=== PATIENT | female | born 1940 | race Caucasian/White ===

== ENCOUNTER 2018-06-28 02:24 | Outpatient (CLI) | payer MEDICARE, OTHER, SELFPAY ==
--- NOTE | 2018-06-28 10:04 | DI.MAMMO_ITS ---
SYMPTOM/DIAGNOSIS: PERSONAL H/O BREAST CA, C50.919 LEFT MAMMOGRAM: Mammograms were interpreted according to the usual protocol including computer analysis with CAD system, tomosynthesis and C view imaging. The patient is status post right mastectomy. The left breast is composed of scattered fibroglandular densities. Breast density, category B. Coarse, benign calcifications are again noted. No suspicious microcalcifications or masses are seen. There has been no change when compared with exams from 2012- 2017. IMPRESSION: Category 2B, negative mammogram with benign findings. Yearly screening mammography is recommended. SA ASSESSMENT OF FINDINGS: Negative. Category 1. Patient will receive a letter notifying them of these results. BI-RADS category B. There are scattered areas of fibroglandular density.
== END 2018-06-28 02:44 ==
PROVIDERS: PCP Family Medicine; Visit Provider Family Medicine
DX: C50.919 Malignant neoplasm of unspecified site of unspecified female breast (principal); Z90.11 Acquired absence of right breast and nipple
CPT/HCPCS: 77063; 77067

== ENCOUNTER 2018-08-07 01:26 | Outpatient (CLI) | payer MEDICARE, OTHER, SELFPAY ==
[2018-08-07] MEDS: Barium Sulfate 60% W/V 355 ML BTL PO (10:05)
--- NOTE | 2018-08-07 10:06 | DI.RAD_ITS ---
SYMPTOMS/DIAGNOSIS: CONSTIPATION DUE TO OUTLET DYSFUNCTION, K59.02 PA AND LATERAL CHEST: Pulmonary hyperinflation is demonstrated. Apical pleural scarring is noted bilaterally. There is no evidence of a mass. There is no evidence of a pleural effusion. A small retrocardiac hiatus hernia is demonstrated. A soft tissue lateral of the neck is unremarkable. BARIUM SWALLOW: The patient swallowed barium without difficulty. The sadaf and hypopharynx are intact. There is no evidence of aspiration, a diverticulum or stricture. There is a 5 cm. irregular stricture involving the distal esophagus just above a small hiatus hernia which may represent scarring secondary to reflux esophagitis. However further evaluation with esophagoscopy is suggested to evaluate the possibility of a malignancy.
== END 2018-08-07 01:46 ==
PROVIDERS: PCP Family Medicine
DX: K59.02 Outlet dysfunction constipation (principal); J98.4 Other disorders of lung; K44.9 Diaphragmatic hernia without obstruction or gangrene; K21.0 Gastro-esophageal reflux disease with esophagitis
CPT/HCPCS: 74220

== ENCOUNTER 2018-09-14 11:24 | Outpatient (CLI) | payer MEDICARE, OTHER, SELFPAY ==
[2018-09-14 13:22] LABS: ALT 28 U/L (12-78); AST 24 U/L (15-37); Albumin 3.8 g/dL (3.4-5.0); Alkaline Phosphatase 115 U/L (46-116); Anion Gap 10.1 mmol/L (3-11); BUN 19 mg/dL (7-18); Bilirubin, Total 0.4 mg/dL (0.2-1.0); CO2 28.9 mmol/L (21.0-32.0); CREATININE 0.74 mg/dL (0.55-1.02); Calcium 9.4 mg/dL (8.5-10.1); Chloride 102 mmol/L (98-107); Cholesterol 303 mg/dL (50-200); Glucose 83 mg/dL (70-100); HDL Cholesterol 103 mg/dL (40-60); LDL CHOLESTEROL 157 mg/dL (<100); Potassium 4.2 mmol/L (3.5-5.1); Sodium 141 mmol/L (136-145); TSH 3.03 uIU/mL (0.358-3.74); Total Protein 7.3 g/dL (6.4-8.2); Triglyceride 194 mg/dL (30-150)
== END 2018-09-14 11:44 ==
PROVIDERS: PCP Family Medicine; Visit Provider Family Medicine
DX: E03.9 Hypothyroidism, unspecified (principal); I10 Essential (primary) hypertension
CPT/HCPCS: 36415; 80053; 80061; 83721; 84443

== ENCOUNTER 2019-02-20 15:05 | Emergency (ER) | payer MEDICARE, OTHER, SELFPAY ==
[2019-02-20 15:10] VITALS: BP 166/82; PULSE 108; RESP 14; TEMP 37.1; O2SAT 100
--- NOTE | 2019-02-20 15:20 | W.ED.GENAD ---
Discharge Plan Disposition Patient Disposition: HOME Condition: Stable Discharge Details Chief Complaint: Nk/Back Pain Clinical Impression: Low back strain Primary Care Provider: Vicky Lopez ED Provider: Rodri Bran Home Meds and New Rx's Prescriptions: No Action MaxiVision 1 cap PO BID RF: 0 lisinopril 10 mg tablet 10 mg PO DAILY Qty: 30 RF: 4 ranitidine HCl [Acid Control (ranitidine)] 150 mg tablet 150 mg PO DAILY Qty: 30 RF: 6 levothyroxine 25 MCG tablet 25 mcg PO DAILY Qty: 90 RF: 3 acetaminophen [Tylenol] 325 MG tablet 650 mg PO q4hrs prn RF: 0 Linzess 72 mcg capsule 72 mcg PO QWEEK RF: 0 Discharge Instructions Instructions: Low Back Strain (ED) Additional Instructions: you can take 1000mg tylenol every 6 hours for pain as needed and 600mg ibuprofen every 6 hours as well if you have new pain such as abdominal pain, fevers, or persistent vomit return to the emergency department Medical Decision Making 79 yo female states 3 weeks or so ago she fell out of her bed and landed on her back, denies loc or hitting her head at that time .She has had lower back pain since and today was dusting, bent down and had increased low back pain. Denies loc or hitting head today. No chest pain, sob, headaches, neck pain, abd pian. She has pain throughout the lumbar region on exam. No saddle anesthesia, full rom of the lower ecxremities with intact sensation, no findings to suggest cauda equina and no infectious symptoms so doubt sea. Had a normal aorta on u/s in 2017 sodoubt aaa. Normal vascular exam so doubt dissection and no abdominal tenderness to suggest intrabdominal pathology. Pain started after a fall and bending over, suspect strain vs fx, will obtain xray xray negative, she feels somewhat better, still reassuring exam. Will have care management meet with pt to arrange home health services pt will be set up with home health PT to increase safety, establish exercise program, improve gait Differential Diagnosis strain contusion fx Imaging Data Radiologic Study: Attestation: I personally reviewed and interpreted this imaging study as follows: Imaging: X-Ray Radiologist's impression: Exam(s) a RAD:XR lumbar spine complete SYMPTOMS/DIAGNOSIS: PAIN S/P FALL LUMBAR SPINE: AP, lateral and bilateral oblique views of the lumbar spine. Comparison is 08/08/16. There is an old compression deformity of T11, which is stable. There is stable mild compression of the superior endplate of T12. There is a stable superior compression fracture deformity of the L2 vertebral body. No new acute fractures or subluxations are seen. The bones appear osteopenic. Mild degenerative changes are seen in the lumbar spine. Vascular calcifications are seen. IMPRESSION: No acute fracture or subluxation. No acute change compared to the prior examination. HPI General Mode of arrival: wheelchair. Date/Time Provider Initiated Documentation: 02/20/19 15:08. Limitations to Documentation: no limitations. Information obtained by: patient and family. History of Present Illness 79 year old F presents to the emergency department with the chief complaint of low back pain, described as moderate, Quality is described as aching, and is localized to the back. Patient reports no radiation. Patient started experiencing this week(s) (3) and it has been constant. No relieving factors improve symptom(s), No exacerbating factors reported . Patient notes no other symptoms.. Patient did receive the following treatments prior to arrival, other (tylenol 500mg around 2pm) Related Data Home Medications Medication Instructions Recorded Confirmed acetaminophen [Tylenol] 650 mg PO q4hrs prn 06/27/14 02/20/19 levothyroxine 25 mcg PO DAILY #90 tab-cap 18 02/20/19 MaxiVision 1 cap PO BID 02/14/19 02/20/19 lisinopril 10 mg tablet 10 mg PO DAILY #30 tab 02/14/19 02/20/19 ranitidine 150 mg tablet 150 mg PO DAILY #30 tab 02/14/19 02/20/19 linaclotide [Linzess] 72 mcg PO QWEEK 02/20/19 Previous Rx's Medication Instructions Recorded levothyroxine 25 mcg PO DAILY #90 tab-cap 04/18/18 lisinopril 10 mg tablet 10 mg PO DAILY #30 tab 02/14/19 ranitidine 150 mg tablet 150 mg PO DAILY #30 tab 02/14/19 Allergies Allergy/AdvReac Type Severity Reaction Status Date / Time Penicillins Allergy Severe hives Unverified 02/20/19 15:15 polyethylene glycol 3350 Allergy Severe rash all Unverified 02/20/19 15:15 [From Miralax] over cefazolin Allergy Unknown Unverified 02/20/19 15:15 General Stated Complaint: Nk/Back Pain HANS: 3 Review of Systems Review of Systems All systems reviewed & are unremarkable except as noted in HPI and below Constitutional Denies chills, Denies fever(s) and Denies weakness ENT Denies change in voice Cardiovascular Denies chest pain and Denies dyspnea Respiratory Denies dyspnea Gastrointestinal Denies abdominal pain, Denies nausea and Denies vomiting Integumentary/Breasts Denies rash Neurologic Denies weakness Psychiatric Denies depression [facility] Medical History Barretts esophagus Breast cancer C. difficile enteritis Colitis Colon stricture Depression Hypertension Hypothyroid Irritable bowel syndrome Malnutrition Osteoporosis Surgical History Breast, Mastectomy Bilateral Colectomy (~05/2014) Laparotomy (06/08/14) colostomy reversal Family History Mother Essential hypertension Father Personal history of malignant neoplasm Brother No problems noted. Grandfather No problems noted. Grandfather No problems noted. Grandmother No problems noted. Grandmother No problems noted. Sister No problems noted. Sister No problems noted. Social History Smoking/Tobacco Use Status: Former Tobacco Use Alcohol Intake: never Drug use: Never Do you feel safe at home: Yes Do you feel safe in your relationship?: Yes Exam Const General: no acute distress Orientation: alert HENCT Head: normal to inspection Ears: external ears normal General nose exam: external nose normal Mouth: moist mucous membranes Eyes General: appearance normal, both eyes and all related structures Neck Neck: normal visual inspection Resp Effort & Inspection: normal respiratory effort and able to speak in complete sentences Cardio Rate: regular rate Back/Spine/Pelvis Back: no CVA tenderness Skin General skin exam: no rashes or lesions noted Neuro General: alert and oriented x3 Extrem General: normal to inspection Psych Mental Status: mental status grossly normal Course Vital Signs Temperature 37.1 C 02/20/19 15:10 Pulse 108 H 02/20/19 15:10 Respiratory Rate 14 02/20/19 15:10 Blood Pressure 166/82 H 02/20/19 15:10 Pulse Oximetry 100 02/20/19 15:10 Temperature 37.1 C 02/20/19 15:10 Temperature Source Temporal Artery Scan 02/20/19 15:10 Pulse 108 H 02/20/19 15:10 Respiratory Rate 14 02/20/19 15:10 Respiratory Effort Non-Labored 02/20/19 15:14 Blood Pressure 166/82 H 02/20/19 15:10 Blood Pressure Position Sitting 02/20/19 15:10 Pulse Oximetry 100 02/20/19 15:10 Oxygen Delivery Method Room Air 02/20/19 15:10 Oxygen Flow Rate 0 02/20/19 15:10 Pain Level 10 02/20/19 15:10
--- NOTE | 2019-02-20 15:23 | ED.GENADUL_ITS ---
Discharge Plan Disposition Patient Disposition: HOME Condition: Stable Discharge Details Chief Complaint: Nk/Back Pain Clinical Impression: Low back strain Primary Care Provider: Vicky Lopez ED Provider: Rodri Bran Home Meds and New Rx's Prescriptions: No Action MaxiVision 1 cap PO BID RF: 0 lisinopril 10 mg tablet 10 mg PO DAILY Qty: 30 RF: 4 ranitidine HCl [Acid Control (ranitidine)] 150 mg tablet 150 mg PO DAILY Qty: 30 RF: 6 levothyroxine 25 MCG tablet 25 mcg PO DAILY Qty: 90 RF: 3 acetaminophen [Tylenol] 325 MG tablet 650 mg PO q4hrs prn RF: 0 Linzess 72 mcg capsule 72 mcg PO QWEEK RF: 0 Discharge Instructions Instructions: Low Back Strain (ED) Additional Instructions: you can take 1000mg tylenol every 6 hours for pain as needed and 600mg ibuprofen every 6 hours as well if you have new pain such as abdominal pain, fevers, or persistent vomit return to the emergency department Medical Decision Making 79 yo female states 3 weeks or so ago she fell out of her bed and landed on her back, denies loc or hitting her head at that time .She has had lower back pain since and today was dusting, bent down and had increased low back pain. Denies loc or hitting head today. No chest pain, sob, headaches, neck pain, abd pian. She has pain throughout the lumbar region on exam. No saddle anesthesia, full rom of the lower ecxremities with intact sensation, no findings to suggest cauda equina and no infectious symptoms so doubt sea. Had a normal aorta on u/s in 2017 sodoubt aaa. Normal vascular exam so doubt dissection and no abdominal tenderness to suggest intrabdominal pathology. Pain started after a fall and bending over, suspect strain vs fx, will obtain xray xray negative, she feels somewhat better, still reassuring exam. Will have care management meet with pt to arrange home health services pt will be set up with home health PT to increase safety, establish exercise program, improve gait Differential Diagnosis strain contusion fx Imaging Data Radiologic Study: Attestation: I personally reviewed and interpreted this imaging study as follows: Imaging: X-Ray Radiologist's impression: Exam(s) a RAD:XR lumbar spine complete SYMPTOMS/DIAGNOSIS: PAIN S/P FALL LUMBAR SPINE: AP, lateral and bilateral oblique views of the lumbar spine. Comparison is 08/08/16. There is an old compression deformity of T11, which is stable. There is stable mild compression of the superior endplate of T12. There is a stable superior compression fracture deformity of the L2 vertebral body. No new acute fractures or subluxations are seen. The bones appear osteopenic. Mild degenerative changes are seen in the lumbar spine. Vascular calcifications are seen. IMPRESSION: No acute fracture or subluxation. No acute change compared to the prior examination. HPI General Mode of arrival: wheelchair . Date/Time Provider Initiated Documentation: 02/20/19 15:08 . Limitations to Documentation: no limitations . Information obtained by: patient and family . History of Present Illness 79 year old F presents to the emergency department with the chief complaint of low back pain, described as moderate, Quality is described as aching, and is localized to the back. Patient reports no radiation. Patient started experiencing this week(s) (3) and it has been constant. No relieving factors improve symptom(s), No exacerbating factors reported . Patient notes no other symptoms.. Patient did receive the following treatments prior to arrival, other (tylenol 500mg around 2pm) Related Data Home Medications Medication Instructions Recorded Confirmed acetaminophen [Tylenol] 650 mg PO q4hrs prn 06/27/14 02/20/19 levothyroxine 25 mcg PO DAILY #90 tab-cap 18 02/20/19 MaxiVision 1 cap PO BID 02/14/19 02/20/19 lisinopril 10 mg tablet 10 mg PO DAILY #30 tab 02/14/19 02/20/19 ranitidine 150 mg tablet 150 mg PO DAILY #30 tab 02/14/19 02/20/19 linaclotide [Linzess] 72 mcg PO QWEEK 02/20/19 Previous Rx's Medication Instructions Recorded levothyroxine 25 mcg PO DAILY #90 tab-cap 04/18/18 lisinopril 10 mg tablet 10 mg PO DAILY #30 tab 02/14/19 ranitidine 150 mg tablet 150 mg PO DAILY #30 tab 02/14/19 Allergies Allergy/AdvReac Type Severity Reaction Status Date / Time Penicillins Allergy Severe hives Unverified 02/20/19 15:15 polyethylene glycol 3350 Allergy Severe rash all Unverified 02/20/19 15:15 [From Miralax] over cefazolin Allergy Unknown Unverified 02/20/19 15:15 General Stated Complaint: Nk/Back Pain HANS: 3 Review of Systems Review of Systems All systems reviewed & are unremarkable except as noted in HPI and below Constitutional Denies chills, Denies fever(s) and Denies weakness ENT Denies change in voice Cardiovascular Denies chest pain and Denies dyspnea Respiratory Denies dyspnea Gastrointestinal Denies abdominal pain, Denies nausea and Denies vomiting Integumentary/Breasts Denies rash Neurologic Denies weakness Psychiatric Denies depression [facility] Medical History Barretts esophagus Breast cancer C. difficile enteritis Colitis Colon stricture Depression Hypertension Hypothyroid Irritable bowel syndrome Malnutrition Osteoporosis Surgical History Breast, Mastectomy Bilateral Colectomy (~05/2014) Laparotomy (06/08/14) colostomy reversal Family History Mother Essential hypertension Father Personal history of malignant neoplasm Brother No problems noted. Grandfather No problems noted. Grandfather No problems noted. Grandmother No problems noted. Grandmother No problems noted. Sister No problems noted. Sister No problems noted. Social History Smoking/Tobacco Use Status: Former Tobacco Use Alcohol Intake: never Drug use: Never Do you feel safe at home: Yes Do you feel safe in your relationship?: Yes Exam Const General: no acute distress Orientation: alert HENNV Head: normal to inspection Ears: external ears normal General nose exam: external nose normal Mouth: moist mucous membranes Eyes General: appearance normal, both eyes and all related structures Neck Neck: normal visual inspection Resp Effort & Inspection: normal respiratory effort and able to speak in complete sentences Cardio Rate: regular rate Back/Spine/Pelvis Back: no CVA tenderness Skin General skin exam: no rashes or lesions noted Neuro General: alert and oriented x3 Extrem General: normal to inspection Psych Mental Status: mental status grossly normal Course Vital Signs Temperature 37.1 C 02/20/19 15:10 Pulse 108 H 02/20/19 15:10 Respiratory Rate 14 02/20/19 15:10 Blood Pressure 166/82 H 02/20/19 15:10 Pulse Oximetry 100 02/20/19 15:10 Temperature 37.1 C 02/20/19 15:10 Temperature Source Temporal Artery Scan 02/20/19 15:10 Pulse 108 H 02/20/19 15:10 Respiratory Rate 14 02/20/19 15:10 Respiratory Effort Non-Labored 02/20/19 15:14 Blood Pressure 166/82 H 02/20/19 15:10 Blood Pressure Position Sitting 02/20/19 15:10 Pulse Oximetry 100 02/20/19 15:10 Oxygen Delivery Method Room Air 02/20/19 15:10 Oxygen Flow Rate 0 02/20/19 15:10 Pain Level 10 02/20/19 15:10
[2019-02-20] MEDS: Ibuprofen 600 MG TAB PO (15:24)
[2019-02-20] MEDS: Acetaminophen 500 MG TAB PO (15:24)
[2019-02-20 15:50] VITALS: BP 149/83; PULSE 94; RESP 16; TEMP 37.4; O2SAT 97
--- NOTE | 2019-02-20 15:50 | DI.RAD_ITS ---
SYMPTOMS/DIAGNOSIS: PAIN S/P FALL LUMBAR SPINE: AP, lateral and bilateral oblique views of the lumbar spine. Comparison is 08/08/16. There is an old compression deformity of T11, which is stable. There is stable mild compression of the superior endplate of T12. There is a stable superior compression fracture deformity of the L2 vertebral body. No new acute fractures or subluxations are seen. The bones appear osteopenic. Mild degenerative changes are seen in the lumbar spine. Vascular calcifications are seen. IMPRESSION: No acute fracture or subluxation. No acute change compared to the prior examination.
--- NOTE | 2019-02-20 17:12 | PDOC.ERCMPRO ---
- If Service Date Differs Date of service: 02/20/19 Time of Service: 17:12 Care Management Progress Note CM met with Amelia in the ED, her two sisters are also present. Amelia states she has had two falls in the last few weeks. She states a few weeks ago she awoke on the floor next to her bed. She does not remember how she ended up there. Then today she presents to the ED after she was unable to get up from the floor due to back pain. She has recently been started on Linzess which she feels has caused increase in loose stools and urgency. She is unsure if this is contributing to her low back pain. She did see her primary care provider this week. Amelia lives with her sister in [place], [place]. She has a walker at home and her sister has a commode that she can use. Amelia does not drive and only leaves the home when her sister takes her out. Amelia is agreeable to home health PT for weakness and strengthening. She will follow up with as outpatient. CM faxed referral to home health for new services and reviewed benefits with the patient. CM requested a PT consult in the ED however service is not available. MARIAN reviewed plan with primary nurse who will assess Amelia for mobility prior to discharge.
[2019-02-20 17:22] VITALS: BP 154/78; PULSE 97; RESP 18; TEMP 37.1; O2SAT 96
== END 2019-02-20 17:26 | disposition home or self-care (01) ==
PROVIDERS: Emergency Provider Emergency Medicine; PCP Family Medicine
DX: S39.012A Strain of muscle, fascia and tendon of lower back, initial encounter (principal); W06.XXXA Fall from bed, initial encounter; I10 Essential (primary) hypertension
CPT/HCPCS: 99283; 72110; 99282

== ENCOUNTER 2019-06-13 10:21 | Outpatient (CLI) | payer MEDICARE, OTHER, SELFPAY ==
[2019-06-13 12:45] LABS: Bilirubin Negative (Negative); Blood Trace-intact (Negative); Clarity Turbid (Clear); Glucose Negative (Negative); Ketones Negative (Negative); Leukocyte Esterase Moderate (Negative); Nitrite Positive (Negative); Urobilinogen 0.2 EU/dL (Up TO 0.2)
[2019-06-13 13:11] LABS: Bacteria Many HPF (Negative); C & S Indicated? Yes; Casts Negative LPF (Negative); Crystals Negative HPF (Negative); Epithelial Cells Rare HPF (Negative); Mucus Negative (Negative); RBC 0-2 (0-2); WBC >50 HPF (0-5)
[2019-06-13 13:14] LABS: ALT 26 U/L (12-78); AST 18 U/L (15-37); Albumin 3.7 g/dL (3.4-5.0); Alkaline Phosphatase 106 U/L (46-116); Anion Gap 10.7 mmol/L (3-11); BUN 13 mg/dL (7-18); Bilirubin, Total 0.3 mg/dL (0.2-1.0); CO2 28.3 mmol/L (21.0-32.0); CREATININE 0.72 mg/dL (0.55-1.02); Calcium 9.3 mg/dL (8.5-10.1); Chloride 105 mmol/L (98-107); Glucose 95 mg/dL (70-100); Potassium 4.1 mmol/L (3.5-5.1); Sodium 144 mmol/L (136-145); TSH 2.69 uIU/mL (0.36-3.74)
== END 2019-06-13 10:41 ==
PROVIDERS: PCP Family Medicine; Visit Provider Family Medicine
DX: I10 Essential (primary) hypertension (principal); E03.9 Hypothyroidism, unspecified; R35.0 Frequency of micturition
CPT/HCPCS: 36415; 80053; 87077; 81003; 81015; 84443; 87086; 87186

== ENCOUNTER 2019-07-29 01:04 | Outpatient (CLI) | payer MEDICARE, OTHER, SELFPAY ==
--- NOTE | 2019-07-29 13:21 | DI.MAMMO_ITS ---
EXAM: MG MAMMO SCREENING 60 MIN DUR CLINICAL HISTORY: status post (R) breast cancer tx with surgery 1994, screening, Z12.39. TECHNIQUE: Mammograms were interpreted according to the usual protocol including computer analysis with CAD system, tomosynthesis and C-view imaging. FINDINGS: Patient has had a prior right mastectomy. Left breast mammogram was obtained and shows moderate radio density of the breast. No mass or clumped microcalcification seen. No change in appearance in compari son with previous examinations including June 2018. IMPRESSION: No specific evidence of malignancy at this time. Routine screening examinations are suggested at year ly intervals due to the history of breast carcinoma. Category 1. Breast density, category B. BI-RADS Cat 1 - Negative. Breast Density - Category B - Scattered areas of fibroglandular density.
== END 2019-07-29 01:24 ==
PROVIDERS: PCP Family Medicine; Visit Provider Family Medicine
DX: Z12.31 Encounter for screening mammogram for malignant neoplasm of breast (principal); Z85.3 Personal history of malignant neoplasm of breast; Z90.11 Acquired absence of right breast and nipple
CPT/HCPCS: 77063; 77067

== ENCOUNTER 2019-10-10 14:32 | Inpatient (IN) | payer MEDICARE, OTHER, SELFPAY ==
[2019-10-10] VITALS (47 sets, daily range): BP systolic 101–168; BP diastolic 46–120; PULSE 73–110; RESP 18–20; TEMP 36.5; O2SAT 89–100
--- NOTE | 2019-10-10 15:10 | W.ED.GENAD ---
Discharge Plan Disposition Patient Disposition: [facility] INPATIENT Condition: Stable Discharge Details Chief Complaint: Orthopedic Clinical Impression: Closed hip fracture Primary Care Provider: Vicky Lopez ED Provider: Geoff Mendoza Home Meds and New Rx's Prescriptions: No Action loperamide [Anti-Diarrheal (loperamide)] 2 mg capsule 2 mg PO Q4H PRNRF: 0 losartan 50 mg tablet 50 mg PO DAILY Qty: 90 RF: 4 MaxiVision 1 cap PO BID RF: 0 dicyclomine 10 mg capsule 10 mg PO TID PRN (Reason: IBS) Qty: 30 RF: 2 levothyroxine 25 mcg tablet 25 mcg PO DAILY Qty: 90 RF: 3 acetaminophen [Tylenol] 325 MG tablet 650 mg PO q4hrs prn RF: 0 Linzess 72 mcg capsule 72 mcg PO QWEEK RF: 0 Medical Decision Making 79-year-old female status post fall with right trochanteric fracture mildly displaced discussed with Dr. Mathis for surgery and admission. Will check labs chest x-ray and EKG and admit to internal medicine. 5:21 PM left low pending chest x-ray remarkable for hiatal hernia versus mass with some lymph nodes noted on V rad read will obtain routine CT chest for further characterization . EKG regular sinus rhythm rate of 84 normal axis normal intervals no ST depression or elevation no ectopy. 6:28 PM anesthesia care for a fascia iliac a block for hip pain control CT chest for further characterization x-ray abnormalities pending labs remarkable only for a mild leukocytosis above mild anemia 10 to admit the patient to internal medicine plan for orthopedic surgery tomorrow Dr. Leone accepts the patient for admission. HPI 79-year-old female past medical history of breast cancer depression hypertension hypothyroidism irritable bowel syndrome ambulatory dysfunction uses a walker at home reports that she lost her balance and fell in the kitchen approximately an hour before arrival and is complaining of left hip and femur pain. Patient unsure of head trauma but denies loss of consciousness shortness of breath chest pain nausea vomiting diarrhea fever or chills. Patient denies recent illness or recent trauma. Pain is acute sharp to left hip and femur radiating down to her knee. Is worse with movement better with rest patient given 4 mg of Zofran and 2 doses of 50 mcg of fentanyl prehospital. General Date/Time Provider Initiated Documentation: 10/10/19 14:38. Related Data Home Medications Medication Instructions Recorded Confirmed acetaminophen [Tylenol] 650 mg PO q4hrs prn 06/27/14 10/10/19 MaxiVision 1 cap PO BID 02/14/19 10/10/19 linaclotide [Linzess] 72 mcg PO QWEEK 02/20/19 10/10/19 loperamide 2 mg capsule 2 mg PO Q4H PRN 06/13/19 10/10/19 losartan 50 mg tablet 50 mg PO DAILY #90 tab 06/17/19 10/10/19 levothyroxine 25 mcg tablet 25 mcg PO DAILY #90 tab-cap 07/12/19 10/10/19 dicyclomine 10 mg capsule 10 mg PO TID PRN #30 cap 08/26/19 10/10/19 Previous Rx's Medication Instructions Recorded losartan 50 mg tablet 50 mg PO DAILY #90 tab 06/17/19 levothyroxine 25 mcg tablet 25 mcg PO DAILY #90 tab-cap 07/12/19 dicyclomine 10 mg capsule 10 mg PO TID PRN #30 cap 08/26/19 Allergies Allergy/AdvReac Type Severity Reaction Status Date / Time Penicillins Allergy Severe hives Unverified 10/10/19 14:45 polyethylene glycol 3350 Allergy Severe rash all Unverified 10/10/19 14:45 [From Miralax] over cefazolin Allergy Unknown Unverified 10/10/19 14:45 General Stated Complaint: Orthopedic HANS: 3 Review of Systems All systems reviewed & are unremarkable except as noted in HPI and below PFSH Family History (Updated 06/20/19 @ 11:14 by Lencho Ramírez) Mother , 84 Essential hypertension COPD (chronic obstructive pulmonary disease) Father , 51 Stomach cancer Brother No problems noted. Maternal Grandfather No problems noted. Paternal Grandfather No problems noted. Maternal Grandmother No problems noted. Paternal Grandmother No problems noted. Sister No problems noted. Sister No problems noted. Social History (Updated 06/20/19 @ 11:12 by Lencho Ramírez) Smoking/Tobacco Use Status: Former Tobacco Use Tobacco: How many years used: 20 Alcohol Intake: never Drug use: Never Pets and animals: No Current gender identity: decline to answer What is your relationship status?: never How often do you talk on the phone with friends or family?: decline to answer How often do you get together with friends or relatives?: decline to answer How often do you attend yazidism or jehovah's witness services?: decline to answer Do you belong to any clubs or organized social groups?: decline to answer Panel score (0-1 are the most socially isolated patients): 0 What type of physical activity do you participate in: decline to answer Duration: decline to answer Frequency: decline to answer Leslie/Anabaptist: No preference Special leslie needs: No Seatbelt use: always Do you feel safe at home: Yes Exam Narrative Exam Narrative: Pulse oximetry reviewed by me and is normal [] Constitutional: Pt is in no acute distress. pt is well appearing. oriented to person, place, and time. Eyes: conjunctivae are normal. Pupils are equal, round, and reactive to light. No scleral icterus. extraocular muscles are intact Ears/Nose/Mouth/Throat: mucus membranes are moist. Musculoskeletal: neck is supple. normal range of motion in all extremities except left hip with intense pain and shortening with over left trochanter. No skin tenting no skin breakdown no erythema no warmth. Normal distal vascular exam. Cardiovascular: Normal rate and rhythm. No lower extremity edema [] Respiratory: effort is normal . pt exhibits no stridor or respiratory distress. [] GastrointestinaI: abdomen soft, +BS, nontender, -rebound, -guarding. Neurological: alert and oriented to person, place, and time. he has normal strength, no tremor. Skin: Skin is warm and dry. he is not diaphoretic. Distal perfusion in tact, warm extremities, cap refill ? 2 seconds. Hem/Lymph/Imm: No cervical LAD, no goiter, no conjunctival pallor Psych: normal mood and affect. behavior is normal Triage and nurse notes reviewed.[] Course Vital Signs Vital signs: Vital Signs Temperature 36.5 C 10/10/19 14:40 Pulse 73 10/10/19 14:40 Respiratory Rate 18 10/10/19 14:40 Blood Pressure 117/46 L 10/10/19 14:40 Pulse Oximetry 92 L 10/10/19 14:40 Temperature 36.5 C 10/10/19 14:40 Temperature Source Skin 10/10/19 14:40 Pulse 73 10/10/19 14:40 Respiratory Rate 18 10/10/19 14:40 Respiratory Effort Non-Labored 10/10/19 14:44 Blood Pressure 117/46 L 10/10/19 14:40 Blood Pressure Position Supine 10/10/19 14:40 Pulse Oximetry 92 L 10/10/19 14:40 Oxygen Delivery Method Room Air 10/10/19 14:40 Oxygen Flow Rate 0 10/10/19 14:40 Pain Level 5 10/10/19 14:40
--- NOTE | 2019-10-10 15:33 | DI.CT_ITS ---
EXAM: CT HEAD CERVICAL SPINE WO CLINICAL HISTORY: fall TECHNIQUE: COMPARISON: HEAD WITHOUT CONTRAST from 04/15/2018 FINDINGS: CT examination cervical spine lies in multi slice acquisition. Images obtained through the lung apic es show some pleural thickening. No cervical spine fracture seen. Marked degenerative changes not ed. No evidence of dislocation. Tracheolaryngeal structures appear intact. No cervical mass or jo nopathy. Noncontrast cranial CT was performed.there is marked generalized cerebral atrophy and there are patch y areas of decreased attenuation in periventricular white matter consistent with microvascular ischem ic change. No evidence of acute intracranial hemorrhage mass effect or midline shift. The paranasal s inuses and mastoid air cells are clear. The orbital and temporal bone structures appear intact. IMPRESSION: No evidence of acute intracranial injury. No evidence of acute cervical spine fracture.
--- NOTE | 2019-10-10 15:49 | DI.RAD_ITS ---
EXAM: XR PELVIS AP CLINICAL HISTORY: fall TECHNIQUE: COMPARISON: No exams were available for comparison FINDINGS: Single AP view of the pelvis was obtained. There is mildly comminuted intertrochanteric fracture of the left femur with avulsion of the lesser trochanter and marked varus angulation. No additional fra cture seen on this AP view. IMPRESSION:
--- NOTE | 2019-10-10 15:51 | DI.RAD_ITS ---
EXAM: XR FEMUR LT CLINICAL HISTORY: fall TECHNIQUE: COMPARISON: No exams were available for comparison FINDINGS: Four views were obtained. There is a comminuted intertrochanteric fracture of femur with avulsion of the lesser trochanter. There is marked varus angulation the fracture site. No additional femoral f racture seen. IMPRESSION:
--- NOTE | 2019-10-10 15:58 | DI.RAD_ITS ---
EXAM: XR CHEST 1V IN DI DEPT CLINICAL HISTORY: pre op COMPARISON: RF barium swallow from 08/07/2018 FINDINGS: Supine AP view was obtained. There is mild cardiomegaly. Question radiodensity overlying inferior m ediastinum, possible hiatal hernia but mediastinal mass not excluded. Additional evaluation with [facility] st CT recommended. Additionally there are multiple questionable faint intrapulmonary nodules project ed over the upper lung sutton bilaterally, chest CT is also indicated for evaluation of this finding . IMPRESSION: Question intrapulmonary nodules, question mediastinal mass versus heart hiatal hernia. Chest CT uzair mmended.
--- NOTE | 2019-10-10 16:11 | DI.VRAD_ITS ---
PROCEDURE INFORMATION: Exam: XR Left Femur Exam date and time: 10/10/2019 4:04 PM Age: 79 years old Clinical indication: Other: Fall TECHNIQUE: Imaging protocol: XR Left femur. Views: 2 views. COMPARISON: No relevant prior studies available. FINDINGS: Bones/joints: Acute trochanteric fracture with mild angulation. Avulsion of the lesser trochanter. Soft tissues: Unremarkable. IMPRESSION: Acute trochanteric fracture with mild angulation. Avulsion of the lesser trochanter. Dictated and Authenticated by: Vanessa Beasley MD. Ordering:JOSELIN Tellez MD
--- NOTE | 2019-10-10 16:12 | DI.VRAD_ITS ---
PROCEDURE INFORMATION: Exam: XR Chest, 1 View Exam date and time: 10/10/2019 4:03 PM Age: 79 years old Clinical indication: Other: Fall TECHNIQUE: Imaging protocol: XR of the chest Views: 1 view. COMPARISON: SC CHEST 2 VIEWS PA,LAT 04/15/2018 3:09 PM FINDINGS: Lungs: Multiple bilateral vague nodules in the upper lung sutton measuring up to 7 mm. The supervision evaluate further with CT. Pleural space: Unremarkable. No pleural effusion. No pneumothorax. Heart/Mediastinum: Large masslike structure overlying the heart and left base of unclear etiology. This could represent an enlarged cardiac chamber, large hiatal hernia or mass. Consider CT for further evaluation. Bones/joints: Unremarkable. IMPRESSION: Large masslike structure overlying the heart and left base of unclear etiology. This could represent an enlarged cardiac chamber, large hiatal hernia or mass. Consider CT for further evaluation. Multiple bilateral vague nodules in the upper lung sutton measuring up to 7 mm. The supervision evaluate further with CT. Dictated and Authenticated by: Vanessa Beasley MD. Ordering:JOSELIN Tellez MD
--- NOTE | 2019-10-10 16:13 | DI.VRAD_ITS ---
PROCEDURE INFORMATION: Exam: XR Pelvis Exam date and time: 10/10/2019 4:02 PM Age: 79 years old Clinical indication: Other: Fall TECHNIQUE: Imaging protocol: XR pelvis. Views: 1 or 2 view. COMPARISON: No relevant prior studies available. FINDINGS: Bones/joints: Acute left intertrochanteric fracture with avulsion of the lesser trochanter. There is associated angulation. Soft tissues: Unremarkable. IMPRESSION: Acute left intertrochanteric fracture with avulsion of the lesser trochanter. There is associated angulation. Dictated and Authenticated by: Vanessa Beasley MD. Ordering:JOSELIN Tellez MD
[2019-10-10 17:27] LABS: Abs Immature Grans 0.02 k/cumm (0.0-0.09); Absolute Basophil Count 0.01 k/cumm (0.0-0.2); Absolute Eosinophil Count 0.01 k/cumm (0.0-0.7); Absolute Lymphocyte Count 0.92 k/cumm (1.2-3.4); Absolute Monocyte Count 0.41 k/cumm (0.11-0.7); Absolute Neutrophil Count 10.93 k/cumm (1.2-6.7); Basophils % 0.1; Eosinophils % 0.1; HCT 35.6 % (36.0-46.0); HGB 11.4 g/dL (12.0-15.5); Immature Grans % 0.2; Lymphocytes % 7.5; Mean Corpuscular Hemoglobin 28.5 pg (27.0-33.0); Mean Platelet Volume 10.4 fL (8.0-11.0); Monocytes % 3.3; Neutrophils % 88.8; Platelet Count 247 x1000/uL (130-400); RBC Distribution Width 14.7 % (11.7-14.6); White Blood Cell Count 12.31 k/cumm (4.4-10.8)
[2019-10-10 17:40] LABS: ALT 20 U/L (14-59); AST 20 U/L (15-37); Albumin 3.3 g/dL (3.4-5.0); Alkaline Phosphatase 112 U/L (46-116); Anion Gap 9.3 mmol/L (3-11); BUN 20 mg/dL (7-18); Bilirubin, Total 0.3 mg/dL (0.2-1.0); CO2 28.7 mmol/L (21.0-32.0); CREATININE 0.66 mg/dL (0.55-1.02); Calcium 8.9 mg/dL (8.5-10.1); Chloride 104 mmol/L (98-107); Glucose 117 mg/dL (74-106); Magnesium 1.8 mg/dL (1.8-2.4); Potassium 3.8 mmol/L (3.5-5.1); Sodium 142 mmol/L (136-145); Total Protein 7.2 g/dL (6.4-8.2)
[2019-10-10] MEDS: ACETAMINOPHEN 1,000 MG/100 ML BTL 400 MG IVPB ×2 (17:55→23:58)
[2019-10-10] MEDS: Bupivacaine LIPOSOME/PF 133 MG/10 ML VIAL IJ (18:15)
[2019-10-10 18:16] LABS: Bilirubin Negative (Negative); Blood Trace-intact (Negative); Clarity Clear (Clear); Glucose Negative (Negative); Ketones Trace mg/dL (Negative); Leukocyte Esterase Negative (Negative); Nitrite Negative (Negative); Urobilinogen 0.2 EU/dL (Up TO 0.2)
[2019-10-10] MEDS: Lactated Ringers 1,000 ML 1000 ML IV (18:24)
[2019-10-10 18:28] LABS: Bacteria Few HPF (Negative); C & S Indicated? No; Casts Negative LPF (Negative); Crystals Negative HPF (Negative); Epithelial Cells Few HPF (Negative); Mucus Moderate (Negative); WBC 0-2 HPF (0-5)
[2019-10-10] MEDS: Bupivacaine 0.25% Pres-Free 30 ML VIAL (18:40)
[2019-10-10] MEDS: Omnipaque 350 MG/ML 100 ML BTL IJ (19:06)
--- NOTE | 2019-10-10 19:10 | DI.CT_ITS ---
EXAM: CT CHEST PE CTA CLINICAL HISTORY: Abnormal chest x-ray TECHNIQUE: CT angiography of the chest was performed with a bolus infusion of 100 cc Omnipaque 350. Ax[address] angiography was performed with multi-slice acquisition and multi-planar and/or 3D reconstruc tions. COMPARISON: ABD PELVIS WITH CONTRAST from 11/19/2015 FINDINGS: Note is made of vertebral body anterior compression fractures at T3 and T11 which are of uncertain age. Images obtained through the upper abdomen show presumed hepatic and renal cysts and otherwise u nremarkable appearance of kidneys, spleen, liver and pancreas as visualized. No evidence of pulmonary embolic disease. No significant abnormality of thoracic aorta or major bran ches. There is an 8 millimeter in diameter left upper lobe noncalcified pulmonary nodule. Areas of associated pleural thickening are noted as well and this finding could be associated with acute conso lidative process. Neoplastic disease not excluded. Follow-up chest CT requested in 2-3 weeks to re- evaluate this area and if the findings do not resolve, close follow-up or PET-CT should be considered to exclude neoplastic disease. Otherwise lungs are grossly clear with mild dependent atelectasis. No mediastinal or hilar adenopath y. No significant pleural effusion. Large paraesophageal hiatal hernia noted. IMPRESSION: No evidence of pulmonary embolic disease. 8 millimeter left upper lobe intrapulmonary nodule with associated pleural radiodensities, infectious versus neoplastic process. Follow-up chest CT recommended in 2-3 weeks and if the findings do not r esolve, additional evaluation with a PET CT or close CT follow-up would be recommended.
--- NOTE | 2019-10-10 19:24 | DI.VRAD_ITS ---
PROCEDURE INFORMATION: Exam: CT Angiography Chest With Contrast Exam date and time: 10/10/2019 4:39 PM Age: 79 years old Clinical indication: Abnormal findings; Abnormal radiologic exam of lung or chest TECHNIQUE: Imaging protocol: Computed tomographic angiography of the chest with intravenous contrast. 3D rendering: MIP and/or 3D reconstructed images were created by the technologist. Radiation optimization: All CT scans at this facility use at least one of these dose optimization techniques: automated exposure control; mA and/or kV adjustment per patient size (includes targeted exams where dose is matched to clinical indication); or iterative reconstruction. Contrast material: [id number]; Contrast volume: 61 ml; Contrast route: IV RTAC 18G; COMPARISON: XR CHEST 1V IN DI DEPT 10/10/2019 3:58 PM FINDINGS: Pulmonary arteries: Pulmonary arteries opacify well without evidence of embolism. Aorta: Unremarkable. No aortic aneurysm. No aortic dissection. Lungs: Left upper lobe lung nodule noncalcified measuring 7 mm. This is located posterolaterally adjacent to the superior aspect of the oblique fissure. Significance is uncertain. Correlation with clinical history of neoplasm is recommended. Follow-up surveillance may be warranted. Additionally, patient is noted to have some apical lung scarring and mild to moderate Pleural space: See Lungs Finding. Heart: Unremarkable. No cardiomegaly. No pericardial effusion. Mediastinum: Moderate size paraesophageal hernia. Liver: Multiple right hepatic low-attenuation foci most consistent with cysts. Largest is 3.6 cm. Pancreas: Pancreatic atrophy is noted. No focal pancreatic lesions. Kidneys and ureters: Left renal upper pole 3.3 cm low-attenuation process suggesting a cyst. Lymph nodes: Unremarkable. No enlarged lymph nodes. Bones/joints: Thoracic spine showing chronic appearing T11 and T3 anterior wedge compression fractures. Emphysematous change. Soft tissues: Coarse calcifications in the right lateral breast have benign appearance by CT.. IMPRESSION: 1. No evidence of pulmonary embolism. 2. Moderately sized paraesophageal hernia. 3. Emphysematous lung changes. 4. Left upper lobe 7 mm noncalcified nodule. Follow-up surveillance CT may be warranted. 5. Hepatic and renal cysts. Dictated and Authenticated by: Bautista Conde MD. Ordering:JOSELIN Tellez MD
[2019-10-10] MEDS: MORPHine 2 MG/ML SYR (20:36)
--- NOTE | 2019-10-10 21:45 | HPE_ITS ---
Date of service: 10/10/19 Time of Service: 21:45 Assessment and Plan Assessment and plan (1) Intertrochanteric fracture of left femur: Status: Acute Assessment and plan: Patient is medically stable and acceptable risk for operative repair of her intertrochanteric fracture. I have discussed her case with Dr. Mathis he plans to perform open reduction internal fixation tomorrow. Qualifiers: Encounter type: initial encounter Fracture type: closed Fracture align ment: displaced Qualified Code(s): S72.142A - Displaced intertrochanteric fracture of left femur, initial encounter for closed fracture (2) Hypothyroidism: Status: Acute Assessment and plan: Continue her home dose of levothyroxine 25 mcg daily. Her last TSH was checked June 13, 2019 and was acceptable at 2.69 Qualifiers: Hypothyroidism type: unspecified Qualified Code(s): E03.9 - Hypothyroidism, unspecified (3) Barretts esophagus: Status: Chronic Qualifiers: Minaya's esophagus type: without dysplasia Qualified Code(s): K22.70 - Minaya's esophagus without dysplasia (4) Hypertension: Status: Chronic Assessment and plan: We will continue her losartan 50 mg daily. While she is n.p.o. for her surgery if she needs acute treatment for hypertension we could give her IV Vasotec. (5) Incidental lung nodule, > 3mm and < 8mm: Status: Acute Assessment and plan: In the ER personnel's work-up of her abnormal chest x-ray a CT scan of her chest was performed and confirmed that the masslike structure overlying the heart and left lung base was actually her hiatal hernia. However an incidental finding included a left upper lobe 7 mm noncalcified nodule. I explained to the patient that she will need surveillance CT scan to make sure that this nodule is not growing in size particularly given her history of breast cancer as well as her significant [id number] smoking history. I recommended a repeat CT scan of the chest in 3 to 6 months. (6) Osteoporosis: Status: Chronic Assessment and plan: Patient has a diagnosis of osteoporosis on her chart but I do not see her on any medications to improve her bone density. Given her history of hiatal hernia she is not a candidate for any bisphosphonates. However she may be a candidate for Forteo or Prolia. At a minimum she ought to be on vitamin D and calcium supplements. History of Present Illness History of Present Illness Chief Complaint: Left hip pain Narrative: 79-year-old female with a past medical history significant for breast cancer, depression, hypertension, hypothyroidism, irritable bowel syndrome, amatory dysfunction normally walks around home with use of a walker. She reports that she lost her balance and fell in her kitchen and immediately developed left hip pain and femur pain. She denies any head trauma or loss of consciousness, chest pain or shortness of breath. Pain is sharp in the left hip and radiates down her left femur to her knee. X-rays of her left femur show an acute trochanteric fracture with mild angulation and a avulsion of the lesser trochanter. Dr. Geoff Mendoza, emergency room attending, spoke with Dr. Toro Mathis, orthopedic surgeon licensed occupational therapy assistant who is excepted the patient for operative repair of her hip fracture.. Dr. Sanchez obtain a chest x-ray and EKG and routine labs. Chest x-ray was remarkable for hiatal hernia versus a mass overlying the heart and left lung base of unclear etiology. Patient has a known hiatal hernia. Virtual radiology read the film and said this could represent an enlarged cardiac chamber versus large hiatal hernia versus a mass. Patient was also noted to have multiple bilateral vague nodules in the upper lung sutton measuring up to 7 mm in size. Follow-up CT scan of the chest was recommended. Dr. Sanchez ordered a CT angiography of the chest with contrast. There was no evidence for pulmonary embolism. Patient has a moderate sized paraesophageal hernia as well as emphysematous lung changes. She has a left upper lobe nodule 7 mm is noncalcified which will need follow-up surveillance CT scan. Incidental findings include hepatic and renal cysts. EKG was performed demonstrated normal sinus rhythm rate of 84 bpm with no ischemic ST or T wave changes. There is a normal-appearing EKG. Laboratory studies were remarkable for minimal leukocytosis of 12,310. Mild anemia with hemoglobin 11.4 g. CMP was unremarkable except for mildly elevated BUN. Urinalysis was remarkable for trace ketones trace of blood was negative for nitrites protein bilirubin leukocyte esterase but demonstrated moderate amount of mucus and few bacteria. Review of Systems Constitutional Constitutional: Reports as per HPI, Denies chills, Denies excessive sweating, Denies fever(s), Denies increased appetite, Denies night sweats, Denies poor appetite, Denies weight gain and Denies weight loss Eyes Eyes: Denies blurry vision, Denies change in vision, Denies loss of vision and Denies other visual disturbances ENT Ears, Nose, Mouth, and Throat: Reports system reviewed and no additional complaints, except as docu Cardiovascular Cardiovascular: Reports system reviewed and no additional complaints, except as docu, Denies chest pain, Denies chest pain at rest, Denies chest pain with activity, Denies syncope, Denies rapid heart rate, Denies pedal edema, Denies lightheadedness, Denies dyspnea and Denies dyspnea on exertion Respiratory Respiratory: Reports system reviewed and no additional complaints, except as docu, Denies dyspnea and Denies dyspnea on exertion Gastrointestinal Gastrointestinal: Denies abdominal pain, Reports belching, Reports heartburn, Denies nausea and Denies vomiting Genitourinary Genitourinary: Reports difficulty voiding, Denies dysuria and Denies urinary incontinence Musculoskeletal Musculoskeletal: Reports as per HPI Integumentary/Breasts Skin/Breast: Reports system reviewed and no additional complaints, except as docu Neurologic Neurologic: Reports system reviewed and no additional complaints, except as docu, Denies syncope and Denies loss of vision Psychiatric Psychiatric: Reports system reviewed and no additional complaints, except as docu Endocrine Endocrine: Reports system reviewed and no additional complaints, except as docu and Denies excessive sweating Hematologic/Lymphatic Hematologic/Lymphatic: Reports system reviewed and no additional complaints, except as docu Allergic/Immunologic Allergic/Immunologic: Reports system reviewed and no additional complaints, except as docu [facility] Medical History (Updated 10/10/19 @ 23:00 by Celestine Leone) Barretts esophagus Status post EGD with esophageal biopsy on July 05, [address] Jani Rothman. Squamous mucosa with reactive changes. Gastric type mucosa with chronic and focally active inflammation but no intestinal met aplasia or dysplasia. No helical factor pylori microorganisms identified. Breast cancer C. difficile enteritis at hospitalization may 2014 Colitis Colon stricture Depression Diverticulitis (Resolved 09/19/14) May 2014 [facility] [place] sigmoid resection and colostomy post op infection and malnutrition February 2015 colostomy takedown (post op infection) Hypertension Hypothyroid Indeterminate colitis (Resolved 02/04/16) 01/22/16 colonoscopy at [facility] [place] Irritable bowel syndrome Malignant neoplasm of female breast (Resolved 09/21/92) R MAST AND RECONSTRUCTION. 10/25 INFLAMMATION AT [facility] WAS NEG FOR [facility] Malnutrition Osteoporosis Surgical History (Updated 10/10/19 @ 22:16 by Celestine Leone) Colectomy (~05/2014) for colon stricture presumed to be from diverticulitis colostomy reversal History of mastectomy (Chronic ~1994) right mastectomy (no radiation or chemotherapy); s/p reconstruction after the mastectomy Laparotomy (06/08/14) for [place] leak. End colostomy done Family History Mother , 84 Essential hypertension COPD (chronic obstructive pulmonary disease) Father , 51 Stomach cancer Brother No problems noted. Maternal Grandfather No problems noted. Paternal Grandfather No problems noted. Maternal Grandmother No problems noted. Paternal Grandmother No problems noted. Sister No problems noted. Sister No problems noted. Social History (Updated 10/10/19 @ 22:18 by Celestine Leone) Smoking/Tobacco Use Status: Former Tobacco Use Quit Date: 10/23/94 Pack-years: 40 Tobacco: How many years used: 20 Alcohol Intake: never Drug use: Never Pets and animals: No Current gender identity: decline to answer What is your relationship status?: never How often do you talk on the phone with friends or family?: decline to answer How often do you get together with friends or relatives?: decline to answer How often do you attend mormon or sikh services?: decline to answer Do you belong to any clubs or organized social groups?: decline to answer Panel score (0-1 are the most socially isolated patients): 0 What type of physical activity do you participate in: decline to answer Duration: decline to answer Frequency: decline to answer Leslie/Restoration: No preference Special leslie needs: No Seatbelt use: always Do you feel safe at home: Yes History History 0 Para 0 Hx # Term Pregnancies 0 Multiple births Hx # Pregnancies 0 Ectopic pregnancies AB induced 0 Hx Number of Living Children 0 AB spontaneous 0 Meds Home Medications and Allergies Home Medications Medication Instructions Recorded Confirmed Type MaxiVision 1 cap PO DAILY 02/14/19 10/10/19 History linaclotide [Linzess] 72 mcg PO QWEEK 02/20/19 10/10/19 History loperamide 2 mg capsule 2 mg PO Q4H PRN 06/13/19 10/10/19 History losartan 50 mg tablet 50 mg PO DAILY #90 tab 06/17/19 10/10/19 Rx levothyroxine 25 mcg tablet 25 mcg PO DAILY #90 tab-cap 07/12/19 10/10/19 Rx dicyclomine 10 mg capsule 10 mg PO TID PRN #30 cap 08/26/19 10/10/19 Rx acetaminophen [Tylenol Extra 500 mg PO Q4H PRN 10/10/19 10/10/19 History Strength] Allergies Allergy/AdvReac Type Severity Reaction Status Date / Time Penicillins Allergy Severe hives Verified 10/10/19 22:24 polyethylene glycol 3350 Allergy Severe rash all Verified 10/10/19 22:24 [From Miralax] over cefazolin Allergy Unknown Unverified 10/10/19 14:45 Exam Narrative Exam Narrative: Elderly female lying in bed resting in no acute distress. She is alert and oriented person place time circumstance. HEENT is unremarkable. Specifically ear canals are occluded by wax. Nares is moist without exudate. Oropharynx noninjected. Teeth in fair repair with a partial upper plate. Neck is supple nontender with normal carotid pulses without bruits. No JVD. No thyromegaly. No lymphadenopathy. Lungs are clear to auscultation. Heart regular rate and rhythm without murmur rub or gallop. Abdomen reveals normal active bowel sounds soft and nontender without organomegaly and no bruits. Lower extremities left hip is tender and slightly edematous. Left leg is angulated and rotated medially. There is no calf tenderness or swelling. She has normal pedal pulses. Neurologic exam is grossly intact with no focal cranial nerve deficits. She has normal strength and sensation in both upper extremities. I did not perform manual muscle testing of her lower extremities due to her pain from her left IT fracture. Genitalia rectal exam deferred. Johnson catheter is in place draining clear yellow urine. Results Imaging Chest x-ray: image reviewed CT scan - chest: report reviewed EKG: image reviewed Labs Result diagrams: 10/10/19 17:10/10/19 17:20 Labs: Laboratory Results - last 24 hr 10/10/19 10/10/19 10/10/19 17:20 17:20 18:10 WBC 12.31 H RBC 4.00 Hgb 11.4 L Hct 35.6 L MCV 89.0 MCH 28.5 MCHC 32.0 RDW 14.7 H Plt Count 247 MPV 10.4 Immature Gran % 0.2 Neutrophils % 88.8 Lymphocytes % 7.5 Monocytes % 3.3 Eosinophils % 0.1 Basophils % 0.1 Absolute Neutrophils 10.93 H Absolute Lymphocytes 0.92 L Absolute Monocytes 0.41 Absolute Eosinophils 0.01 Absolute Basophils 0.01 Sodium 142 Potassium 3.8 Chloride 104 Carbon Dioxide 28.7 Anion Gap 9.3 BUN 20 H Creatinine 0.66 Estimated GFR/1.73 m2 >= 60.00 Glucose 117 H Calcium 8.9 Magnesium 1.8 Total Bilirubin 0.3 AST 20 ALT 20 Alkaline Phosphatase 112 Total Protein 7.2 Albumin 3.3 L Urine Color Yellow Urine Clarity Clear Urine pH 6.0 Ur Specific [place] 1.020 Urine Protein Negative Urine Ketones Trace H Urine Blood Trace-intact H Urine Nitrite Negative Urine Bilirubin Negative Urine Urobilinogen 0.2 Ur Leukocyte Esterase Negative Urine RBC 5-10 H Urine WBC 0-2 Ur Epithelial Cells Few Urine Crystals Negative Urine Bacteria Few Urine Casts Negative Urine Mucus Moderate Ur Culture Indicated? No Urine Glucose Negative Patient ABO/Rh Antibody Screen 10/10/19 20:00 WBC RBC Hgb Hct MCV MCH MCHC RDW Plt Count MPV Immature Gran % Neutrophils % Lymphocytes % Monocytes % Eosinophils % Basophils % Absolute Neutrophils Absolute Lymphocytes Absolute Monocytes Absolute Eosinophils Absolute Basophils Sodium Potassium Chloride Carbon Dioxide Anion Gap BUN Creatinine Estimated GFR/1.73 m2 Glucose Calcium Magnesium Total Bilirubin AST ALT Alkaline Phosphatase Total Protein Albumin Urine Color Urine Clarity Urine pH Ur Specific [place] Urine Protein Urine Ketones Urine Blood Urine Nitrite Urine Bilirubin Urine Urobilinogen Ur Leukocyte Esterase Urine RBC Urine WBC Ur Epithelial Cells Urine Crystals Urine Bacteria Urine Casts Urine Mucus Ur Culture Indicated? Urine Glucose Patient ABO/Rh O Positive Antibody Screen Negative Last Vital Signs Temp 36.5 C 10/10/19 20:21 Pulse 94 H 10/10/19 20:21 Resp 20 10/10/19 20:21 BP 157/71 H 10/10/19 20:21 Pulse Ox 98 10/10/19 20:21
[2019-10-10] MEDS: Pantoprazole 40 MG VIAL IVP (23:57)
[2019-10-11] VITALS (12 sets, daily range): BP systolic 115–176; BP diastolic 52–99; PULSE 66–87; RESP 11–18; TEMP 35.8–37.1; O2SAT 88–98
[2019-10-11] MEDS: Lactated Ringers 1,000 ML 100 ML IV ×2 (00:08→11:04)
[2019-10-11] MEDS: Normal Saline Flush 10 ML SYR ×3 (01:14→07:57)
[2019-10-11 04:21] LABS: Bilirubin Negative (Negative); Blood Small (Negative); Clarity Clear (Clear); Glucose Negative (Negative); Ketones Negative (Negative); Leukocyte Esterase Negative (Negative); Nitrite Negative (Negative); Specific Gravity 1.015 (1.005-1.025); Urobilinogen 0.2 EU/dL (Up TO 0.2); pH 5.5 (5-8)
[2019-10-11 04:34] LABS: Bacteria Rare HPF (Negative); C & S Indicated? No; WBC 0-2 HPF (0-5)
[2019-10-11] MEDS: Levothyroxine 25 MCG TAB PO (06:13)
[2019-10-11] MEDS: ACETAMINOPHEN 1,000 MG/100 ML BTL 400 MG IVPB ×2 (06:17→21:47)
[2019-10-11 07:11] LABS: Abs Immature Grans 0.01 k/cumm (0.0-0.09); Absolute Basophil Count 0.01 k/cumm (0.0-0.2); Absolute Eosinophil Count 0.05 k/cumm (0.0-0.7); Absolute Lymphocyte Count 1.52 k/cumm (1.2-3.4); Absolute Monocyte Count 0.66 k/cumm (0.11-0.7); Basophils % 0.1; Eosinophils % 0.6; HCT 31.3 % (36.0-46.0); HGB 9.9 g/dL (12.0-15.5); Immature Grans % 0.1; Lymphocytes % 19.1; Mean Corp. HGB Concentration 31.6 g/dL (32.0-36.0); Mean Corpuscular Hemoglobin 28.2 pg (27.0-33.0); Mean Corpuscular Volume 89.2 fL (80-95); Mean Platelet Volume 10.5 fL (8.0-11.0); Monocytes % 8.3; Neutrophils % 71.8; Platelet Count 209 x1000/uL (130-400); RBC 3.51 m/cumm (4.00-5.20); RBC Distribution Width 14.7 % (11.7-14.6); White Blood Cell Count 7.95 k/cumm (4.4-10.8)
[2019-10-11 07:17] LABS: Absolute Neutrophil Count 5.71 k/cumm (1.2-6.7)
[2019-10-11 07:23] LABS: Anion Gap 7.2 mmol/L (3-11); BUN 14 mg/dL (7-18); CO2 27.8 mmol/L (21.0-32.0); CREATININE 0.44 mg/dL (0.55-1.02); Calcium 8.5 mg/dL (8.5-10.1); Chloride 105 mmol/L (98-107); Glucose 116 mg/dL (74-106); Potassium 3.7 mmol/L (3.5-5.1); Sodium 140 mmol/L (136-145)
[2019-10-11] MEDS: Ondansetron 4 MG/2 ML VIAL IVP (07:30)
[2019-10-11 07:54] LABS: Anisocytosis 1+; Diff Comment RBC Morph Reviewed; Hypochromasia 1+
[2019-10-11 07:55] LABS: Poikilocytes 1+
[2019-10-11] MEDS: Pantoprazole 40 MG VIAL IVP (07:56)
--- NOTE | 2019-10-11 10:25 | PHARADMIT ---
Addendum entered by Agata Ramsey 10/13/19 12:29: Pharmacy Note Subjective Objective VS okay Cl-108(up) mag-2.2(up) h/h-8.3/26.9(down, trending down last 4 days) Assessment acetaminophen changed from IV scheduled to PO PRN some BM meds ordered. miralax was discontinued as pt has allergy to this doxycycline started (day 1) to cover bronchitis pantoprazole changed from IV to PO enalaprilat, ketorolac, morphine discontinued Plan watch h/h and mag levels tomorrow, referral sent to [facility] per CM Addendum entered by Agata Ramsey 10/12/19 14:33: Pharmacy Note Subjective not taking good po, cefazolin infiltrated this morning per nursing report Objective BP-111/58 other VS okay mag-1.4 Assessment mag replacement given postop abx discontinued enoxaparin ordered Plan watch mag levels, for change to PO APAP Original Note: Admission Pharmacy Clinical Review LAmadou IT hip fracture Code Status Full Code Current Weight 60.6 kg Renally Cleared and Narrow Therapeutic Index Meds Crcl ~47.6 mL/min current meds okay QTc Value / Action Taken QTc 451 BP Control, Fever BP 124/73 afebrile Electrolytes reviewed within normal limits DVT Prophylaxis none-plan is for surgery today follow up tomorrow Opiate Usage / Scheduled Bowel Regimen Ordered prn/prn Plt/SCr for Heparin / Enoxaparin plt 209 SCr 0.44 INR for Warfarin n/a H/H stable, WBC/Bands h/h 9.9/31.3 WBC 7.95 Antibiotic appropriateness none Cultures and Sensitivities urine culture pending Surgical ABX d/c within 24 hr nothing ordered yet, follow up postop DM control / Insulin Dosing BG 116 Heart Failure (Check EF%) (IBIS's, B-Block, Diuretics) enalaprilat, losartan IV to PO Switch n/a Home Meds Reviewed yes Home Meds Not Ordered dicyclomine(PRN), linaclotide, loperamide(PRN) Comments 8 mm lung nodule found per morning report
--- NOTE | 2019-10-11 12:26 | W.NUTCONSULT ---
Date of service: 10/11/19 Time of Service: 12:26 Nutritional Consult ASSESSMENT: 79 year old female s/p internal femur fixation s/p left femur fracture/Fall. PMH: Barrets esophagus without dysphagia, HTN, Breast CA, IBS, depression and HTN. NPO at this time. will montior transition to po diet. Does not appear to be at nutritional risk at this time. BMI wnl. Time Spent in Nutritional Counseling and Treatment: 0 time spent face to face
--- NOTE | 2019-10-11 13:48 | DI.RAD_ITS ---
EXAM: XR HIP LT IN OR CLINICAL HISTORY: fx hip left TECHNIQUE: 2D and realtime digital imaging was performed. Fluoroscopy was provided in the OR COMPARISON: No exams were available for comparison FINDINGS: C-arm fluoroscopy was utilized by Dr. Mathis during open reduction and internal fixation of proximal femoral fracture. Hard copy shows gamma nail in place transfixing the intertrochanteric fracture fra gments. Fluoro Time: 52.1 seconds IMPRESSION:
--- NOTE | 2019-10-11 14:36 | INITIAL_ITS ---
- If Service Date Differs Date of service: 10/11/19 Time of Service: 14:36 Care Management Initial Assess REASON FOR HOSPITALIZATION:: Intertrochanteric fracture of left femur PAST MEDICAL HISTORY/PAST SURGICAL HISTORY:: Medical History: Barretts esophagus. Status post EGD with esophageal biopsy on July 05, [address] Jani Rothman. Squamous mucosa with reactive changes. Gastric type mucosa with chronic and focally active inflammation but no intestinal metaplasia or dysplasia. No helical factor pylori microorganisms identified. Breast cancer. C. difficile enteritis. at hospitalization may 2014. Colitis. Colon stricture. Depression. Diverticulitis (Resolved 09/19/14). May 2014 [facility] [place] sigmoid resection and colostomy. post op infection and malnutrition. February 2015 colostomy takedown (post op infection). Hypertension. Hypothyroid. Indeterminate colitis (Resolved 02/04/16). 01/22/16 colonoscopy at [facility] [place]. Irritable bowel syndrome. Malignant neoplasm of female breast (Resolved 09/21/92). R MAST AND RECONSTRUCTION. 10/25 INFLAMMATION AT [facility] WAS NEG FOR MALIGNANCY. Malnutrition. Osteoporosis. Surgical History. Colectomy for colon stricture presumed to be from diverticulitis. colostomy reversal. History of mastectomy (Chronic ~1994). right mastectomy (no radiation or chemotherapy); s/p reconstruction after the mastectomy. Laparotomy for [place] leak. End colostomy done PREVIOUS FUNCTIONAL STATUS/SOCIAL/FAMILY SUPPORTS:: Amelia lives alone in a single family home in [place], [place], although her sister Radha who lives next door, has been staying with her recently. They also have another sister, Jessica who lives closeby and is very supportive. Amelia has no children. She is fairly independent at baseline but does not drive. CURRENT FUNCTIONAL STATUS:: Amelia was laying in bed awaiting surgery when CM met with her. Her 2 sisters were present and offering support.Amelia denied having much pain but stated that she is very nauseated. She is scheduled to have a repair of her fractured hip with Dr. Mathis later today. ADVANCE DIRECTIVES:: None on file. MARIAN provided Amelia and her 2 sisters with copies of the [facility] AD forms at their request. Has patient been provided with information about the portal?: No Did the patient sign up for the portal?: No CODE STATUS:: Full Code INSURANCE COVERAGE / FINANCIAL ISSUES:: Medicare. [employer] CURRENT HOME/COMMUNITY SERVICES/EQUIPMENT:: none currently PRIMARY CARE PHYSICIAN:: Vicky Lopez POTENTIAL DISCHARGE NEEDS:: follow up with PCP and discharge plan of care PATIENT/FAMILY EDUCATION NEEDS:: Discharge plan, limitations, follow up plan, Ask Me Three. TRANSPORTATION:: to be determined by disposition PLAN:: Amelia is having surgery for a fractured femur. She will likely be discharged with new home health services or possibly short term rehab in a SNF. Treansportation and final discharge plan will be determined by hospital course. CM will continue to support patient, family and discharge planning needs.
[2019-10-11] MEDS: Normal Saline Flush 10 ML SYR IVP ×2 (15:54→19:53)
--- NOTE | 2019-10-11 16:30 | ROE_ITS ---
DATE OF PROCEDURE: October 11, 2019 PREOPERATIVE DIAGNOSIS: Intertrochanteric fracture, left femur. POSTOPERATIVE DIAGNOSIS: Same. PROCEDURE: Open reduction and internal fixation of intertrochanteric fracture left femur using short trochanteric femoral nail device. ANESTHESIA: General, Arias Wyman CRNA SURGEON: Toro Mathis M.D. SKI TOW OPERATOR: Mejia Webb INDICATIONS: This is an 79-year-old white female who fell in her home yesterday on 10/10/19 sustaini ng an intertrochanteric fracture of the left femur. Although the lesser trochanter was fractured off , the fracture did not extend below the level of the lesser trochanter. It was felt that this repres ented a stable type of IT fracture that was amenable to fixation with a short trochanteric femoral na il. Fixation of the fracture was recommended as optimum treatment to alleviate her pain and allow he r to become mobile and avoid the complications of a prolonged recumbency. The risks and complication s of the procedure were explained to the patient in detail preoperatively. PROCEDURE: The patient was taken to the operating room on 10/11/19. She was placed supine on the op erating table and a general anesthetic was administered. She was then placed in single leg traction on the fracture table. The left hip and thigh were then prepped and draped free in the usual sterile fashion. The C-arm image intensifier was used to localize the proximal tip of the trochanter. An a pproximately 3-inch incision was then made at this point through the skin and subcu and through the a bductor fascia so that the tip of the trochanter was palpated. I then put a guide pin just medial to the tip of the trochanter and using the drill, advanced the guide pin to below the level of the less er trochanter. One-step cannulated reamer was then placed over the guide pin and the reamer was adva nced until it was fully seated. The reamer and guide pin were then removed. 170 mm long short stem trochanteric femoral nail was then secured to the insertion arm and then the nail was inserted into t he femoral canal. The nail was advanced until the slot through the nail was in optimum position in t he femoral head. A cannulated trochar was then placed through the aiming guide and an incision was m jo at the appropriate level about two inches in length through the skin and subcu and iliotibial ban d so that the trochar could be advanced until it contacted the lateral cortex of the femur. Reamer w as placed through the trochar sleeve and the lateral cortex was reamed only. A guide pin was placed into the femoral head in the center-center position on the AP and lateral views. The pin was advance d within 10 mm of the edge of the subchondral bone. The pin was measured and the length was found to be 95 mm. A 95 mm spiral blade was then placed over the guide pin and impacted until it was full s eated in the femoral head. A final check with the C-arm showed the spiral blade in the center-center position in the femoral head within 10 mm of the subchondral bone surface. At this point the device was compressed. The transverse aiming arch for the distal interlock was then placed through the ou trigger guide and against the skin and another small incision was made an inch and a half in length t hrough the skin and subcu and iliotibial band. The transverse aiming arm was then advanced until it abutted on the femoral cortex. A drill was placed through the trochar sleeve and drilling was perfo rmed of the distal femur through the trochanteric nail. The hole was measured and a 32 mm, 5 mm lock ing bolt was then inserted through the sleeve, through the femur and through the IM nail, performing a distal interlock. At this point the aiming arm was removed. The wound was irrigated with Betadine and saline solution. The wound margins were infiltrated with 0.5% Marcaine with an epinephrine solu tion. Proximally the abductor fascia was approximated with a running, interlocked #1 Vicryl suture m aterial. The subcu was approximated with interrupted #2-0 Vicryl sutures and the skin edges were ap proximated with skin rhona. The distal two small incisions in the thigh were approximated with ski n rhona. Sterile dressings were applied of Xeroform gauze, sterile gauze 4x4's, ABD pad and taped with foam tape for a light compression dressing. The patient tolerated the procedure well. Estimate d blood loss < 100 cc's. The patient's anesthesia was reversed without complications. She was disch arged to the recovery room in good condition. A final check with the C-arm image intensifier showed excellent reduction of the fracture, good position of the TFN in the femoral canal and in the femoral head.
--- NOTE | 2019-10-11 17:36 | PGE_ITS ---
Date of Service Date of service: 10/11/19 Time of Service: 17:36 Assessment and Plan Assessment and plan (1) Intertrochanteric fracture of left femur: Status: Acute Assessment and plan: Status post ORIF with Dr. Mathis. Postop orders as per Dr. Mathis. She will begin rehab tomorrow. She will likely need a rehab stay to get back on her feet. Qualifiers: Encounter type: initial encounter Fracture type: closed Fracture alignment: displaced Qualified Code(s): S72.142A - Displaced intertrochanteric fracture of left femur, initial encounter for closed fracture (2) Incidental lung nodule, > 3mm and < 8mm: Status: Acute Assessment and plan: Her initial chest x-ray looked abnormal so a chest CT was performed. The official reading is an 8 mm nodule in the left upper lobe with some surrounding pleural changes. Dr. Riley recommended a follow-up CT of the chest in 2 to 3 weeks. If this is still present then he would recommend a PET CT of the chest. Subjective Subjective Interval history since last seen: Patient admitted overnight after an incident fall at home. No loss of consciousness. She was preop for surgery and cleared by medicine. She was taken to the OR today by Dr. Mathis. She had a chuy and pin placed without difficulty. She is postop, alert, awake. Pain is well controlled. Exam Narrative Exam Narrative: On exam she is lying comfortably flat in bed. She can make eye contact and converse without difficulty. She is moving upper and lower extremities well. Her left hip is in a bulky dressing that looks stable. Objective Objective Clinical Data: Abnormal lab results 10/10/19 10/10/19 10/11/19 Range/Units 17:20 18:10 03:59 RBC (4.00-5.20) m/cumm Hgb (12.0-15.5) g/dL Hct (36.0-46.0) % MCHC (32.0-36.0) g/dL RDW (11.7-14.6) % BUN 20 H (7-18) mg/dL Creatinine (0.55-1.02) mg/dL Glucose 117 H (74-106) mg/dL Albumin 3.3 L (3.4-5.0) g/dL Urine Ketones Trace H (Negative) mg/dL Urine Blood Trace-intact H Small H (Negative) Urine RBC 5-10 H 5-10 H (0-2) HPF 10/11/19 10/11/19 Range/Units 06:38 06:38 RBC 3.51 L (4.00-5.20) m/cumm Hgb 9.9 L (12.0-15.5) g/dL Hct 31.3 L (36.0-46.0) % MCHC 31.6 L (32.0-36.0) g/dL RDW 14.7 H (11.7-14.6) % BUN (7-18) mg/dL Creatinine 0.44 L (0.55-1.02) mg/dL Glucose 116 H (74-106) mg/dL Albumin (3.4-5.0) g/dL Urine Ketones (Negative) mg/dL Urine Blood (Negative) Urine RBC (0-2) HPF Vital Signs Temperature 36.4 C L 10/11/19 16:03 Temperature Source Tympanic 10/11/19 16:03 Pulse 67 10/11/19 16:03 Pulse Rhythm Regular 10/11/19 07:39 Pulse 92 H 10/10/19 20:00 Respiratory Rate 11 L 10/11/19 16:03 Respiratory Effort Non-Labored 10/11/19 07:39 Respiratory Depth Normal 10/11/19 07:39 Respiratory Pattern Normal 10/11/19 07:39 Blood Pressure 132/52 L 10/11/19 16:03 Blood Pressure Mean 87 10/10/19 19:51 Blood Pressure Position Supine 10/10/19 14:40 Pulse Oximetry 94 L 10/11/19 16:03 Respiratory End-tidal CO2 33 10/11/19 15:07 Oxygen Delivery Method Room Air 10/11/19 16:03 Oxygen Flow Rate 0 10/11/19 16:03 Pain Level 0 10/11/19 16:03 Intake & Output 10/10/19 10/11/19 10/11/19 23:59 11:59 23:59 Intake Total 100 / 100 2100 / 2400 300 / 2400 Output Total 1050 / 1150 100 / 1150 Balance 100 / 100 1050 / 1250 200 / 1250 Weight 59.421 kg 60.6 kg Intake: IV 100 / 100 2100 / 2400 300 / 2400 Output: Urine 1050 / 1150 100 / 1150 Other: Urine Color Pale Yellow Yellow Yellow Urine Appearance Clear Clear Clear Emesis Description None Laboratory Results WBC 7.95 k/cumm (4.4-10.8) D 10/11/19 06:38 RBC 3.51 m/cumm (4.00-5.20) L 10/11/19 06:38 Hgb 9.9 g/dL (12.0-15.5) L 10/11/19 06:38 Hct 31.3 % (36.0-46.0) L 10/11/19 06:38 MCV 89.2 fL (80-95) 10/11/19 06:38 MCH 28.2 pg (27.0-33.0) 10/11/19 06:38 MCHC 31.6 g/dL (32.0-36.0) L 10/11/19 06:38 RDW 14.7 % (11.7-14.6) H 10/11/19 06:38 Plt Count 209 x1000/uL (130-400) 10/11/19 06:38 MPV 10.5 fL (8.0-11.0) 10/11/19 06:38 Immature Gran % 0.1 10/11/19 06:38 Neutrophils % 71.8 10/11/19 06:38 Lymphocytes % 19.1 10/11/19 06:38 Monocytes % 8.3 10/11/19 06:38 Eosinophils % 0.6 10/11/19 06:38 Basophils % 0.1 10/11/19 06:38 Absolute Neutrophils 5.71 k/cumm (1.2-6.7) 10/11/19 06:38 Absolute Lymphocytes 1.52 k/cumm (1.2-3.4) 10/11/19 06:38 Absolute Monocytes 0.66 k/cumm (0.11-0.7) 10/11/19 06:38 Absolute Eosinophils 0.05 k/cumm (0.0-0.7) 10/11/19 06:38 Absolute Basophils 0.01 k/cumm (0.0-0.2) 10/11/19 06:38 Differential Comment Rbc morph reviewed 10/11/19 06:38 RBC Morphology See below 10/11/19 06:38 Hypochromasia 1+ 10/11/19 06:38 Poikilocytosis 1+ 10/11/19 06:38 Anisocytosis 1+ 10/11/19 06:38 Sodium 140 mmol/L (136-145) 10/11/19 06:38 Potassium 3.7 mmol/L (3.5-5.1) 10/11/19 06:38 Chloride 105 mmol/L (98-107) 10/11/19 06:38 Carbon Dioxide 27.8 mmol/L (21.0-32.0) 10/11/19 06:38 Anion Gap 7.2 mmol/L (3-11) 10/11/19 06:38 BUN 14 mg/dL (7-18) D 10/11/19 06:38 Creatinine 0.44 mg/dL (0.55-1.02) L 10/11/19 06:38 Estimated GFR/1.73 m2 >= 60.00 (mL/min/1.73m2) 10/11/19 06:38 Glucose 116 mg/dL (74-106) H 10/11/19 06:38 Calcium 8.5 mg/dL (8.5-10.1) 10/11/19 06:38 Magnesium 1.8 mg/dL (1.8-2.4) 10/10/19 17:20 Total Bilirubin 0.3 mg/dL (0.2-1.0) 10/10/19 17:20 AST 20 U/L (15-37) 10/10/19 17:20 ALT 20 U/L (14-59) 10/10/19 17:20 Alkaline Phosphatase 112 U/L (46-116) 10/10/19 17:20 Total Protein 7.2 g/dL (6.4-8.2) 10/10/19 17:20 Albumin 3.3 g/dL (3.4-5.0) L 10/10/19 17:20 Urine Color Yellow (Yellow) 10/11/19 03:59 Urine Clarity Clear (Clear) 10/11/19 03:59 Urine pH 5.5 (5-8) 10/11/19 03:59 Ur Specific [place] 1.015 (1.005-1.025) 10/11/19 03:59 Urine Protein Negative mg/dL (Negative) 10/11/19 03:59 Urine Ketones Negative mg/dL (Negative) 10/11/19 03:59 Urine Blood Small (Negative) H 10/11/19 03:59 Urine Nitrite Negative (Negative) 10/11/19 03:59 Urine Bilirubin Negative (Negative) 10/11/19 03:59 Urine Urobilinogen 0.2 EU/dL (Up TO 0.2) 10/11/19 03:59 Ur Leukocyte Esterase Negative (Negative) 10/11/19 03:59 Urine RBC 5-10 HPF (0-2) H 10/11/19 03:59 Urine WBC 0-2 HPF (0-5) 10/11/19 03:59 Ur Epithelial Cells Not Applicable 10/11/19 03:59 Urine Crystals Not Applicable 10/11/19 03:59 Urine Bacteria Rare HPF (Negative) 10/11/19 03:59 Urine Casts Negative LPF (Negative) 10/10/19 18:10 Urine Mucus Not Applicable 10/11/19 03:59 Ur Culture Indicated? No 10/11/19 03:59 Urine Glucose Negative mg/dL (Negative) 10/11/19 03:59 Patient ABO/Rh O Positive 10/10/19 20:00 Antibody Screen Negative 10/10/19 20:00
[2019-10-11] MEDS: ceFAZolin 1 GM/50 ML BAG IVPB ×2 (18:23→23:35)
[2019-10-11] MEDS: Ketorolac 15 MG/ML VIAL IVP (19:52)
[2019-10-12] MEDS: Lactated Ringers 1,000 ML 100 ML IV ×2 (00:03→09:09)
[2019-10-12] MEDS: Normal Saline Flush 10 ML SYR IVP ×5 (02:59→20:27)
[2019-10-12] MEDS: Ketorolac 15 MG/ML VIAL IVP ×4 (02:59→20:27)
[2019-10-12 03:49] VITALS: BP 122/75; PULSE 83; RESP 18; TEMP 37; O2SAT 99
[2019-10-12] MEDS: Levothyroxine 25 MCG TAB PO (05:56)
[2019-10-12] MEDS: ceFAZolin 1 GM/50 ML BAG IVPB ×2 (05:56→11:53)
[2019-10-12] MEDS: ACETAMINOPHEN 1,000 MG/100 ML BTL 400 MG IVPB ×3 (06:39→21:17)
[2019-10-12 07:15] VITALS: BP 111/58; PULSE 82; TEMP 36.2; O2SAT 17
[2019-10-12] MEDS: Beta-Carotene(A) w/C,E, & Minerals TAB 1 TAB PO ×2 (07:45→20:28)
[2019-10-12] MEDS: Docusate Sodium 100 MG CAP PO ×3 (07:45→20:28)
[2019-10-12] MEDS: Losartan 50 MG TAB PO (07:45)
[2019-10-12] MEDS: HYDROcodone 5/Acetaminophen 325 TAB PO (08:09)
[2019-10-12] MEDS: Pantoprazole 40 MG VIAL IVP (08:17)
--- NOTE | 2019-10-12 09:20 | W.PM.PROGNOT ---
Date of Service Date of service: 10/12/19 Time of Service: 09:20 Assessment and Plan Assessment and plan (1) Intertrochanteric fracture of left femur: Status: Acute Assessment and plan: Assessment: Stable postop day #1 intertrochanteric fracture left femur treated with TFN. Since her preop hemoglobin was 9.9 I expect she may need a transfusion. Plan: Mobilize with physical therapy. Check her hemoglobin. Monitor her urine output. Qualifiers: Encounter type: initial encounter Fracture type: closed Fracture alignment: displaced Qualified Code(s): S72.142A - Displaced intertrochanteric fracture of left femur, initial encounter for closed fracture Subjective Subjective Patient reports: feels better, pain is less and tolerating liquids well Exam Narrative Exam Narrative: Legs are equal in her left lower extremity is no longer externally rotated. Her left hip is non-irritable gentle internal and external rotation. BEATRICE's are good. She is alert oriented and her vital signs are stable. Hemoglobin is not come back yet Objective Objective Clinical Data: Vital Signs Temperature 36.2 C L 10/12/19 07:15 Temperature Source Temporal Artery Scan 10/12/19 07:15 Pulse 82 10/12/19 07:15 Pulse Rhythm Regular 10/11/19 23:30 Pulse 92 H 10/10/19 20:00 Respiratory Rate 18 10/12/19 03:49 Respiratory Effort Non-Labored 10/11/19 23:30 Respiratory Depth Normal 10/11/19 23:30 Respiratory Pattern Normal 10/11/19 23:30 Blood Pressure 111/58 L 10/12/19 07:15 Blood Pressure Mean 87 10/10/19 19:51 Blood Pressure Position Supine 10/10/19 14:40 Pulse Oximetry 17 L 10/12/19 07:15 Respiratory End-tidal CO2 33 10/11/19 15:07 Oxygen Delivery Method Room Air 10/12/19 07:15 Oxygen Flow Rate 0 10/12/19 07:15 Pain Level 3 10/12/19 08:16 Intake & Output 10/11/19 10/11/19 10/12/19 11:59 23:59 11:59 Intake Total 2100 / 3260 1160 / 3260 1250 / 1250 Output Total 1050 / 1300 250 / 1300 350 / 350 Balance 1050 / 1960 910 / 1960 900 / 900 Weight 60.6 kg Intake: IV 2100 / 3260 1160 / 3260 1130 / 1130 Oral 120 / 120 Output: Urine 1050 / 1300 250 / 1300 350 / 350 Other: Urine Color Yellow Yellow Light [place] Urine Appearance Clear Clear Clear Comment Pt on LR at 100ml/hr but has declined to drink much of anything. Emesis Description None Laboratory Results WBC 7.95 k/cumm (4.4-10.8) D 10/11/19 06:38 RBC 3.51 m/cumm (4.00-5.20) L 10/11/19 06:38 Hgb 9.9 g/dL (12.0-15.5) L 10/11/19 06:38 Hct 31.3 % (36.0-46.0) L 10/11/19 06:38 MCV 89.2 fL (80-95) 10/11/19 06:38 MCH 28.2 pg (27.0-33.0) 10/11/19 06:38 MCHC 31.6 g/dL (32.0-36.0) L 10/11/19 06:38 RDW 14.7 % (11.7-14.6) H 10/11/19 06:38 Plt Count 209 x1000/uL (130-400) 10/11/19 06:38 MPV 10.5 fL (8.0-11.0) 10/11/19 06:38 Immature Gran % 0.1 10/11/19 06:38 Neutrophils % 71.8 10/11/19 06:38 Lymphocytes % 19.1 10/11/19 06:38 Monocytes % 8.3 10/11/19 06:38 Eosinophils % 0.6 10/11/19 06:38 Basophils % 0.1 10/11/19 06:38 Absolute Neutrophils 5.71 k/cumm (1.2-6.7) 10/11/19 06:38 Absolute Lymphocytes 1.52 k/cumm (1.2-3.4) 10/11/19 06:38 Absolute Monocytes 0.66 k/cumm (0.11-0.7) 10/11/19 06:38 Absolute Eosinophils 0.05 k/cumm (0.0-0.7) 10/11/19 06:38 Absolute Basophils 0.01 k/cumm (0.0-0.2) 10/11/19 06:38 Differential Comment Rbc morph reviewed 10/11/19 06:38 RBC Morphology See below 10/11/19 06:38 Hypochromasia 1+ 10/11/19 06:38 Poikilocytosis 1+ 10/11/19 06:38 Anisocytosis 1+ 10/11/19 06:38 Sodium 140 mmol/L (136-145) 10/11/19 06:38 Potassium 3.7 mmol/L (3.5-5.1) 10/11/19 06:38 Chloride 105 mmol/L (98-107) 10/11/19 06:38 Carbon Dioxide 27.8 mmol/L (21.0-32.0) 10/11/19 06:38 Anion Gap 7.2 mmol/L (3-11) 10/11/19 06:38 BUN 14 mg/dL (7-18) D 10/11/19 06:38 Creatinine 0.44 mg/dL (0.55-1.02) L 10/11/19 06:38 Estimated GFR/1.73 m2 >= 60.00 (mL/min/1.73m2) 10/11/19 06:38 Glucose 116 mg/dL (74-106) H 10/11/19 06:38 Calcium 8.5 mg/dL (8.5-10.1) 10/11/19 06:38 Magnesium 1.8 mg/dL (1.8-2.4) 10/10/19 17:20 Total Bilirubin 0.3 mg/dL (0.2-1.0) 10/10/19 17:20 AST 20 U/L (15-37) 10/10/19 17:20 ALT 20 U/L (14-59) 10/10/19 17:20 Alkaline Phosphatase 112 U/L (46-116) 10/10/19 17:20 Total Protein 7.2 g/dL (6.4-8.2) 10/10/19 17:20 Albumin 3.3 g/dL (3.4-5.0) L 10/10/19 17:20 Urine Color Yellow (Yellow) 10/11/19 03:59 Urine Clarity Clear (Clear) 10/11/19 03:59 Urine pH 5.5 (5-8) 10/11/19 03:59 Ur Specific [place] 1.015 (1.005-1.025) 10/11/19 03:59 Urine Protein Negative mg/dL (Negative) 10/11/19 03:59 Urine Ketones Negative mg/dL (Negative) 10/11/19 03:59 Urine Blood Small (Negative) H 10/11/19 03:59 Urine Nitrite Negative (Negative) 10/11/19 03:59 Urine Bilirubin Negative (Negative) 10/11/19 03:59 Urine Urobilinogen 0.2 EU/dL (Up TO 0.2) 10/11/19 03:59 Ur Leukocyte Esterase Negative (Negative) 10/11/19 03:59 Urine RBC 5-10 HPF (0-2) H 10/11/19 03:59 Urine WBC 0-2 HPF (0-5) 10/11/19 03:59 Ur Epithelial Cells Not Applicable 10/11/19 03:59 Urine Crystals Not Applicable 10/11/19 03:59 Urine Bacteria Rare HPF (Negative) 10/11/19 03:59 Urine Casts Negative LPF (Negative) 10/10/19 18:10 Urine Mucus Not Applicable 10/11/19 03:59 Ur Culture Indicated? No 10/11/19 03:59 Urine Glucose Negative mg/dL (Negative) 10/11/19 03:59 Patient ABO/Rh O Positive 10/10/19 20:00 Antibody Screen Negative 10/10/19 20:00
[2019-10-12 09:55] LABS: Abs Immature Grans 0.01 k/cumm (0.0-0.09); Absolute Basophil Count 0.01 k/cumm (0.0-0.2); Absolute Eosinophil Count 0.06 k/cumm (0.0-0.7); Absolute Lymphocyte Count 1.25 k/cumm (1.2-3.4); Absolute Monocyte Count 0.41 k/cumm (0.11-0.7); Absolute Neutrophil Count 5.51 k/cumm (1.2-6.7); Basophils % 0.1; Eosinophils % 0.8; HCT 28.4 % (36.0-46.0); Immature Grans % 0.1; Lymphocytes % 17.2; Mean Corp. HGB Concentration 31.7 g/dL (32.0-36.0); Mean Corpuscular Hemoglobin 28.8 pg (27.0-33.0); Mean Corpuscular Volume 90.7 fL (80-95); Mean Platelet Volume 10.3 fL (8.0-11.0); Monocytes % 5.7; Neutrophils % 76.1; Platelet Count 203 x1000/uL (130-400); RBC 3.13 m/cumm (4.00-5.20); RBC Distribution Width 14.8 % (11.7-14.6); White Blood Cell Count 7.25 k/cumm (4.4-10.8)
[2019-10-12 10:02] LABS: BUN 13 mg/dL (7-18); Chloride 105 mmol/L (98-107); Glucose 178 mg/dL (74-106); Magnesium 1.4 mg/dL (1.8-2.4); Potassium 3.5 mmol/L (3.5-5.1); Sodium 140 mmol/L (136-145)
--- NOTE | 2019-10-12 10:40 | DI.RAD_ITS ---
EXAM: XR PORTABLE CHEST AP INDICATION: new cough postop. COMPARISON: CHEST 2 VIEWS PA,LAT from 04/15/2018 RF barium swallow from 08/07/2018 XR CHEST 1V IN DI DEPT from 10/10/2019 TECHNIQUE: 2D digital imaging was performed. FINDINGS: Heart size and pulmonary vasculature are within normal limits. The hiatal hernia appears to have dec reased in size compared to the prior examination. The nodular density at the lateral aspect of the l eft upper lobe is again seen. It is unchanged compared to 10/10/2019. It was not present however on x-rays of the chest from 2018. CT scan of the chest should be considered for further evaluation. N o focal consolidating infiltrates are seen. There is no evidence of a pneumothorax. There is blunti ng of the right costophrenic angle which may represent a small pleural effusion. IMPRESSION: 1. Possible pleural effusion. 2. Pulmonary nodule in the left upper lobe. This was not present on the examination from 2018. CT s can of the chest is recommended for further evaluation. 3. Interval decrease in size of the hiatal hernia.
--- NOTE | 2019-10-12 10:55 | PT.INIE ---
Date of service: 10/12/19 Time of Service: 09:00 PT Notes Visit Reasons: Noemi PALACIOS HIP FRACTURE Inpatient Physical Therapy Evaluation Date: 10/12/2019 Referring Doctor: Toro Mathis MD PT Orders: PT CONSULT: Status post Ortho surgery Precautions: Weightbearing as tolerated left Patient Profile/Admitting Diagnosis: Orders received for this 79-year-old female who recently suffered a fall at home. She was taken to the emergency department where it was identified through diagnostics that she had fractured an intertrochanteric fracture of her left hip and femur. She underwent successful ORIF with a short nailing procedure. The typical postoperative course has been completed and patient is ready for the start of physical therapy evaluation PMHX: Medical History (Updated 10/10/19 @ 23:00 by Celestine Leone) Barretts esophagus Status post EGD with esophageal biopsy on July 05, [address] Jani Rothman. Squamous mucosa with reactive changes. Gastric type mucosa with chronic and focally active inflammation but no intestinal metaplasia or dysplasia. No helical factor pylori microorganisms identified. Breast cancer C. difficile enteritis at hospitalization may 2014 Colitis Colon stricture Depression Diverticulitis (Resolved 09/19/14) [place] [facility] [place] colostomy post op infection and malnutrition February 2015 colostomy takedown (post op infection) Hypertension Hypothyroid Indeterminate colitis (Resolved 02/04/16) 01/22/16 [place] [facility] [place]ritable bowel syndrome Malignant neoplasm of female breast (Resolved 09/21/92) R MAST AND RECONSTRUCTION. 10/25 INFLAMMATION AT [facility] WAS NEG FOR MALIGNANCY Malnutrition Osteoporosis Surgical History (Updated 10/10/19 @ 22:16 by Celestine Leone) Colectomy (~05/2014) for colon stricture presumed to be from diverticulitis colostomy reversal History of mastectomy (Chronic ~1994) right mastectomy (no radiation or chemotherapy); s/p reconstruction after the mastectomy Laparotomy (06/08/14) for [place] leak. End colostomy done Social History/Home Situation: Patient lives at home independently Equipment Owned/DME: Front wheel walker Subjective: Patient states she is doing okay but she has not really moved yet Objective: Well oriented alert pleasant female who is sitting up in bed head of bed to 30 degrees she has Johnson catheter still in place IV access through the left upper extremity Mental Status: Well oriented alert pleasant female in no current acute distress oriented to person place and time Pain: 3 out of 10 through the left thigh ROM: Right Upper Extremity: Within normal limits Left Upper Extremity: Within normal limits Right Lower Extremity: Within functional limits Left Lower Extremity: Hip flexion to 90 degrees, knee flexion beyond 90 degrees, hip abduction to 30 degrees Strength: Right Upper Extremity: Globally 4+ out of 5 Left Upper Extremity: Globally 4+ out of 5 Right Lower Extremity: Globally 4+ out of 5 Left Lower Extremity: Hip flexion 4-5 due to pain, quadriceps and hamstrings 4-5 due to pain, dorsiflexion plantarflexion 4+ out of 5 Bed Mobility/Transfers: Under the assistance of moderate assistance x1 Supine-sit: Moderate assistance x1 Sit-stand: Moderate assistance x1 Stand pivot transfer bed to chair: Moderate assistance x1 Gait: Patient able to take the necessary 5 steps to complete her transfer under moderate assistance and front wheel walker Balance: Static Sitting: Good Dynamic Sitting: Fair Static Standing: Fair Dynamic Standing: Poor Special Tests: Mobility Limitations Standardized Measure [facility] AM-PAC 6 clicks Basic Mobility Inpatient Short Form: Raw Score: 11 standardized Score 33.8 6: CMS score 72.57 CMS Modifier: CL Informed Consent/Education: Patient instructed in purpose of PT consult and plan of care. ASSESSMENT: Patient is a 79-year-old female with a history of good physical health Admitted with intertrochanteric fracture status post ORIF with short nailing Patient presents with the following impairment level findings: Moderate assistance needed for all transfers, ambulation intolerance, antalgic gait, activity tolerance limitation Pt will benefit from skilled therapy intervention in order to remedy their functional limitations and restore patient to a more appropriate and stable functional level. Impairments are contributing to the following functional limitations: AMPAC score 33.8 6 CMS Score: 72.57% Patient is assessed as a moderate complexity initial evaluation [id number] based on the following: History: see above Examination: see above Presentation: Evolving Decision Making: Moderate based on the impact of 70 215 7% Goals: Goals X1 week 1. Supine-Sit contact-guard assist 2. Sit-Supine contact-guard assist 3. Sit-Stand contact-guard assist 4. Stand-Sit contact-guard assist 5. Bed-Chair contact-guard assist 6. Gait up to 50 feet with contact-guard assist in front wheel walker Plan of Care/Treatment Plan: 1-2x/day, 7 days/week x 1 week. Plan of care has been reviewed with the MUSEUM SERVICE SCHEDULER providing the service under Physical Therapy direction. Initiate Physical Therapy intervention for strengthening, bed mobility, transfers, gait, stairs, balance training, use of assistive device. DISCHARGE RECOMMENDATIONS: Most likely discharge plan will be for continued rehabilitation in retirement facility unless remarkable independence with functional mobility is achieved TREATMENT CODE/TIME: Moderate complexity initial evaluation [id number] 30 minutes of care [facility]
--- NOTE | 2019-10-12 11:15 | DI.VRAD_ITS ---
PROCEDURE INFORMATION: Exam: XR Chest, 1 View Exam date and time: 10/12/2019 10:31 AM Age: 79 years old Clinical indication: Patient HX: Cough post surgery, hip fracture. Surgery on hip yesterday 10/11/19. TECHNIQUE: Imaging protocol: XR of the chest Views: 1 view. COMPARISON: XR CHEST 1V IN DI DEPT 10/10/2019 15:58 FINDINGS: Lungs: Left upper lobe lung nodule stable compared with prior study. Pleural space: Biapical pleural thickening is stable compared to prior study. Blunted right than left lateral costophrenic angle suggests small effusions. Heart/Mediastinum: Cardiomegaly. Decreased size of retrocardiac hiatal hernia. Bones/joints: Unremarkable for patient's age. IMPRESSION: 1. Suspect bilateral pleural effusions. 2. Cardiomegaly. 3. Slight decrease in size of retrocardiac hiatal hernia. Dictated and Authenticated by: Linda Knox MD. Ordering:ABBY Whitten MD
--- NOTE | 2019-10-12 11:57 | W.PM.PROGNOT ---
Date of Service Date of service: 10/12/19 Time of Service: 11:57 Assessment and Plan Assessment and plan (1) Intertrochanteric fracture of left femur: Status: Acute Assessment and plan: Status post ORIF by Dr. Mathis on 10/11/19. EBL<100 cc. Doing well postop. D/c IVF. Intensify bowel regimen. IS. Johnson per ortho. Continue to work with PT. Check vitamin D level as also has evidence of thoracic compression fractures on imaging. May require subacute rehab on discharge. Qualifiers: Encounter type: initial encounter Fracture type: closed Fracture alignment: displaced Qualified Code(s): S72.142A - Displaced intertrochanteric fracture of left femur, initial encounter for closed fracture (2) Incidental lung nodule, > 3mm and < 8mm: Status: Acute Assessment and plan: Per radiology, follow-up CT of the chest in 2 to 3 weeks as outpatient. If finding persists, then he would recommend a PET CT of the chest. (3) Hypomagnesemia: Status: Acute Assessment and plan: Replete and monitor (4) Acute bronchitis: Status: Acute Assessment and plan: The patient reports 3 weeks of a cough productive of yellow sputum. Obtain sputum sample. Both CT and CXR today are negative for acute infection. RX IS. Check procalcitonin. No new antibiotics at this time. (5) Constipation: Status: Acute Assessment and plan: Aggressive bowel regimen. Check TSH. (6) DVT prophylaxis: Status: Acute Assessment and plan: lovenox (7) Discharge planning issues: Status: Acute Assessment and plan: Full code may require subacute rehab on discharge Subjective Subjective Interval history since last seen: Complaints of lower abdominal pain. Denies dizziness, chest pain, shortness of breath, nausea. Hip is not bothering her. Has had a productive cough for 3 weeks - sputum is yellow. Reports constipation which has been alternating with diarrhea at home frequently. Her last BM was 3 days ago and she feels uncomfortable. Exam Narrative Exam Narrative: General: Very pleasant pale elderly female, sitting in a chair, comfortable HEENT: EOMI, MMM Heart: RRR, no m/r/g Lungs: Crackles at the L base Abdomen: soft, full, nontender, + hypoactive BS Extremities: no e/c/c BLE's, left hip incision dressed - c/d/i Objective Objective Clinical Data: Abnormal lab results 10/12/19 10/12/19 Range/Units 09:45 09:45 RBC 3.13 L (4.00-5.20) m/cumm Hgb 9.0 L (12.0-15.5) g/dL Hct 28.4 L (36.0-46.0) % MCHC 31.7 L (32.0-36.0) g/dL RDW 14.8 H (11.7-14.6) % Glucose 178 H (74-106) mg/dL Calcium 8.0 L (8.5-10.1) mg/dL Magnesium 1.4 L (1.8-2.4) mg/dL Vital Signs Temperature 36.2 C L 10/12/19 07:15 Temperature Source Temporal Artery Scan 10/12/19 07:15 Pulse 82 10/12/19 07:15 Pulse Rhythm Regular 10/12/19 08:00 Pulse 92 H 10/10/19 20:00 Respiratory Rate 18 10/12/19 03:49 Respiratory Effort Non-Labored 10/12/19 08:00 Respiratory Depth Normal 10/12/19 08:00 Respiratory Pattern Normal 10/12/19 08:00 Blood Pressure 111/58 L 10/12/19 07:15 Blood Pressure Mean 87 10/10/19 19:51 Blood Pressure Position Supine 10/10/19 14:40 Pulse Oximetry 17 L 10/12/19 07:15 Respiratory End-tidal CO2 33 10/11/19 15:07 Oxygen Delivery Method Room Air 10/12/19 07:15 Oxygen Flow Rate 0 10/12/19 07:15 Pain Level 1 10/12/19 09:16 Intake & Output 10/11/19 10/11/19 10/12/19 11:59 23:59 11:59 Intake Total 2099 / 3260 1160 / 3260 1316.667 / 1316.667 Output Total 1050 / 1300 250 / 1300 350 / 350 Balance 1049 / 1959 / 1959 966.667 / 966.667 Weight 60.6 kg Intake: IV 2100 / 3260 1160 / 3260 1196.667 / 1196.667 Oral 120 / 120 Output: Urine 1050 / 1300 250 / 1300 350 / 350 Other: Urine Color Yellow Yellow Light Kaylah Urine Appearance Clear Clear Clear Comment Pt on LR at 100ml/hr but has declined to drink much of anything. Emesis Description None Laboratory Results WBC 7.25 k/cumm (4.4-10.8) 10/12/19 09:45 RBC 3.13 m/cumm (4.00-5.20) L 10/12/19 09:45 Hgb 9.0 g/dL (12.0-15.5) L 10/12/19 09:45 Hct 28.4 % (36.0-46.0) L 10/12/19 09:45 MCV 90.7 fL (80-95) 10/12/19 09:45 MCH 28.8 pg (27.0-33.0) 10/12/19 09:45 MCHC 31.7 g/dL (32.0-36.0) L 10/12/19 09:45 RDW 14.8 % (11.7-14.6) H 10/12/19 09:45 Plt Count 203 x1000/uL (130-400) 10/12/19 09:45 MPV 10.3 fL (8.0-11.0) 10/12/19 09:45 Immature Gran % 0.1 10/12/19 09:45 Neutrophils % 76.1 10/12/19 09:45 Lymphocytes % 17.2 10/12/19 09:45 Monocytes % 5.7 10/12/19 09:45 Eosinophils % 0.8 10/12/19 09:45 Basophils % 0.1 10/12/19 09:45 Absolute Neutrophils 5.51 k/cumm (1.2-6.7) 10/12/19 09:45 Absolute Lymphocytes 1.25 k/cumm (1.2-3.4) 10/12/19 09:45 Absolute Monocytes 0.41 k/cumm (0.11-0.7) 10/12/19 09:45 Absolute Eosinophils 0.06 k/cumm (0.0-0.7) 10/12/19 09:45 Absolute Basophils 0.01 k/cumm (0.0-0.2) 10/12/19 09:45 Differential Comment Rbc morph reviewed 10/11/19 06:38 RBC Morphology See below 10/11/19 06:38 Hypochromasia 1+ 10/11/19 06:38 Poikilocytosis 1+ 10/11/19 06:38 Anisocytosis 1+ 10/11/19 06:38 Sodium 140 mmol/L (136-145) 10/12/19 09:45 Potassium 3.5 mmol/L (3.5-5.1) 10/12/19 09:45 Chloride 105 mmol/L (98-107) 10/12/19 09:45 Carbon Dioxide 27.0 mmol/L (21.0-32.0) 10/12/19 09:45 Anion Gap 8.0 mmol/L (3-11) 10/12/19 09:45 BUN 13 mg/dL (7-18) 10/12/19 09:45 Creatinine 0.80 mg/dL (0.55-1.02) 10/12/19 09:45 Estimated GFR/1.73 m2 >= 60.00 (mL/min/1.73m2) 10/12/19 09:45 Glucose 178 mg/dL (74-106) H 10/12/19 09:45 Calcium 8.0 mg/dL (8.5-10.1) L 10/12/19 09:45 Magnesium 1.4 mg/dL (1.8-2.4) L 10/12/19 09:45 Total Bilirubin 0.3 mg/dL (0.2-1.0) 10/10/19 17:20 AST 20 U/L (15-37) 10/10/19 17:20 ALT 20 U/L (14-59) 10/10/19 17:20 Alkaline Phosphatase 112 U/L (46-116) 10/10/19 17:20 Total Protein 7.2 g/dL (6.4-8.2) 10/10/19 17:20 Albumin 3.3 g/dL (3.4-5.0) L 10/10/19 17:20 Urine Color Yellow (Yellow) 10/11/19 03:59 Urine Clarity Clear (Clear) 10/11/19 03:59 Urine pH 5.5 (5-8) 10/11/19 03:59 Ur Specific [place] 1.015 (1.005-1.025) 10/11/19 03:59 Urine Protein Negative mg/dL (Negative) 10/11/19 03:59 Urine Ketones Negative mg/dL (Negative) 10/11/19 03:59 Urine Blood Small (Negative) H 10/11/19 03:59 Urine Nitrite Negative (Negative) 10/11/19 03:59 Urine Bilirubin Negative (Negative) 10/11/19 03:59 Urine Urobilinogen 0.2 EU/dL (Up TO 0.2) 10/11/19 03:59 Ur Leukocyte Esterase Negative (Negative) 10/11/19 03:59 Urine RBC 5-10 HPF (0-2) H 10/11/19 03:59 Urine WBC 0-2 HPF (0-5) 10/11/19 03:59 Ur Epithelial Cells Not Applicable 10/11/19 03:59 Urine Crystals Not Applicable 10/11/19 03:59 Urine Bacteria Rare HPF (Negative) 10/11/19 03:59 Urine Casts Negative LPF (Negative) 10/10/19 18:10 Urine Mucus Not Applicable 10/11/19 03:59 Ur Culture Indicated? No 10/11/19 03:59 Urine Glucose Negative mg/dL (Negative) 10/11/19 03:59 Patient ABO/Rh O Positive 10/10/19 20:00 Antibody Screen Negative 10/10/19 20:00 CXR: 1. Suspect bilateral pleural effusions. 2. Cardiomegaly. 3. Slight decrease in size of retrocardiac hiatal hernia.
[2019-10-12] MEDS: MAGNESIUM SULFATE 4 GM/100 ML BAG IVPB (12:34)
[2019-10-12] MEDS: Polyethylene Glycol 3350 17 GM PACKET PO (13:49)
[2019-10-12] MEDS: Enoxaparin 30 MG/0.3 ML SYR SC (13:50)
--- NOTE | 2019-10-12 15:52 | CMPROGNOTE_ITS ---
- If Service Date Differs Date of service: 10/12/19 Time of Service: 15:52 Care Management Progress Note S/O: Amelia was sitting up in a chair when CM met with her. She stated that she was having some pain in her operative hip but that the nausea she experienced yesterday was much better. She was pleasant and interacted well with CM. When questioned about her post-discharge plans, Amelia stated that she would probably need to go to rehab. She said she would prefer to go home but knows that won't be possible. A long conversation was held with Amelia's sisters Jessica and Radha and they also agreed that Amelia would need rehab. This was also discussed by them with Dr. Mathis. Amelia and her sisters have all requested that a referral be sent to [facility]. A: Amelia is an 79 year old woman admitted to [facility] on 10/10/19 with a left hip fracture. P: Amelia will likely require short term rehab in a SNF when ready for discharge. She will follow the discharge plan as prescribed by her providers at the facility and transport will be determined by the location of the facility. CM will continue to support patient, family and discharge planning needs.
[2019-10-12 16:08] VITALS: BP 106/65; PULSE 83; RESP 18; TEMP 37; O2SAT 96
[2019-10-12] MEDS: Magnesium Oxide 400 MG TAB PO (20:27)
[2019-10-12 23:10] VITALS: BP 129/60; PULSE 97; RESP 18; TEMP 37; O2SAT 92
[2019-10-13 04:07] VITALS: BP 125/84; PULSE 98; RESP 16; TEMP 36.7; O2SAT 96
[2019-10-13] MEDS: ACETAMINOPHEN 1,000 MG/100 ML BTL 400 MG IVPB (05:34)
[2019-10-13] MEDS: Levothyroxine 25 MCG TAB PO (05:34)
[2019-10-13] MEDS: Normal Saline Flush 10 ML SYR IVP ×2 (05:34→09:09)
[2019-10-13 07:04] LABS: Abs Immature Grans 0.01 k/cumm (0.0-0.09); Absolute Basophil Count 0.01 k/cumm (0.0-0.2); Absolute Eosinophil Count 0.13 k/cumm (0.0-0.7); Absolute Monocyte Count 0.59 k/cumm (0.11-0.7); Absolute Neutrophil Count 5.13 k/cumm (1.2-6.7); Basophils % 0.1; Eosinophils % 1.9; HCT 26.9 % (36.0-46.0); HGB 8.3 g/dL (12.0-15.5); Immature Grans % 0.1; Lymphocytes % 15.8; Mean Corp. HGB Concentration 30.9 g/dL (32.0-36.0); Mean Corpuscular Hemoglobin 27.8 pg (27.0-33.0); Mean Platelet Volume 10.5 fL (8.0-11.0); Monocytes % 8.5; Neutrophils % 73.6; Platelet Count 195 x1000/uL (130-400); RBC 2.99 m/cumm (4.00-5.20); RBC Distribution Width 14.9 % (11.7-14.6); White Blood Cell Count 6.97 k/cumm (4.4-10.8)
[2019-10-13 07:24] LABS: Anion Gap 6.2 mmol/L (3-11); BUN 17 mg/dL (7-18); CO2 28.8 mmol/L (21.0-32.0); CREATININE 0.54 mg/dL (0.55-1.02); Calcium 7.9 mg/dL (8.5-10.1); Chloride 108 mmol/L (98-107); Glucose 92 mg/dL (74-106); Magnesium 2.2 mg/dL (1.8-2.4); Potassium 3.7 mmol/L (3.5-5.1); Sodium 143 mmol/L (136-145)
[2019-10-13 07:50] VITALS: BP 117/68; PULSE 83; RESP 17; TEMP 36.6; O2SAT 94
[2019-10-13 08:07] LABS: Procalcitonin 0.2 ng/mL
[2019-10-13] MEDS: Pantoprazole 40 MG VIAL IVP (09:08)
[2019-10-13] MEDS: Milk of Magnesia 30 ML CUP PO (09:08)
[2019-10-13] MEDS: Magnesium Oxide 400 MG TAB PO ×2 (09:09→20:25)
[2019-10-13] MEDS: Beta-Carotene(A) w/C,E, & Minerals TAB 1 TAB PO ×2 (09:09→20:25)
[2019-10-13] MEDS: Losartan 50 MG TAB PO (09:09)
[2019-10-13] MEDS: Docusate Sodium 100 MG CAP PO ×3 (09:09→20:25)
[2019-10-13] MEDS: Doxycycline Hyclate 100 MG CAP PO ×2 (10:04→21:25)
--- NOTE | 2019-10-13 11:41 | PGE_ITS ---
Date of Service Date of service: 10/13/19 Time of Service: 11:41 Assessment and Plan Assessment and plan (1) Intertrochanteric fracture of left femur: Start date: 10/13/19 Start time: 11:44 Status: Acute Assessment and plan: POD 2 ORIF, doing well. Drsg CDI, Hemoglobin 8.3. Recheck in am Continue to monitor. Pain controlled with tylenol and hydrocodone Qualifiers: Encounter type: initial encounter Fracture type: closed Fracture alignment: displaced Qualified Code(s): S72.142A - Displaced intertrochanteric fracture of left femur, initial encounter for closed fracture (2) Incidental lung nodule, > 3mm and < 8mm: Start date: 10/13/19 Start time: 11:45 Status: Acute Assessment and plan: Per radiology, follow-up CT of the chest in 2 to 3 weeks as outpatient. If finding persists, then he would recommend a PET CT of the chest. (3) Hypomagnesemia: Start date: 10/13/19 Start time: 11:45 Status: Acute Assessment and plan: Resolved. (4) Acute bronchitis: Start date: 10/13/19 Start time: 11:47 Status: Acute Assessment and plan: Doxycycline day 2, sputum culture normal dawit. (5) Constipation: Start date: 10/13/19 Start time: 11:48 Status: Acute Assessment and plan: Tsh in range. Continue linzess, and aggressive Bowel regimen (6) DVT prophylaxis: Start date: 10/13/19 Start time: 11:51 Status: Acute Assessment and plan: lovenox (7) Discharge planning issues: Start date: 10/13/19 Start time: 11:51 Status: Acute Assessment and plan: Full code [facility] and rehab. Above case discussed with Dr. Latham who is in agreement. Subjective Subjective Patient reports: no new complaints Interval history since last seen: Feeling better Exam Narrative Exam Narrative: General: Very pleasant pale elderly female, sitting in a chair, comfortable HEENT: EOMI, MMM Heart: RRR, no m/r/g Lungs: LSCTB Abdomen: soft, full, nontender, + hypoactive BS Extremities: no e/c/c BLE's, left hip incision dressed - c/d/i Objective Objective Clinical Data: Abnormal lab results 10/13/19 10/13/19 Range/Units 06:35 06:35 RBC 2.99 L (4.00-5.20) m/cumm Hgb 8.3 L (12.0-15.5) g/dL Hct 26.9 L (36.0-46.0) % MCHC 30.9 L (32.0-36.0) g/dL RDW 14.9 H (11.7-14.6) % Absolute Lymphocytes 1.10 L (1.2-3.4) k/cumm Chloride 108 H (98-107) mmol/L Creatinine 0.54 L (0.55-1.02) mg/dL Calcium 7.9 L (8.5-10.1) mg/dL Vital Signs Temperature 36.6 C 10/13/19 07:50 Temperature Source Temporal Artery Scan 10/13/19 07:50 Pulse 83 10/13/19 07:50 Pulse Rhythm Regular 10/13/19 07:38 Pulse 92 H 10/10/19 20:00 Respiratory Rate 17 10/13/19 07:50 Respiratory Effort Non-Labored 10/13/19 07:38 Respiratory Depth Normal 10/13/19 07:38 Respiratory Pattern Normal 10/13/19 07:38 Blood Pressure 117/68 10/13/19 07:50 Blood Pressure Mean 87 10/10/19 19:51 Blood Pressure Position Supine 10/10/19 14:40 Pulse Oximetry 94 L 10/13/19 07:50 Respiratory End-tidal CO2 33 10/11/19 15:07 Oxygen Delivery Method Room Air 10/13/19 07:50 Oxygen Flow Rate 0 10/13/19 07:50 Pain Level 3 10/13/19 07:50 Intake & Output 10/12/19 10/12/19 10/13/19 11:59 23:59 11:59 Intake Total 1316.667 / 1915.834 599.167 / 1915.834 Output Total 350 / 750 400 / 750 800 / 800 Balance 966.667 / 1165.834 199.167 / 1165.834 -800 / -800 Intake: IV 1196.667 / 1555.834 359.167 / 1555.834 Oral 120 / 360 240 / 360 Output: Urine 350 / 750 400 / 750 800 / 800 Other: Urine Color Light Kaylah Light Kaylah Yellow Urine Appearance Clear Clear Clear Laboratory Results WBC 6.97 k/cumm (4.4-10.8) 10/13/19 06:35 RBC 2.99 m/cumm (4.00-5.20) L 10/13/19 06:35 Hgb 8.3 g/dL (12.0-15.5) L 10/13/19 06:35 Hct 26.9 % (36.0-46.0) L 10/13/19 06:35 MCV 90.0 fL (80-95) 10/13/19 06:35 MCH 27.8 pg (27.0-33.0) 10/13/19 06:35 MCHC 30.9 g/dL (32.0-36.0) L 10/13/19 06:35 RDW 14.9 % (11.7-14.6) H 10/13/19 06:35 Plt Count 195 x1000/uL (130-400) 10/13/19 06:35 MPV 10.5 fL (8.0-11.0) 10/13/19 06:35 Immature Gran % 0.1 10/13/19 06:35 Neutrophils % 73.6 10/13/19 06:35 Lymphocytes % 15.8 10/13/19 06:35 Monocytes % 8.5 10/13/19 06:35 Eosinophils % 1.9 10/13/19 06:35 Basophils % 0.1 10/13/19 06:35 Absolute Neutrophils 5.13 k/cumm (1.2-6.7) 10/13/19 06:35 Absolute Lymphocytes 1.10 k/cumm (1.2-3.4) L 10/13/19 06:35 Absolute Monocytes 0.59 k/cumm (0.11-0.7) 10/13/19 06:35 Absolute Eosinophils 0.13 k/cumm (0.0-0.7) 10/13/19 06:35 Absolute Basophils 0.01 k/cumm (0.0-0.2) 10/13/19 06:35 Differential Comment Rbc morph reviewed 10/11/19 06:38 RBC Morphology See below 10/11/19 06:38 Hypochromasia 1+ 10/11/19 06:38 Poikilocytosis 1+ 10/11/19 06:38 Anisocytosis 1+ 10/11/19 06:38 Sodium 143 mmol/L (136-145) 10/13/19 06:35 Potassium 3.7 mmol/L (3.5-5.1) 10/13/19 06:35 Chloride 108 mmol/L (98-107) H 10/13/19 06:35 Carbon Dioxide 28.8 mmol/L (21.0-32.0) 10/13/19 06:35 Anion Gap 6.2 mmol/L (3-11) 10/13/19 06:35 BUN 17 mg/dL (7-18) 10/13/19 06:35 Creatinine 0.54 mg/dL (0.55-1.02) L 10/13/19 06:35 Estimated GFR/1.73 m2 >= 60.00 (mL/min/1.73m2) 10/13/19 06:35 Glucose 92 mg/dL (74-106) D 10/13/19 06:35 Calcium 7.9 mg/dL (8.5-10.1) L 10/13/19 06:35 Magnesium 2.2 mg/dL (1.8-2.4) 10/13/19 06:35 Total Bilirubin 0.3 mg/dL (0.2-1.0) 10/10/19 17:20 AST 20 U/L (15-37) 10/10/19 17:20 ALT 20 U/L (14-59) 10/10/19 17:20 Alkaline Phosphatase 112 U/L (46-116) 10/10/19 17:20 Total Protein 7.2 g/dL (6.4-8.2) 10/10/19 17:20 Albumin 3.3 g/dL (3.4-5.0) L 10/10/19 17:20 Procalcitonin 0.2 ng/mL 10/13/19 06:35 TSH 1.70 uIU/mL (0.36-3.74) 10/13/19 06:35 Urine Color Yellow (Yellow) 10/11/19 03:59 Urine Clarity Clear (Clear) 10/11/19 03:59 Urine pH 5.5 (5-8) 10/11/19 03:59 Ur Specific [place] 1.015 (1.005-1.025) 10/11/19 03:59 Urine Protein Negative mg/dL (Negative) 10/11/19 03:59 Urine Ketones Negative mg/dL (Negative) 10/11/19 03:59 Urine Blood Small (Negative) H 10/11/19 03:59 Urine Nitrite Negative (Negative) 10/11/19 03:59 Urine Bilirubin Negative (Negative) 10/11/19 03:59 Urine Urobilinogen 0.2 EU/dL (Up TO 0.2) 10/11/19 03:59 Ur Leukocyte Esterase Negative (Negative) 10/11/19 03:59 Urine RBC 5-10 HPF (0-2) H 10/11/19 03:59 Urine WBC 0-2 HPF (0-5) 10/11/19 03:59 Ur Epithelial Cells Not Applicable 10/11/19 03:59 Urine Crystals Not Applicable 10/11/19 03:59 Urine Bacteria Rare HPF (Negative) 10/11/19 03:59 Urine Casts Negative LPF (Negative) 10/10/19 18:10 Urine Mucus Not Applicable 10/11/19 03:59 Ur Culture Indicated? No 10/11/19 03:59 Urine Glucose Negative mg/dL (Negative) 10/11/19 03:59 Patient ABO/Rh O Positive 10/10/19 20:00 Antibody Screen Negative 10/10/19 20:00
--- NOTE | 2019-10-13 14:25 | CMPROGNOTE_ITS ---
- If Service Date Differs Date of service: 10/13/19 Time of Service: 14:26 Care Management Progress Note S/O: Amelia was sitting up in a chair visiting with her 2 sisters when CM met with her. She was much more expressive today, smiling and initiating conversation. Amelia and her sisters inquired if it would be possible for Amelia to enter the swingbed program instead of going to a SNF. CM explained that the decision would need to be made based on the combined recommendations of PT, CM and MD. CM will present the request on Monday. A: Amelia is an 79 year old woman admitted to [facility] on 10/10/19 with a left hip fracture. P: Amelia will likely require short term rehab in a SNF when ready for discharge. She will follow the discharge plan as prescribed by her providers at the facility and transport will be determined by the location of the facility. CM will continue to support patient, family and discharge planning needs.
[2019-10-13] MEDS: Enoxaparin 30 MG/0.3 ML SYR SC (14:36)
[2019-10-13 16:07] VITALS: BP 138/83; PULSE 94; RESP 18; TEMP 37.1; O2SAT 96
[2019-10-13] MEDS: HYDROcodone 5/Acetaminophen 325 TAB PO (16:57)
[2019-10-13] MEDS: Acetaminophen 325 MG TAB 650 MG PO (21:34)
[2019-10-14] VITALS (8 sets, daily range): BP systolic 113–156; BP diastolic 64–80; PULSE 74–90; RESP 16–18; TEMP 36–37.2; O2SAT 90–96
[2019-10-14] MEDS: HYDROcodone 5/Acetaminophen 325 TAB PO ×3 (00:42→13:26)
[2019-10-14 05:14] LABS: Vitamin D 25 Total 6.1 ng/ml (30-100)
[2019-10-14] MEDS: Levothyroxine 25 MCG TAB PO (06:30)
[2019-10-14 06:37] LABS: Abs Immature Grans 0.01 k/cumm (0.0-0.09); Absolute Basophil Count 0.02 k/cumm (0.0-0.2); Absolute Lymphocyte Count 1.57 k/cumm (1.2-3.4); Absolute Neutrophil Count 4.89 k/cumm (1.2-6.7); Basophils % 0.3; Eosinophils % 2.7; HCT 24.7 % (36.0-46.0); HGB 7.7 g/dL (12.0-15.5); Immature Grans % 0.1; Lymphocytes % 21.2; Mean Corp. HGB Concentration 31.2 g/dL (32.0-36.0); Mean Corpuscular Hemoglobin 28.3 pg (27.0-33.0); Mean Corpuscular Volume 90.8 fL (80-95); Mean Platelet Volume 10.5 fL (8.0-11.0); Monocytes % 9.5; Neutrophils % 66.2; Platelet Count 213 x1000/uL (130-400); RBC 2.72 m/cumm (4.00-5.20); RBC Distribution Width 14.9 % (11.7-14.6); White Blood Cell Count 7.39 k/cumm (4.4-10.8)
[2019-10-14 06:49] LABS: BUN 15 mg/dL (7-18); CREATININE 0.49 mg/dL (0.55-1.02); Chloride 108 mmol/L (98-107); Glucose 94 mg/dL (74-106); Magnesium 2.1 mg/dL (1.8-2.4); Potassium 4.1 mmol/L (3.5-5.1); Sodium 142 mmol/L (136-145)
[2019-10-14] MEDS: Losartan 50 MG TAB PO (08:20)
[2019-10-14] MEDS: Pantoprazole 40 MG TABCR PO (08:20)
[2019-10-14] MEDS: Docusate Sodium 100 MG CAP PO ×3 (08:21→19:36)
[2019-10-14] MEDS: Magnesium Oxide 400 MG TAB PO ×2 (08:21→19:35)
[2019-10-14] MEDS: Beta-Carotene(A) w/C,E, & Minerals TAB 1 TAB PO ×2 (08:21→19:36)
--- NOTE | 2019-10-14 09:31 | PT.INTREAT ---
Date of service: 10/13/19 Time of Service: 09:31 PT Notes Visit Reasons: L. IT HIP FRACTURE Inpatient Physical Therapy Treatment Note [facility] Date: 10/13/19 PRECAUTIONS: Fall, WBAT L SUBJECTIVE: Amelia is agreeable to participating in PT. Patient is in agreement that she is not at a functional level to return to home safely. OBJECTIVE: PAIN: No c/o pain BED MOBILITY/TRANSFERS Supine-sit: Mod A with HOB at 50 degrees Sit-stand: Min A Stand-sit: Mod A GAIT Assistive Device: FWW Weight bearing: WBAT L Assist: Min A - Mod A Distance: 10' Deviation: Max cueing for sequence and FWW mechanics, assist with R foot advancement, significant increase in L LE pain ASSESSMENT: Patient tolerated session with complaint of increased L LE pain with ther ex, transfers, and gait training. She was able to tolerate a progression in gait distance with FWW support and Min A -Mod A support, requring max cueing for sequence and FWW mechanics, she also required assist for R foot advancement. Patient will likely need SNF placement for continued rehab in order to return to home at a safe functional level. PLAN: Continue with PT's POC TREATMENT CODE/TIME: 30 minutes; 52230, [id number]
--- NOTE | 2019-10-14 10:19 | OTIE_ITS ---
Occupational Therapy Notes Inpatient Occupational Therapy Evaluation Date: 10/14/19 Referring Doctor:Maria Dolores Latham MD OT Orders: Non-Urgent Precautions: Fall, Standard PATIENT PROFILE/ADMITTING DIAGNOSIS: Pt is an 79 year old female who was admitted s/p a fall resulting in a intertrochanteric fracture of her left hip and femur. She underwent a successful ORIF performed by Dr. Mathis. Past Medical History: Medical History (Updated 10/10/19 @ 23:00 by Celestine Leone) Barretts esophagus Status post EGD with esophageal biopsy on July 05, [address] Jani Rothman. Squamous mucosa with reactive changes. Gastric type mucosa with chronic and focally active inflammation but no intestinal metaplasia or dysplasia. No helical factor pylori microorganisms identified. Breast cancer C. difficile enteritis at hospitalization may 2014 Colitis Colon stricture Depression Diverticulitis (Resolved 09/19/14) May 2014 [facility] [place] sigmoid resection and colostomy post op infection and malnutrition February 2015 colostomy takedown (post op infection) Hypertension Hypothyroid Indeterminate colitis (Resolved 02/04/16) 01/22/16 colonoscopy at [facility] [place] Irritable bowel syndrome Malignant neoplasm of female breast (Resolved 09/21/92) R MAST AND RECONSTRUCTION. 10/25 INFLAMMATION AT [facility] WAS NEG FOR MALIGNANCY Malnutrition Osteoporosis Surgical History (Updated 10/10/19 @ 22:16 by Celestine Leone) Colectomy (~05/2014) for colon stricture presumed to be from diverticulitis colostomy reversal History of mastectomy (Chronic ~1994) right mastectomy (no radiation or chemotherapy); s/p reconstruction after the mastectomy Laparotomy (06/08/14) for [place] leak. End colostomy done Social History/Home Situation: Pt reports that she lives alone but her sister lives next door and cares for her. Pt does not drive and her sister (A) her with grocery shopping, cooking, cleaning her home, laundry and community mobility. Pt states that he is able to perform her bathing routine in a tub/shower combination with a shower seat, toileting with a raised toilet seat and dressing in the sitting position at baseline. Equipment owned/DME: shower seat, raised toilet seat, grab bars SUBJECTIVE: Pt was working with [employer] when OT arrived. She was transferring to the bed with (A). She is agreeable to OT session and is agreeable to performance of consult. OBJECTIVE: General Observation: Pleasant,appropriate and tired Mental Status: A&Ox3 Pain: c/o pain in (L) hip with bed mobility STRENGTH: RUE Shoulder flexion 3+/5, bicep 4-/5, tricep 4-/5, cotton factor is strong L>R pt is (L) handed. L UE Shoulder flexion 3+/5, bicep 4-/5, tricep 4-/5, cotton factor is strong L>R pt is (L) handed. ROM: RUE AROM WFL LUE AROM WFL FUNCTIONAL MOBILITY/ADLS: Transfers with FWW Sit-supine Max (A) (B) LE Bed-Chair CGAx2 Chair-bed CGAx2 BATHING - Sitting in bed pt was able to demonstrate functional ROM required for (B) UE ROM. Pt is unable to bend at hips based on pain. DRESSING Dressing LE Max (A) don and doff (B) socks TOILETING Pt denies. EATING This was performed prior to OT session which pt reports she was (I). Therapeutic Activities [id number]: OT educated and trained pt in use of adaptive equipment including sock aid, educational program director and dressing stick and shoe horn as well energy conservation techniques which OT was able to cover briefly. BALANCE: Static sitting Good Dynamic Sitting Good Static Standing Fair Dynamic Standing Fair SPECIAL TESTS: Daily Activity Limitations Standardized Measure [facility] AM -PAC ?6 clicks? Daily Activity Inpatient Short Form: Raw score: 16 Standardized score: 35.96 CMS score: 53.32% INFORMED CONSENT/EDUCATION: Pt instructed in purpose of OT Consult and plan of care. ASSESSMENT: Patient is a 79-year-old female referred to occupational therapy services with diagnosis of intertrochanteric fracture of her left hip and femur. She underwent a successful ORIF performed by Dr. Mathis. Patient presents with clinical signs and symptoms consistent with dx, as demonstrated by the following impairment level findings: Pain in (L) hip, decreased functional mobility, impairments in ADL/IADL and leisure activities, decreased functional use of (L) LE, decreased standing tolerance, decreased functional activity tolerance, weakness. Impairments are contributing to the following functional limitations: Decreased performance of ADLS, decreased gross motor control of (L) LE, decreased functional activity tolerance, decreased LE dressing and bathing routines, decreased performance of ADLs in the standing position. AMPAC score 16 Patient is assessed as a high 65247 complexity based on the following: History: See Above Examination: see functional limitations as noted above. Presentation: Evolving Decision Making: AMPAC score 16 GOALS Goals x1 week 1. Transfers SBA, FWW 2. Dressing- Sitting in chair (I) LE dressing with adaptive equipment 3. Bathing- Sitting on side of bed (I) with UE bathing, mod (A) LE 4. Toileting- on toilet, min (A) 5. Eating (I) PLAN OF CARE/TREATMENT PLAN: 1x/day, 5 days/ week x 1week Initiate Occupational Therapy Services for bathing, dressing, grooming, toileting, eating, transfer training. DISCHARGE RECOMMENDATIONS Based on pts current functional (I) and assessment of functional abilities OT recommends that pt go to SNF for short term stay. TREATMENT TIME/MINUTES/CODES 77292, 12913, 20 minutes (09:55) Radha Vallejo OTR/L [facility]
[2019-10-14] MEDS: Doxycycline Hyclate 100 MG CAP PO ×2 (10:37→21:19)
--- NOTE | 2019-10-14 10:42 | PT.INTREAT ---
Date of service: 10/14/19 Time of Service: 10:42 PT Notes Visit Reasons: L. IT HIP FRACTURE Inpatient Physical Therapy Treatment Note [facility] Date: 10/14/19 PRECAUTIONS: Fall, WBAT L SUBJECTIVE: Amelia is agreeable to participating in PT. Patient reports that she has been using the STEDY to transfer from bed to commode at night. She reports that she likes using the STEDY because it's easier. Patient and patient's sisters discuss that patient is hesitant to consider a ST SNF stay because she does not want to share a room with another patient. OBJECTIVE: PAIN: Patient c/o significant L LE pain with transfers, gait training, and ther ex. BED MOBILITY/TRANSFERS Supine-sit: Max A with HOB at 50 degrees Sit-supine: Max A with HOB flat Sit-stand: Min A in a.m.; Min A x1 + Mod A x1 in p.m. Stand-sit: Mod A GAIT Assistive Device: FWW Weight bearing: WBAT L Assist: Min A - Mod A Distance: 3' + Stand-pivot in a.m.; 3' in p.m. Deviation: Max cueing for sequence and FWW mechanics, assist with R foot advancement, significant increase in L LE pain THEREX: Patient completed a LE strengthening and stabilization program, in a seated position in a.m. and and seated in long-sit positions in p.m., as per flow sheet. She requires assist for LAQ, hip flexion, and hip abduction exercises. ASSESSMENT: Patient tolerated session with complaint of significant L LE pain with ther ex, transfers, and gait training. She continues to require max cueing for sequence and FWW mechanics, as well as assist for R foot advancement. Patient will likely need ST SNF placement for continued rehab in order to return to home at a safe functional level. PLAN: Continue with PT's POC TREATMENT CODE/TIME: Session 1: 30 minutes; 47892, [id number] Session 2: 30 minutes; [id number], [id number]
[2019-10-14] MEDS: diphenhydrAMINE 25 MG CAP PO (11:22)
[2019-10-14] MEDS: Acetaminophen 325 MG TAB 650 MG PO ×2 (11:23→18:46)
--- NOTE | 2019-10-14 11:39 | W.PM.PROGNOT ---
Date of Service Date of service: 10/14/19 Time of Service: 11:39 Assessment and Plan Assessment and plan (1) Intertrochanteric fracture of left femur: Start date: 10/14/19 Start time: 11:45 Status: Acute Assessment and plan: POD 3 ORIF, doing well. Drsg CDI, Hemoglobin 7.7, transfuse 1 unit PRBC, repeat HH in am Continue to monitor. Pain controlled with tylenol and hydrocodone Qualifiers: Encounter type: initial encounter Fracture type: closed Fracture alignment: displaced Qualified Code(s): S72.142A - Displaced intertrochanteric fracture of left femur, initial encounter for closed fracture (2) Incidental lung nodule, > 3mm and < 8mm: Start date: 10/14/19 Start time: 11:45 Status: Acute Assessment and plan: Per radiology, follow-up CT of the chest in 2 to 3 weeks as outpatient. If finding persists, then he would recommend a PET CT of the chest. (3) Acute bronchitis: Start date: 10/14/19 Start time: 11:45 Status: Acute Assessment and plan: Doxycycline day 3, sputum culture normal dawit. No cough, wheezing, rhonchi or rales. Continue ICS. (4) Constipation: Start date: 10/14/19 Start time: 11:46 Status: Acute Assessment and plan: Large BM yesterday Continue Bowel Regimen (5) DVT prophylaxis: Start date: 10/14/19 Start time: 11:46 Status: Acute Assessment and plan: lovenox (6) Discharge planning issues: Start date: 10/14/19 Start time: 11:46 Status: Acute Assessment and plan: Full code Would like to stay on swing status, however patient requires a more extended stay and would benefit from rehab. Above case discussed with Dr. Latham who is in agreement. Subjective Subjective Patient reports: no new complaints Interval history since last seen: Pain controlled. Receiving 1 unit PRBC today and repeat HH tomorrow. She denies CP SOB, N/V/D. Exam Narrative Exam Narrative: General: Very pleasant elderly female, lying in bed, comfortable HEENT: EOMI, MMM Heart: RRR, no m/r/g Lungs: LSCTB Abdomen: soft, full, nontender, + hypoactive BS Extremities: no e/c/c BLE's, left hip incision dressed - c/d/i Objective Objective Clinical Data: Abnormal lab results 10/13/19 10/14/19 10/14/19 Range/Units 06:35 06:05 06:05 RBC 2.72 L (4.00-5.20) m/cumm Hgb 7.7 L (12.0-15.5) g/dL Hct 24.7 L (36.0-46.0) % MCHC 31.2 L (32.0-36.0) g/dL RDW 14.9 H (11.7-14.6) % Chloride 108 H (98-107) mmol/L Creatinine 0.49 L (0.55-1.02) mg/dL Calcium 8.0 L (8.5-10.1) mg/dL 25-OH Vitamin D Total 6.1 L (30-100) ng/ml Crossmatch 10/14/19 Range/Units 08:31 RBC (4.00-5.20) m/cumm Hgb (12.0-15.5) g/dL Hct (36.0-46.0) % MCHC (32.0-36.0) g/dL RDW (11.7-14.6) % Chloride (98-107) mmol/L Creatinine (0.55-1.02) mg/dL Calcium (8.5-10.1) mg/dL 25-OH Vitamin D Total (30-100) ng/ml Crossmatch See Detail Vital Signs Temperature 37.1 C 10/14/19 07:20 Temperature Source Temporal Artery Scan 10/14/19 07:20 Pulse 86 10/14/19 07:20 Pulse Rhythm Regular 10/14/19 00:30 Pulse 92 H 10/10/19 20:00 Respiratory Rate 18 10/14/19 07:20 Respiratory Effort 10/14/19 00:30 Respiratory Depth Normal 10/14/19 00:30 Respiratory Pattern Normal 10/14/19 00:30 Blood Pressure 124/64 10/14/19 07:20 Blood Pressure Mean 87 10/10/19 19:51 Blood Pressure Position Supine 10/10/19 14:40 Pulse Oximetry 90 L 10/14/19 07:20 Respiratory End-tidal CO2 33 10/11/19 15:07 Oxygen Delivery Method Room Air 10/14/19 07:20 Oxygen Flow Rate 0 12/23/19 07:20 Pain Level 5 10/14/19 07:20 Intake & Output 10/13/19 10/13/19 10/14/19 11:59 23:59 11:59 Intake Total 340 / 340 195 / 195 Output Total 800 / 900 100 / 900 300 / 300 Balance -800 / -560 240 / -560 -105 / -105 Intake: IV 100 / 100 Oral 240 / 240 195 / 195 Output: Urine 800 / 900 100 / 900 300 / 300 Other: Urine Color Yellow Yellow Yellow Urine Appearance Clear Clear Clear Urine Odor None Comment DARK YELLOW URINE. Stool Size Large Stool Characteristics Soft Brown Voiding Methods Bedside Commode Laboratory Results WBC 7.39 k/cumm (4.4-10.8) 10/14/19 06:05 RBC 2.72 m/cumm (4.00-5.20) L 10/14/19 06:05 Hgb 7.7 g/dL (12.0-15.5) L 10/14/19 06:05 Hct 24.7 % (36.0-46.0) L 10/14/19 06:05 MCV 90.8 fL (80-95) 10/14/19 06:05 MCH 28.3 pg (27.0-33.0) 10/14/19 06:05 MCHC 31.2 g/dL (32.0-36.0) L 10/14/19 06:05 RDW 14.9 % (11.7-14.6) H 10/14/19 06:05 Plt Count 213 x1000/uL (130-400) 10/14/19 06:05 MPV 10.5 fL (8.0-11.0) 10/14/19 06:05 Immature Gran % 0.1 10/14/19 06:05 Neutrophils % 66.2 10/14/19 06:05 Lymphocytes % 21.2 10/14/19 06:05 Monocytes % 9.5 10/14/19 06:05 Eosinophils % 2.7 10/14/19 06:05 Basophils % 0.3 10/14/19 06:05 Absolute Neutrophils 4.89 k/cumm (1.2-6.7) 10/14/19 06:05 Absolute Lymphocytes 1.57 k/cumm (1.2-3.4) 10/14/19 06:05 Absolute Monocytes 0.70 k/cumm (0.11-0.7) 10/14/19 06:05 Absolute Eosinophils 0.20 k/cumm (0.0-0.7) 10/14/19 06:05 Absolute Basophils 0.02 k/cumm (0.0-0.2) 10/14/19 06:05 Differential Comment Rbc morph reviewed 10/11/19 06:38 RBC Morphology See below 10/11/19 06:38 Hypochromasia 1+ 10/11/19 06:38 Poikilocytosis 1+ 10/11/19 06:38 Anisocytosis 1+ 10/11/19 06:38 Sodium 142 mmol/L (136-145) 10/14/19 06:05 Potassium 4.1 mmol/L (3.5-5.1) 10/14/19 06:05 Chloride 108 mmol/L (98-107) H 10/14/19 06:05 Carbon Dioxide 30.0 mmol/L (21.0-32.0) 10/14/19 06:05 Anion Gap 4.0 mmol/L (3-11) 10/14/19 06:05 BUN 15 mg/dL (7-18) 10/14/19 06:05 Creatinine 0.49 mg/dL (0.55-1.02) L 10/14/19 06:05 Estimated GFR/1.73 m2 >= 60.00 (mL/min/1.73m2) 10/14/19 06:05 Glucose 94 mg/dL (74-106) 10/14/19 06:05 Calcium 8.0 mg/dL (8.5-10.1) L 10/14/19 06:05 Magnesium 2.1 mg/dL (1.8-2.4) 10/14/19 06:05 Total Bilirubin 0.3 mg/dL (0.2-1.0) 10/10/19 17:20 AST 20 U/L (15-37) 10/10/19 17:20 ALT 20 U/L (14-59) 10/10/19 17:20 Alkaline Phosphatase 112 U/L (46-116) 10/10/19 17:20 Total Protein 7.2 g/dL (6.4-8.2) 10/10/19 17:20 Albumin 3.3 g/dL (3.4-5.0) L 10/10/19 17:20 25-OH Vitamin D Total 6.1 ng/ml (30-100) L 10/13/19 06:35 Procalcitonin 0.2 ng/mL 10/13/19 06:35 TSH 1.70 uIU/mL (0.36-3.74) 10/13/19 06:35 Urine Color Yellow (Yellow) 10/11/19 03:59 Urine Clarity Clear (Clear) 10/11/19 03:59 Urine pH 5.5 (5-8) 10/11/19 03:59 Ur Specific Arena 1.015 (1.005-1.025) 10/11/19 03:59 Urine Protein Negative mg/dL (Negative) 10/11/19 03:59 Urine Ketones Negative mg/dL (Negative) 10/11/19 03:59 Urine Blood Small (Negative) H 10/11/19 03:59 Urine Nitrite Negative (Negative) 10/11/19 03:59 Urine Bilirubin Negative (Negative) 10/11/19 03:59 Urine Urobilinogen 0.2 EU/dL (Up TO 0.2) 10/11/19 03:59 Ur Leukocyte Esterase Negative (Negative) 10/11/19 03:59 Urine RBC 5-10 HPF (0-2) H 10/11/19 03:59 Urine WBC 0-2 HPF (0-5) 10/11/19 03:59 Ur Epithelial Cells Not Applicable 10/11/19 03:59 Urine Crystals Not Applicable 10/11/19 03:59 Urine Bacteria Rare HPF (Negative) 10/11/19 03:59 Urine Casts Negative LPF (Negative) 10/10/19 18:10 Urine Mucus Not Applicable 10/11/19 03:59 Ur Culture Indicated? No 10/11/19 03:59 Urine Glucose Negative mg/dL (Negative) 10/11/19 03:59 Patient ABO/Rh O Positive 10/14/19 08:31 Antibody Screen Negative 10/14/19 08:31 Crossmatch See Detail 10/14/19 08:31
--- NOTE | 2019-10-14 14:07 | PDOC.CMPRO ---
- If Service Date Differs Date of service: 10/14/19 Time of Service: 14:07 Care Management Progress Note S/O: Amelia was sitting up in bed when CM met with her. CM shared that the team determined that she would not be a good candidate for the [facility] Swingbed program. It is felt that her recovery will likely exceed the program parameters. They felt that she would be best served in a rehab facility to maximize her potential for a safe return home. Amelia and her sisters expressed disappointment but stated that they understand and are in agreement with the plan. A bed offer has been received and accepted from [facility] for tomorrow. Amelia is receiving a unit of blood today to treat a drop in Hgb to 7.7. Her discharge tomorrow is contingent on a stabilization of her Hgb. A: Amelia is an 79 year old woman admitted to [facility] on 10/10/19 with a left hip fracture. P: Anticipate that Amelia will discharge to [facility] tomorrow. She will transport via facility wheelchair van. Tentative discharge time is 11:00 am in the morning if her repeat H&H is stable post-transfusion. She will follow the discharge plan as prescribed by her providers at the facility. CM will continue to support patient, family and discharge planning needs.
[2019-10-14] MEDS: Normal Saline 500 ML 25 ML IVPB (15:13)
--- NOTE | 2019-10-14 15:38 | CHAPLAIN ---
Amelia was sitting up in her chair when I visited. Her two sisters were with her. Amelia said she's being shipped across the way, tomorrow to [facility]. The sisters said they'd prefer she stay here, but they are in agreement with the plan. Amelia said she'd like to shower before she is discharged tomorrow.
[2019-10-14] MEDS: oxyCODONE 5 MG TAB PO (18:46)
[2019-10-15] MEDS: oxyCODONE 5 MG TAB PO ×3 (01:08→10:31)
[2019-10-15 01:20] VITALS: BP 139/72; PULSE 86; RESP 18; TEMP 37.2; O2SAT 95
[2019-10-15] MEDS: Levothyroxine 25 MCG TAB PO (06:32)
[2019-10-15 07:44] VITALS: BP 149/72; PULSE 86; RESP 20; TEMP 36.2; O2SAT 96
[2019-10-15] MEDS: Acetaminophen 325 MG TAB 650 MG PO (07:59)
[2019-10-15] MEDS: Docusate Sodium 100 MG CAP PO (08:01)
[2019-10-15] MEDS: Pantoprazole 40 MG TABCR PO (08:01)
[2019-10-15] MEDS: Beta-Carotene(A) w/C,E, & Minerals TAB 1 TAB PO (08:01)
[2019-10-15] MEDS: Magnesium Oxide 400 MG TAB PO (08:01)
[2019-10-15] MEDS: Losartan 50 MG TAB PO (08:01)
--- NOTE | 2019-10-15 08:51 | OT.INTREAT ---
Date of service: 10/15/19 Time of Service: 08:30 Occupational Therapy Notes Occupational Therapy Inpatient Treatment Note Date: 10/15/19 PRECAUTIONS: Fall, Standard SUBJECTIVE: Pt was agreeable to OT session. She states that she is tired and needs a nap. She worked with [employer] and was able to walk to her door prior to OT session. OBJECTIVE: PAIN:c/o pain in (L) hip FUNCTIONAL MOBILITY Sit-stand: CGA, min vc Stand-sit: CGA, min vc BATHING: In shower sitting on shower bench Upper Body: (I) hair, (B) UE, underarms, wisam area, max (A) back Lower Body: (I) (B) LE to just below knees, with min vc pt was able to wash (R) LE to ankles with leg positioning, (L) LE below knee to foot was max (A). DRESSING: Sitting on shower bench Upper Extremity: (I) don and doffing hospital gown Lower Extremity: Min (A) with don and doffing (R) sock, max (A) don and doffing (L) sock PLAN: Progression towards goals established at initial evaluation. TREATMENT CODES/TIME: [id number], 21 minutes (08:30) Radha Vallejo OTR/[facility] [place], [place]
--- NOTE | 2019-10-15 08:58 | PT.INTREAT ---
Date of service: 10/15/19 Time of Service: 08:58 PT Notes Visit Reasons: L. IT HIP FRACTURE Inpatient Physical Therapy Treatment Note [facility] Date: 10/15/19 PRECAUTIONS: Fall, WBAT L SUBJECTIVE: Amelia is agreeable to participating in PT. She reports continued significant pain in L hip area with movement. OBJECTIVE: PAIN: Patient c/o significant L LE pain with transfers, gait training, and ther ex. BED MOBILITY/TRANSFERS Supine-sit: Mod A with HOB at 50 degrees Sit-stand: Mod A Stand-sit: Mod A GAIT Assistive Device: FWW Weight bearing: WBAT L Assist: Min A Distance: 12' Deviation: Max cueing for sequence and FWW mechanics, assist with R foot advancement, significant increase in L LE pain THEREX: Patient completed a LE strengthening and stabilization program, in a long-sit position, as per flow sheet. She requires assist for hip flexion exercise due to pain and weakness. ASSESSMENT: Patient tolerated session with complaint of significant L LE pain with ther ex, transfers, and gait training. She continues to require max cueing for sequence and FWW mechanics, as well as assist for R foot advancement. Patient will likely need SNF placement for continued rehab in order to return to home at a safe functional level. PLAN: As per primary PT TREATMENT CODE/TIME: 30 minutes; 30808, [id number]
[2019-10-15 09:07] LABS: Abs Immature Grans 0.04 k/cumm (0.0-0.09); Absolute Basophil Count 0.02 k/cumm (0.0-0.2); Absolute Eosinophil Count 0.17 k/cumm (0.0-0.7); Absolute Lymphocyte Count 2.21 k/cumm (1.2-3.4); Absolute Monocyte Count 0.91 k/cumm (0.11-0.7); Absolute Neutrophil Count 8.21 k/cumm (1.2-6.7); Basophils % 0.2; Eosinophils % 1.5; HCT 34.3 % (36.0-46.0); HGB 11.1 g/dL (12.0-15.5); Immature Grans % 0.3; Lymphocytes % 19.1; Mean Corp. HGB Concentration 32.4 g/dL (32.0-36.0); Mean Corpuscular Hemoglobin 28.5 pg (27.0-33.0); Mean Corpuscular Volume 87.9 fL (80-95); Monocytes % 7.9; Platelet Count 304 x1000/uL (130-400); RBC Distribution Width 15.2 % (11.7-14.6); White Blood Cell Count 11.56 k/cumm (4.4-10.8)
--- NOTE | 2019-10-15 10:08 | W.NUTRFU ---
Date of service: 10/15/19 Time of Service: 10:08 Nutritional Follow up NOTE: Amelia advanced to Regular diet with adequate intake. Not considered at nutritional risk at this time. Awaiting SNF placement. Time Spent in Nutritional Counseling and Treatment: 0 time spent face to face
[2019-10-15] MEDS: Doxycycline Hyclate 100 MG CAP PO (10:31)
--- NOTE | 2019-10-15 10:32 | DSE_ITS ---
Date of service: 10/15/19 Time of Service: 10:32 DS: Diagnosis Discharge Diagnosis (1) Intertrochanteric fracture of left femur: Status: Acute (2) Incidental lung nodule, > 3mm and < 8mm: Status: Acute (3) Acute bronchitis: Status: Acute (4) Constipation: Status: Acute (5) DVT prophylaxis: Status: Acute (6) Discharge planning issues: Status: Acute Discharge Plan Disposition Patient Disposition: [facility] Condition: Stable Discharge Details Chief Complaint: Orthopedic Clinical Impression: Closed hip fracture Reason For Visit: L. IT HIP FRACTURE Admit Date/Time: 10/10/19 18:24 Admit Provider: Celestine Leone Attending Provider: Celestine Leone Primary Care Provider: Vicky Lopez ED Provider: Geoff Mendoza Hospital Course Hospital Course: Amelia Carrillo is a very pleasant 79-year-old female with a past medical history significant for breast cancer, depression, hypertension, hypothyroidism, irritable bowel syndrome, ambulatory dysfunction who normally uses a walker who presented to the emergency department on 10/10/2019 with reports of left hip pain after falling at home. She denied any head trauma at that time. She had x-rays in the emergency department which revealed left comminuted intertrochanteric fracture of femur with avulsion of the lesser trochanter. Her case was discussed with orthopedics in the emergency department. She also went on to have a chest x-ray which showed a hiatal hernia versus mass overlying the heart and left lung base of unclear etiology as well as multiple bilateral nodules in the upper lung sutton measuring up to 8 mm in size. A follow-up CT is recommended by radiology in the next 2 to 3 weeks. Her EKG showed normal sinus rhythm with a rate of 84, no ischemic ST or T wave changes, her EKG was reported to be normal. Her labs showed a mild leukocytosis of 12,310, mild anemia with a hemoglobin of 11.4, her UA was not suspicious for infection. She was admitted to the [facility] floor on the hospitalist service with an orthopedic consult. She went on to have repair of her left femoral fracture by Dr. Mathis. Overall, she did well postoperatively. She required 1 unit of packed red blood cells the day prior to her discharge on 10/14/2019 for a hemoglobin of 7.7. Her repeat hemoglobin on the day of discharge improved to 11.1. Her pain was well- controlled with Tylenol and hydrocodone. She worked with physical therapy who [facility]. She is [facility] a [facility] today, on postop day #4. She was also treated for bronchitis, currently on doxycycline day #4, her sputum culture grew normal dawit. She will complete a 5-day course of doxycycline. As above, she will need follow-up CT in the next 2 to 3 weeks. Follow up with ortho. Remove rhona at 2 weeks postop. Aspirin 81 mg p.o. twice daily for DVT prophylaxis. Home Meds and New Rx's Prescriptions: New acetaminophen [Tylenol] 325 mg Tablet 650 mg PO Q6H PRN PRN (Reason: fever or pain) Qty: 1 RF: 0 doxycycline hyclate 100 mg Capsule 100 mg PO Q12H Qty: 3 RF: 0 magnesium oxide 400 mg (241.3 mg magnesium) Tablet 400 mg PO BID Qty: 0 RF: 0 pantoprazole 40 mg Tablet,Delayed Release (Dr/Ec) 40 mg PO DAILY@0730 Qty: 0 RF: 0 oxycodone 5 mg Tablet 5 mg PO Q4H PRN PRNQty: 12 RF: 0 aspirin 81 mg tablet,delayed release (DR/EC) 81 mg PO BID Qty: 1 RF: 0 Continued loperamide [Anti-Diarrheal (loperamide)] 2 mg capsule 2 mg PO Q4H PRNRF: 0 losartan 50 mg tablet 50 mg PO DAILY Qty: 90 RF: 4 MaxiVision 1 cap PO DAILY RF: 0 dicyclomine 10 mg capsule 10 mg PO TID PRN (Reason: IBS) Qty: 30 RF: 2 levothyroxine 25 mcg tablet 25 mcg PO DAILY Qty: 90 RF: 3 Linzess 72 mcg capsule 72 mcg PO QWEEK RF: 0 Discontinued acetaminophen [Tylenol Extra Strength] 500 mg Tablet 500 mg PO Q4H PRNRF: 0 Discharge Instructions Instructions: ORIF of Hip Fracture (DC) Stand Alone Forms: Nursing Discharge Form Activity:: Activity as Tolerated Activity:: Activity as Tolerated Equipment/Supplies:: No Equipment Needed Diet:: As Tolerated Discharge Orders Other Ambulatory Orders: CT chest w (Routine) Location: None Selected Ordered By: Malka Ross DS: Summary Status at Discharge Functional status at discharge: uses cane/walker Overall status at discharge: patient is progressing back to baseline Mental Status: mental status grossly normal Speech and Movement: speech and movement normal Mood: congruent mood Affect: normal affect Exam Narrative Exam Narrative: General: 79 year old female, appears stated age, sitting up in the chair, in NAD. Alert and oriented, answers questions appropriately. HEENT: Normocephalic, atraumatic, pupils symmetrical and round, EOMI, mucous membranes moist. Neck: Supple, no JVD. Cardiovascular: Heart has regular rate and rhythm, non-tachycardic, no murmur appreciated. Respiratory: Respirations appear even and unlabored, lung sounds clear to auscultation bilaterally. Occasional nonproductive cough noted. No wheezing or rales. GI: Normoactive bowel sounds, abdomen soft, nontender on palpation, nondistended. Extremities: Left lateral hip with dressing with scant staining. Dressing changed by nursing. Pedal pulses are palpable bilaterally, no significant edema. No calf swelling or tenderness. Psych Mental Status: mental status grossly normal Speech and Movement: speech and movement normal Mood: congruent mood Affect: normal affect DS: Data Vitals/I&O Vitals and I&O: Vital Signs Temperature 36.2 C L 10/15/19 07:44 Temperature Source Temporal Artery Scan 10/15/19 07:44 Pulse 86 10/15/19 07:44 Pulse Rhythm Regular 10/15/19 01:20 Pulse 92 H 10/10/19 20:00 Respiratory Rate 20 10/15/19 07:44 Respiratory Effort Non-Labored 10/15/19 01:20 Respiratory Depth Normal 10/15/19 01:20 Respiratory Pattern Normal 10/15/19 01:20 Blood Pressure 149/72 H 10/15/19 07:44 Blood Pressure Mean 87 10/10/19 19:51 Blood Pressure Position Supine 10/10/19 14:40 Pulse Oximetry 96 10/15/19 07:44 Respiratory End-tidal CO2 33 10/11/19 15:07 Oxygen Delivery Method Room Air 10/15/19 07:44 Oxygen Flow Rate 0 10/15/19 07:44 Pain Level 5 10/15/19 10:31 Intake & Output 10/14/19 10/14/19 10/15/19 11:59 23:59 11:59 Intake Total 195 / 713.334 518.334 / 713.334 60 / 60 Output Total 300 / 1000 700 / 1000 500 / 500 Balance -105 / -286.666 -181.666 / -286.666 -440 / -440 Intake: IV 18.334 / 18.334 Oral 195 / 445 250 / 445 60 / 60 Blood Product 250 / 250 Rbc Leuko Reduced Unit 250 / 250 [id number] Output: Urine 300 / 1000 700 / 1000 500 / 500 Other: Urine Color Yellow Light Kaylah Light Kaylah Urine Appearance Clear Clear Clear Urine Odor None Strong Strong Comment DARK YELLOW URINE. Voiding Methods Bedside Commode Bedside Commode Bedside Commode Data Completed and Pending Completed studies during hospitalization [Text1]: 10/10/2019 EXAM: CT HEAD CERVICAL SPINE WO CLINICAL HISTORY: fall TECHNIQUE: COMPARISON: HEAD WITHOUT CONTRAST from 04/15/2018 FINDINGS: CT examination cervical spine lies in multi slice acquisition. Images obtained through the lung apices show some pleural thickening. No cervical spine fracture seen. Marked degenerative changes noted. No evidence of dislocation. Tracheolaryngeal structures appear intact. No cervical mass or adenopathy. Noncontrast cranial CT was performed.there is marked generalized cerebral atrophy and there are patchy areas of decreased attenuation in periventricular white matter consistent with microvascular ischemic change. No evidence of acute intracranial hemorrhage mass effect or midline shift. The paranasal sinuses and mastoid air cells are clear. The orbital and temporal bone structures appear intact. IMPRESSION: No evidence of acute intracranial injury. No evidence of acute cervical spine fracture. EXAM: XR PELVIS AP CLINICAL HISTORY: fall TECHNIQUE: COMPARISON: No exams were available for comparison FINDINGS: Single AP view of the pelvis was obtained. There is mildly comminuted intertrochanteric fracture of the left femur with avulsion of the lesser trochanter and marked varus angulation. No additional fracture seen on this AP view. EXAM: XR FEMUR LT CLINICAL HISTORY: fall TECHNIQUE: COMPARISON: No exams were available for comparison FINDINGS: Four views were obtained. There is a comminuted intertrochanteric fracture of femur with avulsion of the lesser trochanter. There is marked varus angulation the fracture site. No additional femoral fracture seen. EXAM: XR CHEST 1V IN DI DEPT CLINICAL HISTORY: pre op COMPARISON: RF barium swallow from 08/07/2018 FINDINGS: Supine AP view was obtained. There is mild cardiomegaly. Question radiodensity overlying inferior mediastinum, possible hiatal hernia but mediastinal mass not excluded. Additional evaluation with chest CT recommended. Additionally there are multiple questionable faint intrapulmonary nodules projected over the upper lung sutton bilaterally, chest CT is also indicated for evaluation of this finding. IMPRESSION: Question intrapulmonary nodules, question mediastinal mass versus heart hiatal hernia. Chest CT recommended EXAM: CT CHEST PE CTA CLINICAL HISTORY: Abnormal chest x-ray TECHNIQUE: CT angiography of the chest was performed with a bolus infusion of 100 cc Omnipaque 350. Ax[address] angiography was performed with multi-slice acquisition and multi-planar and/or 3D reconstructions. COMPARISON: ABD PELVIS WITH CONTRAST from 11/19/2015 FINDINGS: Note is made of vertebral body anterior compression fractures at T3 and T11 which are of uncertain age. Images obtained through the upper abdomen show presumed hepatic and renal cysts and otherwise unremarkable appearance of kidneys, spleen, liver and pancreas as visualized. No evidence of pulmonary embolic disease. No significant abnormality of thoracic aorta or major branches. There is an 8 millimeter in diameter left upper lobe noncalcified pulmonary nodule. Areas of associated pleural thickening are noted as well and this finding could be associated with acute consolidative process. Neoplastic disease not excluded. Follow-up chest CT requested in 2-3 weeks to re-evaluate this area and if the findings do not resolve, close follow-up or PET-CT should be considered to exclude neoplastic disease. Otherwise lungs are grossly clear with mild dependent atelectasis. No mediastinal or hilar adenopathy. No significant pleural effusion. Large paraesophageal hiatal hernia noted. IMPRESSION: No evidence of pulmonary embolic disease. 8 millimeter left upper lobe intrapulmonary nodule with associated pleural radiodensities, infectious versus neoplastic process. Follow-up chest CT recommended in 2-3 weeks and if the findings do not resolve, additional evaluation with a PET CT or close CT follow-up would be recommended. 10/11/2019: EXAM: XR HIP LT IN OR CLINICAL HISTORY: fx hip left TECHNIQUE: 2D and realtime digital imaging was performed. Fluoroscopy was provided in the OR COMPARISON: No exams were available for comparison FINDINGS: C-arm fluoroscopy was utilized by Dr. Mathis during open reduction and internal fixation of proximal femoral fracture. Hard copy shows gamma nail in place transfixing the intertrochanteric fracture fragments. Fluoro Time: 52.1 seconds 10/12/2019: EXAM: XR PORTABLE CHEST AP INDICATION: new cough postop. COMPARISON: CHEST 2 VIEWS PA,LAT from 04/15/2018 RF barium swallow from 08/07/2018 XR CHEST 1V IN DI DEPT from 10/10/2019 TECHNIQUE: 2D digital imaging was performed. FINDINGS: Heart size and pulmonary vasculature are within normal limits. The hiatal hernia appears to have decreased in size compared to the prior examination. The nodular density at the lateral aspect of the left upper lobe is again seen. It is unchanged compared to 10/10/2019. It was not present however on x-rays of the chest from 2018. CT scan of the chest should be considered for further evaluation. No focal consolidating infiltrates are seen. There is no evidence of a pneumothorax. There is blunting of the right costophrenic angle which may represent a small pleural effusion. IMPRESSION: 1. Possible pleural effusion. 2. Pulmonary nodule in the left upper lobe. This was not present on the examination from 2018. CT scan of the chest is recommended for further evaluation. 3. Interval decrease in size of the hiatal hernia. Labs on day of discharge: Labs from last 24 hours 10/15/19 10/14/19 08:55 08:31 WBC 11.56 H D RBC 3.90 L Hgb 11.1 L D Hct 34.3 L D MCV 87.9 MCH 28.5 MCHC 32.4 RDW 15.2 H Plt Count 304 MPV 10.0 Immature Gran % 0.3 Neutrophils % 71.0 Lymphocytes % 19.1 Monocytes % 7.9 Eosinophils % 1.5 Basophils % 0.2 Absolute Neutrophils 8.21 H Absolute Lymphocytes 2.21 Absolute Monocytes 0.91 H Absolute Eosinophils 0.17 Absolute Basophils 0.02 Patient ABO/Rh O Positive Antibody Screen Negative Crossmatch See Detail [facility] Medical History Barretts esophagus Status post EGD with esophageal biopsy on July 05, [address] Jani Rothman. Squamous mucosa with reactive changes. Gastric type mucosa with chronic and focally active inflammation but no intestinal metaplasia or dysplasia. No helical factor pylori microorganisms identified. Breast cancer C. difficile enteritis at hospitalization may 2014 Colitis Colon stricture Depression Diverticulitis (Resolved 09/19/14) May 2014 [facility] sigmoid resection and colostomy post op infection and malnutrition February 2015 colostomy takedown (post op infection) Hypertension Hypothyroid Indeterminate colitis (Resolved 02/04/16) 01/22/16 colonoscopy at [facility] Irritable bowel syndrome Malignant neoplasm of female breast (Resolved 09/21/92) R [facility] AND RECONSTRUCTION. 10/25 INFLAMMATION AT [facility] WAS NEG FOR MALIGNANCY Malnutrition Osteoporosis Surgical History Colectomy (~05/2014) for colon stricture presumed to be from diverticulitis colostomy reversal History of mastectomy (Chronic ~1994) right mastectomy (no radiation or chemotherapy); s/p reconstruction after the mastectomy Laparotomy (06/08/14) for [place] leak. End colostomy done Family History Mother , 84 Essential hypertension COPD (chronic obstructive pulmonary disease) Father , 51 Stomach cancer Brother No problems noted. Maternal Grandfather No problems noted. Paternal Grandfather No problems noted. Maternal Grandmother No problems noted. Paternal Grandmother No problems noted. Sister No problems noted. Sister No problems noted. Social History Smoking/Tobacco Use Status: Former Tobacco Use Quit Date: 10/23/94 Pack-years: 40 Tobacco: How many years used: 20 Alcohol Intake: never Drug use: Never Pets and animals: No Current gender identity: decline to answer What is your relationship status?: never How often do you talk on the phone with friends or family?: decline to answer How often do you get together with friends or relatives?: decline to answer How often do you attend judaism or episcopalian services?: decline to answer Do you belong to any clubs or organized social groups?: decline to answer Panel score (0-1 are the most socially isolated patients): 0 What type of physical activity do you participate in: decline to answer Duration: decline to answer Frequency: decline to answer Leslie/Sikhism: No preference Special leslie needs: No Seatbelt use: always Do you feel safe at home: Yes History History 0 Para 0 Hx # Term Pregnancies 0 Multiple births Hx # Pregnancies 0 Ectopic pregnancies AB induced 0 Hx Number of Living Children 0 AB spontaneous 0
--- NOTE | 2019-10-15 14:53 | CMDISCH_ITS ---
- If Service Date Differs Date of service: 10/15/19 Time of Service: 14:54 LACE Index Scoring Tool - Questions: Length of Stay (in days): 4 - 6 Acuity (Admit via E.D.?): Yes Comorbidities: Any Tumor E.D. Visits: 2 - Answers: Total Score: 11 Risk of Readmission: High Risk Care Management Discharge Reason for Hospitalization: Intertrochanteric fracture of left femur Discharge Plan: Am[facility] for 1100 CM reviewed the discharge plan she is surprised of the discharged today she would like to stay here for SBI however agrees to go to the rehab. Amelia will transport via wheelchair van. CM contacted both sisters and notified of discharge. DC summary faxed with [facility] to [facility]. Patient/Family Education Needs: Discharge education, limitations and follow up plan of care including education r/t discharge to [facility] Services Needed at Discharge: Senior Care Facility, Transportation
--- NOTE | 2019-10-17 10:45 | INDS_ITS ---
Date of service: 10/17/19 Time of Service: 10:45 PT Notes Visit Reasons: Noemi PALACIOS HIP FRACTURE Inpatient Physical Therapy Discharge Summary Dates: 10/17/2019 Dates of Service: 10/12/2019 through 10/15/2019 This is a clinical summary of care provided on the duration of dates listed above. No charge was made in the completion of this documentation. Referring Doctor: Toro Mathis MD PT Orders: PT CONSULT: Status post Ortho surgery Precautions: Weightbearing as tolerated left Patient Profile/Admitting Diagnosis: Orders received for this 79-year-old female who recently suffered a fall at home. She was taken to the emergency department where it was identified through diagnostics that she had fractured an intertrochanteric fracture of her left hip and femur. She underwent successful ORIF with a short nailing procedure. PMHX: Medical History (Updated 10/10/19 @ 23:00 by Celestine Leone) Barretts esophagus Status post EGD with esophageal biopsy on July 05, [address] Jani Rothman. Squamous mucosa with reactive changes. Gastric type mucosa with chronic and focally active inflammation but no intestinal metaplasia or dysplasia. No helical factor pylori microorganisms identified. Breast cancer C. difficile enteritis at hospitalization may 2014 Colitis Colon stricture Depression Diverticulitis (Resolved 09/19/14) May 2014 [facility] sigmoid resection and colostomy post op infection and malnutrition February 2015 colostomy takedown (post op infection) Hypertension Hypothyroid Indeterminate colitis (Resolved 02/04/16) 01/22/16 colonoscopy at [facility] Irritable bowel syndrome Malignant neoplasm of female breast (Resolved 09/21/92) R [facility] AND RECONSTRUCTION. 10/25 INFLAMMATION AT [facility] WAS NEG FOR MALIGNANCY Malnutrition Osteoporosis Surgical History (Updated 10/10/19 @ 22:16 by Celestine Leone) Colectomy (~05/2014) for colon stricture presumed to be from diverticulitis colostomy reversal History of mastectomy (Chronic ~1994) right mastectomy (no radiation or chemotherapy); s/p reconstruction after the mastectomy Laparotomy (06/08/14) for [place] leak. End colostomy done Social History/Home Situation: Patient lives at home independently Equipment Owned/DME: Front wheel walker Subjective: NT Objective: NT Mental Status: NT Pain: NT ROM: Right Upper Extremity: Within normal limits Left Upper Extremity: Within normal limits Right Lower Extremity: Within functional limits Left Lower Extremity: Hip flexion to 90 degrees, knee flexion beyond 90 degrees, hip abduction to 30 degrees Strength: Right Upper Extremity: Globally 4+ out of 5 Left Upper Extremity: Globally 4+ out of 5 Right Lower Extremity: Globally 4+ out of 5 Left Lower Extremity: Hip flexion 4-5 due to pain, quadriceps and hamstrings 4-5 due to pain, dorsiflexion plantarflexion 4+ out of 5 Bed Mobility/Transfers: Under the assistance of moderate assistance x1 Supine-sit: Moderate assistance x1 Sit-stand: Moderate assistance x1 Stand pivot transfer bed to chair: Moderate assistance x1 Gait: With TANK TESTER today, patient is able to tolerate 12 feet of short distance ambulation requiring minimal assist with WBAT on left using a front wheeled walker but with maximal verbal and tactile cueing for overall safety and correct gait technique. Balance: Static Sitting: Good Dynamic Sitting: Fair Static Standing: Fair Dynamic Standing: Fair ASSESSMENT: Patient is a 79-year-old female with a history of good physical health. Patient was admitted with intertrochanteric fracture status post ORIF with short nailingPatient presents with the following impairment level findings: Moderate assistance needed for all transfers, ambulation intolerance, antalgic gait, activity tolerance limitation and will be transferred today to a nursing home facility for continued functional mobility progression. Goals: Goals X1 week 1. Supine-Sit contact-guard assist NOT MET 2. Sit-Supine contact-guard assist NOT MET 3. Sit-Stand contact-guard assist NOT MET 4. Stand-Sit contact-guard assist NOT MET 5. Bed-Chair contact-guard assist NOT MET 6. Gait up to 50 feet with contact-guard assist in front wheel walker NOT MET DISCHARGE RECOMMENDATIONS: Patient will benefit from nursing home facility placement for continued skilled physical therapy services in order to progress mobility level, strength, and balance in preparation for a safe discharge to home. TREATMENT CODE/TIME: NC. Thank you very much for this referral. Shweta Malik PT, DPT, CLT [facility] Inpatient PT at [facility]
== END 2019-10-15 11:40 | disposition intermediate care facility (04) | DRG 481 ==
LOC: ER 19:50 → MS 20:14
PROVIDERS: Orthopaedic Surgery; Admitting Provider Internal Medicine; Emergency Provider Emergency Medicine; PCP Family Medicine; Visit Provider Internal Medicine
PROC: 0QS706Z Reposition Left Upper Femur with Intramedullary Internal Fixation Device, Open Approach (ICD-10-PCS; CPT 27245; principal; 2019-10-11 11:00)
DX: S72.142A Displaced intertrochanteric fracture of left femur, initial encounter for closed fracture (principal); M80.88XA Other osteoporosis with current pathological fracture, vertebra(e), initial encounter for fracture; S72.122A Displaced fracture of lesser trochanter of left femur, initial encounter for closed fracture; W19.XXXA Unspecified fall, initial encounter; Y92.009 Unspecified place in unspecified non-institutional (private) residence as the place of occurrence of the external cause; J20.9 Acute bronchitis, unspecified; D64.9 Anemia, unspecified; R91.1 Solitary pulmonary nodule; E03.9 Hypothyroidism, unspecified; K22.70 Barrett's esophagus without dysplasia; I10 Essential (primary) hypertension; K58.2 Mixed irritable bowel syndrome; Z87.891 Personal history of nicotine dependence; Z85.3 Personal history of malignant neoplasm of breast; K44.9 Diaphragmatic hernia without obstruction or gangrene; F32.9 Major depressive disorder, single episode, unspecified; E83.42 Hypomagnesemia
CPT/HCPCS: 27245; 36415; 36430; 51702; 64447; 71275; 73552; 76942; 80048; 80053; 82306; 84145; 86850; 86900; 86901; 86920; 93005; 96361; 96365; 96375; 96376; 97110; 97162; 97167; 97530; 97535; 99223; 99232; 99233; 99239; 99285; NC; 70450; 71045; 72125; 72170; 73501; 81003; 81015; 83735; 84443; 85014; 85018; 85025; 87070; 87086; 87205; 93010; J0131; J0690; J1650; J1885; J2270; J2405; J3475; J3490; P9016

== ENCOUNTER 2019-10-22 11:10 | Outpatient (CLI) | payer MEDICARE, OTHER, SELFPAY ==
[2019-10-22 14:02] LABS: Abs Immature Grans 0.03 k/cumm (0.0-0.09); Absolute Basophil Count 0.01 k/cumm (0.0-0.2); Absolute Eosinophil Count 0.17 k/cumm (0.0-0.7); Absolute Lymphocyte Count 1.85 k/cumm (1.2-3.4); Absolute Monocyte Count 0.85 k/cumm (0.11-0.7); Absolute Neutrophil Count 7.01 k/cumm (1.2-6.7); Basophils % 0.1; Eosinophils % 1.7; HCT 32.7 % (36.0-46.0); HGB 10.4 g/dL (12.0-15.5); Immature Grans % 0.3; Lymphocytes % 18.6; Mean Corp. HGB Concentration 31.8 g/dL (32.0-36.0); Mean Corpuscular Hemoglobin 28.9 pg (27.0-33.0); Mean Corpuscular Volume 90.8 fL (80-95); Mean Platelet Volume 9.8 fL (8.0-11.0); Monocytes % 8.6; Neutrophils % 70.7; Platelet Count 575 x1000/uL (130-400); RBC Distribution Width 15.9 % (11.7-14.6); White Blood Cell Count 9.92 k/cumm (4.4-10.8)
[2019-10-22 14:04] LABS: Anion Gap 8.3 mmol/L (3-11); BUN 19 mg/dL (7-18); CO2 27.7 mmol/L (21.0-32.0); CREATININE 0.66 mg/dL (0.55-1.02); Calcium 8.9 mg/dL (8.5-10.1); Chloride 102 mmol/L (98-107); Glucose 96 mg/dL (74-106); Potassium 4.6 mmol/L (3.5-5.1); Sodium 138 mmol/L (136-145)
== END 2019-10-22 11:30 ==
PROVIDERS: PCP Family Medicine; Visit Provider Nurse Practitioner Adult Health
DX: D64.9 Anemia, unspecified (principal); I51.7 Cardiomegaly; Z85.3 Personal history of malignant neoplasm of breast
CPT/HCPCS: 36415; 80048; 85025

== ENCOUNTER 2019-10-30 15:05 | Outpatient (REF) | payer MEDICARE, OTHER, SELFPAY ==
[2019-10-30 15:46] LABS: Anion Gap 15.4 mmol/L (3-11); BUN 17 mg/dL (7-18); CO2 21.6 mmol/L (21.0-32.0); CREATININE 0.75 mg/dL (0.55-1.02); Calcium 9.3 mg/dL (8.5-10.1); Chloride 105 mmol/L (98-107); Glucose 121 mg/dL (74-106); Potassium 4.7 mmol/L (3.5-5.1); Sodium 142 mmol/L (136-145)
== END 2019-10-30 15:25 ==
LOC: LBN 15:05
PROVIDERS: PCP Family Medicine; Visit Provider Nurse Practitioner Adult Health
DX: D64.9 Anemia, unspecified (principal); K22.70 Barrett's esophagus without dysplasia
CPT/HCPCS: 80048

== ENCOUNTER 2019-11-05 01:33 | Outpatient (CLI) | payer MEDICARE, OTHER, SELFPAY ==
--- NOTE | 2019-11-05 09:55 | DI.CT_ITS ---
EXAM: CT CHEST W CLINICAL HISTORY: FORREST PULMONARY NODULE TECHNIQUE: Imaging Protocol: Axial computed tomography images with coronal and sagittal reformatted images were created and reviewed CONTRAST MATERIAL: Intravenous: Omnipaque 350 Contrast volume:70 mL contrast route:IV - COMPARISON: CHEST 2 VIEWS PA,LAT from 04/15/2018 XR PORTABLE CHEST AP from 10/12/2019 XR PORTABLE CHEST AP from 10/12/2019 FINDINGS: Tracheobronchial tree: Patent where visualized. Mediastinum and Brandee: There is a large hiatal hernia. No mediastinal adenopathy. Pulmonary parenchyma: Mild centrilobular emphysematous changes are present in the lungs. There is a 0.8 cm noncalcified pulmonary nodule in the lateral aspect of the left upper lobe. This corresponds to the chest x-ray finding. There is adjacent nodular scarring associated with the major fissure. N o other noncalcified pulmonary nodules are seen. No focal consolidating infiltrates are present. Pleura: No effusion or pneumothorax. Heart: The heart is not dilated. Coronary artery calcifications are present. No pericardial effusion is seen. Aorta: Atherosclerosis. No aneurysmal dilatation. Upper abdomen: Hepatic and renal cysts. Lymph nodes: Within normal limits. Bones: Old T11 compression deformity. Old T3 compression deformity. Mild degenerative changes in th e spine. Old sternal fracture. No suspicious lytic or sclerotic lesions. IMPRESSION: 1. 0.8 cm noncalcified pulmonary nodule in the left upper lobe. Primary or metastatic carcinoma talita ot be excluded. Follow-up as clinically appropriate. This may include a PET-CT scan. 2. Mild COPD. 3. Large hiatal hernia. 4. No evidence of thoracic adenopathy. DATA REPOSITORY: All CT scans at this facility are submitted to the National Radiology Data Registry (NRDR) Dose Index Registry (DIR) with the [employer] (ACR). RADIATION OPTIMIZATION: All CT scans at this facility use at least one of these dose optimization te chniques: automated exposure control; mA and/or kV adjustment per patient size (includes targeted exa ms where dose is matched to clinical indication); or iterative reconstruction.
[2019-11-05] MEDS: Omnipaque 350 MG/ML 100 ML BTL IJ (09:56)
== END 2019-11-05 01:53 ==
PROVIDERS: PCP Family Medicine; Visit Provider Nurse Practitioner Adult Health
DX: R91.1 Solitary pulmonary nodule (principal); J44.9 Chronic obstructive pulmonary disease, unspecified; K44.9 Diaphragmatic hernia without obstruction or gangrene
CPT/HCPCS: 71260; J3490

== ENCOUNTER 2019-12-17 11:50 | Outpatient (CLI) | payer MEDICARE, OTHER, SELFPAY ==
--- NOTE | 2019-12-17 11:30 | DI.RAD_ITS ---
EXAM: XR HIP LT AP LAT ONLY CLINICAL HISTORY: f/u fx TECHNIQUE: The exam was performed according to the usual protocol. COMPARISON: CT CHEST PE CTA from 10/10/2019 XR PELVIS AP from 10/10/2019 XR HIP LT IN OR from 10/11/2019 FINDINGS: Two views were obtained. Note is again made of previously described gamma nail transfixing intertroc hanteric fracture femur. No gross interval change in alignment in comparison with examination of Sep which was an intraoperative study.
== END 2019-12-17 12:10 ==
PROVIDERS: PCP Family Medicine; Referring Provider Family Medicine; Visit Provider Orthopaedic Surgery
DX: S72.142D Displaced intertrochanteric fracture of left femur, subsequent encounter for closed fracture with routine healing; X58.XXXD Exposure to other specified factors, subsequent encounter
CPT/HCPCS: 73502

== ENCOUNTER 2020-04-23 10:26 | Outpatient (CLI) | payer MEDICARE, OTHER, SELFPAY ==
--- NOTE | 2020-04-23 10:15 | DI.CT_ITS ---
EXAM: CT CHEST WO CLINICAL HISTORY: ABNORMAL FINDINGS R93.89. TECHNIQUE: Imaging protocol: Axial computed tomography images were obtained and coronal and sagittal reformatted images were created and reviewed. COMPARISON: CT CT CHEST W from 11/05/2019 FINDINGS: Tracheobronchial tree: Patent where visualized. Mediastinum and Brandee: No dominant adenopathy or fluid collection. There is a large hiatal hernia. Pulmonary parenchyma: No consolidation is present. Mild centrilobular emphysema. The left upper lob e nodule now measures 0.9 x 1.2 cm. It extends to the adjacent pleura. There is a 0.6 cm adjacent d ensity present. The previously noted area involving the major fissure has decreased in size. No oth er pulmonary nodules are seen. Pleura: No effusion or pneumothorax. Heart: The heart is not dilated. Mild coronary artery calcification. No significant pericardial effu cesar. Aorta: Thoracic aorta non-dilated. Atherosclerosis. Upper abdomen: Multiple hepatic and renal cysts are noted Lymph nodes: Within normal limits. Bones:Old T3 and T11 compression deformities are present. Degenerative changes are seen in the spine . There is a stable L2 compression deformity. IMPRESSION: 1. Interval increase in size of left upper lobe pulmonary nodule as described above. 2. Adjacent 0.6 cm nodule in the left upper lobe. RADIATION DOSE DELIVERED: Total DLP Total DLP DATA REPOSITORY: All CT scans at this facility are submitted to the National Radiology Data Registry (NRDR) Dose Index Registry (DIR) with the [employer] (ACR). RADIATION OPTIMIZATION: All CT scans at this facility use at least one of these dose optimization te chniques: automated exposure control; mA and/or kV adjustment per patient size (includes targeted exa ms where dose is matched to clinical indication); or iterative reconstruction.
== END 2020-04-23 10:46 ==
PROVIDERS: PCP Family Medicine; Visit Provider Internal Medicine
DX: R91.1 Solitary pulmonary nodule (principal); R91.8 Other nonspecific abnormal finding of lung field; K44.9 Diaphragmatic hernia without obstruction or gangrene; J43.8 Other emphysema; N28.1 Cyst of kidney, acquired; K76.89 Other specified diseases of liver
CPT/HCPCS: 71250

== ENCOUNTER 2020-04-28 10:41 | Outpatient (CLI) | payer MEDICARE, OTHER, SELFPAY ==
--- NOTE | 2020-04-28 10:22 | DI.RAD_ITS ---
EXAM: XR HIP LT AP LAT ONLY CLINICAL HISTORY: f/u fracture TECHNIQUE: 2D digital imaging was performed. COMPARISON: CR XR HIP LT AP LAT ONLY from 12/17/2019 FINDINGS: There has been no change in the alignment of the gamma nail in the proximal left femur for fixation of the intertrochanteric fracture. There is has been some increase in fracture healing. No new abno rmalities are seen.
== END 2020-04-28 11:01 ==
PROVIDERS: PCP Family Medicine; Visit Provider Orthopaedic Surgery
DX: M79.652 Pain in left thigh; S72.142S Displaced intertrochanteric fracture of left femur, sequela; I10 Essential (primary) hypertension
CPT/HCPCS: 99213; 73502

== ENCOUNTER 2020-10-28 02:28 | Outpatient (CLI) | payer MEDICARE, OTHER, SELFPAY ==
--- NOTE | 2020-10-28 | DI.CT_ITS ---
EXAM: CT CHEST WO CLINICAL HISTORY: F/U ABNL PREVIOUS IMAGING,R93.89,F/U SMALL FORREST NODULAR DENSITY. TECHNIQUE: Multi planar reconstructions were performed. CONTRAST MATERIAL: Omnipaque 350; 75 cc COMPARISON: CT CT CHEST WO from 04/23/2020 FINDINGS: CHEST: LUNGS: Scarring in both lung apices is unchanged. In the apical posterior segment of the left upper lobe there increasing nodular and partially confluent densities, significant further increased when c ompared to April 2020. No other findings of significance below this level in the left upper lobe and lingular segment. No significant focal findings in the adjacent superior segment of the left lower l obe nor in the basal segments in the opposite-right lung there mild increased markings noted posterio rly in the lower lobe. No pleural effusion. No significant focal findings in the trachea and mainstem bronchi. MEDIASTINUM: There is no hilar nor mediastinal adenopathy. Thyroid gland exhibits normal size but faith ears heterogeneous. Possibly with nodules. CARDIAC: Heart size is normal. There is no pericardial effusion.Caliber of the thoracic aorta is wit hin normal limits. VISUALIZED UPPER ABDOMEN:Large retrocardiac hiatal hernia is again noted. Large cyst in the upper po le of the left kidney noted. Previously described hepatic cysts are again noted. No adrenal masses. OSSEOUS: No new significant osseous lesions. Nonacute T3 and T11 compression deformities are again n oted. Also compression superior endplate of L2. No new compression fractures in the visualized spin al column. IMPRESSION: 1. Compared to the prior CT scan of 04/23/2020 there has been further deterioration in the previously described left upper lobe apical posterior segment findings.. At this location there increasing nod ular densities which are appearing partially confluent at this time. No associated pleural effusions nor obvious lymphadenopathy evident on this noninfused study. Differential diagnosis is inflammatory versus neoplastic. 2. No new osseous findings. Compression deformities chronic nature as described above, unchanged fro m prior studies. 3. RADIATION DOSE DELIVERED: 362.53mGy.cm Total DLP DATA REPOSITORY: All CT scans at this facility are submitted to the National Radiology Data Registry (NRDR) Dose Index Registry (DIR) with the [employer] (ACR). RADIATION OPTIMIZATION: All CT scans at this facility use at least one of these dose optimization te chniques: automated exposure control; mA and/or kV adjustment per patient size (includes targeted exa ms where dose is matched to clinical indication); or iterative reconstruction.
== END 2020-10-28 02:48 ==
PROVIDERS: PCP Family Medicine; Visit Provider Internal Medicine
DX: R91.8 Other nonspecific abnormal finding of lung field (principal); R93.89 Abnormal findings on diagnostic imaging of other specified body structures
CPT/HCPCS: 71250

== ENCOUNTER 2020-12-02 19:23 | Outpatient (REF) | payer MEDICARE, OTHER, SELFPAY ==
[2020-12-03 14:38] LABS: COVID-19 RT-PCR UVMMC Result Negative (Negative)
== END 2020-12-02 19:24 | disposition home or self-care (01) ==
LOC: LBN 19:23
PROVIDERS: PCP Family Medicine; Visit Provider Family Medicine
DX: Z20.822 Contact with and (suspected) exposure to COVID-19 (principal)
CPT/HCPCS: U0003; U0005

== ENCOUNTER 2020-12-16 02:22 | Outpatient (CLI) | payer MEDICARE, OTHER, SELFPAY ==
[2020-12-16 12:42] LABS: HCT 37.7 % (36.0-46.0); HGB 11.8 g/dL (11.2-15.7); MCH 28.6 pg (27.0-33.0); MCHC 31.3 % (32.0-36.0); MCV 91.5 fL (80-95); MPV 10.9 fL (8.0-11.0); Platelet Count 256 10^3/uL (130-400); RBC 4.12 10^6/uL (3.93-5.22); RDW 14.4 % (11.7-14.6); RDW-SD 48.4 fL; WBC 8.53 10^3/uL (4.4-10.8)
[2020-12-16 12:56] LABS: TSH (W/Ref FT4) 2.55 uIU/mL (0.36-3.74)
[2020-12-16 12:58] LABS: ALT 26 U/L (14-59); AST 21 U/L (15-37); Albumin 3.8 g/dL (3.4-5.0); Alkaline Phosphatase 141 U/L (46-116); Anion Gap 11.8 mmol/L (3-11); BUN 21 mg/dL (7-18); Bilirubin, Total 0.4 mg/dL (0.2-1.0); CO2 27.2 mmol/L (21.0-32.0); CREATININE 0.8 mg/dL (0.55-1.02); Calcium 9.5 mg/dL (8.5-10.1); Chloride 104 mmol/L (98-107); Ferritin 17 ng/mL (8-252); Glucose 105 mg/dL (74-106); Potassium 4.6 mmol/L (3.5-5.1); Sodium 143 mmol/L (136-145); Total Protein 7.3 g/dL (6.4-8.2)
[2020-12-17 04:39] LABS: Vitamin D 25 Total 30.6 ng/ml (30-100)
== END 2020-12-16 02:23 | disposition home or self-care (01) ==
PROVIDERS: Family Medicine; PCP Family Medicine; Visit Provider Family Medicine
DX: I10 Essential (primary) hypertension (principal); D50.9 Iron deficiency anemia, unspecified; E03.9 Hypothyroidism, unspecified; M81.0 Age-related osteoporosis without current pathological fracture; G40.909 Epilepsy, unspecified, not intractable, without status epilepticus
CPT/HCPCS: 36415; 80053; 82306; 85027; 82728; 84443

== ENCOUNTER 2021-02-01 01:57 | Outpatient (CLI) | payer MEDICARE, OTHER, SELFPAY ==
--- NOTE | 2021-02-01 | DI.CT_ITS ---
EXAM: CT CHEST WO CLINICAL HISTORY: F/U ABNL CHEST IMAGING,R93.89. TECHNIQUE: Multi planar reconstructions were performed. CONTRAST MATERIAL: None COMPARISON: CT CT CHEST WO from 10/28/2020 FINDINGS: CHEST: LUNGS: There is minimal if any significant change in the area of infiltrate in the apical posterior s egment of the left upper lobe, basically unchanged from 10/28/2020. There is no associated pleural e ffusion and there are no other new significant focal findings in the left lung. These scarring in casper th lung apices is again noted. In the opposite-right lung there are no new focal findings evident. Mild increased markings in the r ight lower lobe posteriorly are unchanged. No pleural effusion MEDIASTINUM: There is no obvious hilar nor mediastinal adenopathy. Visualized thyroid unremarkable.No obvious axillary adenopathy calcified lateral thoracic lymph node right side again noted. There is a large retrocardiac hiatal hernia again noted. A significant part of the stomach is in the chest. CARDIAC: Heart size is normal. There is no pericardial effusion.Caliber of the thoracic aorta is wit hin normal limits. VISUALIZED UPPER ABDOMEN:No obvious adrenal masses. Cyst in superior pole of the left kidney is agai n noted but difficult to assess because only partially included in the field of view. This measures 3.5 by 3.5 cm. OSSEOUS: Compression fracture T11 and T2 again noted, unchanged. Also significant indentation of the superior endplate of L2 noted, unchanged. No new compression fractures in the field of view. No ly tic osseous lesions.. IMPRESSION: 1. Minimal if any significant change in the infiltrate in the apical posterior segment left upper lob e and also no significant change in the mild increased markings in the right lower lobe posterior bas al segment. Findings require continued close observation. Inflammatory versus neoplastic. No assoc iated pleural effusions. No obvious intrathoracic adenopathy. 2. Large hiatal hernia is again noted. 3. Compression fractures of T2 and T11 again noted as well as indentation of superior endplate of L2, also unchanged. No new compression fractures and no lytic osseous lesions identified. RADIATION DOSE DELIVERED: 375.45mGy.cm Total DLP DATA REPOSITORY: All CT scans at this facility are submitted to the National Radiology Data Registry (NRDR) Dose Index Registry (DIR) with the [employer] (ACR). RADIATION OPTIMIZATION: All CT scans at this facility use at least one of these dose optimization te chniques: automated exposure control; mA and/or kV adjustment per patient size (includes targeted exa ms where dose is matched to clinical indication); or iterative reconstruction.
== END 2021-02-01 02:17 ==
PROVIDERS: PCP Family Medicine; Visit Provider Internal Medicine
DX: R93.89 Abnormal findings on diagnostic imaging of other specified body structures (principal); R91.8 Other nonspecific abnormal finding of lung field; J98.4 Other disorders of lung
CPT/HCPCS: 71250

== ENCOUNTER 2021-02-03 09:20 | Outpatient (CLI) | payer MEDICARE, OTHER, SELFPAY ==
--- NOTE | 2021-02-03 11:00 | DI.RAD_ITS ---
EXAM: XR LUMBAR SPINE COMPLETE CLINICAL HISTORY: low back pain/right sciatica M54.5 LOW BACK PAIN. TECHNIQUE: 2D digital imaging was performed. COMPARISON: CR XR lumbar spine complete from 02/20/[address] CHEST WO from 10/28/2020 FINDINGS: There is a significant wedge compression fracture of T11 noted. This was evident on a CT scan perfor med 10/28/2020. Also indentation of superior endplate of L2, also previously present. Slight loss o f height superior endplate of T12 is also unchanged. There are no new compression fractures nor list hesis. Disc spaces continue to exhibit normal height throughout the lumbar spine and there is minima l facet arthropathy with the exception of L5-S1 where there are moderate facet joint changes bilatera lly. Sacroiliac joints appear unremarkable. No osseous lesions. No scoliosis. Incidentally noted is evidence of surgery in the pelvis which is most probably partial sigmoid resect ion. IMPRESSION: Compression fractures as described above but these were evident on prior CT scan of 10/28/2020. DATA REPOSITORY: RADIATION DOSE DELIVERED:
== END 2021-02-03 09:40 ==
PROVIDERS: PCP Family Medicine; Visit Provider Family Medicine
DX: M54.31 Sciatica, right side (principal); M54.5 Low back pain; M48.54XD Collapsed vertebra, not elsewhere classified, thoracic region, subsequent encounter for fracture with routine healing
CPT/HCPCS: 72110

== ENCOUNTER 2021-06-17 16:59 | Outpatient (REF) | payer MEDICARE, OTHER, SELFPAY ==
[2021-06-17 16:19] LABS: Epithelial Cells Negative HPF (Negative); RBC Negative HPF (0-2); WBC 20-50 HPF (0-5)
[2021-06-17 16:20] LABS: Bacteria Many HPF (Negative); C & S Indicated? C&S Done As Ordered; Casts Negative LPF (Negative); Crystals Negative HPF (Negative); Mucus Negative (Negative); Other Cells Few Transitional (Negative)
== END 2021-06-17 17:00 | disposition home or self-care (01) ==
LOC: LBN 16:59
PROVIDERS: PCP Family Medicine; Visit Provider Family Medicine
DX: R30.0 Dysuria (principal)
CPT/HCPCS: 87077; 81015; 87086; 87186

== ENCOUNTER 2021-07-05 23:20 | Outpatient (CLI) | payer MEDICARE, OTHER, SELFPAY ==
[2021-07-05 16:08] LABS: Bilirubin Negative (Negative); Blood Negative (Negative); Clarity Clear (Clear); Glucose Negative (Negative); Ketones Negative (Negative); Leukocyte Esterase Negative (Negative); Nitrite Negative (Negative); Urobilinogen 0.2 EU/dL (Up TO 0.2); pH 5.5 (5-8)
[2021-07-05 16:56] LABS: Iron 48 ug/dL (50-170); Total Iron Binding Capacity 379 ug/dL (250-450); Transferrin Sat 13 % (15-50)
[2021-07-05 17:19] LABS: Vitamin D 25 Total 17.3 ng/mL (30-100)
[2021-07-05 17:20] LABS: ALT 30 U/L (14-59); AST 22 U/L (15-37); Albumin 3.9 g/dL (3.4-5.0); Alkaline Phosphatase 149 U/L (46-116); Anion Gap 11.4 mmol/L (3-11); BUN 17 mg/dL (7-18); Bilirubin, Total 0.3 mg/dL (0.2-1.0); CO2 27.6 mmol/L (21.0-32.0); CREATININE 0.9 mg/dL (0.55-1.02); Calcium 9.2 mg/dL (8.5-10.1); Chloride 103 mmol/L (98-107); Ferritin 29 ng/mL (8-252); Glucose 82 mg/dL (74-106); Potassium 4.3 mmol/L (3.5-5.1); Sodium 142 mmol/L (136-145); Total Protein 7.5 g/dL (6.4-8.2)
== END 2021-07-05 23:21 | disposition home or self-care (01) ==
LOC: LBO 23:22
PROVIDERS: PCP Family Medicine; Visit Provider Family Medicine
DX: M81.0 Age-related osteoporosis without current pathological fracture (principal); E61.1 Iron deficiency; I10 Essential (primary) hypertension; Z87.440 Personal history of urinary (tract) infections; R74.8 Abnormal levels of other serum enzymes
CPT/HCPCS: 36415; 80053; 82306; 81003; 82728; 83540; 83550; 83915

== ENCOUNTER 2021-08-03 01:07 | Outpatient (CLI) | payer MEDICARE, OTHER, SELFPAY ==
--- NOTE | 2021-08-03 08:00 | DI.CT_ITS ---
Exam(s) CT CHEST WO EXAM: CT CHEST WO CLINICAL HISTORY: follow up FORREST lung nodule,R91.1. TECHNIQUE: Multi planar reconstructions were performed. CONTRAST MATERIAL: None COMPARISON: CT CT CHEST WO from 02/01/2021 FINDINGS: CHEST: LUNGS: Previously described infiltrate in the apicoposterior segment of left upper lobe has somewhat decreased but not yet completely resolved. No other focal areas of abnormality evident in the left l johnna. Biapical scarring again noted. In the opposite-right lung there is small area of subpleural nodular infiltrate in the right lower lo be which appears unchanged. No pleural effusions. No new findings in the trachea and mainstem bronc hi. MEDIASTINUM: There is no obvious hilar nor mediastinal adenopathy. Large retrocardiac hiatal hernia a gain noted. Calcified lymph nodes lateral thoracic right side again noted. These are below the leve l of the right axilla.No obvious axillary adenopathy CARDIAC: Heart size is normal. There is no pericardial effusion.Caliber of the thoracic aorta is wit hin normal limits. VISUALIZED UPPER ABDOMEN:No significant adrenal masses. OSSEOUS: Previously described compression fractures of T2 and T11 are again noted, unchanged. No new compression fractures evident.. IMPRESSION: 1. Compared to the prior CT scan of 02/01/2021 there has been some improvement in the left upper lobe infiltrate. However, this is not yet completely resolved. Small finding in the right lower lobe is also unchanged. Recommend repeat CT scan in 6 months. 2. No pleural effusions. 3. Large hiatal hernia again noted. RADIATION DOSE DELIVERED: 413.4mGy.cm Total DLP DATA REPOSITORY: All CT scans at this facility are submitted to the National Radiology Data Registry (NRDR) Dose Index Registry (DIR) with the [employer] (ACR). RADIATION OPTIMIZATION: All CT scans at this facility use at least one of these dose optimization te chniques: automated exposure control; mA and/or kV adjustment per patient size (includes targeted exa ms where dose is matched to clinical indication); or iterative reconstruction.
== END 2021-08-03 01:27 ==
PROVIDERS: PCP Family Medicine; Visit Provider Student in an Organized Health Care Education/Training Program
DX: R91.1 Solitary pulmonary nodule (principal); K44.9 Diaphragmatic hernia without obstruction or gangrene
CPT/HCPCS: 71250

== ENCOUNTER 2021-08-17 00:45 | Outpatient (CLI) | payer MEDICARE, OTHER, SELFPAY ==
--- NOTE | 2021-08-17 08:15 | DI.MAMMO_ITS ---
Exam(s) MG MAMMO SCREENING 60 MIN DUR EXAM: MG MAMMO SCREENING 60 MIN DUR CLINICAL HISTORY: breast cancer screening,personal h/o breast ca,z85.3. COMPARISON: 2010 through 2018 TECHNIQUE: Craniocaudal and mediolateral oblique Full Field Digital Mammography views of the left br east with Computer Aided Diagnosis followed by Tomosynthesis. FINDINGS: Mammography/Tomosynthesis: Status post right mastectomy. Masses/Architectural Distortion: None seen. Microcalcifications: Stable coarse, benign-appearing calcifications. No suspicious pleomorphic-type are seen. Skin Thickening/Nipple Retraction: None. IMPRESSION: 1. No evidence of malignancy is noted. 2. Unless there is more urgent need, follow-up screening mammography is recommended, as per [employer] guidelines. BI-RADS Category 2 - Benign Findings Breast Density - Category B - Scattered areas of fibroglandular density A negative radiographic report should not delay biopsy if a dominant or clinically suspicious mass is present. Up to ten percent of cancers are not identified on mammography. A negative report may reinforce clinical impression. Adenosis and dense breasts may obscure an underlying neoplasm. False positive reports average 6 to 10%. Patient will receive a letter notifying them of these results.
== END 2021-08-17 01:05 ==
PROVIDERS: PCP Family Medicine; Visit Provider Family Medicine
DX: Z12.31 Encounter for screening mammogram for malignant neoplasm of breast (principal); Z85.3 Personal history of malignant neoplasm of breast
CPT/HCPCS: 77063; 77067

== ENCOUNTER 2021-09-21 03:32 | Outpatient (CLI) | payer MEDICARE, OTHER, SELFPAY ==
[2021-09-21] MEDS: Inhaler, Assist Device 1 EACH MC (11:16)
[2021-09-21] MEDS: Albuterol HFA 18 GM 200 PUFF INH IH (11:16)
--- NOTE | 2021-09-21 13:15 | W.PFT ---
Date of service: 09/21/21 Time of Service: 10:14 Pulmonary Function Test Result Requesting Provider Duchene Indications: Emphysema, JAMA Interpretation Spirometry: There is no airflow limitation. There is no significant bronchodilator response. There is a restrictive pattern to spirometry. Lung Volumes: Volumes are normal. Diffusion Capacity: The diffusion is technically normal, but borderline low. Airway Pressure: Airways resistance is normal Impression Restrictive spirometry, but no restrictive lung disease seen. Borderline low diffusion. Clinical Correlation therefore is recommended.
== END 2021-09-21 03:33 | disposition home or self-care (01) ==
LOC: RT 03:33
PROVIDERS: PCP Family Medicine; Visit Provider Student in an Organized Health Care Education/Training Program
DX: K21.9 Gastro-esophageal reflux disease without esophagitis (principal); J43.9 Emphysema, unspecified; R91.1 Solitary pulmonary nodule; Z87.891 Personal history of nicotine dependence; R06.09 Other forms of dyspnea; R94.2 Abnormal results of pulmonary function studies
CPT/HCPCS: 94060; 94726; 94729

== ENCOUNTER 2022-01-12 08:30 | Emergency (ER) | payer MEDICARE, OTHER, SELFPAY ==
[2022-01-12] VITALS (27 sets, daily range): BP systolic 89–160; BP diastolic 59–89; PULSE 69–92; RESP 15–26; TEMP 36.3–36.6; O2SAT 95–99
--- NOTE | 2022-01-12 09:00 | RT.EKG_ITS ---
APPROVED REPORT Exam: Resting ECG Reason for Exam: headache Patient Location: E HR:73 bpm ECG Measurements Heart Rate 73 AXIS MI 194 P 54 QRSd 82 QRS 64 QT 377 T 22 QTc 416 Conclusion Sinus rhythm...normal P axis, V-rate 60- 99 Abnrm T, consider ischemia, anterolateral lds...T <-0.20mV, I aVL V2-V6 new twave inv since 2018
--- NOTE | 2022-01-12 09:17 | W.ED.GENAD ---
Discharge Plan Disposition Patient Disposition: HOME Condition: Stable Discharge Details Clinical Impression: Cervicalgia, Headache Primary Care Provider: Virginia Pino ED Provider: Ruchi Levine Home Meds and New Rx's Prescriptions: New diclofenac sodium 3 % gel 1 applic topical BID Qty: 100 0RF metaxalone [Skelaxin] 800 mg tablet 800 mg PO TID PRNQty: 7 0RF Continued MaxiVision 1 cap PO DAILY 0RF loperamide [Anti-Diarrheal (loperamide)] 2 mg capsule 2 mg PO BID PRN (Reason: diarrhea) Qty: 30 2RF Hold Instructions: Home Medication placed on hold at Doctor's office fluticasone propionate 50 mcg/actuation spray,suspension 2 spray intranasal DAILY PRN (Reason: allergy symptoms) Qty: 9.9 5RF Rx Instructions: administer into each nostril dicyclomine 10 mg capsule 10 mg PO BID PRN (Reason: IBS) Qty: 120 3RF losartan 50 mg tablet 50 mg PO DAILY Qty: 90 4RF levothyroxine 25 mcg tablet 25 mcg PO DAILY Qty: 90 3RF Rx Instructions: 1 TAB DAILY meloxicam 7.5 mg tablet 7.5 mg PO DAILY Qty: 30 0RF Rx Instructions: take one tablet daily with food for 2 weeks and repeat if needed/ for [place] cholecalciferol (vitamin D3) 25 mcg (1,000 unit) capsule 25 mcg PO DAILY Qty: 90 3RF Rx Instructions: /take one capsule daily pantoprazole 40 mg tablet,delayed release (DR/EC) 40 mg PO DAILY 0RF Label Comments: TAKE 1 TABLET BY MOUTH TWICE DAILY FOR GERD acetaminophen [Tylenol] 325 mg Tablet 650 mg PO Q6H PRN PRN (Reason: fever or pain) Qty: 1 0RF Discharge Instructions Instructions: General Headache (ED), Neck Pain (ED) Additional Instructions: I suspect that the pain in your neck is contributing to your headache, light massage your neck, Tylenol 500 to 650 mg every 6 hours as needed for discomfort You may also use the diclofenac gel over the area that is painful on your neck You may take the Skelaxin as needed for pain, use caution when going from sitting to standing while taking this medication Follow-up with the neurologist listed below regarding your CT findings, I do not suspect they are contributing to your symptoms today but a reassessment would be beneficial Please return immediately should you have new or worsening Recheck by your primary care physician in 48 hours Referrals: Virginia Pino MD [Primary Care Provider] - Rosana Adamson MD [ [facility]] - Discharge Data Discharge Date/Time-TO BE ENTERED AT DEPARTURE: 01/12/22 13:27 Medical Decision Making Patient is alert and oriented, her headache is resolved at time of discharge home She is ambulatory at baseline without dementia or change in ambulatory function There is no evidence of obvious hydrocephalus clinically, although her ventricles are enlarged on CT scan and per radiology interpretation, there is no evidence of meningitis clinically At this time, patient feeling symptomatically improved, I suspect that her pain is radiating from her neck as she is exquisitely tender on the paraspinal muscles Diagnostic labs are essentially unchanged from prior Patient has good support system at home and patient felt comfortable discharge home at this time Patient will need close outpatient follow-up with PCP Given referral to neurology in the setting of reported ventriculomegaly Medical Records Medical records reviewed: Yes I reviewed the patient's medical records. Lab Data Lab results reviewed: Yes I reviewed the patient's lab results. ECG Data Prior ECG tracings: available for review HPI General Date/Time Provider Initiated Documentation: 01/12/22 08:54. HPI Narrative: This 82-year-old female presents with headache intermittently for the past week and a half. Yesterday was reportedly the most comfortable for patient. Denies prior history of headaches in the past. She describes that is radiating up the back of her neck. Denies any anterior neck pain. denies any fever or chills. She denies any recent illnesses or injuries. Denies prior history of headaches in the past. Denies any anticoagulation. Denies any new medications. Denies any current dizziness, nausea, or vomiting. States that she is light sensitive. She also states she is light and sound sensitive sensitive. Describes the pain as sharp exacerbated by movement of her neck. Denies any chest discomfort or shortness of breath. Related Data Home Medications Medication Instructions Recorded Confirmed MaxiVision 1 cap PO DAILY 02/14/19 01/12/22 acetaminophen 325 mg tablet 650 mg PO Q6H PRN PRN #1 tab 10/15/19 01/12/22 (Tylenol) losartan 50 mg tablet 50 mg PO DAILY #90 tab 12/10/20 01/12/22 levothyroxine 25 mcg tablet 25 mcg PO DAILY #90 tab-cap 03/11/21 01/12/22 loperamide 2 mg capsule 2 mg PO BID PRN #30 cap 07/05/21 01/12/22 (Anti-Diarrheal (loperamide)) fluticasone propionate 50 2 spray INTRANASAL DAILY PRN #9.9 g 07/06/21 01/12/22 mcg/actuation nasal spray,suspension meloxicam 7.5 mg tablet 7.5 mg PO DAILY #30 tab 08/09/21 01/12/22 cholecalciferol (vitamin D3) 25 25 mcg PO DAILY #90 cap 12/09/21 01/07/22 mcg (1,000 unit) capsule dicyclomine 10 mg capsule 10 mg PO BID PRN #120 cap 01/07/22 01/12/22 diclofenac sodium 3 % topical gel 1 applic TOPICAL BID #100 g 01/12/22 metaxalone 800 mg tablet (Skelaxin) 800 mg PO TID PRN #7 tab 01/12/22 pantoprazole 40 mg tablet,delayed 40 mg PO DAILY 01/12/22 01/12/22 release Previous Rx's Medication Instructions Recorded acetaminophen 325 mg tablet 650 mg PO Q6H PRN PRN #1 tab 10/15/19 (Tylenol) losartan 50 mg tablet 50 mg PO DAILY #90 tab 12/10/20 levothyroxine 25 mcg tablet 25 mcg PO DAILY #90 tab-cap 03/11/21 loperamide 2 mg capsule 2 mg PO BID PRN #30 cap 07/05/21 (Anti-Diarrheal (loperamide)) fluticasone propionate 50 2 spray INTRANASAL DAILY PRN #9.9 g 07/06/21 mcg/actuation nasal spray,suspension meloxicam 7.5 mg tablet 7.5 mg PO DAILY #30 tab 08/09/21 cholecalciferol (vitamin D3) 25 25 mcg PO DAILY #90 cap 12/09/21 mcg (1,000 unit) capsule dicyclomine 10 mg capsule 10 mg PO BID PRN #120 cap 01/07/22 diclofenac sodium 3 % topical gel 1 applic TOPICAL BID #100 g 01/12/22 metaxalone 800 mg tablet (Skelaxin) 800 mg PO TID PRN #7 tab 01/12/22 Allergies Allergy/AdvReac Type Severity Reaction Status Date / Time Penicillins Allergy Severe hives Verified 01/12/22 08:56 polyethylene glycol 3350 Allergy Severe rash all Verified 01/12/22 08:56 [From Miralax] over cefazolin Allergy Unknown Verified 01/12/22 08:56 General Stated Complaint: Headache HANS: 3 Review of Systems All systems reviewed & are unremarkable except as noted in HPI and below PFSH All Active Problems (Updated 01/12/22 @ 13:11 by BRYAN Williamson) Cervicalgia (Acute) Headache (Acute) Ventral hernia without obstruction or gangrene (Acute) Hiatal hernia (Chronic) GERD (gastroesophageal reflux disease) (Chronic) Emphysema lung (Acute) Sciatica (Acute) Vitamin D deficiency (Acute) Low back pain (Acute) Constipation (Acute) Hypomagnesemia (Acute) Irritable bowel syndrome (Chronic) Hypothyroidism (Acute 08/10/12) Hypertension (Chronic) Iron deficiency anemia (Chronic) Osteoporosis (Chronic) Medical History (Updated 01/12/22 @ 13:11 by BRYAN Williamson) Barretts esophagus Status post EGD with esophageal biopsy on July 05, [address] Jani Rothman. Squamous mucosa with reactive changes. Gastric type mucosa with chronic and focally active inflammation but no intestinal metaplasia or dysplasia. No helical factor pylori microorganisms identified. Breast cancer C. difficile enteritis at hospitalization may 2014 Deep vein thrombosis Diverticulitis (09/19/14) May 2014 [facility] [place] sigmoid resection and colostomy post op infection and malnutrition February 2015 colostomy takedown (post op infection) Hx of fracture of left hip Incidental lung nodule, > 3mm and < 8mm on xray and CT scan with contrast / [facility] pulm. Indeterminate colitis (02/04/16) 01/22/16 colonoscopy at [facility] Malignant neoplasm of female breast (09/21/92) R MAST AND RECONSTRUCTION. 10/25 INFLAMMATION AT [facility] WAS NEG FOR MALIGNANCY Surgical History (Updated 01/07/22 @ 10:24 by Virginia Pino MD) Colectomy (~05/2014) for colon stricture presumed to be from diverticulitis colostomy reversal History of mastectomy (~1994) right mastectomy (no radiation or chemotherapy); s/p reconstruction after the mastectomy Laparotomy (06/08/14) for [place] leak. End colostomy done Family History (Updated 06/30/20 @ 12:03 by Lencho Ramírez) Mother , 84 Essential hypertension COPD (chronic obstructive pulmonary disease) Father , 51 Stomach cancer Mouth cancer Brother No problems noted. Maternal Grandfather No problems noted. Paternal Grandfather No problems noted. Maternal Grandmother No problems noted. Paternal Grandmother No problems noted. Sister No problems noted. Sister COPD (chronic obstructive pulmonary disease) Social History (Updated 07/07/21 @ 16:50 by Alayna Riley) Smoking/Tobacco Use Status: Former Tobacco Use tobacco type: cigarettes Quit Date: 10/23/94 Pack-years: 40 Tobacco: How many years used: 20 Second Hand Exposure: No Smoking risk assessment performed?: Yes Alcohol Intake: former Drug use: Never Housing: house Do you need help understanding health information?: Never Pets and animals: No Sexually active: No What is your relationship status?: never How often do you talk on the phone with friends or family?: decline to answer How often do you get together with friends or relatives?: decline to answer How often do you attend islam or moravian services?: decline to answer Do you belong to any clubs or organized social groups?: decline to answer Panel score (0-1 are the most socially isolated patients): 0 What type of physical activity do you participate in: decline to answer Duration: decline to answer Frequency: decline to answer Leslie/Scientologist: No preference Special leslie needs: No Seatbelt use: always 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 Do you feel safe at home: Yes History History 0 Para 0 Hx # Term Pregnancies 0 Multiple births Hx # Pregnancies 0 Ectopic pregnancies AB induced 0 Hx Number of Living Children 0 AB spontaneous 0 Exam Const General: cooperative, comfortable and no acute distress HENMT Head: normal to inspection Mouth: oral mucosae normal Eyes Sclera: sclerae normal Pupils: PERRL Neck Neck: normal visual inspection Other: No carotid bruit Paraspinal muscle tenderness, on left greater than right, reproducible tenderness Resp Effort & Inspection: normal respiratory effort Auscultation: clear to auscultation bilaterally Cardio Rate: regular rate Rhythm: regular rhythm Other: Distal pulses intact GI Inspection: normal to inspection Auscultation: normal bowel sounds Skin General skin exam: no rashes or lesions noted Neuro General: patient alert and patient oriented x3 Cranial Nerves: CN's II-XI intact bilaterally and tongue midline Cognition: normal cognition Speech: speech normal Gait: normal gait Sensory Exam: no sensory deficits noted Coordination: [id number] test normal Other: No pronator drift Extrem Other: Distal pulses intact Psych Appearance: grossly normal and well kempt Course Vital Signs Vital signs: Vital Signs Temperature 36.3 C L 01/12/22 08:51 Pulse 75 01/12/22 08:51 Respiratory Rate 21 01/12/22 08:51 Blood Pressure 127/81 01/12/22 08:51 Pulse Oximetry 98 01/12/22 08:51 Temperature 36.3 C L 01/12/22 08:51 Temperature Source Skin 01/12/22 08:51 Pulse 75 01/12/22 08:51 Respiratory Rate 21 01/12/22 08:51 Respiratory Effort 01/12/22 08:51 Blood Pressure 127/81 01/12/22 08:51 Blood Pressure Position Supine 01/12/22 08:51 Pulse Oximetry 98 01/12/22 08:51 Oxygen Delivery Method Room Air 01/12/22 08:51 Oxygen Flow Rate 0 01/12/22 08:51 Pain Level 5 01/12/22 08:51
[2022-01-12 10:00] LABS: Abs Immature Grans 0.02 10^3/uL (0.0-0.06); Absolute Basophil Count 0.02 10^3/uL (0.0-0.2); Absolute Eosinophil Count 0.11 10^3/uL (0.0-0.7); Absolute Lymphocyte Count 1.47 10^3/uL (1.2-3.4); Absolute Monocyte Count 0.46 10^3/uL (0.1-0.8); Absolute Neutrophil Count 4.41 10^3/uL (1.2-6.7); Basophils % 0.3; Eosinophils % 1.7; HGB 12.5 g/dL (11.2-15.7); Immature Grans % 0.3; Lymphocytes % 22.7; MCH 28.7 pg (27.0-33.0); MCHC 32.1 % (32.0-36.0); MCV 89.7 fL (80-95); MPV 10.3 fL (8.0-11.0); Monocytes % 7.1; Neutrophils % 67.9; Nucleated RBC 0 %; Platelet Count 189 10^3/uL (130-400); RBC 4.35 10^6/uL (3.93-5.22); RDW 14.9 % (11.7-14.6); RDW-SD 49.7 fL; WBC 6.49 10^3/uL (4.4-10.8)
[2022-01-12] MEDS: Cyclobenzaprine 10 MG TAB 5 MG PO (10:09)
[2022-01-12 10:10] LABS: Bilirubin Negative (Negative); Blood Trace-intact (Negative); Clarity Clear (Clear); Glucose Negative (Negative); Ketones Negative (Negative); Leukocyte Esterase Negative (Negative); Nitrite Negative (Negative); Urobilinogen 0.2 EU/dL (Up TO 0.2); pH 6.5 (5-8)
[2022-01-12 10:19] LABS: ALT 28 U/L (14-59); AST 22 U/L (15-37); Albumin 3.6 g/dL (3.4-5.0); Alkaline Phosphatase 114 U/L (46-116); Anion Gap 9.2 mmol/L (3-11); BUN 19 mg/dL (7-18); Bilirubin, Total 0.3 mg/dL (0.2-1.0); CO2 28.8 mmol/L (21.0-32.0); CREATININE 0.8 mg/dL (0.55-1.02); Calcium 9.2 mg/dL (8.5-10.1); Chloride 106 mmol/L (98-107); Glucose 98 mg/dL (74-106); Magnesium 2.1 mg/dL (1.8-2.4); Potassium 4.2 mmol/L (3.5-5.1); Sodium 144 mmol/L (136-145); Total Protein 7.5 g/dL (6.4-8.2); Troponin I < 50 ng/L (<or=60)
[2022-01-12 10:24] LABS: TSH (W/Ref FT4) 2.89 uIU/mL (0.36-3.74)
[2022-01-12 10:26] LABS: Bacteria Rare HPF (Negative); C & S Indicated? No; Casts Negative LPF (Negative); Crystals Negative HPF (Negative); Epithelial Cells Rare HPF (Negative); Mucus Negative (Negative); WBC 0-2 HPF (0-5)
[2022-01-12] MEDS: Dexamethasone 4 MG/ML VIAL IVP (10:40)
[2022-01-12] MEDS: Normal Saline 500 ML IV (10:41)
[2022-01-12] MEDS: Omnipaque 350 MG/ML 100 ML BTL 85 ML IJ (11:21)
--- NOTE | 2022-01-12 11:33 | DI.CT_ITS ---
Exam(s) CT BRAIN NECK CTA EXAM: CT BRAIN NECK CTA CLINICAL HISTORY: headache for 1 week, no hx, dizzy. TECHNIQUE: Imaging Protocol: Axial CT angiography was performed with multi-slice acquisition and mu lti-planar and/or 3D reconstructions. CONTRAST MATERIAL: Intravenous: Omnipaque 350 Contrast volume:structured data in ml COMPARISON: CT CT CHEST PE CTA from 10/10/2019 FINDINGS: CTA Neck W: Aortic arch anatomy: The aortic arch anatomy is conventional. There is no significant stenosis at the origin of the great vessels off the aortic arch. Anterior circulation: There is no stenosis at the origin of the common carotid arteries. Both common carotid arteries are mildly tortuous proximally but patent. There is also no significant atherosclerotic disease a at the carotid bifurcations and proximal internal carotid arteries on either side. Both internal carotid a rteries are nicely patent in the upper neck and skull base-carotid canals. Posterior circulation: Both vertebral arteries originate in conventional fashion off of these subclavian arteries with no ev idence of significant stenosis at their origins and both of these vessels ascend in the foramen trans verse area with equal normal diameters and no evidence of intraluminal thrombus nor dissection. Both vertebral arteries contribute to the formation of the midline basilar artery at the skull base. CTA Brain W: Anterior circulation: Both internal carotid arteries are patent in the cavernous sinuses. Supraclinoid aspects are patent and nonaneurysmal. Both A1 segments are patent as are the anterior cerebral arteries and there is no evidence of aneurysm at the level of the anterior communicating artery. Both middle cerebral arteries are patent. No significant stenosis. No intraluminal thrombus. No an eurysms. Posterior circulation: Basilar artery ascends in the midline with normal luminal diameter. Distally gives off superior cere bellar arteries and above this level terminates as patent bilateral posterior cerebral arteries. The re is also contribution to the right posterior cerebral artery from a 2 millimeter diameter posterior communicating artery on the right side of the [id number]. There is no evidence of aneurysm of the tip of the basilar artery nor elsewhere within the [id number]. No evidence of venous dural sinus thrombosis. CT BRAIN: There are no skull fractures nor fluid in the visualized paranasal sinuses and mastoid air cells. No evidence of intracranial hemorrhage, mass effect, or shift of midline structures. No extra-axial fluid collections. Ventricular size is symmetrically mildly prominent perhaps slightly more so than when compared to the overlying cortical sulci. There is moderate amount of relatively symmetrical pe riventricular hypodensity consistent chronic small vessel disease. There is no evidence of lacunar n or territorial infarction. There are no ring enhancing lesions in the brain. No abnormal meningeal enhancement, focal nor diffu se. IMPRESSION: 1. No significant stenosis in the carotid and vertebral arteries in the neck. 2. Patent intracranial arteries. No intraluminal thrombus nor significant stenosis and no aneurysms evident. 3. Ventricles are somewhat enlarged when compared to the cortical sulci. Correlation with any clin ical signs of normal pressure hydrocephalus recommended. Findings called by myself to ER provider RADIATION DOSE DELIVERED: 1,852.25mGy.cm Total DLP DATA REPOSITORY: All CT scans at this facility are submitted to the National Radiology Data Registry (NRDR) Dose Index Registry (DIR) with the [employer] (A[employer]). RADIATION OPTIMIZATION: All CT scans at this facility use at least one of these dose optimization te chniques: automated exposure control; mA and/or kV adjustment per patient size (includes targeted exa ms where dose is matched to clinical indication); or iterative reconstruction.
--- NOTE | 2022-01-12 12:29 | DI.RAD_ITS ---
Exam(s) XR CHEST 2V PA LATERAL EXAM: XR CHEST 2V PA LATERAL CLINICAL HISTORY: headache. TECHNIQUE: 2D digital imaging was performed. COMPARISON: CR,XR XR PORTABLE CHEST AP from 10/12/[address] CHEST WO from 08/03/2021 FINDINGS: 2 views: Heart size remains normal. Prominent retrocardiac hiatal hernia is again noted. Lungs are clear. No infiltrates nor pleural effusions. Compression fracture of lower thoracic vertebra is noted. This is probably T12 is unchanged from CT scan July 1021. IMPRESSION: No acute pulmonary findings.Prominent retrocardiac hiatal hernia again noted. Nonacute T12 compression fracture DATA REPOSITORY: RADIATION DOSE DELIVERED:
== END 2022-01-12 13:27 | disposition home or self-care (01) ==
PROVIDERS: Emergency Provider Physician Assistant; PCP Family Medicine
DX: M54.2 Cervicalgia (principal); R51.9 Headache, unspecified; R42 Dizziness and giddiness; I10 Essential (primary) hypertension
CPT/HCPCS: 36415; 70496; 70498; 80053; 93005; 96361; 96374; 96375; 99285; 71046; 81003; 81015; 83735; 84443; 84484; 85025; 93010; 99284; J0131; J1100; J3490

== ENCOUNTER → 2022-01-18 14:06 | Outpatient (BNVA) | payer MEDICARE, OTHER, SELFPAY | PROVIDERS: PCP Family Medicine; Referring Provider Family Medicine; Visit Provider Surgery | DX: K43.2 Incisional hernia without obstruction or gangrene (principal) | CPT/HCPCS: 99202; 99213 ==

== ENCOUNTER → 2022-01-19 15:43 | Outpatient (CLI) | payer MEDICARE, OTHER, SELFPAY ==
--- NOTE | 2022-01-19 10:20 | DI.RAD_ITS ---
Exam(s) XR CERVICAL SPINE COMP 4-5V EXAM: XR CERVICAL SPINE COMP 4-5V CLINICAL HISTORY: neck pain TECHNIQUE: COMPARISON: CR CERV SP.WITH OBL OR FLEX/EXT from 08/10/2011 FINDINGS: Seven views were obtained. There is some loss of height of the intervertebral disc spaces at C4-5, C 5-6, and C6-7. There are prominent hypertrophic endplate and facet changes, particularly in the mid to lower cervical region. Neural foramina may be mildly narrowed bilaterally at C5-6. No gross eros yuli or destructive process seen. IMPRESSION: Degenerative changes of the cervical spine as described above. RADIATION DOSE DELIVERED: Total DLP
== END ==
PROVIDERS: PCP Family Medicine; Visit Provider Family Medicine
DX: M50.321 Other cervical disc degeneration at C4-C5 level (principal); M50.322 Other cervical disc degeneration at C5-C6 level; M50.323 Other cervical disc degeneration at C6-C7 level
CPT/HCPCS: 72050

== ENCOUNTER 2022-04-06 21:09 | Outpatient (REF) | payer MEDICARE, OTHER, SELFPAY ==
[2022-04-06 21:30] LABS: Bilirubin Negative (Negative); Blood Negative (Negative); Clarity Clear (Clear); Glucose Negative (Negative); Ketones Negative (Negative); Leukocyte Esterase Negative (Negative); Nitrite Negative (Negative); Urobilinogen 0.2 EU/dL (Up TO 0.2)
== END 2022-04-06 21:10 | disposition home or self-care (01) ==
LOC: LBN 21:09
PROVIDERS: PCP Family Medicine; Visit Provider Nurse Practitioner Family
DX: R39.89 Other symptoms and signs involving the genitourinary system (principal)
CPT/HCPCS: 81003

== ENCOUNTER 2022-12-08 10:29 | Emergency (ER) | payer MEDICARE, SELFPAY ==
[2022-12-08] VITALS (18 sets, daily range): BP systolic 133–177; BP diastolic 51–118; PULSE 71–96; RESP 14–24; TEMP 36.7; O2SAT 94–100
--- NOTE | 2022-12-08 10:43 | ED.GENADUL_ITS ---
Discharge Plan Disposition Patient Disposition: Home Discharge Details Clinical Impression: History of fall, Acute right flank pain Primary Care Provider: Virginia Pino ED Provider: Miki Mercer Home Meds and New Rx's Prescriptions: New lidocaine [Lidoderm] 5 % adhesive patch,medicated 2 patch topical DAILY Qty: 15 0RF Rx Instructions: leave on most painful area for up to 12 hrs No Action MaxiVision 1 cap PO DAILY cholecalciferol (vitamin D3) 25 mcg (1,000 unit) capsule 25 mcg PO DAILY Qty: 90 3RF Rx Instructions: /take one capsule daily dicyclomine 10 mg capsule 10 mg PO BID PRN (Reason: IBS) Qty: 120 3RF losartan 100 mg tablet 100 mg PO DAILY Qty: 90 4RF levothyroxine 25 mcg tablet 25 mcg PO DAILY Qty: 90 3RF Rx Instructions: 1 TAB DAILY fluticasone propionate 50 mcg/actuation spray,suspension 2 spray intranasal DAILY PRN (Reason: allergy symptoms) Qty: 9.9 11RF Rx Instructions: administer into each nostril loperamide 2 mg capsule 2 mg PO Q6H PRN (Reason: loose stool) Qty: 30 1RF gabapentin 100 mg capsule 100 mg PO TID Qty: 90 12RF acetaminophen [Tylenol] 325 mg Tablet 650 mg PO Q6H PRN PRN (Reason: fever or pain) Qty: 1 0RF Discharge Instructions Additional Instructions: You were seen in the emergency department for your history of falling. Your CAT scan showed no signs of any broken bones that were new. As we discussed you have a cyst in your liver which is unchanged. Radiology recommends no further imaging. You also have cysts in both kidneys with no required follow-up imaging. Please take 1000 mg of acetaminophen (Tylenol) every 8 hours as needed for pain. Please follow-up with your primary care provider. Please return to emergency department if you have any other concerns. Discharge Data Discharge Date/Time-TO BE ENTERED AT DEPARTURE: 12/08/22 14:12 Medical Decision Making Primary survey intact. Reassuring shock index. On secondary survey patient has right lower chest tenderness on palpation right flank pain and right lower quadrant tenderness. Given her age and her history of fall with decreased mobility status we will proceed with cross-sectional imaging using contrast- enhanced CT to assess for any acute osseous abnormalities and any internal damage. Patient may require case management participation given her decreased mobility at home. She has no midline cervical spinal tenderness and is Nexus negative so we will defer CT of cervical spine. She did not lose consciousness and has not been vomiting to suggest benefit from CT head. No thoracic nor lumbar spinal tenderness so we will defer recons at this point. Will reassess following images and treat initially with a Lidoderm patch and 2 mg morphine. I spoke to from Radha from [facility] who will help to check in on the patient tomorrow. Chronic conditions affecting the care of the patient: Walker bound at baseline History obtained from an outside historian: Patient's younger sister at bedside External record review: Prior records reviewed in [facility] Medications: Not anticoagulated Social determinants of health affecting disposition: N/A Management discussed with: Radiology Treatment/interventions considered: I offered care management but patient declined HPI General Date/Time Provider Initiated Documentation: 12/08/22 10:43 . HPI Narrative: This is an 82-year-old female who lives independently with her sister and is not anticoagulated now in the emergency department in the setting of right sided low back pain and right upper chest pain. 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 She did not hit her head nor lose consciousness. She had some bruising to her low back. She has not been able to complete her activities of daily living as result of her pain. She uses a walker at baseline. She does not have any pain in her neck. No shortness of breath nor dysuria frequency nor chest pain. Related Data Home Medications Medication Instructions Recorded Confirmed MaxiVision 1 cap PO DAILY 02/14/19 12/08/22 acetaminophen 325 mg tablet 650 mg PO Q6H PRN PRN fever or 10/15/19 12/08/22 (Tylenol) pain #1 tab levothyroxine 25 mcg tablet 25 mcg PO DAILY #90 tab-caps 02/08/22 12/08/22 fluticasone propionate 50 2 spray intranasal DAILY PRN 05/05/22 12/08/22 mcg/actuation nasal allergy symptoms #9.9 grams spray,suspension dicyclomine 10 mg capsule 10 mg PO BID PRN IBS #120 caps 05/25/22 12/08/22 losartan 100 mg tablet 100 mg PO DAILY #90 tabs 05/25/22 12/08/22 cholecalciferol (vitamin D3) 25 25 mcg PO DAILY #90 caps 07/06/22 12/08/22 mcg (1,000 unit) capsule loperamide 2 mg capsule 2 mg PO Q6H PRN loose stool #30 10/10/22 12/08/22 caps gabapentin 100 mg capsule 100 mg PO TID #90 caps 11/16/22 12/08/22 lidocaine 5 % topical patch 2 patch topical DAILY #15 ea 12/08/22 (Lidoderm) Previous Rx's Medication Instructions Recorded acetaminophen 325 mg tablet 650 mg PO Q6H PRN PRN fever or 10/15/19 (Tylenol) pain #1 tab levothyroxine 25 mcg tablet 25 mcg PO DAILY #90 tab-caps 02/08/22 fluticasone propionate 50 2 spray intranasal DAILY PRN 05/05/22 mcg/actuation nasal allergy symptoms #9.9 grams spray,suspension dicyclomine 10 mg capsule 10 mg PO BID PRN IBS #120 caps 05/25/22 losartan 100 mg tablet 100 mg PO DAILY #90 tabs 05/25/22 cholecalciferol (vitamin D3) 25 25 mcg PO DAILY #90 caps 07/06/22 mcg (1,000 unit) capsule loperamide 2 mg capsule 2 mg PO Q6H PRN loose stool #30 10/10/22 caps gabapentin 100 mg capsule 100 mg PO TID #90 caps 11/16/22 lidocaine 5 % topical patch 2 patch topical DAILY #15 ea 12/08/22 (Lidoderm) Allergies Allergy/AdvReac Type Severity Reaction Status Date / Time Penicillins Allergy Severe hives Verified 12/08/22 10:52 polyethylene glycol 3350 Allergy Severe rash all Verified 12/08/22 10:52 [From Miralax] over cefazolin Allergy Unknown Verified 12/08/22 10:52 General HANS: 3 PFSH All Active Problems (Updated 12/08/22 @ 13:50 by Miki Mercer MD) Hypertension (Chronic) Iron deficiency anemia (Chronic) Osteoporosis (Chronic) Hypothyroidism (Acute 08/10/12) Irritable bowel syndrome (Chronic) Hypomagnesemia (Acute) Constipation (Acute) Low back pain (Acute) Vitamin D deficiency (Acute) Sciatica (Acute) Emphysema lung (Acute) GERD (gastroesophageal reflux disease) (Chronic) Hiatal hernia (Chronic) Ventral hernia without obstruction or gangrene (Acute) Hydrocephalus in adult (Chronic) s/p admission to [facility] [place] [facility] for lumbar puncture; no change in pressures. NPH ruled out. 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 Jani Rothman. Squamous mucosa with reactive changes. Gastric type mucosa with chronic and focally active inflammation but no intestinal metaplasia or dysplasia. No helical factor pylori microorganisms identified. Breast cancer C. difficile enteritis at hospitalization may 2014 Deep vein thrombosis Diverticulitis (09/19/14) May 2014 [facility] sigmoid resection and colostomy post op infection and malnutrition February 2015 colostomy takedown (post op infection) Hx of fracture of left hip Incidental lung nodule, > 3mm and < 8mm on xray and CT scan with contrast / [facility] pulm. Indeterminate colitis (02/04/16) 01/22/16 colonoscopy at [facility] [place] Malignant neoplasm of female breast (09/21/92) R MAST AND RECONSTRUCTION. 10/25 INFLAMMATION AT [facility] WAS NEG FOR MALIGNANCY Surgical History Colectomy (~05/2014) for colon stricture presumed to be from diverticulitis colostomy reversal History of mastectomy (~1994) right mastectomy (no radiation or chemotherapy); s/p reconstruction after the mastectomy Laparotomy (06/08/14) for [place] leak. End colostomy done Family History Mother , 84 Essential hypertension COPD (chronic obstructive pulmonary disease) Father , 51 Stomach cancer Mouth cancer Brother No problems noted. Maternal Grandfather No problems noted. Paternal Grandfather No problems noted. Maternal Grandmother No problems noted. Paternal Grandmother No problems noted. Sister No problems noted. Sister COPD (chronic obstructive pulmonary disease) Social History (Updated 07/14/22 @ 13:57 by Jessica Rai) Smoking/Tobacco Use Status: Former Tobacco Use tobacco type: cigarettes Quit Date: 10/23/94 Pack-years: 40 Tobacco: How many years used: 40 Second Hand Exposure: No Smoking risk assessment performed?: Yes Alcohol Intake: never Drug use: Never Caregiver/Support person: Yes Household members: none Housing: house Communication Needs: None Do you need help understanding health information?: Never Pets and animals: No Sexually active: No What is your relationship status?: never How often do you talk on the phone with friends or family?: three or more times per week How often do you get together with friends or relatives?: three or more times per week How often do you attend zoroastrianism or adventism services?: decline to answer Do you belong to any clubs or organized social groups?: no Panel score (0-1 are the most socially isolated patients): 1 What type of physical activity do you participate in: decline to answer Duration: decline to answer Frequency: decline to answer Leslie/Sabianism: No preference Special leslie needs: No Seatbelt use: always Drive intox or ride w/intox team otr truck driver: No Do you feel safe at home: Yes Do you feel safe in your relationship?: Yes History History 0 Para 0 Hx # Term Pregnancies 0 Multiple births Hx # Pregnancies 0 Ectopic pregnancies AB induced 0 Hx Number of Living Children 0 AB spontaneous 0 Exam Narrative Exam Narrative: General: Uncomfortable-appearing elderly in no acute distress speaking in complete sentences. Head: Normocephalic, atraumatic Ear, nose, mouth, throat: Grossly normal inspection. Normal voice, handling secretions normally. Neck: Trachea midline. Cardiovascular: Well-perfused distal extremities. Respiratory: Nonlabored respiration. Right-sided chest wall tenderness. No ecchymoses. Gastrointestinal: Right flank pain and right lower quadrant tenderness. There is ecchymosis on the back mid scapular area line at the level of the posterior superior iliac spine. Musculoskeletal: No edema. Moving all 4 extremities spontaneously. Skin: Normal for age and race, grossly normal temperature and turgor. No acute rash. Neurologic: Alert and appropriate, no apparent acute deficits. Psychiatric: Mood and manner are appropriate. Grooming and personal hygiene are appropriate.
--- NOTE | 2022-12-08 10:45 | DI.CT_ITS ---
Exam(s) CT CHEST/ABD/PEL W EXAM: CT CHEST/ABD/PEL W CLINICAL HISTORY: Right-sided flank pain. And pain with breathing. TECHNIQUE: Imaging Protocol: Axial computed tomography images with coronal and sagittal reformatted images were created and reviewed CONTRAST MATERIAL: Intravenous: Omnipaque 350 Contrast volume:100 ml Oral: None COMPARISON: CT CT CHEST PE CTA from 10/10/[address] BRAIN NECK CTA from 01/12/2022 FINDINGS: CHEST: LUNGS: No infiltrates nor pleural effusions. No lung masses. No findings in trachea and mainstem br onchi.. MEDIASTINUM: There is no hilar nor mediastinal adenopathy. Visualized thyroid unremarkable.Large hiat al hernia is unchanged from prior study of 2019. CARDIAC: Heart size is normal. There is no pericardial effusion.Caliber of the thoracic aorta is wit hin normal limits. OSSEOUS: No significant osseous lesions.Compression fracture T11 is unchanged from 2019. No new frac tures evident.. ABDOMEN: There is no ascites. LIVER: Benign cysts in the liver are again noted. No dilated intrahepatic ducts. GALLBLADDER/BILIARY: No obvious gallbladder pathology. CBD diameter is upper normal. PANCREAS: No evidence of pancreatic mass nor dilatation of the pancreatic duct. SPLEEN: Spleen is not enlarged. There are no intrasplenic lesions. Splenic and portal veins are vuong nt. ADRENALS: There are no significant adrenal masses. KIDNEYS: Multiple cysts in both kidneys are again noted and there are parapelvic cysts in the left ki dney noted. No true hydronephrosis. No solid renal masses. No calculi.. ABDOMINAL AORTA: Calcified but not enlarged. No iliac artery enlargement LYMPH NODES: There is no retroperitoneal nor paraaortic adenopathy. ABDOMINAL WALL: No evidence of significant anterior abdominal wall nor inguinal hernia. GI: There is evidence of partial sigmoid resection. No obvious abnormality at this level. There is also evidence of a small-bowel anastomosis in the left side of the pelvis. There are few dilated sma ll bowel loops in this region measuring up to 2.6 cm PELVIS: LYMPH NODES: There is no intrapelvic nor inguinal adenopathy. GI: No evidence of appendicitis.No evidence of sigmoid diverticulitis. URINARY BLADDER: No masses. Cystocele noted.. REPRODUCTIVE: Uterus atrophic. No adnexal masses. No free fluid.z OSSEOUS: Left hip hardware. No new fractures. No osseous lesions. IMPRESSION: 1. No acute intrathoracic findings. 2. T11 compression fracture is unchanged from 2019. No new fractures evident. 3. Multiple benign cysts in both kidneys. No solid renal masses. No hydronephrosis. Also multiple benign cysts in the liver. 4. Evidence of partial sigmoid and partial small bowel resections. There are a few slightly prominen t diameter small bowel loops in left side of the pelvis which measure up to 2.6 cm. Possibly indicat ing early obstruction pattern. No free fluid. No free air. No abscess. Called to ER physician RADIATION DOSE DELIVERED: 1,120.46mGy.cm Total DLP DATA REPOSITORY: All CT scans at this facility are submitted to the National Radiology Data Registry (NRDR) Dose Index Registry (DIR) with the [employer] (A[employer]). RADIATION OPTIMIZATION: All CT scans at this facility use at least one of these dose optimization te chniques: automated exposure control; mA and/or kV adjustment per patient size (includes targeted exa ms where dose is matched to clinical indication); or iterative reconstruction.
[2022-12-08 11:23] LABS: HCT 34.8 % (36.0-46.0); HGB 11.2 g/dL (11.2-15.7); MCH 28.9 pg (27.0-33.0); MCHC 32.2 % (32.0-36.0); MCV 90 fL (80-95); MPV 10.4 fL (8.0-11.0); Platelet Count 213 10^3/uL (130-400); RBC 3.87 10^6/uL (3.93-5.22); RDW 14.7 % (11.7-14.6); RDW-SD 48.3 fL; WBC 7.04 10^3/uL (4.4-10.8)
[2022-12-08 11:28] LABS: Anion Gap 9.6 mmol/L (3-11); BUN 25 mg/dL (7-18); CO2 26.4 mmol/L (21.0-32.0); CREATININE 0.7 mg/dL (0.55-1.02); Calcium 9.7 mg/dL (8.5-10.1); Chloride 103 mmol/L (98-107); Estimated GFR 85.23 (mL/min/1.73m2); Glucose 97 mg/dL (74-106); Potassium 4.4 mmol/L (3.5-5.1); Sodium 139 mmol/L (136-145)
[2022-12-08] MEDS: MORPHine 4 MG/ML SYR 2 MG IVP (11:36)
[2022-12-08] MEDS: Lidocaine 5% Patch 2 PATCH TP (12:55)
[2022-12-08] MEDS: Omnipaque 350 MG/ML 500 ML BTL-Imaging package 100 ML IJ (12:58)
[2022-12-08] MEDS: Normal Saline - Diluent 50 ML VIAL IJ (12:59)
[2022-12-08] MEDS: Acetaminophen 500 MG TAB 1000 MG PO (13:57)
== END 2022-12-08 14:12 | disposition home or self-care (01) ==
PROVIDERS: Emergency Provider Emergency Medicine; PCP Family Medicine
DX: R10.9 Unspecified abdominal pain (principal); R10.813 Right lower quadrant abdominal tenderness; S30.1XXA Contusion of abdominal wall, initial encounter; Z86.718 Personal history of other venous thrombosis and embolism; W19.XXXA Unspecified fall, initial encounter
CPT/HCPCS: 36415; 74177; 80048; 85027; 96374; 99285; 71260; 99284; J2270

== ENCOUNTER 2023-01-17 02:28 | Outpatient (CLI) | payer MEDICARE, SELFPAY ==
[2023-01-17 12:37] LABS: TSH (W/Ref FT4) 3.46 uIU/mL (0.36-3.74)
== END 2023-01-17 02:29 | disposition home or self-care (01) ==
LOC: LOS 02:28
PROVIDERS: PCP Family Medicine; Visit Provider Family Medicine
DX: E03.9 Hypothyroidism, unspecified (principal)
CPT/HCPCS: 36415; 84443

== ENCOUNTER 2023-01-20 11:11 | Emergency (ER) | payer MEDICARE, SELFPAY ==
[2023-01-20 11:13] VITALS: BP 160/74; PULSE 82; RESP 14; TEMP 36.5; O2SAT 98
--- NOTE | 2023-01-20 11:30 | DI.RAD_ITS ---
Exam(s) XR LUMBAR SPINE COMPLETE EXAM: XR LUMBAR SPINE COMPLETE CLINICAL HISTORY: fall. TECHNIQUE: 2D digital imaging was performed. Five views. COMPARISON: CR XR LUMBAR SPINE COMPLETE from 02/03/2021 FINDINGS: Exam is limited by large amount of stool and bowel gas. BONES: Stable old T 11 compression fracture.. Vertebral body heights are maintained. Mild facet hyp ertrophy identified L4-5 and L5-S1.. DISKS: Intervertebral disc spaces are maintained. ALIGNMENT: Lumbar spinal alignment is within normal limits. SOFT TISSUE: Aorta calcified and normal in diameter. IMPRESSION: old T12 compression fracture. No acute abnormality. DATA REPOSITORY: RADIATION DOSE DELIVERED:
--- NOTE | 2023-01-20 11:30 | DI.RAD_ITS ---
Exam(s) XR HIP LT COMPLETE AP PELVIS EXAM: XR HIP LT COMPLETE AP PELVIS INDICATION: fall. COMPARISON: CR XR HIP LT AP LAT ONLY from 04/28/2020 TECHNIQUE: 2D digital imaging was performed. Three views. FINDINGS: There has been no change in the hardware in the proximal left femur. The previously noted intertroch anteric fracture has healed. There are no new fractures. Bilateral acetabular spur spurring. Bilat eral mild hip joint space narrowing. IMPRESSION: No acute abnormality. DATA REPOSITORY: RADIATION DOSE DELIVERED:
--- NOTE | 2023-01-20 13:28 | W.ED.GENAD ---
Discharge Plan Disposition Patient Disposition: Home Discharge Details Clinical Impression: Fall, Contusion Primary Care Provider: Virginia Pino ED Provider: Neymar Mccann Home Meds and New Rx's Prescriptions: Continued MaxiVision 1 cap PO DAILY cholecalciferol (vitamin D3) 25 mcg (1,000 unit) capsule 25 mcg PO DAILY Qty: 90 3RF Rx Instructions: /take one capsule daily lidocaine [Lidoderm] 5 % adhesive patch,medicated 2 patch topical DAILY Qty: 30 12RF Rx Instructions: leave on most painful area for up to 12 hrs levothyroxine 25 mcg tablet 25 mcg PO DAILY Qty: 90 3RF Rx Instructions: 1 TAB DAILY dicyclomine 10 mg capsule 10 mg PO BID PRN (Reason: IBS) Qty: 120 3RF losartan 100 mg tablet 100 mg PO DAILY Qty: 90 4RF fluticasone propionate 50 mcg/actuation spray,suspension 2 spray intranasal DAILY PRN (Reason: allergy symptoms) Qty: 9.9 11RF Rx Instructions: administer into each nostril loperamide 2 mg capsule 2 mg PO Q6H PRN (Reason: loose stool) Qty: 30 1RF gabapentin 100 mg capsule 100 mg PO TID Qty: 90 12RF acetaminophen [Tylenol] 325 mg Tablet 650 mg PO Q6H PRN PRN (Reason: fever or pain) Qty: 1 0RF Discharge Instructions Instructions: Contusion in Adults (ED) Additional Instructions: At this time your x-rays show no new findings. You may continue physical therapy and taking the pain medication your primary care provider prescribed you for your sciatica. Please perform activities as tolerated by discomfort. Feel free to return the emergency department for any new or significant worsening of your condition otherwise follow-up with your primary care provider for reassessment. Referrals: Virginia Pino MD [Primary Care Provider] - 1 week (As needed for reassessment or if not improving) Discharge Data Discharge Date/Time-TO BE ENTERED AT DEPARTURE: 01/20/23 13:39 Medical Decision Making Patient presenting to the emergency department for chief complaint of fall yesterday. Patient denies any head injury, loss of consciousness, or other injury. Patient is undergoing physical therapy for sciatica and mention the fall to her physical therapist yesterday whom stated if patient had worsening discomfort she should be seen in the emergency department. Patient presenting to the ED due to this worsening of discomfort. Patient denies any bowel or bladder dysfunction, numbness tingling, or severe weakness in her extremities. Physical exam does show some lumbar diffuse tenderness along with some tenderness to left hip and pelvis. Patient is able to weight-bear and standard walker use at baseline. We will plan on doing radiological imaging. Patient states she took pain medication prior to arrival. Review of radiological imaging and radiologist interpretation shows no acute or new findings. Patient encouraged to continue to perform weightbearing activities as tolerated and to continue physical therapy as I feel she is more suffering contusions and fall may have increased her sciatica type symptoms. After discussion of diagnosis and plan of care patient and family has no further needs, questions, or concerns and states clear understanding to return to the emergency department for any worsening symptoms. This documentation was generated using [employer] system, please disregard any oddities of phrase or misspellings. Medical Records Medical records reviewed: Yes I reviewed the patient's medical records. Medical records narrative: Reviewed previous physical therapy note Imaging Data Radiologic Study: Imaging: X-Ray Radiologist's impression: Exam(s) XR HIP LT COMPLETE AP PELVIS EXAM: XR HIP LT COMPLETE AP PELVIS INDICATION: fall. COMPARISON: CR XR HIP LT AP LAT ONLY from 04/28/2020 TECHNIQUE: 2D digital imaging was performed. Three views. FINDINGS: There has been no change in the hardware in the proximal left femur. The previously noted intertrochanteric fracture has healed. There are no new fractures. Bilateral acetabular spur spurring. Bilateral mild hip joint space narrowing. IMPRESSION: No acute abnormality. Radiologic Study #2: Imaging: X-Ray Radiologist's impression: Exam(s) XR LUMBAR SPINE COMPLETE EXAM: XR LUMBAR SPINE COMPLETE CLINICAL HISTORY: fall. TECHNIQUE: 2D digital imaging was performed. Five views. COMPARISON: CR XR LUMBAR SPINE COMPLETE from 02/03/2021 FINDINGS: Exam is limited by large amount of stool and bowel gas. BONES: Stable old T 11 compression fracture.. Vertebral body heights are maintained. Mild facet hypertrophy identified L4-5 and L5-S1.. DISKS: Intervertebral disc spaces are maintained. ALIGNMENT: Lumbar spinal alignment is within normal limits. SOFT TISSUE: Aorta calcified and normal in diameter. IMPRESSION: old T12 compression fracture. No acute abnormality. HPI General Mode of arrival: ambulatory. Date/Time Provider Initiated Documentation: 01/20/23 11:14. Limitations to Documentation: no limitations. Information obtained by: patient and RN notes reviewed. History of Present Illness 83 year old F presents to the emergency department with the chief complaint of Fall-buttock and left hip pain, described as moderate, Quality is described as aching, Patient started experiencing this day(s) and it has been constant. No relieving factors improve symptom(s), and Medication improves symptom(s), No exacerbating factors reported . Patient notes no other symptoms.. Patient did receive the following treatments prior to arrival, other (Lidocaine patch and acetaminophen) Related Data Home Medications Medication Instructions Recorded Confirmed MaxiVision 1 cap PO DAILY 02/14/19 01/20/23 acetaminophen 325 mg tablet 650 mg PO Q6H PRN PRN fever or 10/15/19 01/20/23 (Tylenol) pain #1 tab fluticasone propionate 50 2 spray intranasal DAILY PRN 05/05/22 01/20/23 mcg/actuation nasal allergy symptoms #9.9 grams spray,suspension dicyclomine 10 mg capsule 10 mg PO BID PRN IBS #120 caps 05/25/22 01/20/23 losartan 100 mg tablet 100 mg PO DAILY #90 tabs 05/25/22 01/20/23 cholecalciferol (vitamin D3) 25 25 mcg PO DAILY #90 caps 07/06/22 01/20/23 mcg (1,000 unit) capsule loperamide 2 mg capsule 2 mg PO Q6H PRN loose stool #30 10/10/22 01/20/23 caps gabapentin 100 mg capsule 100 mg PO TID #90 caps 11/16/22 01/20/23 levothyroxine 25 mcg tablet 25 mcg PO DAILY #90 tab-caps 01/11/23 01/20/23 lidocaine 5 % topical patch 2 patch topical DAILY #30 ea 01/11/23 01/20/23 (Lidoderm) Previous Rx's Medication Instructions Recorded acetaminophen 325 mg tablet 650 mg PO Q6H PRN PRN fever or 10/15/19 (Tylenol) pain #1 tab fluticasone propionate 50 2 spray intranasal DAILY PRN 05/05/22 mcg/actuation nasal allergy symptoms #9.9 grams spray,suspension dicyclomine 10 mg capsule 10 mg PO BID PRN IBS #120 caps 05/25/22 losartan 100 mg tablet 100 mg PO DAILY #90 tabs 05/25/22 cholecalciferol (vitamin D3) 25 25 mcg PO DAILY #90 caps 07/06/22 mcg (1,000 unit) capsule loperamide 2 mg capsule 2 mg PO Q6H PRN loose stool #30 10/10/22 caps gabapentin 100 mg capsule 100 mg PO TID #90 caps 11/16/22 levothyroxine 25 mcg tablet 25 mcg PO DAILY #90 tab-caps 01/11/23 lidocaine 5 % topical patch 2 patch topical DAILY #30 ea 01/11/23 (Lidoderm) Allergies Allergy/AdvReac Type Severity Reaction Status Date / Time Penicillins Allergy Severe hives Verified 01/20/23 11:18 polyethylene glycol 3350 Allergy Severe rash all Verified 01/20/23 11:18 [From Miralax] over cefazolin Allergy Unknown Verified 01/20/23 11:18 General Stated Complaint: Orthopedic HANS: 4 Review of Systems Constitutional Constitutional: Denies chills and Denies fever(s) Cardiovascular Cardiovascular: Denies chest pain Respiratory Respiratory: Denies cough Musculoskeletal Musculoskeletal: Reports as per HPI, Reports arthralgias, Denies joint swelling and Denies radiating pain into limb Integumentary/Breasts Skin/Breast: Denies erythema, Denies rash and Denies unusual bruising PFSH All Active Problems Hypertension (Chronic) Iron deficiency anemia (Chronic) Osteoporosis (Chronic) Hypothyroidism (Acute 08/10/12) Irritable bowel syndrome (Chronic) Hypomagnesemia (Acute) Constipation (Acute) Low back pain (Acute) Vitamin D deficiency (Acute) Sciatica (Acute) Emphysema lung (Acute) GERD (gastroesophageal reflux disease) (Chronic) Hiatal hernia (Chronic) Ventral hernia without obstruction or gangrene (Acute) Hydrocephalus in adult (Chronic) [place] [facility] [place]; no change in pressures. NPH ruled out. 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 Jani Rothman. Squamous mucosa with reactive changes. Gastric type mucosa with chronic and focally active inflammation but no intestinal metaplasia or dysplasia. No helical factor pylori microorganisms identified. Breast cancer C. difficile enteritis at hospitalization may 2014 Deep vein thrombosis Diverticulitis (09/19/14) May 2014 [facility] [place] and colostomy post op infection and malnutrition February 2015 colostomy takedown (post op infection) Hx of fracture of left hip Incidental lung nodule, > 3mm and < 8mm on xray and CT scan with contrast / [facility] [place]. Indeterminate colitis (02/04/16) 01/22/16 [place] [facility] [place]ignant neoplasm of female breast (09/21/92) R MAST AND RECONSTRUCTION. 10/25 INFLAMMATION AT [facility] WAS NEG FOR MALIGNANCY Surgical History Colectomy (~05/2014) for colon stricture presumed to be from diverticulitis colostomy reversal History of mastectomy (~1994) right mastectomy (no radiation or chemotherapy); s/p reconstruction after the mastectomy Laparotomy (06/08/14) for [place] leak. End colostomy done Family History Mother , 84 Essential hypertension COPD (chronic obstructive pulmonary disease) Father , 51 Stomach cancer Mouth cancer Brother No problems noted. Maternal Grandfather No problems noted. Paternal Grandfather No problems noted. Maternal Grandmother No problems noted. Paternal Grandmother No problems noted. Sister No problems noted. Sister COPD (chronic obstructive pulmonary disease) Social History Smoking/Tobacco Use Status: Former Tobacco Use tobacco type: cigarettes Quit Date: 10/23/94 Pack-years: 40 Tobacco: How many years used: 40 Second Hand Exposure: No Smoking risk assessment performed?: Yes Alcohol Intake: never Drug use: Never Substance use type: does not use Caregiver/Support person: Yes Household members: none Housing: house Communication Needs: None Do you need help understanding health information?: Never Pets and animals: No Sexually active: No What is your relationship status?: never How often do you talk on the phone with friends or family?: three or more times per week How often do you get together with friends or relatives?: three or more times per week How often do you attend gnosticist or uatsdin services?: decline to answer Do you belong to any clubs or organized social groups?: no Panel score (0-1 are the most socially isolated patients): 1 What type of physical activity do you participate in: decline to answer Duration: decline to answer Frequency: decline to answer Lesile/Advent: No preference Special leslie needs: No Seatbelt use: always Drive intox or ride w/intox recycling collections driver: No Do you feel safe at home: Yes Do you feel safe in your relationship?: Yes History History 0 Para 0 Hx # Term Pregnancies 0 Multiple births Hx # Pregnancies 0 Ectopic pregnancies AB induced 0 Hx Number of Living Children 0 AB spontaneous 0 Exam Const General: cooperative and no acute distress Orientation: alert, awake and oriented x3 Neck Neck: normal visual inspection and no meningeal signs Resp Effort & Inspection: normal respiratory effort Cardio Rate: regular rate Rhythm: regular rhythm Back/Spine/Pelvis Thoracic/Lumbar Spine: pain with thoraco-lumbar ROM, thoraco-lumbar ROM limited and lumbar spinal tenderness Pelvis: no pain with anterior-posterior compression, no pain with lateral compression, no buttock ecchymosis, buttock tenderness and no tenderness over symphysis pubis Neuro General: patient alert, patient awake and patient oriented x3 Extrem Left lower extremity: hip/thigh Details: tenderness; no ecchymosis Course Vital Signs Vital signs: Vital Signs Temperature 36.5 C 01/20/23 11:13 Pulse 82 01/20/23 11:13 Respiratory Rate 14 01/20/23 11:13 Blood Pressure 160/74 H 01/20/23 11:13 Pulse Oximetry 98 01/20/23 11:13 Temperature 36.5 C 01/20/23 11:13 Temperature Source Oral 01/20/23 11:13 Pulse 82 01/20/23 11:13 Respiratory Rate 14 01/20/23 11:13 Respiratory Effort Normal 01/20/23 11:17 Blood Pressure 160/74 H 01/20/23 11:13 Blood Pressure Position Sitting 01/20/23 11:13 Pulse Oximetry 98 01/20/23 11:13 Oxygen Delivery Method Room Air 01/20/23 11:13 Oxygen Flow Rate 0 01/20/23 11:13 Pain Level 5 01/20/23 11:13
== END 2023-01-20 13:39 | disposition home or self-care (01) ==
PROVIDERS: Emergency Provider Nurse Practitioner Family; PCP Family Medicine
DX: S70.02XA Contusion of left hip, initial encounter (principal); Z86.718 Personal history of other venous thrombosis and embolism; S22.089D Unspecified fracture of T11-T12 vertebra, subsequent encounter for fracture with routine healing; W19.XXXA Unspecified fall, initial encounter
CPT/HCPCS: 99283; 72110; 73502

== ENCOUNTER 2023-03-11 14:58 | Emergency (ER) | payer MEDICARE, SELFPAY ==
[2023-03-11 15:17] VITALS: PULSE 80; RESP 18; TEMP 36.8; O2SAT 96
[2023-03-11 15:19] VITALS: BP 149/59
[2023-03-11 16:12] LABS: Abs Immature Grans 0.02 10^3/uL (0.0-0.06); Absolute Basophil Count 0.02 10^3/uL (0.0-0.2); Absolute Eosinophil Count 0.16 10^3/uL (0.0-0.7); Absolute Lymphocyte Count 2.01 10^3/uL (1.2-3.4); Absolute Monocyte Count 0.67 10^3/uL (0.1-0.8); Absolute Neutrophil Count 6.56 10^3/uL (1.2-6.7); Basophils % 0.2; Eosinophils % 1.7; HCT 35.6 % (36.0-46.0); HGB 11.7 g/dL (11.2-15.7); Immature Grans % 0.2; Lymphocytes % 21.3; MCH 29.7 pg (27.0-33.0); MCHC 32.9 % (32.0-36.0); MCV 90 fL (80-95); MPV 10.3 fL (8.0-11.0); Monocytes % 7.1; Neutrophils % 69.5; Platelet Count 232 10^3/uL (130-400); RBC 3.94 10^6/uL (3.93-5.22); RDW 14.3 % (11.7-14.6); RDW-SD 47.8 fL; WBC 9.44 10^3/uL (4.4-10.8)
[2023-03-11 16:26] LABS: ALT 21 U/L (14-59); AST 20 U/L (15-37); Albumin 3.2 g/dL (3.4-5.0); Alkaline Phosphatase 126 U/L (46-116); Anion Gap 9.4 mmol/L (3-11); BUN 22 mg/dL (7-18); Bilirubin, Total 0.3 mg/dL (0.2-1.0); CO2 26.6 mmol/L (21.0-32.0); CREATININE 0.7 mg/dL (0.55-1.02); Calcium 8.6 mg/dL (8.5-10.1); Chloride 107 mmol/L (98-107); Glucose 79 mg/dL (74-106); Sodium 143 mmol/L (136-145); Total Protein 7.1 g/dL (6.4-8.2)
[2023-03-11 17:08] VITALS: BP 133/62; PULSE 75; RESP 16; TEMP 37.1; O2SAT 96
[2023-03-11 18:13] LABS: Bilirubin Negative (Negative); Blood Trace-intact (Negative); Clarity Clear (Clear); Glucose Negative (Negative); Ketones Negative (Negative); Leukocyte Esterase Small (Negative); Nitrite Negative (Negative); Urobilinogen 0.2 mg/dL (Up to 0.2)
[2023-03-11 18:35] LABS: Bacteria Few HPF (Negative); C & S Indicated? Yes; Casts Negative LPF (Negative); Crystals Negative HPF (Negative); Epithelial Cells Rare HPF (Negative); Mucus Negative (Negative); RBC 0-2 HPF (0-2); WBC 20-50 HPF (0-5)
--- NOTE | 2023-03-11 19:21 | ED.GENADUL_ITS ---
Discharge Plan Disposition Patient Disposition: Home Condition: Stable Discharge Details Clinical Impression: UTI (urinary tract infection) Primary Care Provider: Virginia Pino ED Provider: Iris Combs Home Meds and New Rx's Prescriptions: New phenazopyridine [Pyridium] 200 mg tablet 200 mg PO TID PRN (Reason: pain) Qty: 6 0RF Continued MaxiVision 1 cap PO DAILY cholecalciferol (vitamin D3) 25 mcg (1,000 unit) capsule 25 mcg PO DAILY Qty: 90 3RF Rx Instructions: /take one capsule daily loperamide 2 mg capsule 2 mg PO Q6H PRN (Reason: loose stool) Qty: 90 1RF losartan 100 mg tablet 100 mg PO DAILY Qty: 90 4RF dicyclomine 10 mg capsule 10 mg PO BID PRN (Reason: IBS) Qty: 120 3RF lidocaine [Lidoderm] 5 % adhesive patch,medicated 2 patch topical DAILY Qty: 30 12RF Rx Instructions: leave on most painful area for up to 12 hrs fluticasone propionate 50 mcg/actuation spray,suspension 2 spray intranasal DAILY PRN (Reason: allergy symptoms) Qty: 9.9 11RF Rx Instructions: administer into each nostril gabapentin 100 mg capsule 100 mg PO TID Qty: 90 12RF acetaminophen [Tylenol] 325 mg Tablet 650 mg PO Q6H PRN PRN (Reason: fever or pain) Qty: 1 0RF Discharge Instructions Instructions: Urinary Tract Infection in Women (ED) Additional Instructions: Your urine sample shows findings that are likely consistent with a urinary tract infection. Your kidney function on your blood tests is reassuring. Drink plenty of fluids and get plenty of rest. A prescription for antibiotics has been sent electronically to your pharmacy to take as directed until finished. Follow-up with your primary care doctor in 1 week. Return to the emergency department with any worsening or new concerning symptoms. Discharge Data Discharge Date/Time-TO BE ENTERED AT DEPARTURE: 03/11/23 19:45 Discharge Physician: Iris Combs Medical Decision Making 83-year-old female with a history of hypertension, hyperlipidemia, hypothyroidism, GERD, emphysema, Alzheimer's dementia who presents for pelvic discomfort, dysuria, and generalized weakness for the past few days. States symptoms feel similar to when she has had a UTI. Her vitals are within normal limits. Patient appears comfortable and nontoxic. She answers questions appropriately and is oriented. Her abdomen is soft and nontender. She has no CVA tenderness. Patient arrived during high volume and acuity in the ED and there was long delay in disposition. On her arrival screening labs and urinalysis were obtained. Labs reviewed. Normal white blood cell count and renal function. Urinalysis notes 20-50 WBCs, small leukocyte esterase, few bacteria with rare epithelial cells. Urine culture sent. She has an allergy to penicillin and cefazolin which causes hives. We will treat with Cipro. As she has some lower back and pelvic discomfort, will treat for consideration of possible pyelonephritis. She was given 1 dose of Cipro here, bottle to go and a prescription sent electronically to her pharmacy. She has no fever, vomiting or CVA tenderness to suggest severe kidney infection or sepsis. She has no severe pain to suggest kidney stone. Discussed that as she appears nontoxic with reassuring labs and no significant back or abdominal tenderness, do not see an indication for imaging and she is agreeable. Patient feels comfortable going home. Advised to follow up with the primary care doctor for re-evaluation. Usual and customary return precautions given prior to discharge. Medical Records Medical records reviewed: Yes I reviewed the patient's medical records. Lab Data Lab results reviewed: Yes I reviewed the patient's lab results. Labs: 03/11/23 18:00 Urine - Reflex from Ua Urine Culture - Final Gram Positive Caridad,Mixed Gram Negative Marcin Laboratory Tests Range/Units 03/11/23 03/11/23 03/11/23 16:01 16:01 18:00 WBC (4.4-10.8) 10^3/uL 9.44 RBC (3.93-5.22) 10^6/uL 3.94 Hgb (11.2-15.7) g/dL 11.7 Hct (36.0-46.0) % 35.6 L MCV (80-95) fL 90 MCH (27.0-33.0) pg 29.7 MCHC (32.0-36.0) % 32.9 RDW (11.7-14.6) % 14.3 Plt Count (130-400) 10^3/uL 232 MPV (8.0-11.0) fL 10.3 Immature Gran % 0.2 Neutrophils % 69.5 Lymphocytes % 21.3 Monocytes % 7.1 Eosinophils % 1.7 Basophils % 0.2 Nucleated RBC % (0.0-0.3) % 0.0 Absolute Neutrophils (1.2-6.7) 10^3/uL 6.56 Absolute Lymphocytes (1.2-3.4) 10^3/uL 2.01 Absolute Monocytes (0.1-0.8) 10^3/uL 0.67 Absolute Eosinophils (0.0-0.7) 10^3/uL 0.16 Absolute Basophils (0.0-0.2) 10^3/uL 0.02 Sodium (136-145) mmol/L 143 Potassium (3.5-5.1) mmol/L 4.0 Chloride (98-107) mmol/L 107 Carbon Dioxide (21.0-32.0) mmol/L 26.6 Anion Gap (3-11) mmol/L 9.4 BUN (7-18) mg/dL 22 H Creatinine (0.55-1.02) mg/dL 0.7 Est GFR (CKD-EPI 2020) (mL/min/1.73m2) 84.70 Glucose (74-106) mg/dL 79 Calcium (8.5-10.1) mg/dL 8.6 Total Bilirubin (0.2-1.0) mg/dL 0.3 AST (15-37) U/L 20 ALT (14-59) U/L 21 Alkaline Phosphatase (46-116) U/L 126 H Total Protein (6.4-8.2) g/dL 7.1 Albumin (3.4-5.0) g/dL 3.2 L Urine Color (Yellow) Yellow Urine Clarity (Clear) Clear Urine pH (5-8) 6.0 Ur Specific [place] (1.005-1.025) 1.010 Urine Protein (Negative) mg/dL Negative Urine Ketones (Negative) mg/dL Negative Urine Blood (Negative) Trace-intact H Urine Nitrite (Negative) Negative Urine Bilirubin (Negative) Negative Urine Urobilinogen (Up to 0.2) mg/dL 0.2 Ur Leukocyte Esterase (Negative) Small H Urine RBC (0-2) HPF 0-2 Urine WBC (0-5) HPF 20-50 H Ur Epithelial Cells (Negative) HPF Rare Urine Crystals (Negative) HPF Negative Urine Bacteria (Negative) HPF Few Urine Casts (Negative) LPF Negative Urine Mucus (Negative) Negative Ur Culture Indicated? Yes Urine Glucose (Negative) mg/dL Negative HPI General Mode of arrival: ambulatory . Date/Time Provider Initiated Documentation: 03/11/23 15:37 . Limitations to Documentation: no limitations . Information obtained by: patient . HPI Narrative: Patient is an 83-year-old female with a history of hypertension, hyperlipidemia, hypothyroidism, breast cancer, GERD,, emphysema, Alzheimer's who presents for pelvic discomfort, dysuria, and generalized weakness for the past few days. Patient reports a history of UTI and states that his symptoms feel similar. She states she had leftover antibiotics from May 2022 which she took 2 doses without relief. She relayed the name of the medication which she had taken but it is not recognizable as an antibiotic. She denies any fever, nausea, vomiting, diarrhea, severe abdominal or back pain. Related Data Home Medications Medication Instructions Recorded Confirmed MaxiVision 1 cap PO DAILY 02/14/19 03/13/23 acetaminophen 325 mg tablet 650 mg PO Q6H PRN PRN fever or 10/15/19 03/13/23 (Tylenol) pain #1 tab fluticasone propionate 50 2 spray intranasal DAILY PRN 05/05/22 03/13/23 mcg/actuation nasal allergy symptoms #9.9 grams spray,suspension cholecalciferol (vitamin D3) 25 25 mcg PO DAILY #90 caps 07/06/22 03/13/23 mcg (1,000 unit) capsule gabapentin 100 mg capsule 100 mg PO TID #90 caps 11/16/22 03/13/23 lidocaine 5 % topical patch 2 patch topical DAILY #30 ea 01/11/23 03/13/23 (Lidoderm) dicyclomine 10 mg capsule 10 mg PO BID PRN IBS #120 caps 02/24/23 03/13/23 loperamide 2 mg capsule 2 mg PO Q6H PRN loose stool #90 02/24/23 03/13/23 caps losartan 100 mg tablet 100 mg PO DAILY #90 tabs 02/24/23 03/13/23 phenazopyridine 200 mg tablet 200 mg PO TID PRN pain 6 doses #6 03/11/23 03/13/23 (Pyridium) tabs Previous Rx's Medication Instructions Recorded acetaminophen 325 mg tablet 650 mg PO Q6H PRN PRN fever or 10/15/19 (Tylenol) pain #1 tab fluticasone propionate 50 2 spray intranasal DAILY PRN 05/05/22 mcg/actuation nasal allergy symptoms #9.9 grams spray,suspension cholecalciferol (vitamin D3) 25 25 mcg PO DAILY #90 caps 07/06/22 mcg (1,000 unit) capsule gabapentin 100 mg capsule 100 mg PO TID #90 caps 11/16/22 lidocaine 5 % topical patch 2 patch topical DAILY #30 ea 01/11/23 (Lidoderm) dicyclomine 10 mg capsule 10 mg PO BID PRN IBS #120 caps 02/24/23 loperamide 2 mg capsule 2 mg PO Q6H PRN loose stool #90 02/24/23 caps losartan 100 mg tablet 100 mg PO DAILY #90 tabs 02/24/23 phenazopyridine 200 mg tablet 200 mg PO TID PRN pain 6 doses #6 03/11/23 (Pyridium) tabs Allergies Allergy/AdvReac Type Severity Reaction Status Date / Time Penicillins Allergy Severe hives Verified 03/11/23 15:18 polyethylene glycol 3350 Allergy Severe rash all Verified 03/11/23 15:18 [From Miralax] over cefazolin Allergy Unknown Verified 03/11/23 15:18 General Stated Complaint: Urinary HANS: 3 Review of Systems All systems reviewed & are unremarkable except as noted in HPI and below Constitutional Constitutional: Reports as per HPI, Denies chills and Denies fever(s) Eyes Eyes: Denies blurry vision ENT Ears, Nose, Mouth, and Throat: Denies dizziness, Denies sore throat and Denies throat swelling Cardiovascular Cardiovascular: Denies chest pain and Denies dyspnea Respiratory Respiratory: Denies cough and Denies dyspnea Gastrointestinal Gastrointestinal: Denies abdominal pain, Denies diarrhea and Denies vomiting Genitourinary Genitourinary: Denies hematuria, Reports dysuria and Reports pelvic pain Musculoskeletal Musculoskeletal: Denies back pain and Denies numbness Integumentary/Breasts Skin/Breast: Denies lesions and Denies rash Neurologic Neurologic: Denies dizziness, Denies localized weakness and Denies numbness Allergic/Immunologic Allergic/Immunologic: Denies throat swelling PFSH All Active Problems (Updated 03/11/23 @ 19:22 by Iris J Bugbee, DO) Hypertension (Chronic) Iron deficiency anemia (Chronic) Osteoporosis (Chronic) Irritable bowel syndrome (Chronic) Low back pain (Acute) Vitamin D deficiency (Acute) Sciatica (Acute) Emphysema lung (Acute) GERD (gastroesophageal reflux disease) (Chronic) Hiatal hernia (Chronic) Alzheimer's type dementia with late onset without behavioral disturbance (Acute) UTI (urinary tract infection) (Acute) Medical History (Updated 03/11/23 @ 19:22 by Iris Combs, ) Barretts esophagus Status post EGD with esophageal biopsy on July 05, [address] Aníbal Rothman. Squamous mucosa with reactive changes. Gastric type mucosa with chronic and focally active inflammation but no intestinal metaplasia or dysplasia. No helical factor pylori microorganisms identified. Breast cancer C. difficile enteritis at hospitalization may 2014 Deep vein thrombosis Diverticulitis (09/19/14) [place] [facility] [place] and colostomy post op infection and malnutrition February 2015 colostomy takedown (post op infection) Hx of fracture of left hip Hydrocephalus in adult s/p [place] [facility]; no change in pressures. NPH ruled out. Hypothyroidism (08/10/12) Incidental lung nodule, > 3mm and < 8mm on xray and CT scan with contrast / [facility]. Indeterminate colitis (02/04/16) 01/22/16 [place] [facility] [place] Malignant neoplasm of female breast (09/21/92) R MAST AND RECONSTRUCTION. 10/25 INFLAMMATION AT [facility] BX WAS NEG FOR MALIGNANCY Ventral hernia without obstruction or gangrene Surgical History Colectomy (~05/2014) for colon stricture presumed to be from diverticulitis colostomy reversal History of mastectomy (~1994) right mastectomy (no radiation or chemotherapy); s/p reconstruction after the mastectomy Laparotomy (06/08/14) for [place] leak. End colostomy done Family History Mother , 84 Essential hypertension COPD (chronic obstructive pulmonary disease) Father , 51 Stomach cancer Mouth cancer Brother No problems noted. Maternal Grandfather No problems noted. Paternal Grandfather No problems noted. Maternal Grandmother No problems noted. Paternal Grandmother No problems noted. Sister No problems noted. Sister COPD (chronic obstructive pulmonary disease) Social History Smoking/Tobacco Use Status: Former Tobacco Use tobacco type: cigarettes Quit Date: 10/23/94 Pack-years: 40 Tobacco: How many years used: 40 Second Hand Exposure: No Smoking risk assessment performed?: Yes Alcohol Intake: never Drug use: Never Substance use type: does not use Caregiver/Support person: Yes Household members: none Housing: house Communication Needs: None Do you need help understanding health information?: Never Pets and animals: No Sexually active: No What is your relationship status?: never How often do you talk on the phone with friends or family?: three or more times per week How often do you get together with friends or relatives?: three or more times per week How often do you attend latter-day or protestant services?: decline to answer Do you belong to any clubs or organized social groups?: no Panel score (0-1 are the most socially isolated patients): 1 What type of physical activity do you participate in: decline to answer Duration: decline to answer Frequency: decline to answer Leslie/Buddhist: No preference Special leslie needs: No Seatbelt use: always Drive intox or ride w/intox 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 Do you feel safe at home: Yes Do you feel safe in your relationship?: Yes History History 0 Para 0 Hx # Term Pregnancies 0 Multiple births Hx # Pregnancies 0 Ectopic pregnancies AB induced 0 Hx Number of Living Children 0 AB spontaneous 0 Exam Const General: cooperative, healthy appearing and no acute distress Orientation: alert, awake and oriented x3 HENMT Head: normal to inspection Face and sinus: normal facial exam Eyes General: appearance normal, both eyes and all related structures Neck Neck: normal visual inspection and No submandibular swelling Lymphatic: no lymphadenopathy noted Chest Chest: normal inspection of the chest and no tenderness Resp Effort & Inspection: normal respiratory effort and able to speak in complete sentences Auscultation: clear to auscultation bilaterally Cardio Rate: regular rate Rhythm: regular rhythm GI Inspection: normal to inspection Palpation: soft, not firm, not rigid and nontender Auscultation: hypoactive bowel sounds Back/Spine/Pelvis Back: no CVA tenderness Skin General skin exam: no rashes or lesions noted Neuro General: patient alert, patient awake and patient oriented x3 Cognition: normal cognition Speech: speech normal Motor: muscle tone normal throughout Sensory Exam: no sensory deficits noted Extrem General: normal to inspection and full ROM Psych Appearance: grossly normal Mental Status: mental status grossly normal Speech and Movement: speech and movement normal Affect: normal affect Course Vital Signs Vital signs: Vital Signs Temperature 98.2 F 03/11/23 15:17 Pulse 80 03/11/23 15:17 Respiratory Rate 18 03/11/23 15:17 Pulse Oximetry 96 03/11/23 15:17 Temperature 98.7 F 03/11/23 17:08 Temperature Source Oral 03/11/23 17:08 Pulse 75 03/11/23 17:08 Respiratory Rate 16 03/11/23 17:08 Respiratory Effort Normal, Non-Labored 03/11/23 15:18 Blood Pressure 133/62 03/11/23 17:08 Pulse Oximetry 96 03/11/23 17:08 Oxygen Delivery Method Room Air 03/11/23 17:08 Oxygen Flow Rate 0 03/11/23 17:08 Pain Level 10 03/11/23 17:08 Lab/Test Results Lab/Test Results: 03/11/23 18:00 Urine - Reflex from Ua Urine Culture - Pending Laboratory Tests Range/Units 03/11/23 03/11/23 03/11/23 16:01 16:01 18:00 WBC (4.4-10.8) 10^3/uL 9.44 RBC (3.93-5.22) 10^6/uL 3.94 Hgb (11.2-15.7) g/dL 11.7 Hct (36.0-46.0) % 35.6 L MCV (80-95) fL 90 MCH (27.0-33.0) pg 29.7 MCHC (32.0-36.0) % 32.9 RDW (11.7-14.6) % 14.3 Plt Count (130-400) 10^3/uL 232 MPV (8.0-11.0) fL 10.3 Immature Gran % 0.2 Neutrophils % 69.5 Lymphocytes % 21.3 Monocytes % 7.1 Eosinophils % 1.7 Basophils % 0.2 Nucleated RBC % (0.0-0.3) % 0.0 Absolute Neutrophils (1.2-6.7) 10^3/uL 6.56 Absolute Lymphocytes (1.2-3.4) 10^3/uL 2.01 Absolute Monocytes (0.1-0.8) 10^3/uL 0.67 Absolute Eosinophils (0.0-0.7) 10^3/uL 0.16 Absolute Basophils (0.0-0.2) 10^3/uL 0.02 Sodium (136-145) mmol/L 143 Potassium (3.5-5.1) mmol/L 4.0 Chloride (98-107) mmol/L 107 Carbon Dioxide (21.0-32.0) mmol/L 26.6 Anion Gap (3-11) mmol/L 9.4 BUN (7-18) mg/dL 22 H Creatinine (0.55-1.02) mg/dL 0.7 Est GFR (CKD-EPI 2020) (mL/min/1.73m2) 84.70 Glucose (74-106) mg/dL 79 Calcium (8.5-10.1) mg/dL 8.6 Total Bilirubin (0.2-1.0) mg/dL 0.3 AST (15-37) U/L 20 ALT (14-59) U/L 21 Alkaline Phosphatase (46-116) U/L 126 H Total Protein (6.4-8.2) g/dL 7.1 Albumin (3.4-5.0) g/dL 3.2 L Urine Color (Yellow) Yellow Urine Clarity (Clear) Clear Urine pH (5-8) 6.0 Ur Specific [place] (1.005-1.025) 1.010 Urine Protein (Negative) mg/dL Negative Urine Ketones (Negative) mg/dL Negative Urine Blood (Negative) Trace-intact H Urine Nitrite (Negative) Negative Urine Bilirubin (Negative) Negative Urine Urobilinogen (Up to 0.2) mg/dL 0.2 Ur Leukocyte Esterase (Negative) Small H Urine RBC (0-2) HPF 0-2 Urine WBC (0-5) HPF 20-50 H Ur Epithelial Cells (Negative) HPF Rare Urine Crystals (Negative) HPF Negative Urine Bacteria (Negative) HPF Few Urine Casts (Negative) LPF Negative Urine Mucus (Negative) Negative Ur Culture Indicated? Yes Urine Glucose (Negative) mg/dL Negative
[2023-03-11] MEDS: Phenazopyridine 100 MG TAB PO (19:25)
[2023-03-11] MEDS: Ciprofloxacin 500 MG TAB PO (19:25)
[2023-03-11] MEDS: Phenazopyridine 100 MG TAB, 2 TABS/BTL PO (19:45)
--- NOTE | 2023-03-13 12:52 | NUR.NOTE ---
Nursing Note: Accessed chart to look up whether or not on antibiotic.
== END 2023-03-11 19:45 | disposition home or self-care (01) ==
PROVIDERS: Emergency Provider Physician Assistant; PCP Family Medicine
DX: N39.0 Urinary tract infection, site not specified (principal)
CPT/HCPCS: 80053; 99283; 81003; 81015; 85025; 87086; 99284

== ENCOUNTER 2023-04-12 21:49 | Outpatient (REF) | payer MEDICARE, SELFPAY | END 2023-04-12 21:50 | disposition home or self-care (01) | LOC: LBN 21:49 | PROVIDERS: PCP Family Medicine; Visit Provider Nurse Practitioner Family | DX: N89.8 Other specified noninflammatory disorders of vagina (principal); R30.0 Dysuria; R35.0 Frequency of micturition | CPT/HCPCS: 87086; 87480; 87510; 87660 ==

== ENCOUNTER → 2023-04-13 09:48 | Outpatient (BNVA) | payer MEDICARE, SELFPAY | PROVIDERS: PCP Family Medicine; Referring Provider Family Medicine | DX: M70.62 Trochanteric bursitis, left hip (principal); R29.898 Other symptoms and signs involving the musculoskeletal system; R60.0 Localized edema; Z87.81 Personal history of (healed) traumatic fracture | CPT/HCPCS: 99214 ==

== ENCOUNTER → 2023-05-12 10:34 | Outpatient (BNVA) | payer MEDICARE, SELFPAY | PROVIDERS: PCP Family Medicine; Referring Provider Family Medicine | DX: M16.12 Unilateral primary osteoarthritis, left hip (principal); M70.62 Trochanteric bursitis, left hip; R29.898 Other symptoms and signs involving the musculoskeletal system | CPT/HCPCS: 20610; J1040 ==

== ENCOUNTER 2023-06-15 04:17 | Outpatient (CLI) | payer MEDICARE, SELFPAY ==
[2023-06-15 13:16] LABS: Anion Gap 6.5 mmol/L (3-11); BUN 32 mg/dL (7-18); CO2 27.5 mmol/L (21.0-32.0); CREATININE 0.9 mg/dL (0.55-1.02); Calcium 8.8 mg/dL (8.5-10.1); Chloride 106 mmol/L (98-107); Estimated GFR 62.65 (mL/min/1.73m2); Glucose 88 mg/dL (74-106); Potassium 4.8 mmol/L (3.5-5.1); Sodium 140 mmol/L (136-145); TSH (W/Ref FT4) 4.35 uIU/mL (0.36-3.74)
[2023-06-15 13:37] LABS: FREE T4 0.96 ng/dL (0.76-1.46)
[2023-06-15 18:19] LABS: Bilirubin Negative (Negative); Blood Negative (Negative); Clarity Clear (Clear); Glucose Negative (Negative); Ketones Negative (Negative); Leukocyte Esterase Negative (Negative); Nitrite Negative (Negative); Specific Gravity >= 1.030 (1.005-1.025); Urobilinogen 0.2 mg/dL (Up to 0.2)
== END 2023-06-15 04:18 | disposition home or self-care (01) ==
LOC: LOS 04:17
PROVIDERS: PCP Family Medicine; Referring Provider Family Medicine; Visit Provider Family Medicine
DX: I10 Essential (primary) hypertension (principal); E03.9 Hypothyroidism, unspecified; R35.0 Frequency of micturition
CPT/HCPCS: 36415; 80048; 81003; 84439; 84443

== ENCOUNTER → 2023-07-13 09:13 | Outpatient (BNVA) | payer MEDICARE, SELFPAY | PROVIDERS: PCP Family Medicine; Referring Provider Family Medicine; Visit Provider Student in an Organized Health Care Education/Training Program | DX: T84.84XA Pain due to internal orthopedic prosthetic devices, implants and grafts, initial encounter (principal); M70.62 Trochanteric bursitis, left hip | CPT/HCPCS: 99214 ==

== ENCOUNTER 2023-07-18 09:49 | Day surgery (SDC) | payer MEDICARE, SELFPAY ==
[2023-07-18] VITALS (10 sets, daily range): BP systolic 102–165; BP diastolic 34–73; PULSE 71–89; RESP 16–18; TEMP 36–36.7; O2SAT 93–96; BMI 23.3
--- NOTE | 2023-07-18 10:42 | W.ANESPRE ---
General Info Date of Service Date Performed: 07/18/23 Height: 5 ft 4 in Weight: 61.689 kg Body Mass Index (BMI): 23.3 Surgical Procedure: Operation Date: 07/18/23 13:10 Proposed Procedure Side Surgeon p Hip Hardware Removal Left Colin Garcia MD Meds Allergies and Home Medications Allergies Allergy/AdvReac Type Severity Reaction Status Date / Time Penicillins Allergy Severe hives Verified 07/18/23 10:34 polyethylene glycol 3350 Allergy Severe rash all Verified 07/18/23 10:34 [From Miralax] over cefazolin Allergy Unknown Verified 07/18/23 10:34 Home Medication Medication Instructions Recorded MaxiVision 1 cap PO DAILY 02/14/19 acetaminophen 325 mg tablet 650 mg PO Q6H PRN PRN fever or 10/15/19 (Tylenol) pain #1 tab cholecalciferol (vitamin D3) 25 25 mcg PO DAILY #90 caps 07/06/22 mcg (1,000 unit) capsule gabapentin 100 mg capsule 100 mg PO TID #90 caps 11/16/22 lidocaine 5 % topical patch 2 patch topical DAILY #30 ea 01/11/23 (Lidoderm) dicyclomine 10 mg capsule 10 mg PO BID PRN IBS #120 caps 02/24/23 loperamide 2 mg capsule 2 mg PO Q6H PRN loose stool #90 02/24/23 caps losartan 100 mg tablet 100 mg PO DAILY #90 tabs 02/24/23 clotrimazole 1 % topical cream 1 applic topical BID #45 grams 04/12/23 donepezil 5 mg tablet 5 mg PO QHS #30 tabs 04/19/23 meloxicam 15 mg tablet 15 mg PO DAILY #30 tabs 06/15/23 fluticasone propionate 50 2 spray intranasal DAILY PRN 07/13/23 mcg/actuation nasal allergy symptoms #16 grams spray,suspension docusate sodium 50 mg capsule 50 mg PO PRN PRN 07/18/23 Current Visit Medications: Current Medications Generic Name Dose Route Start Last Admin Trade Name Freq PRN Reason Stop Dose Admin Hydromorphone HCl 0.5 mg 07/18/23 07:34 Hydromorphone 2 Mg/Ml Syr IVP 08/17/23 07:33 Q2H PRN PRN Ringer's Solution 1,000 mls @ 80 mls/hr 07/18/23 06:00 IV 08/16/23 23:59 INFUSION CHAPARRO Cefazolin Sodium/Dextrose 2 gm in 50 mls @ 100 mls/hr 07/18/23 06:00 Ancef Duplex IVPB 07/18/23 16:00 PREOP CHAPARRO Cefazolin Sodium/Dextrose 1 gm in 50 mls @ 100 mls/hr 07/18/23 08:00 Ancef Duplex IVPB 07/19/23 00:29 Q8H CH[facility]O IV Miscellaneous Supplies 1 each 07/18/23 06:00 Iv Access IV 08/16/23 23:59 DIRECTED CHAPARRO Sodium Chloride 0 ml 07/18/23 06:00 Normal Saline Flush 10 Ml Syr IV 08/16/23 23:59 PRN PRN Sodium Chloride 0 ml 07/18/23 06:00 Normal Saline 10 Ml Vial IJ 08/16/23 23:59 DIRECTED PRN Sterile Water 0 ml 07/18/23 06:00 Water,Injection,Sterile 10 Ml Vial IJ 08/16/23 23:59 DIRECTED PRN Tramadol HCl 50 mg 07/18/23 07:34 Tramadol 50 Mg Tab PO 08/17/23 07:33 Q4H PRN PRN Pain PFSH Active Problems Active Problems: Problem Status Onset Code Hypertension I10 Iron deficiency anemia D50.9 Osteoporosis M81.0 Irritable bowel syndrome K58.9 Low back pain M54.5 Vitamin D deficiency E55.9 Sciatica M54.30 Emphysema lung J43.9 GERD (gastroesophageal reflux disease) K21.9 Hiatal hernia K44.9 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 Jani Rothman. Squamous mucosa with reactive changes. Gastric type mucosa with chronic and focally active inflammation but no intestinal metaplasia or dysplasia. No helical factor pylori microorganisms identified. Breast cancer C. difficile enteritis at hospitalization may 2014 Deep vein thrombosis Diverticulitis (09/19/14) [place] [facility] [place] and colostomy post op infection and malnutrition February 2015 colostomy takedown (post op infection) Hx of fracture of left hip s/p short TFN Dr. Mathis DOS: 10/11/19 Hydrocephalus in adult [place] [facility] [place]; no change in pressures. NPH ruled out. Hypothyroidism (08/10/12) Incidental lung nodule, > 3mm and < 8mm on xray and CT scan with contrast / [facility] [place]. Indeterminate colitis (02/04/16) 01/22/16 [place] [facility] [place] Malignant neoplasm of female breast (09/21/92) R MAST AND RECONSTRUCTION. 10/25 INFLAMMATION AT [facility] WAS NEG FOR MALIGNANCY Ventral hernia without obstruction or gangrene Surgical History Surgical History Colectomy (~05/2014) for colon stricture presumed to be from diverticulitis colostomy reversal History of mastectomy (~1994) right mastectomy (no radiation or chemotherapy); s/p reconstruction after the mastectomy Laparotomy (06/08/14) for [place] leak. End colostomy done Tobacco Smoking/Tobacco Use Status: Former Tobacco Use Second hand exposure: No Alcohol Alcohol Intake: never Substance Use Substance use: Never Substance use type: does not use Prental History History 0 Para 0 Hx # Term Pregnancies 0 Multiple births Hx # Pregnancies 0 Ectopic pregnancies AB induced 0 Hx Number of Living Children 0 AB spontaneous 0 Vital Signs and Lab Results Vital Signs Most Recent Vital Signs in EMR: Temp Pulse Resp BP Pulse Ox 36.7 C 71 16 165/67 H 96 07/18/23 10:57 07/18/23 10:57 07/18/23 10:57 07/18/23 10:57 07/18/23 10:57 Lab Results Blood Type / Crossmatch: No Data to Display Complete Blood Count: No Data to Display Complete Metabolic Panel: No Data to Display Liver Function Panel: No Data to Display Coagulation Panel: No Data to Display Cardiac Panel: No Data to Display Arterial Blood Gas: No Data to Display Venous Blood Gas: No Data to Display Pancreas Panel: No Data to Display Thyroid Panel: No Data to Display Infectious Disease: No Data to Display Blood Cultures: No Data to Display Toxicology Panel: No Data to Display Imaging and Studies Imaging and Studies Study information below may be from another EMR and interpreted by another provider. Please see original notes in EMR for more complete details. EKG Summary: 01/11: sinus. t wave inversion. Pulmonary Function Summary: 09/12: restrictive, borderline low diffusion. Anesthesia Assessment and Plan Anesthesia History Personal History: No History of Anesthesia Complications Family History: No Family History of Anesthesia Complications Exercise Tolerance Exercise Tolerance: Unknown Cardiac & Pulmonary Exam Cardiac Exam: Normal S1/S2 Heart Sounds Pulmonary Exam: Clear Bilateral Breath Sounds Implantable Cardiac Device Does patient have a Pacemaker or an ICD?: No Airway Exam Known Difficult Airway: No Mallampati Class: 3 Mouth Opening: Narrow (< 3cm) Thyromental Distance: Less than 3 cm Neck Range of Motion: Limited ROM Neck Circumference: Normal Teeth Condition: Normal Dentition and Removable Dentures/Plates Upper ASA Classification ASA Score: ASA 3 Emergency Case?: No NPO Status NPO Status: NPO Clears >2 hours, Solids >8 hours Anesthesia Plan Resuscitation Status: Full Code Anesthesia Technique: General Anesthesia Airway Planned: Endotracheal Tube Monitors Used: Standard Monitors Preoperative Comments:: 83 yo female for hip hardware removal. Sig PMHx: HTN, emphysema, GERD, barretts, hital hernia, DJD, Alzheimer's (donepezil), hypothyroid, former smoker, Previous Anes: - glide 3, grade 1, easy mask.
--- NOTE | 2023-07-18 10:49 | W.PREOPHP ---
Assessment and Plan Assessment and plan (1) Trochanteric bursitis, left hip: Status: Acute (2) Painful orthopaedic hardware: Status: Acute Assessment and plan: Amelia is here for hardware reoval due to bursitis ad pain from the hardware. Please see her recent PCP note about her medical history as well as my note. She has no changes to her health. Risks were discussed. Proceed with surgery. History of Present Illness History of Present Illness Chief Complaint: Left leg pain Narrative: Amelia is an 83-year-old female who has pain about left hip after hip fracture surgery. Please see my previous office note. No acute medical changes. 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 Jani Rothman. Squamous mucosa with reactive changes. Gastric type mucosa with chronic and focally active inflammation but no intestinal metaplasia or dysplasia. No helical factor pylori microorganisms identified. Breast cancer C. difficile enteritis at hospitalization may 2014 Deep vein thrombosis Diverticulitis (09/19/14) [place] [facility] [place] and colostomy post op infection and malnutrition February 2015 colostomy takedown (post op infection) Hx of fracture of left hip s/p short TFN Dr. Mathis DOS: 10/11/19 Hydrocephalus in adult s/[place] [facility] [place]; no change in pressures. NPH ruled out. Hypothyroidism (08/10/12) Incidental lung nodule, > 3mm and < 8mm on xray and CT scan with contrast [place] [facility] [place]. Indeterminate colitis (02/04/16) 01/22/16 [place] [facility] [place]ignant neoplasm of female breast (09/21/92) R [facility]ST AND RECONSTRUCTION. 10/25 INFLAMMATION AT [facility] WAS NEG FOR MALIGNANCY Ventral hernia without obstruction or gangrene Surgical History Colectomy (~05/2014) for colon stricture presumed to be from diverticulitis colostomy reversal History of mastectomy (~1994) right mastectomy (no radiation or chemotherapy); s/p reconstruction after the mastectomy Laparotomy (06/08/14) for [place] leak. End colostomy done Family History Mother , 84 Essential hypertension COPD (chronic obstructive pulmonary disease) Father , 51 Stomach cancer Mouth cancer Brother No problems noted. Maternal Grandfather No problems noted. Paternal Grandfather No problems noted. Maternal Grandmother No problems noted. Paternal Grandmother No problems noted. Sister No problems noted. Sister COPD (chronic obstructive pulmonary disease) Social History Smoking/Tobacco Use Status: Former Tobacco Use tobacco type: cigarettes Quit Date: 10/23/94 Pack-years: 40 Tobacco: How many years used: 40 Second Hand Exposure: No Smoking risk assessment performed?: Yes Alcohol Intake: never Drug use: Never Substance use type: does not use Caregiver/Support person: Yes Household members: none Housing: house Communication Needs: None Do you need help understanding health information?: Never Pets and animals: No Sexually active: No Current gender identity: female What is your relationship status?: never How often do you talk on the phone with friends or family?: three or more times per week How often do you get together with friends or relatives?: three or more times per week How often do you attend mandaen or latter day services?: decline to answer Do you belong to any clubs or organized social groups?: no Panel score (0-1 are the most socially isolated patients): 1 What type of physical activity do you participate in: decline to answer Duration: decline to answer Frequency: decline to answer Leslie/Sabianist: No preference Special leslie needs: No Seatbelt use: always Drive intox or ride w/intox cdl a driver: No Additional Social history: unable to assess charlie History History 0 Para 0 Hx # Term Pregnancies 0 Multiple births Hx # Pregnancies 0 Ectopic pregnancies AB induced 0 Hx Number of Living Children 0 AB spontaneous 0 Meds Allergies and Home Medications Allergies Allergy/AdvReac Type Severity Reaction Status Date / Time Penicillins Allergy Severe hives Verified 07/18/23 10:34 polyethylene glycol 3350 Allergy Severe rash all Verified 07/18/23 10:34 [From Miralax] over cefazolin Allergy Unknown Verified 07/18/23 10:34 Home Medications Medication Instructions Recorded Confirmed Type MaxiVision 1 cap PO DAILY 02/14/19 07/18/23 History acetaminophen 325 mg tablet 650 mg PO Q6H PRN PRN fever or 10/15/19 07/18/23 Rx (Tylenol) pain #1 tab cholecalciferol (vitamin D3) 25 25 mcg PO DAILY #90 caps 07/06/22 07/18/23 Rx mcg (1,000 unit) capsule gabapentin 100 mg capsule 100 mg PO TID #90 caps 11/16/22 07/18/23 Rx lidocaine 5 % topical patch 2 patch topical DAILY #30 ea 01/11/23 07/17/23 Rx (Lidoderm) dicyclomine 10 mg capsule 10 mg PO BID PRN IBS #120 caps 02/24/23 07/18/23 Rx loperamide 2 mg capsule 2 mg PO Q6H PRN loose stool #90 02/24/23 07/18/23 Rx caps losartan 100 mg tablet 100 mg PO DAILY #90 tabs 02/24/23 07/18/23 Rx clotrimazole 1 % topical cream 1 applic topical BID #45 grams 04/12/23 07/17/23 Rx donepezil 5 mg tablet 5 mg PO QHS #30 tabs 04/19/23 07/18/23 Rx meloxicam 15 mg tablet 15 mg PO DAILY #30 tabs 06/15/23 07/18/23 Rx fluticasone propionate 50 2 spray intranasal DAILY PRN 07/13/23 07/18/23 Rx mcg/actuation nasal allergy symptoms #16 grams spray,suspension docusate sodium 50 mg capsule 50 mg PO PRN PRN 07/18/23 07/18/23 History Exam Resp Auscultation: clear to auscultation bilaterally Cardio Rate: regular rate Rhythm: regular rhythm
[2023-07-18] MEDS: Lactated Ringers 1,000 ML 80 ML IV (11:25)
[2023-07-18] MEDS: ceFAZolin 2 GM/50 ML BAG IVPB (12:30)
--- NOTE | 2023-07-18 14:09 | PDOC.DSDIS_ITS ---
Date of service: 07/18/23 Time of Service: 14:13 Discharge Plan Disposition Patient Disposition: Home Condition: Good Discharge Details Reason For Visit: Painful retained orthopedic hardware - left femur Attending Provider: Colin Garcia Primary Care Provider: Virginia Pino Home Meds and New Rx's Prescriptions: New acetaminophen 500 mg tablet 1,000 mg PO Q8H PRN Qty: 90 0RF Rx Instructions: Take two tablets up to every 8 hours as needed for pain tramadol 50 mg tablet 50 mg PO Q4H PRN (Reason: severe postoperative pain) Qty: 18 0RF Rx Instructions: Take one tablet up to every 4 hours as needed for severe pain Continued MaxiVision 1 cap PO DAILY cholecalciferol (vitamin D3) 25 mcg (1,000 unit) capsule 25 mcg PO DAILY Qty: 90 3RF Rx Instructions: /take one capsule daily loperamide 2 mg capsule 2 mg PO Q6H PRN (Reason: loose stool) Qty: 90 1RF losartan 100 mg tablet 100 mg PO DAILY Qty: 90 4RF dicyclomine 10 mg capsule 10 mg PO BID PRN (Reason: IBS) Qty: 120 3RF lidocaine [Lidoderm] 5 % adhesive patch,medicated 2 patch topical DAILY Qty: 30 12RF Rx Instructions: leave on most painful area for up to 12 hrs clotrimazole 1 % cream 1 applic topical BID Qty: 45 0RF Rx Instructions: Apply to affected areas twice a dayfor 2-4wks donepezil 5 mg tablet 5 mg PO QHS Qty: 30 3RF gabapentin 100 mg capsule 100 mg PO TID Qty: 90 12RF meloxicam 15 mg tablet 15 mg PO DAILY Qty: 30 1RF Rx Instructions: Take one tablet daily for inflammation and pain fluticasone propionate 50 mcg/actuation spray,suspension 2 spray intranasal DAILY PRN (Reason: allergy symptoms) Qty: 16 11RF Rx Instructions: administer into each nostril docusate sodium 50 mg Capsule 50 mg PO PRN PRN acetaminophen [Tylenol] 325 mg Tablet 650 mg PO Q6H PRN PRN (Reason: fever or pain) Qty: 1 0RF Discharge Instructions Additional Instructions: Hip Hardware Removal and Bursa Discharge Instructions Activity: You may move and walk as tolerated but always use a walker until instructed otherwise. You should try to take short walks a few times a day. You have no restrictions on movement or positioning, but do not try to force what you do. You will find some stiffness and weakness. Do not try to strengthen this too early, continue to practice walking. - Outpatient physical therapy can be helpful to help return you to a normal gait and improve your flexibility and strength. This can start around 2 weeks. For some patients, it?s not necessary. Usually this is determined at the time of discharge or at the first post-operative visit. Dressing: Keep the surgical dressing in place for at least one week. After the first week it may be removed and replace with light gauze and tape or nothing. It may get wet after 3 days but avoid soaking the dressing. If it gets wet, just lightly pat dry. Medications: - You should take Tylenol and an anti-inflammatory Meloxicam as your primary pain control medications - You have been prescribed a stronger pain medication Tramadol for breakthrough pain, take as needed as prescribed. - If you have constipation you should take Colace or Miralax (both [id number]). It takes most people 3-4 days to have a bowel movement. Follow-up: 2 weeks Referrals: Colin Garcia MD [ [facility] STAFF PHYSICIAN] - Equipment/Supplies: Walker Activity:: Activity as Tolerated Remove Dressings/Wound Care:: Do Not Remove Shower/Bathe:: 72 hours and Cover Diet:: As Tolerated DS: Diagnosis Discharge Diagnosis (1) Trochanteric bursitis, left hip: Status: Acute (2) Painful orthopaedic hardware: Status: Acute
--- NOTE | 2023-07-18 14:19 | W.ANESPOSTOP ---
Postoperative Evaluation Date, Time and Location Date Performed: 07/18/23 Time Performed: 14:19 Patient Location: PACU Vital Signs Most Recent Imported Vital Signs: Most Recent Vital Signs Temp Pulse Resp BP Pulse Ox 36.6 C 75 16 135/73 96 07/18/23 14:07/18/23 14:07/18/23 14:07/18/23 14:07/18/23 14:09 Pain Score Most Recent Pain Score: Most Recent Pain Score Pain Level 0 07/18/23 14:09 Assessment Mental Status: Awake (Alert & Oriented to Patient Baseline) Airway and Respiratory Function: Patent airway with normal (patient baseline) respiratory exam Cardiovascular Function: Hemodynamically Stable Hydration Status: Adequately Hydrated Nausea & Vomiting: No Nausea or Vomiting Pain: Pain is tolerable per patient Peripheral Nerve Block: Patient did not receive a nerve block Postoperative Comments:: Iv is out, she is currently comfortable and stable. Discussed with PRECISION LENS TECHNICIAN, IV can be replaced if she is requiring additional pain medication.
--- NOTE | 2023-07-18 14:23 | W.PM.OP ---
Date of service: 07/18/23 Time of Service: 13:50 Operative Note Operative Note DATE OF PROCEDURE: 07/18/23 PRE-OP DIAGNOSIS: Painful Hardware - Left Hip Left Trochanteric Bursitis POST-OP DIAGNOSIS: same PROCEDURE: Open Debridement/Excision of LEFT Trochanteric Bursa and Iliotibial Band Tenotomy Removal of Hardware (Deep) - LEFT Femur SURGEON: Colin Garcia GENERAL STORE MANAGER: Roxane Briceno ANESTHESIA TYPE: General LMA/ETT Refer to Anesthesia Record ESTIMATED BLOOD LOSS: 20 PATHOLOGY: none sent TOURNIQUET TIME: 0 COMPLICATIONS: None Patient was transported to: PACU Patient's condition: stable Indications: Amelia is a 83 year old female who I have seen for recurrent symptoms of lateral hip pain following hip fracture surgery 3 years ago. A diagnosis of trochanteric bursitis and painful hardware was made. Conservative treatment options were employed first. However, pain continued. After failure of conservative treatment options, I recommended surgical intervention. I reviewed the technical details of the surgery. I reviewed the risk of the surgery to include bleeding, infection, pain, stiffness, damage to nerves and vessels, damage to muscles and tendons, blood clot. Despite these risks, the patient desired to proceed. Findings: The iliotibial band was significantly tight. The femoral nail hardware was removed. The bursa was debrided in the iliotibial band was lengthened by tenotomy. Procedure Description: mAelia was greeted in the preoperative holding area. The identity was confirmed with the correct site and side. The consent was reviewed with the patient and signed. History and physical was updated. The patient was taken back to the operating room. A general anesthetic was administered. The patient was then positioned into the right lateral decubitus position for access to the left hip. All bony prominences well-padded. The right hip was prepped with ChloraPrep and draped in a standard fashion. Prophylactic antibiotics in the form of Cefazolin were administered. A timeout was performed for safe surgery. An approximately 10 cm incision was made overlying the posterior lateral hip, connecting the two previous incisions. Focus was first made to identify and the top of the femoral nail. Deep fascia and iliotibial band was incised. A split in the abductor tendons was made and I was able to identify the top of the femoral nail. This was cleaned off with a curette to gain full access. The flexible screwdriver was then inserted and the setscrew was loosened. Once the setscrew was loosened, attention was paid to removing the helical blade. Dissection was carried down after the helical blade and was palpated. It was prominent through the vastus musculature but onto the IT band. With that exposed I then used the extraction device to thread onto the helical blade. It was then removed with light pressure. Going back to the proximal aspect of the nail, the extraction device was threaded onto the top of the nail. Once was in position I then remove the 5.0 mm locking screw from the distal aspect of the nail without any difficulty. The nail was then back slapped out of the femur with ease. Bursal tissue from around the lateral aspect of the femur and the greater trochanter was then removed with a rongeur. There was notable scar tissue seen adjacent to where the helical blade and was protruding. This was also dissected and removed. The wound was thoroughly irrigated. The deep tissues were injected with a mixture of 0.25% ropivacaine, epinephrine, clonidine, and ketorolac. The wound was thoroughly irrigated once again. The IT band was closed with interrupted #1 Vicryl sutures. After the closure was completed at the point of maximal tension, overlying the greater trochanter near the vastus ridge, was then incised creating a 2 cm gap of the iliotibial band, decreasing tension across the greater trochanter. The deep tissues were closed with 0 Vicryl followed by 2-0 Vicryl. The skin was closed with a 4-0 Monocryl in a running subcuticular fashion which was reinforced with skin glue and Steri-Strips. The wound was dressed with Mepilex silver dressing. At the end of the case all counts are correct. The patient was transitioned back into the supine position. There were no notable complications. The patient was transferred to the PACU in stable condition.
--- NOTE | 2023-07-18 14:24 | DI.RAD_ITS ---
Exam(s) XR HIP LT IN OR EXAM: XR HIP LT IN OR CLINICAL HISTORY: HARDWARE REMOVAL TECHNIQUE: 2D and realtime digital imaging was performed. CONTRAST MATERIAL: Refer to procedure report. COMPARISON: CR XR HIP LT COMPLETE AP PELVIS from 01/20/2023 FINDINGS: Fluoroscopy was provided for Dr. Garcia during the performance of a left hip hardware removal. Pl ease refer to the procedure report for complete details. Ka,r=17.5 mGy IMPRESSION: RADIATION DOSE DELIVERED:
[2023-07-18] MEDS: traMADol 50 MG TAB PO (15:21)
== END 2023-07-18 16:10 | disposition home or self-care (01) ==
PROVIDERS: PCP Family Medicine; Visit Provider Student in an Organized Health Care Education/Training Program
PROC: (CPT 20680; principal; 2023-07-18 13:00)
DX: M70.62 Trochanteric bursitis, left hip (principal); T84.84XA Pain due to internal orthopedic prosthetic devices, implants and grafts, initial encounter; M76.32 Iliotibial band syndrome, left leg; I10 Essential (primary) hypertension; E55.9 Vitamin D deficiency, unspecified; D50.9 Iron deficiency anemia, unspecified; M81.0 Age-related osteoporosis without current pathological fracture
CPT/HCPCS: 20680; 27062; 27305; 73501; J0131; J0690; J1100; J2001; J2405

== ENCOUNTER 2023-07-22 06:51 | Inpatient (IN) | payer MEDICARE, SELFPAY ==
[2023-07-22] VITALS (50 sets, daily range): BP systolic 114–183; BP diastolic 40–92; PULSE 76–111; RESP 14–31; TEMP 36.6–38.4; O2SAT 94–100
--- NOTE | 2023-07-22 06:45 | RT.EKG_ITS ---
APPROVED REPORT Exam: Resting ECG Reason for Exam: fever Patient Location: E HR:100 bpm ECG Measurements Heart Rate 100 AXIS NJ 230 P 75 QRSd 78 QRS 49 QT 312 T 43 QTc 403 Conclusion Sinus tachycardia...rate> 99 Prolonged NJ interval...NJ >215, V-rate 91-120 Low voltage, precordial leads...precordial leads <1.0mV No change vs 01/12/22
--- NOTE | 2023-07-22 06:50 | DI.RAD_ITS ---
Exam(s) XR CHEST 1V IN DI DEPT EXAM: XR CHEST 1V IN DI DEPT CLINICAL HISTORY: fever. TECHNIQUE: 2D digital imaging was performed. COMPARISON: CR XR CHEST 2V PA LATERAL from 01/12/2022 FINDINGS: Single AP portable view. Heart size is upper normal. The mediastinum is not widened. Right lung is clear. There increased markings by left side of the heart, possibly infiltrate. How er, previous lateral images reveal hiatal hernia at this level. No pleural effusions. No pneumothor ax. No pulmonary edema. IMPRESSION: Left lower lobe infiltrate versus hiatal hernia. Right lung is clear. Discussed with hospitalist. DATA REPOSITORY: RADIATION DOSE DELIVERED:
--- NOTE | 2023-07-22 07:43 | NUR.NOTE ---
Nursing Note: Pt has aquacell dressing to left hip over surgical site c/d/i, bruising around site noticed.
[2023-07-22 08:21] LABS: Influenza A PCR Negative (Negative); Influenza B PCR Negative (Negative); RSV PCR Negative (Negative)
[2023-07-22 08:22] LABS: Source Nasopharynx
[2023-07-22 08:24] LABS: COVID-19 PCR Positive (Negative)
--- NOTE | 2023-07-22 08:40 | ED.GENADUL_ITS ---
Discharge Plan Disposition Patient Disposition: Admit to [facility] Condition: Stable Discharge Details Clinical Impression: COVID, Anemia Admit Date/Time: 07/22/23 13:03 Admit Provider: Leo Diaz Attending Provider: Leo Diaz Primary Care Provider: Virginia Pion ED Provider: Leo Palmer Medical Decision Making <Wendy Panda MD - Last Filed: 07/22/23 20:05> Case signed out to Dr. Palmer who will attempt an IV under ultrasound. I did a femoral stick to get blood on the patient on the right-hand side but the blood clotted in the 3 syringes. I then attempted to put in an IV under ultrasound and catheterized the brachial artery in the patient's left arm. I obtained additional blood from this and removed the catheter, holding pressure on this for 5 minutes and then putting a Cobain pressure dressing over this. Meanwhile the pts. COVID came back positive. Lab Data Lab results reviewed: Yes I reviewed the patient's lab results. Lab results narrative: COVID positive ECG Data Attestation: I personally reviewed and interpreted this ECG (s) as follows: (Sinus tach 1, first-degree AV block, low voltage) <Leo Palmer MD - Last Filed: 07/22/23 13:05> Case signed out to Dr. Palmer who will attempt an IV under ultrasound. I did a femoral stick to get blood on the patient on the right-hand side but the blood clotted in the 3 syringes. I then attempted to put in an IV under ultrasound and catheterized the brachial artery in the patient's left arm. I obtained additional blood from this and removed the catheter, holding pressure on this for 5 minutes and then putting a Cobain pressure dressing over this. Meanwhile the pts. COVID came back positive. 9: 32 ultrasound-guided IV placed left brachial, second set of blood cultures have been drawn, patient found to be anemic to 6.7, have ordered type and screen as well as 2 units RBC. Patient consented for transfusion. Recent left hip hardware removal site clean dry intact, dressing taken down, no signs of purulence or bleeding, does have surrounding ecchymosis without warmth fluctuance or crepitus. Patient also complaining of right lower quadrant abdominal discomfort and right groin discomfort tender on palpation. Consider hernia versus must consider appendicitis versus bowel obstruction less likely versus colitis versus enteritis versus UTI versus referred right hip discomfort. Have ordered CT abdomen pelvis with IV contrast. We will continue with fluids antipyretics holding antibiotics at this point given high likelihood of viral etiology of symptomatology. 13: 05 patient to be admitted for treatment of COVID and anemia. Currently hemodynamically stable no acute distress resting. HPI <Wendy Panda MD - Last Filed: 07/22/23 20:05> General Date/Time Provider Initiated Documentation: 07/22/23 08:10 . HPI Narrative: This 83-year-old female patient presents with a chief complaint of weakness. Patient had a femur chuy removed 2 days ago and went home afterward. Yesterday she was too weak to get up this was really worse overnight. She also had an onset of a fever of 102 with associated cough, congestion, and runny nose. She denies chest pain or difficulty breathing. She has some vague belly discomfort near her hip on the left-hand side and I suspect is secondary to the chuy removal. She does report pain in that area as well as the right thigh that she describes as moderate. It is throbbing in nature. It has been ongoing since the chuy removal 2 days ago and she says she is getting a little bit better. Movement makes it a little bit worse. Related Data Home Medications Medication Instructions Recorded Confirmed MaxiVision 1 cap PO DAILY 02/14/19 07/22/23 acetaminophen 325 mg tablet 650 mg PO Q6H PRN PRN fever or 10/15/19 07/22/23 (Tylenol) pain #1 tab cholecalciferol (vitamin D3) 25 25 mcg PO DAILY #90 caps 07/06/22 07/22/23 mcg (1,000 unit) capsule gabapentin 100 mg capsule 100 mg PO TID #90 caps 11/16/22 07/22/23 lidocaine 5 % topical patch 2 patch topical DAILY #30 ea 01/11/23 07/22/23 (Lidoderm) dicyclomine 10 mg capsule 10 mg PO BID PRN IBS #120 caps 02/24/23 07/22/23 loperamide 2 mg capsule 2 mg PO Q6H PRN loose stool #90 02/24/23 07/22/23 caps losartan 100 mg tablet 100 mg PO DAILY #90 tabs 02/24/23 07/22/23 clotrimazole 1 % topical cream 1 applic topical BID #45 grams 04/12/23 07/22/23 donepezil 5 mg tablet 5 mg PO QHS #30 tabs 04/19/23 07/22/23 meloxicam 15 mg tablet 15 mg PO DAILY #30 tabs 06/15/23 07/22/23 fluticasone propionate 50 2 spray intranasal DAILY PRN 07/13/23 07/22/23 mcg/actuation nasal allergy symptoms #16 grams spray,suspension acetaminophen 500 mg tablet 1,000 mg PO Q8H PRN pain #90 tabs 07/18/23 07/22/23 docusate sodium 50 mg capsule 50 mg PO PRN PRN 07/18/23 07/22/23 tramadol 50 mg tablet 50 mg PO Q4H PRN severe 07/18/23 07/22/23 postoperative pain #18 tabs Previous Rx's Medication Instructions Recorded acetaminophen 325 mg tablet 650 mg PO Q6H PRN PRN fever or 10/15/19 (Tylenol) pain #1 tab cholecalciferol (vitamin D3) 25 25 mcg PO DAILY #90 caps 07/06/22 mcg (1,000 unit) capsule gabapentin 100 mg capsule 100 mg PO TID #90 caps 11/16/22 lidocaine 5 % topical patch 2 patch topical DAILY #30 ea 01/11/23 (Lidoderm) dicyclomine 10 mg capsule 10 mg PO BID PRN IBS #120 caps 02/24/23 loperamide 2 mg capsule 2 mg PO Q6H PRN loose stool #90 02/24/23 caps losartan 100 mg tablet 100 mg PO DAILY #90 tabs 02/24/23 clotrimazole 1 % topical cream 1 applic topical BID #45 grams 04/12/23 donepezil 5 mg tablet 5 mg PO QHS #30 tabs 04/19/23 meloxicam 15 mg tablet 15 mg PO DAILY #30 tabs 06/15/23 fluticasone propionate 50 2 spray intranasal DAILY PRN 07/13/23 mcg/actuation nasal allergy symptoms #16 grams spray,suspension acetaminophen 500 mg tablet 1,000 mg PO Q8H PRN pain #90 tabs 07/18/23 tramadol 50 mg tablet 50 mg PO Q4H PRN severe 09/26/23 postoperative pain #18 tabs Allergies Allergy/AdvReac Type Severity Reaction Status Date / Time Penicillins Allergy Severe hives Verified 07/18/23 10:34 polyethylene glycol 3350 Allergy Severe rash all Verified 07/18/23 10:34 [From Miralax] over cefazolin Allergy Unknown Verified 07/18/23 10:34 General Stated Complaint: GenMedical HANS: 2 Review of Systems <Wendy Panda MD - Last Filed: 07/22/23 20:05> Constitutional Constitutional: Denies chills, Reports fever(s), Denies headache(s) and Denies weakness Eyes Eyes: Denies diplopia and Reports other (no redness) ENT Ears, Nose, Mouth, and Throat: Denies otalgia, Denies headache(s), Reports nasal congestion, Reports nasal discharge, Denies neck pain and Denies sore throat Cardiovascular Cardiovascular: Denies chest pain, Denies palpitations and Denies dyspnea Respiratory Respiratory: Reports cough and Denies dyspnea Gastrointestinal Gastrointestinal: Reports abdominal pain (vague LLQ near hip), Denies diarrhea, Denies nausea and Denies vomiting Genitourinary Genitourinary: Denies dysuria Musculoskeletal Musculoskeletal: Denies myalgias, Denies muscle weakness, Denies neck pain, Denies numbness and Reports other (has pain L hip and leg with ecchymosis and dressing that is CDI) Integumentary/Breasts Skin/Breast: Denies change in pigmentation, Denies rash and Reports other (Bruising left lateral hip and thigh) Neurologic Neurologic: Denies headache(s), Denies numbness and Denies weakness Endocrine Endocrine: Denies palpitations PFSH <Wendy Panda MD - Last Filed: 07/22/23 20:05> All Active Problems (Updated 07/22/23 @ 17:32 by Leo Diaz MD) Discharge planning issues (Acute) COVID (Acute) Anemia (Chronic) Hypertension (Chronic) Iron deficiency anemia (Chronic) Osteoporosis (Chronic) Irritable bowel syndrome (Chronic) prior evaluation with [facility] Low back pain (Acute) Vitamin D deficiency (Acute) Sciatica (Acute) Emphysema lung (Acute) GERD (gastroesophageal reflux disease) (Chronic) Hiatal hernia (Chronic) 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 Jani Rothman. Squamous mucosa with reactive changes. Gastric type mucosa with chronic and focally active inflammation but no intestinal metaplasia or dysplasia. No helical factor pylori microorganisms identified. Breast cancer C. difficile enteritis at hospitalization may 2014 Deep vein thrombosis Diverticulitis (09/19/14) May 2014 [facility] sigmoid resection and colostomy post op infection and malnutrition February 2015 colostomy takedown (post op infection) Hx of fracture of left hip s/p short TFN Dr. Mathis DOS: 10/11/19 Hydrocephalus in adult s/p admission to [facility] for lumbar puncture; no change in pressures. NPH ruled out. Hypothyroidism (08/10/12) Incidental lung nodule, > 3mm and < 8mm on xray and CT scan with contrast / [facility] pulm. Indeterminate colitis (02/04/16) 01/22/16 colonoscopy at [facility] Malignant neoplasm of female breast (09/21/92) R MAST AND RECONSTRUCTION. 10/25 INFLAMMATION AT [facility] WAS NEG FOR MALIGNANCY Ventral hernia without obstruction or gangrene Surgical History Colectomy (~05/2014) for colon stricture presumed to be from diverticulitis colostomy reversal History of mastectomy (~1994) right mastectomy (no radiation or chemotherapy); s/p reconstruction after the mastectomy Laparotomy (06/08/14) for [place] leak. End colostomy done Family History Mother , 84 Essential hypertension COPD (chronic obstructive pulmonary disease) Father , 51 Stomach cancer Mouth cancer Brother No problems noted. Maternal Grandfather No problems noted. Paternal Grandfather No problems noted. Maternal Grandmother No problems noted. Paternal Grandmother No problems noted. Sister No problems noted. Sister COPD (chronic obstructive pulmonary disease) Social History Smoking/Tobacco Use Status: Former Tobacco Use tobacco type: cigarettes Quit Date: 10/23/94 Pack-years: 40 Tobacco: How many years used: 40 Second Hand Exposure: No Smoking risk assessment performed?: Yes Alcohol Intake: never Drug use: Never Substance use type: does not use Caregiver/Support person: Yes Household members: none Housing: house Communication Needs: None Do you need help understanding health information?: Never Pets and animals: No Sexually active: No Current gender identity: female What is your relationship status?: never How often do you talk on the phone with friends or family?: three or more times per week How often do you get together with friends or relatives?: three or more times per week How often do you attend episcopalian or episcopalian services?: decline to answer Do you belong to any clubs or organized social groups?: no Panel score (0-1 are the most socially isolated patients): 1 What type of physical activity do you participate in: decline to answer Duration: decline to answer Frequency: decline to answer Leslie/Oriental Orthodox: No preference Special leslie needs: No Seatbelt use: always 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 Additional Social history: unable to assess privately History History 0 Para 0 Hx # Term Pregnancies 0 Multiple births Hx # Pregnancies 0 Ectopic pregnancies AB induced 0 Hx Number of Living Children 0 AB spontaneous 0 Exam <Wendy Panda MD - Last Filed: 07/22/23 20:05> Const General: no acute distress, well developed, well groomed and not in acute distress Nutritional Appearance: well nourished Orientation: alert and oriented x3 HENMT Head: normocephalic and atraumatic Ears: external ears normal Mouth: oropharynx normal and moist mucous membranes Throat: posterior oropharynx normal Eyes Conjunctivae: conjunctivae normal Neck Neck: full ROM and supple Chest Chest: normal inspection of the chest Resp Effort & Inspection: normal respiratory effort Auscultation: clear to auscultation bilaterally (anteriorly) Cardio Rate: regular rate Rhythm: regular rhythm Heart Sounds: no murmurs and no rubs GI Inspection: normal to inspection Palpation: soft, nontender and other (non distended) Auscultation: normal bowel sounds Skin General skin exam: no rashes or lesions noted and other (pink, warm, dry) Neuro General: patient alert, patient awake and patient oriented x3 Speech: speech normal Motor: other (WAITE) Sensory Exam: no sensory deficits noted Extrem General: normal to inspection (Except L lateral hip and thigh w/ecchymosis and dressing CDI), full ROM and pedal edema present Psych Mental Status: mental status grossly normal Speech and Movement: speech and movement normal Affect: normal affect Course <Wendy Panda MD - Last Filed: 07/22/23 20:05> Vital Signs Vital signs: Vital Signs Temperature 38.4 C H 07/22/23 06:53 Pulse 102 H 07/22/23 06:53 Respiratory Rate 31 H 07/22/23 06:53 Blood Pressure 183/70 H 07/22/23 06:53 Pulse Oximetry 100 07/22/23 06:53 Temperature 38.4 C H 07/22/23 06:53 Temperature Source Oral 07/22/23 06:53 Pulse 102 H 07/22/23 06:53 Respiratory Rate 31 H 07/22/23 06:53 Respiratory Effort Normal, Non-Labored 07/22/23 07:41 Respiratory Depth Normal 07/22/23 07:41 Respiratory Pattern Normal 07/22/23 07:41 Blood Pressure 183/70 H 07/22/23 06:53 Blood Pressure Position Supine 07/22/23 06:53 Pulse Oximetry 100 07/22/23 06:53 Oxygen Delivery Method Nasal Cannula 07/22/23 06:53 Oxygen Flow Rate 2 07/22/23 06:53 Pain Level 5 07/22/23 06:53 Lab/Test Results Lab/Test Results: 07/22/23 06:51 Blood Blood Culture - Pending 07/22/23 06:51 Blood Blood Culture - Pending Laboratory Tests Range/Units 07/22/23 07:17 COVID-19 Source Nasopharynx SARS-CoV-2 (PCR) (Negative) Positive A Influenza Type A (PCR) (Negative) Negative Influenza Type B (PCR) (Negative) Negative RSV (PCR) (Negative) Negative Sign Out <Wendy Panda MD - Last Filed: 07/22/23 20:05> Sign Out Data: Sign Out Comment: Covid positive with F at home to 102, cough, congestion, rhinitis. Had femur chuy removed 2 days ago; area is ecchymotic but CDI. CXR and labs pending Last updated by Wendy Panda MD at 07/22/23 08:53
[2023-07-22 09:09] LABS: Abs Immature Grans 0.05 10^3/uL (0.0-0.06); Absolute Basophil Count 0.01 10^3/uL (0.0-0.2); Absolute Eosinophil Count 0.02 10^3/uL (0.0-0.7); Absolute Lymphocyte Count 0.59 10^3/uL (1.2-3.4); Absolute Monocyte Count 0.62 10^3/uL (0.1-0.8); BE (Venous) 0 mmol/L (-2-3); Basophils % 0.1; Eosinophils % 0.3; HCO3 (Venous) 23 mmol/L (23-28); Immature Grans % 0.7; Lymphocytes % 8.6; MCH 27.9 pg (27.0-33.0); MCHC 32.5 % (32.0-36.0); MCV 86 fL (80-95); MPV 11.7 fL (8.0-11.0); Neutrophils % 81.3; Platelet Count 214 10^3/uL (130-400); RDW 15.4 % (11.7-14.6); RDW-SD 48.6 fL; WBC 6.89 10^3/uL (4.4-10.8); pCO2 (Venous) 30 mmHg (41-51); pO2 (Venous) 106 mmHg
[2023-07-22 09:11] LABS: Lactate 0.8 mmol/L (0.6-1.4)
[2023-07-22 09:13] LABS: HCT 20.6 % (36.0-46.0); HGB 6.7 g/dL (11.2-15.7)
--- NOTE | 2023-07-22 09:14 | NUR.NOTE ---
Nursing Note: this RNreported Crit H&H 6.7/20.6 to provider
--- NOTE | 2023-07-22 09:15 | DI.CT_ITS ---
Exam(s) CT ABDOMEN PELVIS W EXAM: CT ABDOMEN PELVIS W CLINICAL HISTORY: right lower quadrant/ right groin pain. TECHNIQUE: Imaging Protocol: Axial computed tomography images with coronal and sagittal reformatted images were created and reviewed CONTRAST MATERIAL: Intravenous: Omnipaque-350 100cc Oral: None COMPARISON: CT CT CHEST/ABD/PEL W from 12/08/2022 FINDINGS: VISUALIZED LUNG BASES: There is a small left pleural effusion now evident which was not present on pr ior CT scan of 12/08/2022. No pleural effusion on the opposite-right side.. Prominent hiatal hernia is again noted. ABDOMEN: There is no ascites. LIVER: Benign appendix cysts are again noted. No new solid hepatic lesions no dilated intrahepatic d ucts. Are no dilated intrahepatic ducts. GALLBLADDER/BILIARY: No obvious gallbladder pathology. CBD diameter the it is 11-12 mm which is prom inent but unchanged from 12/08/2022 and not associated with dilated intrahepatic ducts, intraluminal calculi nor pancreatic head mass. PANCREAS: The body and tail the pancreas are atrophic. Pancreatic duct is not dilated. SPLEEN: Spleen is not enlarged. No obvious intrasplenic lesions. Splenic and portal veins are paten t. ADRENALS: There are no significant adrenal masses. KIDNEYS:There are benign cysts again noted in both kidneys as well as multiple parapelvic cysts in le ft kidney again noted, unchanged. No solid renal masses nor calculi nor hydronephrosis.. ABDOMINAL AORTA: Calcified but not enlarged. Common iliac arteries also calcified but not enlarged. LYMPH NODES:There is no retroperitoneal nor paraaortic adenopathy. ABDOMINAL WALL: No evidence of significant anterior abdominal wall nor inguinal hernia. GI: Again noted is evidence of partial sigmoid resection. There is also what appears to be a probabl e small bowel anastomosis in the left side of the pelvis again noted and some wall thickening of the small bowel wall at this level evident. PELVIS: GI: No evidence of appendicitis.No evidence of sigmoid diverticulitis. LYMPH NODES: There is no intrapelvic nor inguinal adenopathy. REPRODUCTIVE: Uterus is surgically absent. No adnexal masses. No free fluid in the pelvis. URINARY BLADDER: No calculi nor obvious masses evident OSSEOUS: There has been interval removal of ORIF hardware from the left hip. Some gas seen in the me dullary cavity of the previously present femoral neck screw and proximal femur diaphysis site of prev ious chuy. There is also fluid and gas in the soft tissues adjacent to the left hip, postsurgical ayla annelise possible infection. No obvious osteomyelitis. IMPRESSION: 1. Compared to prior CT scan of 12/08/2022 there has been interval removal of the previously present screw and supporting intramedullary chuy in the left hip-left femur. There is air in fluid in the sof t tissues around the left hip probably related to the recent orthopedic procedure. Cannot exclude in fection. 2. There is a small left pleural effusion which was not evident on the prior CT scan of 12/08/2022. 3. Mild dilatation of the CBD is unchanged from the prior CT scan and is not associated with dilated intrahepatic ducts. Gallbladder is not distended. Correlation with appropriate blood work recommend ed. There is no pancreatic head mass. No radiopaque calculi seen within the gallbladder nor within the CBD lumen. 4. Partial sigmoid resection as well as small bowel anastomosis in the left side of the pelvis. Ther e appears to be circumferential thickening of small bowel at the level of the anastomosis in left starr e of the pelvis. No evidence of free air nor abscess at this level. This nevertheless requires furt her workup. RADIATION DOSE DELIVERED: 753.75mGy.cm Total DLP DATA REPOSITORY: All CT scans at this facility are submitted to the National Radiology Data Registry (NRDR) Dose Index Registry (DIR) with the [employer] (A[employer]). RADIATION OPTIMIZATION: All CT scans at this facility use at least one of these dose optimization te chniques: automated exposure control; mA and/or kV adjustment per patient size (includes targeted exa ms where dose is matched to clinical indication); or iterative reconstruction.
[2023-07-22] MEDS: Normal Saline 1,000 ML 1000 ML IV (09:16)
--- NOTE | 2023-07-22 09:32 | NUR.NOTE ---
Nursing Note: Delay in obtaining labs/starting ivf due to difficult venous access, Dr. Lew obtained line with us
[2023-07-22] MEDS: ACETAMINOPHEN 1,000 MG/100 ML BTL 400 MG IVPB (09:55)
[2023-07-22 10:19] LABS: ALT 24 U/L (14-59); AST 34 U/L (15-37); Albumin 2.4 g/dL (3.4-5.0); Alkaline Phosphatase 149 U/L (46-116); BUN 22 mg/dL (7-18); Bilirubin, Total 0.3 mg/dL (0.2-1.0); CREATININE 0.8 mg/dL (0.55-1.02); Calcium 8.6 mg/dL (8.5-10.1); Chloride 100 mmol/L (98-107); Estimated GFR 72.16 (mL/min/1.73m2); Glucose 95 mg/dL (74-106); Magnesium 1.8 mg/dL (1.8-2.4); Potassium 4.3 mmol/L (3.5-5.1); Sodium 133 mmol/L (136-145); TSH (W/Ref FT4) 1.94 uIU/mL (0.36-3.74); Total Protein 6.1 g/dL (6.4-8.2)
[2023-07-22] MEDS: Normal Saline - Diluent 50 ML VIAL IJ (11:39)
[2023-07-22] MEDS: Omnipaque 350 MG/ML 100 ML BTL IJ (11:39)
--- NOTE | 2023-07-22 11:53 | DI.VRAD_ITS ---
PROCEDURE INFORMATION: Exam: CT Abdomen And Pelvis With Contrast Exam date and time: 07/22/2023 11:10 AM Age: 83 years old Clinical indication: Other: Rlq pain; Prior surgery; Surgery date: 3-7 days post-operative; Surgery type: Hip TECHNIQUE: Imaging protocol: Computed tomography of the abdomen and pelvis with contrast. COMPARISON: CT CHEST/ABD/PEL W 12/08/2022 12:42 PM FINDINGS: Pleural spaces: Small left pleural effusion.. Liver: Multiple simple cysts in the liver Gallbladder and bile ducts: Gallbladder is decompressed. The common duct is prominent. It measures 13 millimeters. This may be due to elderly status. However, if biliary obstruction is suspected clinically, recommend further evaluation Pancreas: Pancreatic atrophy Spleen: Normal. No splenomegaly. Adrenal glands: Normal. No mass. Kidneys and ureters: Multiple simple cysts in both kidneys. Multiple perirenal cysts in both kidneys Stomach and bowel: The rectum is distended 5 cm with fecal material consistent with constipation. Constipation throughout the colon Sutures in the rectosigmoid. No bowel obstruction. Appendix: Normal appendix series 4, image 50- 48 Intraperitoneal space: Unremarkable. No free air. No significant fluid collection. Vasculature: Unremarkable. No abdominal aortic aneurysm. Lymph nodes: Unremarkable. No enlarged lymph nodes. Urinary bladder: Unremarkable as visualized. Reproductive: Unremarkable as visualized. Bones/joints: A screw and intramedullary chuy have been removed from the left hip and left femur.. Compression fracture of unknown age T11 and T12 and L2. They were present on the prior study Soft tissues: Air in the soft tissues of the left hip. Series 4, image 41- 60. This may be secondary to recent procedure. IMPRESSION: 1. Small left pleural effusion.. 2. A screw and intramedullary chuy have been removed from the left hip and left femur.. 3. Air in the soft tissues of the left hip. Series 4, image 41- 60. This may be secondary to recent procedure. 4 Gallbladder is decompressed. The common duct is prominent. It measures 13 millimeters. This may be due to elderly status. However, if biliary obstruction is suspected clinically, recommend further evaluation Dictated and Authenticated by: Daly Gore MD. Ordering:CIELO Bailey MD
--- NOTE | 2023-07-22 11:55 | DI.VRAD_ITS ---
PROCEDURE INFORMATION: Exam: XR Chest Exam date and time: 07/22/2023 11:44 AM Age: 83 years old Clinical indication: Cough TECHNIQUE: Imaging protocol: Radiologic exam of the chest. Views: 1 view. COMPARISON: CT CHEST/ABD/PEL W 12/08/2022 12:42 PM FINDINGS: Lungs: No focal consolidation. Pleural spaces: Unremarkable. No pleural effusion. No pneumothorax. Heart/Mediastinum: Hiatal hernia in the retrocardiac region Bones/joints: Unremarkable. IMPRESSION: No focal consolidation. Dictated and Authenticated by: Daly Gore MD. Ordering:KARMEN Nguyen MD
[2023-07-22] MEDS: REMDESIVIR 200 MG in Normal Saline 250 ML 250 MG IVPB (14:52)
[2023-07-22] MEDS: Normal Saline Flush 10 ML SYR IVP ×2 (14:53→23:49)
[2023-07-22] MEDS: Gabapentin 100 MG CAP PO ×2 (14:53→20:37)
--- NOTE | 2023-07-22 17:07 | W.PM.HP.N ---
Date of service: 07/22/23 Time of Service: 17:07 Assessment and Plan Assessment and plan (1) COVID: Status: Acute Assessment and plan: -No respiratory symptoms -Not hypoxic -Could be contributing to her weakness but also has significant anemia. -Remdesivir initiated. -Cont her home Vit D supplementation. (2) Anemia: Status: Chronic Assessment and plan: -Etiology not clear -Recent left femoral hardware removed but very minimal intraoperative blood loss noted. -No melena or hematochezia reported; monitor for such. -MCV normal so will check both iron and B12 status. -transfusing 2 units pRBCs and monitor. 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 -Watch and treat any agitation/delirium should it arise. (4) Painful orthopaedic hardware: Status: Acute Assessment and plan: -Consult ortho on Monday. (5) Trochanteric bursitis, left hip: Status: Acute Assessment and plan: -Reason for the recent removal of hardware. (6) Irritable bowel syndrome: Status: Chronic Assessment and plan: -prn dicyclomine Qualifiers: Irritable bowel syndrome type: with both diarrhea and constipation Qualified Code(s): K58.2 - Mixed irritable bowel syndrome (7) Discharge planning issues: Status: Acute Assessment and plan: -Full code status History of Present Illness History of Present Illness Chief Complaint: Weakness Narrative: This is an 83 yo female with a PMH of Alzheimer's type dementia, HTN, GERD, painful hardware and trochanteric bursitis. She was taken to the OR on 07/18/[address] Garcia removed the painful hardware from her left leg. She had no complications and was discharged on the same day of surgery. She presented to the ED on day of this admission with weakness. She also had a temperature of 102F along with a cough/head congestion/runny nose at home. No shortness of air, chest pain, palpitations. No N/V/abd pain. She has some mild, throbbing discomfort in the LLE at the surgical site. In the ED she tested positive for Covid-19. WBC count normal. Lactate normal. Hgb 6.7 (11.7 on 03/11/23). CT abd/pelvis that also included the lower exts to the knees: 1. ? Small left pleural effusion.. 2. ? A screw and intramedullary chuy have been removed from the left hip and left femur.. 3. ? Air in the soft tissues of the left hip. Series 4, image 41- 60. This may be secondary to recent procedure. 4? ? Gallbladder is decompressed. The common duct is prominent. It measures 13 millimeters. This may be due to elderly status. However, if biliary obstruction is suspected clinically, recommend further evaluation 2 units pRBCs ordered in the ED and transfusion intiated. Admitted to hospitalist service for further w/u and treatments. 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 Jani Rothman. Squamous mucosa with reactive changes. Gastric type mucosa with chronic and focally active inflammation but no intestinal metaplasia or dysplasia. No helical factor pylori microorganisms identified. Breast cancer C. difficile enteritis at hospitalization may 2014 Deep vein thrombosis Diverticulitis (09/19/14) May [place] [facility] [place]moid [place] and colostomy post op infection and malnutrition February 2015 colostomy takedown (post op infection) Hx of fracture of left hip s/p short TFN Dr. Mathis DOS: 10/11/19 Hydrocephalus in adult s/p admission to [facility] [place] puncture; no change in pressures. NPH ruled out. Hypothyroidism (08/10/12) Incidental lung nodule, > 3mm and < 8mm on xray and CT scan with contrast / [facility] pulm. Indeterminate colitis (02/04/16) 01/22/16 colonoscopy [place] [facility] Malignant neoplasm of female breast (09/21/92) R MAST AND RECONSTRUCTION. 10/25 INFLAMMATION AT [facility] WAS NEG FOR MALIGNANCY Ventral hernia without obstruction or gangrene Surgical History Colectomy (~05/2014) for colon stricture presumed to be from diverticulitis colostomy reversal History of mastectomy (~1994) right mastectomy (no radiation or chemotherapy); s/p reconstruction after the mastectomy Laparotomy (06/08/14) for [place] leak. End colostomy done Family History Mother , 84 Essential hypertension COPD (chronic obstructive pulmonary disease) Father , 51 Stomach cancer Mouth cancer Brother No problems noted. Maternal Grandfather No problems noted. Paternal Grandfather No problems noted. Maternal Grandmother No problems noted. Paternal Grandmother No problems noted. Sister No problems noted. Sister COPD (chronic obstructive pulmonary disease) Social History Smoking/Tobacco Use Status: Former Tobacco Use tobacco type: cigarettes Quit Date: 10/23/94 Pack-years: 40 Tobacco: How many years used: 40 Second Hand Exposure: No Smoking risk assessment performed?: Yes Alcohol Intake: never Drug use: Never Substance use type: does not use Caregiver/Support person: Yes Household members: none Housing: house Communication Needs: None Do you need help understanding health information?: Never Pets and animals: No Sexually active: No Current gender identity: female What is your relationship status?: never How often do you talk on the phone with friends or family?: three or more times per week How often do you get together with friends or relatives?: three or more times per week How often do you attend sikhism or adventism services?: decline to answer Do you belong to any clubs or organized social groups?: no Panel score (0-1 are the most socially isolated patients): 1 What type of physical activity do you participate in: decline to answer Duration: decline to answer Frequency: decline to answer Leslie/Restorationist: No preference Special leslie needs: No Seatbelt use: always Drive intox or ride w/intox 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 Additional Social history: unable to assess privately History History 0 Para 0 Hx # Term Pregnancies 0 Multiple births Hx # Pregnancies 0 Ectopic pregnancies AB induced 0 Hx Number of Living Children 0 AB spontaneous 0 Meds Allergies and Home Medications Allergies Allergy/AdvReac Type Severity Reaction Status Date / Time Penicillins Allergy Severe hives Verified 07/18/23 10:34 polyethylene glycol 3350 Allergy Severe rash all Verified 07/18/23 10:34 [From Miralax] over cefazolin Allergy Unknown Verified 07/18/23 10:34 Home Medications Medication Instructions Recorded Confirmed Type MaxiVision 1 cap PO DAILY 02/14/19 07/22/23 History acetaminophen 325 mg tablet 650 mg PO Q6H PRN PRN fever or 10/15/19 07/22/23 Rx (Tylenol) pain #1 tab cholecalciferol (vitamin D3) 25 25 mcg PO DAILY #90 caps 07/06/22 07/22/23 Rx mcg (1,000 unit) capsule gabapentin 100 mg capsule 100 mg PO TID #90 caps 11/16/22 07/22/23 Rx lidocaine 5 % topical patch 2 patch topical DAILY #30 ea 01/11/23 07/22/23 Rx (Lidoderm) dicyclomine 10 mg capsule 10 mg PO BID PRN IBS #120 caps 02/24/23 07/22/23 Rx loperamide 2 mg capsule 2 mg PO Q6H PRN loose stool #90 02/24/23 07/22/23 Rx caps losartan 100 mg tablet 100 mg PO DAILY #90 tabs 02/24/23 07/22/23 Rx clotrimazole 1 % topical cream 1 applic topical BID #45 grams 04/12/23 07/22/23 Rx donepezil 5 mg tablet 5 mg PO QHS #30 tabs 04/19/23 07/22/23 Rx meloxicam 15 mg tablet 15 mg PO DAILY #30 tabs 06/15/23 07/22/23 Rx fluticasone propionate 50 2 spray intranasal DAILY PRN 07/13/23 07/22/23 Rx mcg/actuation nasal allergy symptoms #16 grams spray,suspension acetaminophen 500 mg tablet 1,000 mg PO Q8H PRN pain #90 tabs 07/18/23 07/22/23 Rx docusate sodium 50 mg capsule 50 mg PO PRN PRN 07/18/23 07/22/23 History tramadol 50 mg tablet 50 mg PO Q4H PRN severe 07/18/23 07/22/23 Rx postoperative pain #18 tabs Exam Const General: no acute distress and well developed Orientation: alert, oriented to person and oriented to place [facility] Head: normocephalic and atraumatic Mouth: moist mucous membranes Eyes Sclera: sclerae normal Chest Chest: normal inspection of the chest Resp Effort & Inspection: normal respiratory effort Auscultation: clear to auscultation bilaterally (anteriorly) Cardio Rate: regular rate Rhythm: regular rhythm Heart Sounds: S1 normal, S2 normal and no murmurs GI Inspection: normal to inspection Palpation: soft and nontender Auscultation: normal bowel sounds Skin General skin exam: no rashes or lesions noted Neuro General: no focal motor deficits Speech: speech normal Extrem General: no pedal edema and no calf tenderness Psych Mental Status: mental status grossly normal Affect: normal affect Results Labs 07/22/23 08:39 07/22/23 09:30 Labs: Laboratory Results - last 24 hr 07/22/23 07/22/23 07/22/23 06:52 06:54 07:17 WBC RBC Hgb Hct MCV MCH MCHC RDW Plt Count MPV Immature Gran % Neutrophils % Lymphocytes % Monocytes % Eosinophils % Basophils % Nucleated RBC % Absolute Neutrophils Absolute Lymphocytes Absolute Monocytes Absolute Eosinophils Absolute Basophils VBG pH VBG pCO2 VBG pO2 VBG HCO3 VBG Total CO2 VBG O2 Saturation VBG Base Excess VBG Lactate Sodium Potassium Chloride Carbon Dioxide Anion Gap BUN Creatinine Est GFR (CKD-EPI 2020) Glucose Calcium Magnesium Cancelled Total Bilirubin AST ALT Alkaline Phosphatase Total Protein Albumin TSH Cancelled COVID-19 Source Nasopharynx SARS-CoV-2 (PCR) Positive A Influenza Type A (PCR) Negative Influenza Type B (PCR) Negative RSV (PCR) Negative Patient ABO/Rh Antibody Screen Crossmatch 07/22/23 07/22/23 07/22/23 08:39 08:39 08:39 WBC 6.89 RBC 2.40 L Hgb 6.7 L* Hct 20.6 L* MCV 86 MCH 27.9 MCHC 32.5 RDW 15.4 H Plt Count 214 MPV 11.7 H Immature Gran % 0.7 Neutrophils % 81.3 Lymphocytes % 8.6 Monocytes % 9.0 Eosinophils % 0.3 Basophils % 0.1 Nucleated RBC % 0.0 Absolute Neutrophils 5.60 Absolute Lymphocytes 0.59 L Absolute Monocytes 0.62 Absolute Eosinophils 0.02 Absolute Basophils 0.01 VBG pH VBG pCO2 VBG pO2 VBG HCO3 VBG Total CO2 VBG O2 Saturation VBG Base Excess VBG Lactate 0.8 Sodium Cancelled Potassium Cancelled Chloride Cancelled Carbon Dioxide Cancelled Anion Gap Cancelled BUN Cancelled Creatinine Cancelled Est GFR (CKD-EPI 2020) Cancelled Glucose Cancelled Calcium Cancelled Magnesium Cancelled Total Bilirubin Cancelled AST Cancelled ALT Cancelled Alkaline Phosphatase Cancelled Total Protein Cancelled Albumin Cancelled TSH Cancelled COVID-19 Source SARS-CoV-2 (PCR) Influenza Type A (PCR) Influenza Type B (PCR) RSV (PCR) Patient ABO/Rh Antibody Screen Crossmatch 07/22/23 07/22/23 07/22/23 08:39 08:39 09:30 WBC RBC Hgb Cancelled Hct Cancelled MCV MCH MCHC RDW Plt Count MPV Immature Gran % Neutrophils % Lymphocytes % Monocytes % Eosinophils % Basophils % Nucleated RBC % Absolute Neutrophils Absolute Lymphocytes Absolute Monocytes Absolute Eosinophils Absolute Basophils VBG pH 7.50 H VBG pCO2 30 L VBG pO2 106 VBG HCO3 23 VBG Total CO2 TNP VBG O2 Saturation TNP VBG Base Excess 0 VBG Lactate Sodium 133 L Potassium 4.3 Chloride 100 Carbon Dioxide 25.0 Anion Gap 8.0 BUN 22 H Creatinine 0.8 Est GFR (CKD-EPI 2020) 72.16 Glucose 95 Calcium 8.6 Magnesium 1.8 Total Bilirubin 0.3 AST 34 ALT 24 Alkaline Phosphatase 149 H Total Protein 6.1 L Albumin 2.4 L TSH 1.94 COVID-19 Source SARS-CoV-2 (PCR) Influenza Type A (PCR) Influenza Type B (PCR) RSV (PCR) Patient ABO/Rh Antibody Screen Crossmatch 07/22/23 09:40 WBC RBC Hgb Hct MCV MCH MCHC RDW Plt Count MPV Immature Gran % Neutrophils % Lymphocytes % Monocytes % Eosinophils % Basophils % Nucleated RBC % Absolute Neutrophils Absolute Lymphocytes Absolute Monocytes Absolute Eosinophils Absolute Basophils VBG pH VBG pCO2 VBG pO2 VBG HCO3 VBG Total CO2 VBG O2 Saturation VBG Base Excess VBG Lactate Sodium Potassium Chloride Carbon Dioxide Anion Gap BUN Creatinine Est GFR (CKD-EPI 2020) Glucose Calcium Magnesium Total Bilirubin AST ALT Alkaline Phosphatase Total Protein Albumin TSH COVID-19 Source SARS-CoV-2 (PCR) Influenza Type A (PCR) Influenza Type B (PCR) RSV (PCR) Patient ABO/Rh O Positive Antibody Screen NEGATIVE Crossmatch See Detail Last Vital Signs Temp 37.0 C 07/22/23 14:34 Pulse 80 07/22/23 14:34 Resp 18 07/22/23 14:34 BP 126/55 L 07/22/23 14:34 Pulse Ox 100 07/22/23 14:34 Time Spent Time spent with Patient: 40-54 minutes Time was spent: preparing to see the patient(eg.review tests), obtaining and/or reviewing separately otained hiistory, ordering medications,tests, procedures, referring, communicating with other health care provider, indepentently interpreting results, counseling the patient and care coordination
[2023-07-22 17:41] LABS: Bilirubin Negative (Negative); Blood Negative (Negative); Clarity Clear (Clear); Glucose Negative (Negative); Ketones Negative (Negative); Leukocyte Esterase Negative (Negative); Nitrite Negative (Negative); Specific Gravity <= 1.005 (1.005-1.025); Urobilinogen 0.2 mg/dL (Up to 0.2); pH 5.5 (5-8)
[2023-07-22 18:56] LABS: Lab Add On Test DONE
[2023-07-22 19:10] LABS: Iron 17 ug/dL (50-170); Total Iron Binding Capacity 283 ug/dL (250-450); Transferrin Sat 6 % (15-50)
[2023-07-22 19:37] LABS: Vitamin B12 353 pg/mL (193-986)
[2023-07-22] MEDS: Acetaminophen 325 MG TAB PO ×2 (20:37→23:48)
[2023-07-22] MEDS: Donepezil 5 MG TAB PO (20:37)
[2023-07-22] MEDS: Dicyclomine 10 MG CAP PO (21:17)
[2023-07-22 21:33] LABS: HCT 26.8 % (36.0-46.0)
[2023-07-22 21:34] LABS: HGB 8.9 g/dL (11.2-15.7)
[2023-07-23] VITALS (11 sets, daily range): BP systolic 91–145; BP diastolic 55–76; PULSE 74–85; RESP 14–20; TEMP 36.3–37.8; O2SAT 95–98
[2023-07-23 07:01] LABS: HCT 31.2 % (36.0-46.0); HGB 9.8 g/dL (11.2-15.7); MCH 28.8 pg (27.0-33.0); MCHC 31.4 % (32.0-36.0); MCV 92 fL (80-95); MPV 10.5 fL (8.0-11.0); Platelet Count 214 10^3/uL (130-400); RDW 15.1 % (11.7-14.6); RDW-SD 50.7 fL; WBC 5.96 10^3/uL (4.4-10.8)
[2023-07-23 07:16] LABS: Anion Gap 9.9 mmol/L (3-11); BUN 19 mg/dL (7-18); CO2 22.1 mmol/L (21.0-32.0); CREATININE 0.7 mg/dL (0.55-1.02); Calcium 8.4 mg/dL (8.5-10.1); Chloride 107 mmol/L (98-107); Glucose 84 mg/dL (74-106); Magnesium 1.9 mg/dL (1.8-2.4); Sodium 139 mmol/L (136-145)
[2023-07-23] MEDS: Gabapentin 100 MG CAP PO ×3 (08:05→19:23)
[2023-07-23] MEDS: Losartan 50 MG TAB 100 MG PO (08:05)
[2023-07-23] MEDS: Linezolid 600 MG TAB PO (08:07)
--- NOTE | 2023-07-23 08:08 | INITIAL_ITS ---
Date of service: 07/23/23 Time of Service: 08:08 Care Management Initial Assmt Initial Assessment REASON FOR HOSPITALIZATION:: Covid, Anemia PREVIOUS FUNCTIONAL STATUS/SOCIAL/FAMILY SUPPORTS:: Amelia reports that she lives alone in [place] and notes that she has a [place] Zip code. 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 Her sisters Radha and Jessica are her primary supports. Jessica lives next door and cooks for Amelia. She also provid es her transportation, since she no longer drives. She is independent with her ADL's at baseline. CURRENT FUNCTIONAL STATUS:: CM spoke with Amelia via phone, due to covid preca utions. Amelia is pleasant and easily engages in conversation. Initially she mentioned that she lived in [place] and later on in the conversation she corrected herself stating that she lives in [place], but has a [place] zip code. CM is awaiting a return call from Jessica. ADVANCE DIRECTIVES:: On file, HCA is Radha Collazo (sister), Alt Agent Jessica Strickland(sister) Has patient been provided with info about the portal/API?: Yes Did the patient sign up for the portal?: No CODE STATUS:: Full Code INSURANCE COVERAGE / FINANCIAL ISSUES:: FINANCIAL ASST 83 Medicare Part A & B [employer] MCR Supplemental CURRENT HOME/COMMUNITY SERVICES/EQUIPMENT:: Janis Dickerson PRIMARY CARE PHYSICIAN:: Virginia Pino POTENTIAL DISCHARGE NEEDS:: Evaluations for community needs, discharge plan of care, plan to follow up with community providers PATIENT/FAMILY EDUCATION NEEDS:: Review discharge instructions, limitations, medications and plan to follow up with community providers. Discuss ask me three. TRANSPORTATION:: Via private vehicle with family PLAN:: Anticipate Amelia will return home via private vehicle with family when medically ready, per provider. She will follow up with community providers and her discharge plan of care as instructed. Evaluations for further needs would be beneficial prior to discharge. New [facility] services will be offered, if indicated. Amelia is not interested in COA or MOW, at this time. CM will follow. 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 Jani Rothman. Squamous mucosa with reactive changes. Gastric type mucosa with chronic and focally active inflammation but no intestinal metaplasia or dysplasia. No helical factor pylori microorganisms identified. Breast cancer C. difficile enteritis at hospitalization may 2014 Deep vein thrombosis Diverticulitis (09/19/14) May 2014 [facility] sigmoid resection and colostomy post op infection and malnutrition February 2015 colostomy takedown (post op infection) Hx of fracture of left hip s/p short TFN Dr. Mathis DOS: 10/11/19 Hydrocephalus in adult s/p admission to [facility] for lumbar puncture; no change in pressures. NPH ruled out. Hypothyroidism (08/10/12) Incidental lung nodule, > 3mm and < 8mm on xray and CT scan with contrast / [facility] pulm. Indeterminate colitis (02/04/16) 01/22/[address] [facility] Malignant neoplasm of female breast (09/21/92) R MAST AND RECONSTRUCTION. 10/25 INFLAMMATION AT [facility] WAS NEG FOR MALIGNANCY Ventral hernia without obstruction or gangrene Surgical History Colectomy (~05/2014) for colon stricture presumed to be from diverticulitis colostomy reversal History of mastectomy (~1994) right mastectomy (no radiation or chemotherapy); s/p reconstruction after the mastectomy Laparotomy (06/08/14) for [place] leak. End colostomy done Family History Mother , 84 Essential hypertension COPD (chronic obstructive pulmonary disease) Father , 51 Stomach cancer Mouth cancer Brother No problems noted. Maternal Grandfather No problems noted. Paternal Grandfather No problems noted. Maternal Grandmother No problems noted. Paternal Grandmother No problems noted. Sister No problems noted. Sister COPD (chronic obstructive pulmonary disease) Social History Smoking/Tobacco Use Status: Former Tobacco Use tobacco type: cigarettes Quit Date: 10/23/94 Pack-years: 40 Tobacco: How many years used: 40 Second Hand Exposure: No Smoking risk assessment performed?: Yes Alcohol Intake: never Drug use: Never Substance use type: does not use Caregiver/Support person: Yes Household members: none Housing: house Communication Needs: None Do you need help understanding health information?: Never Pets and animals: No Sexually active: No Current gender identity: female What is your relationship status?: never How often do you talk on the phone with friends or family?: three or more times per week How often do you get together with friends or relatives?: three or more times per week How often do you attend rastafarian or amish services?: decline to answer Do you belong to any clubs or organized social groups?: no Panel score (0-1 are the most socially isolated patients): 1 What type of physical activity do you participate in: decline to answer Duration: decline to answer Frequency: decline to answer Leslie/Adventism: No preference Special leslie needs: No Seatbelt use: always 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
[2023-07-23] MEDS: Cyanocobalamin 500 MCG TAB 1000 MCG PO (09:12)
[2023-07-23] MEDS: Cyanocobalamin 1000 MCG/ML VIAL IM (09:13)
[2023-07-23] MEDS: Cholecalciferol (Vitamin D3) 1,000 UNIT TAB 1000 UNITS PO (09:13)
--- NOTE | 2023-07-23 09:41 | IN_ITS ---
PT Notes Visit Reasons: Covid, anemia Physical Therapy Inpatient Initial Evaluation Date: 07/23/23 Referring Doctor: Loe Diaz MD PT Orders: PT CONSULT: Eval & treat Precautions: Fall. Standard. Dementia. [place] Precautions for COVID-19. Patient Profile/Admitting Diagnosis: Amelia is an 83 yo female that presented to the ER on 07/22/23 for weakness. She had surgery 07/18/23 for open debridement/excision of LEFT trochanteric bursa, iliotibial band tenotomy, and removal of hardware at LEFT femur. She returned home following surgery. At ER tested positive for COVID-19. PMHX: See EMR Social History/Home Situation: Lives alone with 2 SANDY, uses rollator walker. Sister helps with meals, patient does not drive. Equipment Owned/DME: 4WW, FWW Subjective: Cleared by nursing to see patient and patient is agreeable to PT. Patient is resting in bed at time of consult with ragsdale catheter. Objective: General Observation: Pleasant Mental Status: A&O at least 2 Pain: 5/10 left hip ROM: Right Upper Extremity: Shoulder Flexion WFL. Shoulder abduction WFL. Elbow flexion WFL. Wrist flexion WFL. Opening and closing of hand WFL. Left Upper Extremity: Shoulder Flexion WFL. Shoulder abduction WFL. Elbow flexion WFL. Wrist flexion WFL. Opening and closing of hand WFL. Right Lower Extremity: Hip flexion WFL. Hip abduction WFL. Knee flexion WFL. Ankle dorsiflexion WFL. Ankle plantarflexion WFL. Left Lower Extremity: Hip flexion impaired. Hip abduction impaired. Knee flexion WFL. Ankle dorsiflexion WFL. Ankle plantarflexion WFL. Strength: Right Upper Extremity: Shoulder flexors 4/5. Shoulder abductors 4/5. Elbow flexors 5/5. Elbow extensors 5/5. Customs Port Director strong. Left Upper Extremity: Shoulder flexors 4/5. Shoulder abductors 4/5. Elbow flexors 5/5. Elbow extensors 5/5. Customs Port Director strong. Right Lower Extremity: Hip flexors 4/5. Knee flexors 5/5. Knee extensors 4+/5. Ankle dorsiflexors 4/5. Ankle plantarflexors 3/5. Left Lower Extremity: Hip flexors 2/5. Knee flexors 4+/5. Knee extensors 4+/5. Ankle dorsiflexors 4/5. Ankle plantarflexors 3/5. Sensation: Intact as to pain and pressure on bilateral lower extremities. Bed Mobility/Transfers: Rolling: Mod A Supine to sit: 2 person Max A Sit to supine: 2 person Max A Sit to stand: 2 person Mod A Stand to sit: Mod A for verbal cues and contact guard Bed to chair: 2 person to stand, then can slowly shuffle to chair with FWW Chair to bed: 2 person to stand, then can slowly shuffle to chair with FWW Gait: Patient only able to shuffle left/right using FWW Stairs: Not assessed Balance: Static Sitting: Fair Dynamic Sitting: Poor Static Standing: Poor Dynamic Standing: Poor Therapeutic Activity (62690) dynamic movement and functional strengthening to improve physical performance: 20 minutes Transfer to commode, toileting, transfer to bed Sit to stand several times Special Tests: Mobility Limitations Standardized Measure [facility] AM-PAC 6 clicks Basic Mobility Inpatient Short Form: Raw Score: 6 CMS Score: 100% Informed Consent/Education: Patient instructed in purpose of PT consult and plan of care. Assessment: Amelia is very deconditioned with poor ability to perform transfers for bed mobility or sit to stand. She is unable to lift legs in standing to take steps. Needs frequent cues to keep moving in the current task. Pain in left hip following recent surgery. Patient needs a lot of assist for basic mobility at this time. Requires fci placing or LTC facility at discharge for improved mobility and self management. Patient presents with clinical signs and symptoms consistent with current/admitting diagnoses that have resulted to mobility limitations, gait instability, generalized weakness, and impairment of motor control as demonst rated by the following impairment level findings: 1. Decreased strength to left hip major muscle groups 2. Impaired sitting/standing balance 3. Impaired activity tolerance 4. Limitation of joint range of motion in left hip Impairments are contributing to the following functional limitations: 1. Dependent bed mobility skills 2. Increased dependence with transfers 3. Inability to safely ambulate without assistive device and physical assistance 4. Increase completion time for mobility ADL performance 5. Increased fall risk 6. Inability to negotiate steps alone safely Patient is assessed as a High complexity based on the following: History: 83 year old female with impairment level findings, functional limitations, and past medical history as indicated above Examination: Demonstrable impairment in strength, balance, and mobility level with underlying impairments and functional limitations as documented above Presentation: Evolving Decision Making: High complexity Goals: Goals x1 week 1. Supine-Sit: Min A 2. Sit-Supine: Min A 3. Sit-Stand: Min A 4. Stand-Sit: Min A 5. Bed-Chair: Min A 6. Chair-Bed: Min A 7. CGA gait on level surface with use of least restrictive device for at least 50 feet without report of pain nor dyspnea Plan of Care/Treatment Plan: 1-2x/day, 7 days/week x1 week. Plan of care has been reviewed with the DIRECTOR SOFTWARE QUALITY ASSURANCE providing the service under Physical Therapy direction. Initiate Physical Therapy intervention for strengthening, bed mobility, transfers, gait, stairs, balance training, and use of assistive device. Discharge Plan DISCHARGE RECOMMENDATIONS: SNF versus LTC based on ability to participate and progress TREATMENT CODE/TIME: 8:58-9:38 (40 minutes), [id number], [id number] Thank you for the opportunity to participate in the care of this patient. Yajaira Rodriguez, PT, DPT, OCS [facility] [place], [place]
[2023-07-23 10:26] LABS: Lab Add On Test DONE
[2023-07-23] MEDS: VANCOMYCIN 1,500 MG in Normal Saline 250 ML 125 MG IVPB (10:47)
[2023-07-23 10:49] LABS: C-Reactive Protein 9.67 mg/dL (0.0-0.3)
[2023-07-23 11:12] LABS: Ferritin 119 ng/mL (8-252)
[2023-07-23 11:56] LABS: Procalcitonin < 0.1 ng/mL
--- NOTE | 2023-07-23 14:10 | W.PM.PROGNOT ---
Date of Service Date of service: 07/23/23 Time of Service: 14:10 Assessment and Plan Assessment and plan (1) Gram-positive cocci bacteremia: Status: Acute Assessment and plan: In setting of recent surgical intervention. C/s ortho Vancomycin added. Repeat blood cultures in am and obtain an echo. (2) COVID: Status: Acute Assessment and plan: Does have a cough. Encourage pulmonary toilet. Not requiring oxygen. Continue remdesivir. Add vitamin C and zinc. (3) Pain in both lower extremities: Status: Acute Assessment and plan: Obtain venous dopplers BLEs (4) Anemia: Status: Chronic Assessment and plan: B12 is borderline low - replete. s/p 2 units pRBCS. Check hematest. 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 Continue to monitor. (6) Painful orthopaedic hardware: Status: Acute Assessment and plan: S/p removal on 07/18. C/s orthopedics. (7) Trochanteric bursitis, left hip: Status: Acute Assessment and plan: S/p removal of hardware. As above (8) Irritable bowel syndrome: Status: Chronic Assessment and plan: Continue prn dicyclomine Qualifiers: Irritable bowel syndrome type: with both diarrhea and constipation Qualified Code(s): K58.2 - Mixed irritable bowel syndrome (9) Discharge planning issues: Status: Acute Assessment and plan: Full code Continues to require hospitalization Anticipate SNF on discharge (10) DVT prophylaxis: Status: Acute Assessment and plan: Start SC heparin while carefully monitoring H/H Subjective Subjective Interval history since last seen: Gerardo states that she is feeling weak. She denies dizziness, CP, SOB, n/v. She does state both of her legs hurt. Why would my right leg hurt? She states this started after the surgery. She does endorse coughing. She is on RA, saturating 98%. Temp this morning is 37.8. Exam Narrative Exam Narrative: General: Pleasant elderly female who is sitting up in bed, A&Ox3, NAD, does appear weak HEENT: EOMI, MMM Heart: RRR, no m/r/g Lungs: Diminished breath sounds B Abdomen: soft, nontender, nondistended Extremities: +1 LLE edema; incision dressed - c/d/i; Trace edema RLE, no erythema or pain on movement of the ankle (where she has the most pain, she says). Objective Last Vital Signs Temp 37.8 C H 07/23/23 09:00 Pulse 81 07/23/23 09:00 Resp 16 07/23/23 09:00 BP 91/76 L 07/23/23 09:00 Pulse Ox 96 07/23/23 09:00 Laboratory Results - last 24 hr 07/22/23 07/22/23 07/22/23 08:39 09:30 09:30 WBC RBC Hgb Cancelled Hct Cancelled MCV MCH MCHC RDW Plt Count MPV Sodium Potassium Chloride Carbon Dioxide Anion Gap BUN Creatinine Est GFR (CKD-EPI 2020) Glucose Calcium Magnesium Iron 17 L TIBC 283 Transferrin % Sat 6 L Ferritin C-Reactive Protein Vitamin B12 353 Procalcitonin Urine Color Urine Clarity Urine pH Ur Specific Parker Urine Protein Urine Ketones Urine Blood Urine Nitrite Urine Bilirubin Urine Urobilinogen Ur Leukocyte Esterase Urine Glucose Add-On Test Request Patient ABO/Rh Antibody Screen Crossmatch 07/22/23 07/22/23 07/22/23 09:40 17:00 18:55 WBC RBC Hgb Hct MCV MCH MCHC RDW Plt Count MPV Sodium Potassium Chloride Carbon Dioxide Anion Gap BUN Creatinine Est GFR (CKD-EPI 2020) Glucose Calcium Magnesium Iron TIBC Transferrin % Sat Ferritin C-Reactive Protein Vitamin B12 Procalcitonin Urine Color Yellow Urine Clarity Clear Urine pH 5.5 Ur Specific Parker <= 1.005 Urine Protein Negative Urine Ketones Negative Urine Blood Negative Urine Nitrite Negative Urine Bilirubin Negative Urine Urobilinogen 0.2 Ur Leukocyte Esterase Negative Urine Glucose Negative Add-On Test Request DONE Patient ABO/Rh O Positive Antibody Screen NEGATIVE Crossmatch See Detail 07/22/23 07/23/23 07/23/23 21:20 06:30 06:30 WBC 5.96 RBC 3.40 L Hgb 8.9 L D 9.8 L Hct 26.8 L 31.2 L MCV 92 D MCH 28.8 MCHC 31.4 L RDW 15.1 H Plt Count 214 MPV 10.5 Sodium 139 Potassium 4.0 Chloride 107 Carbon Dioxide 22.1 Anion Gap 9.9 BUN 19 H Creatinine 0.7 Est GFR (CKD-EPI 2020) 84.70 Glucose 84 Calcium 8.4 L Magnesium 1.9 Iron TIBC Transferrin % Sat Ferritin C-Reactive Protein Vitamin B12 Procalcitonin Urine Color Urine Clarity Urine pH Ur Specific Parker Urine Protein Urine Ketones Urine Blood Urine Nitrite Urine Bilirubin Urine Urobilinogen Ur Leukocyte Esterase Urine Glucose Add-On Test Request Patient ABO/Rh Antibody Screen Crossmatch 07/23/23 07/23/23 07/23/23 06:30 06:30 06:30 WBC RBC Hgb Hct MCV MCH MCHC RDW Plt Count MPV Sodium Potassium Chloride Carbon Dioxide Anion Gap BUN Creatinine Est GFR (CKD-EPI 2020) Glucose Calcium Magnesium Iron TIBC Transferrin % Sat Ferritin 119 C-Reactive Protein 9.67 H Vitamin B12 Procalcitonin < 0.1 Urine Color Urine Clarity Urine pH Ur Specific Parker Urine Protein Urine Ketones Urine Blood Urine Nitrite Urine Bilirubin Urine Urobilinogen Ur Leukocyte Esterase Urine Glucose Add-On Test Request DONE Patient ABO/Rh Antibody Screen Crossmatch 07/23/23 07:57 WBC RBC Hgb Hct MCV MCH MCHC RDW Plt Count MPV Sodium Potassium Chloride Carbon Dioxide Anion Gap BUN Creatinine Est GFR (CKD-EPI 2020) Glucose Calcium Magnesium Iron TIBC Transferrin % Sat Ferritin C-Reactive Protein Vitamin B12 Procalcitonin Urine Color Urine Clarity Urine pH Ur Specific Parker Urine Protein Urine Ketones Urine Blood Urine Nitrite Urine Bilirubin Urine Urobilinogen Ur Leukocyte Esterase Urine Glucose Add-On Test Request Cancelled Patient ABO/Rh Antibody Screen Crossmatch Time Spent with Patient Time Spent with Patient: 35-49 minutes Time was spent: preparing to see the patient(eg.review tests), obtaining and/or reviewing separately otained hiistory, ordering medications,tests, procedures, referring, communicating with other health doggy daycare activities director, indepentently interpreting results, counseling the patient and care coordination
[2023-07-23] MEDS: Heparin 5,000 UNITS/ML VIAL 5000 UNITS SC (15:47)
[2023-07-23] MEDS: REMDESIVIR 100 MG in Normal Saline 250 ML 250 MG IVPB (15:47)
[2023-07-23] MEDS: Bisacodyl 5 MG TABEC PO (16:31)
[2023-07-23] MEDS: Acetaminophen 325 MG TAB PO (16:32)
[2023-07-23] MEDS: Senna TAB 1 TAB PO (19:23)
[2023-07-23] MEDS: Donepezil 5 MG TAB PO (19:23)
[2023-07-23] MEDS: Ascorbic Acid 500 MG TAB PO (19:23)
[2023-07-23] MEDS: Normal Saline Flush 10 ML SYR IVP (19:24)
[2023-07-23] MEDS: Docusate Sodium 100 MG CAP PO (19:26)
[2023-07-23] MEDS: VANCOMYCIN 750 MG in Normal Saline 250 ML 250 MG IV (21:14)
[2023-07-24] VITALS (10 sets, daily range): BP systolic 104–146; BP diastolic 66–84; PULSE 67–78; RESP 14–16; TEMP 36.4–37.3; O2SAT 94–99
[2023-07-24] MEDS: Heparin 5,000 UNITS/ML VIAL 5000 UNITS SC (04:37)
[2023-07-24 07:18] LABS: Abs Immature Grans 0.05 10^3/uL (0.0-0.06); Absolute Basophil Count 0.02 10^3/uL (0.0-0.2); Absolute Eosinophil Count 0.09 10^3/uL (0.0-0.7); Absolute Lymphocyte Count 1.23 10^3/uL (1.2-3.4); Absolute Monocyte Count 0.75 10^3/uL (0.1-0.8); Absolute Neutrophil Count 3.88 10^3/uL (1.2-6.7); Basophils % 0.3; Eosinophils % 1.5; HCT 28.1 % (36.0-46.0); HGB 9.2 g/dL (11.2-15.7); Immature Grans % 0.8; Lymphocytes % 20.4; MCH 28.8 pg (27.0-33.0); MCHC 32.7 % (32.0-36.0); MCV 88 fL (80-95); MPV 10.6 fL (8.0-11.0); Monocytes % 12.5; Neutrophils % 64.5; Platelet Count 242 10^3/uL (130-400); RDW 15.2 % (11.7-14.6); RDW-SD 49.1 fL; WBC 6.02 10^3/uL (4.4-10.8)
--- NOTE | 2023-07-24 07:33 | OCONE_ITS ---
Date of service: 07/24/23 Time of Service: 12:40 History of Present Illness History of Present Illness Chief Complaint: Weakness, recent L Hip Surgery Narrative: Amelia is an 83-year-old female who I know for her left hip. She is status post left hip fracture fixation with intramedullary device by Dr. Mathis who then presented back to the orthopedic clinic with pain about the left hip with a healed fracture but a prominent helical blade and resultant trochanteric bursitis. This failed nonoperative treatments and therefore she, along with her sisters, elected to proceed with hardware removal and bursectomy with iliotibial band lengthening. She underwent that procedure on 18 July. She was able to be discharged to home. She was able to mobilize that day. She was able to get in her home although with assistance. However, the following day she has some difficulty with getting out of a chair. This was thought to be mostly related pain coupled with her dementia. She was able to make some improvements. However, she had some persistent weakness coupled with general pain throughout her body which developed and worsened until she present to the emergency department on July 22. She was found to be anemic, COVID-positive and was admitted. She received 2 units of blood with appropriate response of her hemoglobin and hematocrit. She also had 1 blood culture turned positive on hospital day #2. In general she reports some generic pain about the right leg, unable to specify exact location. She reports some pain about the left hip and the surgical site but nothing specific. She has not mobilize since being in the hospital. She does report fatigue and malaise. No fevers no chills. Consults Consult date: 07/23/23 Requesting physician: Maria Dolores Latham Consult Reason Weakness, anemia, recent left hip surgery Assessment and Plan Assessment and plan (1) Painful orthopaedic hardware: Status: Acute (2) Trochanteric bursitis, left hip: Status: Acute Assessment and plan: Amelia is an 83-year-old who is status post hardware removal of the left hip along with bursectomy and iliotibial band lengthening via tenotomy. Unfortunately, she failed at home with significant weakness and developed anemia along with COVID-19 infection and potentially bacteremia. It is very unclear the order of symptoms and what may have predisposed her to what. Nevertheless, she overall appears to be doing okay. She has responded from the transfusion and did have heme positive stool, however, she is maintaining her blood level where it currently sits. She is being managed by the hospitalist team. Antibiotics are being initiated and repeat blood cultures drawn. There are no signs of significant bleeding nor infection about the left hip. She may continue to weight-bear as tolerated with an assistive device. There will likely be some pain as she transitions from positions but she should be able to stand and walk without significant limitations. I do agree with short-term alf facility discharge. The Mepilex dressing may stay in place until August 01 unless there is any concerns about the skin or the wound. There are no sutures to be removed, they are buried within the skin. Follow-up in the office at 4 weeks postop. Review of Systems All systems reviewed & are unremarkable except as noted in HPI and below PFSH All Active Problems (Updated 07/25/23 @ 05:44 by Colin Garcia MD) DVT prophylaxis (Acute) Pain in both lower extremities (Acute) Gram-positive cocci bacteremia (Acute) Discharge planning issues (Acute) COVID (Acute) Anemia (Chronic) Hypertension (Chronic) Iron deficiency anemia (Chronic) Osteoporosis (Chronic) Irritable bowel syndrome (Chronic) prior evaluation with [facility] Low back pain (Acute) Vitamin D deficiency (Acute) Sciatica (Acute) Emphysema lung (Acute) GERD (gastroesophageal reflux disease) (Chronic) Hiatal hernia (Chronic) 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 Jani Rothman. Squamous mucosa with reactive changes. Gastric type mucosa with chronic and focally active inflammation but no intestinal metaplasia or dysplasia. No helical factor pylori microorganisms identified. Breast cancer C. difficile enteritis at hospitalization may 2014 Deep vein thrombosis Diverticulitis (09/19/14) May 2014 [facility] [place] sigmoid resection and colostomy post op infection and malnutrition February 2015 colostomy takedown (post op infection) Hx of fracture of left hip s/p short TFN Dr. Mathis DOS: 10/11/19 Hydrocephalus in adult s/p admission to [facility] [place] for lumbar puncture; no change in pressures. NPH ruled out. Hypothyroidism (08/10/12) Incidental lung nodule, > 3mm and < 8mm on xray and CT scan with contrast / [facility] [place] pulm. Indeterminate colitis (02/04/16) 01/22/16 colonoscopy at [facility] [place] Malignant neoplasm of female breast (09/21/92) R MAST AND RECONSTRUCTION. 10/25 INFLAMMATION AT [facility] WAS NEG FOR MALIGNANCY Ventral hernia without obstruction or gangrene Surgical History Colectomy (~05/2014) for colon stricture presumed to be from diverticulitis colostomy reversal History of mastectomy (~1994) right mastectomy (no radiation or chemotherapy); s/p reconstruction after the mastectomy Laparotomy (06/08/14) for [place] leak. End colostomy done Family History Mother , 84 Essential hypertension COPD (chronic obstructive pulmonary disease) Father , 51 Stomach cancer Mouth cancer Brother No problems noted. Maternal Grandfather No problems noted. Paternal Grandfather No problems noted. Maternal Grandmother No problems noted. Paternal Grandmother No problems noted. Sister No problems noted. Sister COPD (chronic obstructive pulmonary disease) Social History Smoking/Tobacco Use Status: Former Tobacco Use tobacco type: cigarettes Quit Date: 10/23/94 Pack-years: 40 Tobacco: How many years used: 40 Second Hand Exposure: No Smoking risk assessment performed?: Yes Alcohol Intake: never Drug use: Never Substance use type: does not use Caregiver/Support person: Yes Household members: none Housing: house Communication Needs: None Do you need help understanding health information?: Never Pets and animals: No Sexually active: No Current gender identity: female What is your relationship status?: never How often do you talk on the phone with friends or family?: three or more times per week How often do you get together with friends or relatives?: three or more times per week How often do you attend restoration or islam services?: decline to answer Do you belong to any clubs or organized social groups?: no Panel score (0-1 are the most socially isolated patients): 1 What type of physical activity do you participate in: decline to answer Duration: decline to answer Frequency: decline to answer Leslie/Moravian: No preference Special leslie needs: No Seatbelt use: always Drive intox or ride w/intox driver education road instructor: No Additional Social history: unable to assess privately History History 0 Para 0 Hx # Term Pregnancies 0 Multiple births Hx # Pregnancies 0 Ectopic pregnancies AB induced 0 Hx Number of Living Children 0 AB spontaneous 0 Exam Extrem Other: Evaluation of the left lower extremity shows a mild amount of ecchymosis seen posterior to the incision site. Thigh is soft and compressible without significant induration or sign of swelling. She tolerates internal and external rotation passively of the left hip without significant pain. She is able to dem onstrate some active hip flexion as well, again without any significant pain. She has some mild discomfort with palpation throughout the left thigh. No pain around the knee. She is able to demonstrate active dorsiflexion plantarflexion of the left foot. Brief evaluation of the right lower extremity shows no overlying skin changes. No pain with internal and external rotation of the right hip. No pain with gentle flexion and extension of the right knee. She is able to once again demonstrate active hip flexion, knee flexion, knee extension, ankle dorsiflexion, ankle plantarflexion. All of this appears to happen without pain. However, she does have some generalized pain to palpation throughout the soft tissues of the right thigh primarily. She additionally has some discomfort with palpation distally although not quite as prominent. Results Last Vital Signs Temp 36.4 C L 07/24/23 06:25 Pulse 78 07/24/23 06:25 Resp 20 07/23/23 17:00 BP 143/70 H 07/24/23 06:25 Pulse Ox 95 07/23/23 21:36 Labs 07/24/23 05:30 07/24/23 05:30 Labs: Laboratory Results - last 24 hr 07/23/23 07/23/23 07/23/23 06:30 06:30 06:30 WBC RBC Hgb Hct MCV MCH MCHC RDW Plt Count MPV Immature Gran % Neutrophils % Lymphocytes % Monocytes % Eosinophils % Basophils % Nucleated RBC % Absolute Neutrophils Absolute Lymphocytes Absolute Monocytes Absolute Eosinophils Absolute Basophils Ferritin 119 C-Reactive Protein 9.67 H Procalcitonin < 0.1 Add-On Test Request DONE 07/23/23 07/24/23 07:57 05:30 WBC 6.02 RBC 3.20 L Hgb 9.2 L Hct 28.1 L MCV 88 D MCH 28.8 MCHC 32.7 RDW 15.2 H Plt Count 242 MPV 10.6 Immature Gran % 0.8 Neutrophils % 64.5 Lymphocytes % 20.4 Monocytes % 12.5 Eosinophils % 1.5 Basophils % 0.3 Nucleated RBC % 0.0 Absolute Neutrophils 3.88 Absolute Lymphocytes 1.23 Absolute Monocytes 0.75 Absolute Eosinophils 0.09 Absolute Basophils 0.02 Ferritin C-Reactive Protein Procalcitonin Add-On Test Request Cancelled Imaging Imaging Studies: CT scan of the left hip from the emergency department was reviewed. This shows hardware has been removed from the left hip. The femur is intact and the fracture has not redisplaced. There is some air in the soft tissues which would be expected following the recent surgery. No abscess apparent.
[2023-07-24 07:34] LABS: Prothrombin Time 10.4 sec (9.3-11.0)
[2023-07-24] MEDS: Zinc Sulfate 220 MG TAB PO (07:49)
[2023-07-24] MEDS: Docusate Sodium 100 MG CAP PO (07:49)
[2023-07-24] MEDS: Cholecalciferol (Vitamin D3) 1,000 UNIT TAB 1000 UNITS PO (07:50)
[2023-07-24] MEDS: Ascorbic Acid 500 MG TAB PO ×2 (07:50→20:09)
[2023-07-24] MEDS: Cyanocobalamin 500 MCG TAB 1000 MCG PO (07:50)
[2023-07-24] MEDS: Senna TAB 1 TAB PO (07:50)
[2023-07-24] MEDS: Losartan 50 MG TAB 100 MG PO (07:50)
[2023-07-24] MEDS: Gabapentin 100 MG CAP PO ×3 (07:50→20:09)
--- NOTE | 2023-07-24 08:00 | DI.US_ITS ---
APPROVED REPORT EXAM: Comprehensive 2D, Doppler, and color-flow Echocardiogram Patient Location: In-Patient Room/Bed: 219 Indications: gbc bacteremia, ? endocarditis Other Information Study Quality: Adequate. Technically limited study due to inability to position patient. Conclusion Normal left ventricular wall thickness and chamber size. Ejection fraction is 60%. Wall motion is n ormal Normal right ventricular size and systolic function Both atria are normal in size Aortic valve is sclerotic with trace regurgitation Normal mitral valve with mild to moderate regurgitation Normal tricuspid valve with mild regurgitation. Estimated right ventricular systolic pressure is 31 mmHg Small anterior pericardial effusion No valvular vegetations were identified Wall motion Left Ventricle The left ventricle is normal size. The left ventricular systolic function is normal. The left ventric ular ejection fraction is within the normal range. There is normal left ventricular wall thickness. T here is normal LV segmental wall motion. There is no ventricular septal defect visualized. LVEF is 60 %. Right Ventricle The right ventricle is normal size. Right ventricular systolic function is grossly normal. The RVSP i s 30.7 mmHg. Atria The left atrium size is normal. The right atrium size is normal. The interatrial septum is intact wit h no evidence for an atrial septal defect. Aortic Valve The Aortic valve is sclerotic. There is no aortic valvular stenosis. Trace aortic regurgitation is pr esent. Mitral Valve The mitral valve is normal in structure. No evidence of mitral valve stenosis. Mild to moderate uy l regurgitation. Tricuspid Valve The tricuspid valve is normal in structure. There is no tricuspid valve stenosis. Mild tricuspid regu rgitation. Pulmonic Valve Pulmonic valve is not well visualized. There is no pulmonic valvular regurgitation. Great Vessels The aortic root is normal in size. Ascending aorta is not well visualized. Aortic arch is not well vi sualized. IVC is normal in size and collapses >50% with inspiration. Pericardium Mild anterior pericardial effusion. 2D Dimensions IVSD d PLAX 0.51 cm F: 0.6-1.0 Ao Root d 2.37 cm F: 2.7 - 3.3 LVPW d PLAX 0.54 cm F: 0.6 - 1.0 LVID d PLAX 3.44 cm F: 3.8 - 5.2 LVDs 2.36 cm F: 2.2 - 3.5 LV EF Teichholz 60.5 % FS 31.47 % LV EDV (Teich) 48.7 mL LV ESV (Teich) 19.3 mL Stroke Vol Index (Teich) 16.66 M-Mode TAPSE 1.95 cm (M/F) >1.7 Auto EF LV EDV A4C 78.6 mL LV EDV A2C 67.5 mL LV EDV BP 73.6 mL LV ESV A4C 32.1 mL LV ESV A2C 27.7 mL LV ESV BP 30.4 mL LVEF(%) A4C 59.2 % LVEF(%) A2C 58.9 % LVEF(%) BP 58.7 % LV SV A4C 46.5 ml LV SV A2C 39.8 ml LV SV BP 43.2 ml LV CO A4C 3.3 L/min LV CO A2C 2.8 L/min LV CO BP 3.0 L/min HR A4C 69.90 BPM HR A2C 70.59 BPM LV EDV Index (BP) LA Volume LA Length A4C 5.1 cm LA Length A2C LA Area A4C s 13.85 cm2 LA Area A2C s LA Vol A4C A-L 31.91 mL LA Vol A2C A-L LA Vol Biplane A-L LA Vol A4C MOD 30.4 mL LA Vol A2C MOD LA Vol BP MOD RA Volume RA Area A4C 9.6 cm2 RA ESV A4C (A-L) 24.2mL RA Vol/BSA A4C A-L RA Length A4C 3.2 cm RA ESV A4C (MOD) 23.0mL LV Diastology MV E' medial 0.086 (>0.07 m/s) MV E Vmax 0.90 (0.4-1.3 m/s) MV E/E' MED 10.40 (<14) MV A Vmax 1.15 (0.4-1.3 m/s) MV E' lateral 0.093 (>0.1 m/s) E/A Ratio 0.8 MV E/E' LAT 9.68 (<14) MV E' Average 0.089 m/s MV E/E'(average) 10.03 Aortic Valve AoV Vmax 1.22 m/s LVOT Vmax 1.01 m/s AoV Peak Grad 5.9 mmHg LVOT Peak Grad 4.1 mmHg AoV VTI 0.304 m LVOT VTI 0.239 m AoV Mean Luther. 0.82 m/s LVOT Mean Grad 1.7 mmHg AoV Mean Grad 3.1 mmHg Velocity Ratio 0.83 Mitral Valve MV DT 205 (160-240 msec) Pulmonary Valve PV Vmax 0.89 (0.5-1.5 m/s) RVOT Vmax 0.70 m/s PV Peak Grad 3.2 mmHg RVOT Peak Gr. 2.0 mmHg PV Mean Luther 0.66 m/s RVOT VTI 0.169 m PV Mean Grad 1.9 mmHg RVOT Mean Gr. 1.2 mmHg Tricuspid Valve RA Pressure 3.00 mmHg TR Vmax 2.63 m/s TR Peak Grad 27.6 mmHg RVSP (TR) 30.7 mmHg
[2023-07-24 08:06] LABS: Folate 17.5 ng/mL (8.6-20.0)
[2023-07-24 08:07] LABS: Anion Gap 9.1 mmol/L (3-11); BUN 16 mg/dL (7-18); CO2 22.9 mmol/L (21.0-32.0); CREATININE 0.6 mg/dL (0.55-1.02); Calcium 8.1 mg/dL (8.5-10.1); Chloride 109 mmol/L (98-107); Estimated GFR 87.91 (mL/min/1.73m2); Glucose 92 mg/dL (74-106); Magnesium 1.8 mg/dL (1.8-2.4); Potassium 3.9 mmol/L (3.5-5.1); Sodium 141 mmol/L (136-145)
[2023-07-24 08:15] LABS: Vitamin D 25 Total 15.4 ng/mL (30-100)
[2023-07-24 08:21] LABS: D-Dimer 2615 ng/mlFEU (<500)
[2023-07-24 08:33] LABS: Ferritin 115 ng/mL (8-252)
--- NOTE | 2023-07-24 08:35 | CMPROGNOTE_ITS ---
Date of service: 07/24/23 Time of Service: 08:35 Care Management Progress Note Progress Note Text Progress Note Text: S/O: Amelia remains in the ICU, she is Covid + and on precautions. She is being treated with remdisavir and repeat cultures are pending. LT ABX course is unclear at this time. MARIAN spoke with Amelia via phone and she is agreeable to SNF for STR. MARIAN spoke with her sister Jessica, who advises that Amelia is typically independent at home however following her recent discharge after hip surgery, she didn't do great at home and the family had a difficult time getting her up out of a chair. Jessica notes that Amelia declined PT when she was last discharged.Referrals are sent to [facility], [facility] and [facility]. She may need to transition to SWB status if LT ABX are needed, as facilities aren't able to administer IV ABX and she has covid. CM will continue to follow. A: 83 year old female admitted to [facility] on 07/22/23 for Weakness, recent L Hip Surgery P: Culture results are needed to determine appropriate discharge plan as she may need LT IV ABX. She is covid +. Anticipate Amelia will require SNF for STR vs. SWB vs. Home with New [facility] PT services, when medically ready to discharge. SNF referrals are sent to [facility], [facility] and [facility]. CM will follow.
[2023-07-24] MEDS: Cholecalciferol (Vitamin D3) 1,000 UNIT TAB 2000 UNITS PO (08:55)
[2023-07-24] MEDS: VANCOMYCIN 750 MG in Normal Saline 250 ML 250 MG IV (11:20)
[2023-07-24] MEDS: Pantoprazole 40 MG VIAL IVP ×2 (12:42→20:09)
[2023-07-24] MEDS: Acetaminophen 325 MG TAB PO (12:44)
--- NOTE | 2023-07-24 12:48 | DI.US_ITS ---
Exam(s) US EXTREMITY VENOUS BI EXAM: US EXTREMITY VENOUS BI CLINICAL HISTORY: asymmetric edema and BLE pain, COVID positive TECHNIQUE: Grayscale, color, and doppler imaging of the deep venous system of both lower extremities was performed. COMPARISON: US US OR ANESTHESIA from 10/10/2019 FINDINGS: There is no evidence of intraluminal thrombus and there is normal compression and augmentation demons trated within the common femoral veins, femoral veins, and popliteal veins of both lower extremities. In the calves the interrogated veins also exhibit normal compression/ augmentation properties. The greater saphenous veins also appear patent as do the saphenofemoral junctions bilaterally.. IMPRESSION: 1. No ultrasound evidence of DVT in either lower extremity. DATA REPOSITORY:
--- NOTE | 2023-07-24 12:48 | W.PM.PROGNOT ---
Date of Service Date of service: 07/24/23 Time of Service: 12:48 Assessment and Plan Assessment and plan (1) Gram-positive cocci bacteremia: Status: Acute Assessment and plan: Per microbiology, it appears to be a strep species, final speciation planned to be out tomorrow. In setting of recent surgical intervention: there does not appear to be a focus of infection in the leg, per ortho. Will trial ceftriaxone and monitor for allergic response. Even though the sister apparently stated that cefazolin has caused a rash in the past, the patient actually had it at our facility with no issue in the past. D/c vancomycin. Blood cultures repeated this am. Echo is getting done right now. (2) COVID: Status: Acute Assessment and plan: Does have a cough. Venous dopplers BLEs were negative - ?myalgias due to COVID-19 responsible for RLE pain - will treat with tylenol prn. Encourage pulmonary toilet. Not requiring oxygen. Continue remdesivir, vitamin C and zinc. Is vitamin D deficient - replete. (3) Pain in both lower extremities: Status: Acute Assessment and plan: As above. Venous dopplers negative for DVT. Suspect myalgias. Treat with tylenol. (4) Anemia: Status: Chronic Assessment and plan: s/p 2 units pRBCS Heme +, B12 is borderline low, getting repleted. Repeat H/H at 2 pm today. If worse, would consult general surgery. Started on a PPI. Heparin is on hold (prophylactic dose previously). 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 Continue to monitor. (6) Painful orthopaedic hardware: Status: Acute Assessment and plan: S/p removal on 07/18. Seen by Dr Garcia. (7) Trochanteric bursitis, left hip: Status: Acute Assessment and plan: S/p removal of hardware. 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 SC heparin on hold given Heme + stools. Discussed with Dr Garcia. Subjective Subjective Interval history since last seen: Ms Carrillo states she is feeling better. Reports pain in her R leg. Otherwise, denies dizziness, CP, SOB, n/v. Has been able to stand. Had 3 BMs today, heme +(but faintly so), but no tushar blood. Evaluated by Dr Garcia who does not feel a collection underneath an incision (which would represent a hematoma). The patient's sister believes that Amelia has previously had a colonoscopy at [facility], does not know when. Exam Narrative Exam Narrative: General: Pleasant elderly female who is laying comfortably in bed, A&Ox3, NAD, looks better. HEENT: EOMI, MMM Heart: RRR, no m/r/g Lungs: Diminished breath sounds B Abdomen: soft, nontender, nondistended Extremities: trace LLE edema; incision dressed - c/d/i; area around the incision is soft; Trace edema RLE, no erythema or pain on movement of the ankle. The pain is primarily in the right thigh. Objective Last Vital Signs Temp 36.8 C 07/24/23 08:47 Pulse 78 07/24/23 08:47 Resp 16 07/24/23 08:47 BP 104/84 07/24/23 08:47 Pulse Ox 94 07/24/23 08:47 Laboratory Results - last 24 hr 07/24/23 07/24/23 07/24/23 05:30 05:30 05:30 WBC 6.02 RBC 3.20 L Hgb 9.2 L Hct 28.1 L MCV 88 D MCH 28.8 MCHC 32.7 RDW 15.2 H Plt Count 242 MPV 10.6 Immature Gran % 0.8 Neutrophils % 64.5 Lymphocytes % 20.4 Monocytes % 12.5 Eosinophils % 1.5 Basophils % 0.3 Nucleated RBC % 0.0 Absolute Neutrophils 3.88 Absolute Lymphocytes 1.23 Absolute Monocytes 0.75 Absolute Eosinophils 0.09 Absolute Basophils 0.02 PT INR D-Dimer Sodium 141 Potassium 3.9 Chloride 109 H Carbon Dioxide 22.9 Anion Gap 9.1 BUN 16 Creatinine 0.6 Est GFR (CKD-EPI 2020) 87.91 Glucose 92 Calcium 8.1 L Magnesium 1.8 Ferritin 115 C-Reactive Protein 7.90 H 25-OH Vitamin D Total 15.4 L Folate 07/24/23 07/24/23 05:30 05:30 WBC RBC Hgb Hct MCV MCH MCHC RDW Plt Count MPV Immature Gran % Neutrophils % Lymphocytes % Monocytes % Eosinophils % Basophils % Nucleated RBC % Absolute Neutrophils Absolute Lymphocytes Absolute Monocytes Absolute Eosinophils Absolute Basophils PT 10.4 INR 1.0 D-Dimer 2615 H Sodium Potassium Chloride Carbon Dioxide Anion Gap BUN Creatinine Est GFR (CKD-EPI 2020) Glucose Calcium Magnesium Ferritin C-Reactive Protein 25-OH Vitamin D Total Folate 17.5 Objective Narrative Objective Narrative: US venous: 1.? No ultrasound evidence of DVT in either lower extremity. Time Spent with Patient Time Spent with Patient: 35-49 minutes Time was spent: preparing to see the patient(eg.review tests), obtaining and/or reviewing separately otained hiistory, ordering medications,tests, procedures, referring, communicating with other health career development facilitator, indepentently interpreting results, counseling the patient and care coordination
[2023-07-24] MEDS: cefTRIAXone 2 GM/50 ML BAG IVPB (13:46)
--- NOTE | 2023-07-24 14:52 | PT.INNT ---
Date of service: 07/24/23 Time of Service: 14:46 PT Notes Visit Reasons: Covid, anemia Patient has been up to chair x2, is working on having an IV placed, JESSICA Mace requests to hold therapy until tomorrow as patient is very fatigued.
[2023-07-24] MEDS: REMDESIVIR 100 MG in Normal Saline 250 ML 250 MG IVPB (17:15)
[2023-07-24] MEDS: Normal Saline Flush 10 ML SYR IVP (20:09)
[2023-07-24] MEDS: Donepezil 5 MG TAB PO (22:44)
[2023-07-25] MEDS: Acetaminophen 325 MG TAB PO ×3 (00:01→20:40)
[2023-07-25 03:29] VITALS: BP 123/70; PULSE 75; RESP 18; TEMP 37.3; O2SAT 92
[2023-07-25 08:32] VITALS: BP 139/75; PULSE 76; RESP 22; TEMP 37.1; O2SAT 94
[2023-07-25] MEDS: Normal Saline Flush 10 ML SYR IVP ×5 (09:28→20:42)
[2023-07-25] MEDS: Pantoprazole 40 MG VIAL IVP ×2 (09:28→20:41)
[2023-07-25] MEDS: Zinc Sulfate 220 MG TAB PO (09:29)
[2023-07-25] MEDS: Ascorbic Acid 500 MG TAB PO ×2 (09:29→20:41)
[2023-07-25] MEDS: Senna TAB 1 TAB PO (09:29)
[2023-07-25] MEDS: Cyanocobalamin 500 MCG TAB 1000 MCG PO (09:29)
[2023-07-25] MEDS: Cholecalciferol (Vitamin D3) 1,000 UNIT TAB 2000 UNITS PO (09:29)
[2023-07-25] MEDS: Losartan 50 MG TAB 100 MG PO (09:29)
[2023-07-25] MEDS: Docusate Sodium 100 MG CAP PO (09:29)
[2023-07-25] MEDS: Gabapentin 100 MG CAP PO ×3 (09:29→20:40)
[2023-07-25 10:35] LABS: Anion Gap 7.2 mmol/L (3-11); BUN 13 mg/dL (7-18); C-Reactive Protein 6.11 mg/dL (0.0-0.3); CO2 23.8 mmol/L (21.0-32.0); CREATININE 0.8 mg/dL (0.55-1.02); Calcium 8.2 mg/dL (8.5-10.1); Chloride 107 mmol/L (98-107); Estimated GFR 72.16 (mL/min/1.73m2); Glucose 193 mg/dL (74-106); Magnesium 1.7 mg/dL (1.8-2.4); Potassium 3.6 mmol/L (3.5-5.1); Sodium 138 mmol/L (136-145)
[2023-07-25 10:59] LABS: Abs Immature Grans 0.05 10^3/uL (0.0-0.06); Absolute Basophil Count 0.01 10^3/uL (0.0-0.2); Absolute Eosinophil Count 0.15 10^3/uL (0.0-0.7); Absolute Lymphocyte Count 1.05 10^3/uL (1.2-3.4); Absolute Monocyte Count 0.58 10^3/uL (0.1-0.8); Absolute Neutrophil Count 4.97 10^3/uL (1.2-6.7); Basophils % 0.1; Eosinophils % 2.2; HCT 29.9 % (36.0-46.0); HGB 9.6 g/dL (11.2-15.7); Immature Grans % 0.7; Lymphocytes % 15.4; MCH 28.7 pg (27.0-33.0); MCHC 32.1 % (32.0-36.0); MCV 90 fL (80-95); MPV 10.2 fL (8.0-11.0); Monocytes % 8.5; Neutrophils % 73.1; Platelet Count 243 10^3/uL (130-400); RBC 3.34 10^6/uL (3.93-5.22); RDW 15.6 % (11.7-14.6); RDW-SD 50.6 fL; WBC 6.81 10^3/uL (4.4-10.8)
[2023-07-25 11:13] VITALS: BP 143/79; PULSE 70; RESP 24; TEMP 37.3; O2SAT 94
[2023-07-25 11:16] LABS: INR 1.1 (0.9-1.1); Prothrombin Time 10.8 sec (9.3-11.0)
[2023-07-25 11:35] LABS: D-Dimer 2458 ng/mlFEU (<500)
[2023-07-25] MEDS: VANCOMYCIN 1,500 MG in Normal Saline 250 ML 166.667 MG IVPB (13:35)
[2023-07-25 14:46] VITALS: BP 130/70; PULSE 72; RESP 20; TEMP 37.3; O2SAT 96
--- NOTE | 2023-07-25 16:28 | PDOC.CMPRO ---
Date of service: 07/25/23 Time of Service: 16:28 Care Management Progress Note Progress Note Text Progress Note Text: S/O: Amelia has been moved to the M/S floor from the ICU. She remains on precautions as she is Covid + and continues to be treated with Remdesivir. She is started on IV Vancomycin Q12H due to blood culture showing gram positive cocci on 07/22/2023. CM spoke with her sister Jessica who requested an update. Jessica advises that family do not want Amelia to go to the [facility] as their mother was there for a period of time and she did not have a good experience. Jessica reiterates that she and her sister are unable to care for Amelia at home. A: Amelia is an 83 year old female admitted to [facility] on 07/22/23 for Covid and Anemia. P: Amelia will likely require SNF for STR vs. SWB when medically cleared by provider. SNF referrals have already been sent to [facility], [facility], [facility], [facility] and [facility] for review. Family do not want Amelia going to the [facility]. CM will continue to follow.
--- NOTE | 2023-07-25 16:34 | PT.INTREAT ---
Date of service: 07/25/23 Time of Service: 16:03 PT Notes Visit Reasons: Covid, anemia Inpatient Physical Therapy Treatment Note [facility] Date: 07/25/23 PRECAUTIONS: Fall, standard, activity as tolerated. WBAT LLE. [place]. SUBJECTIVE: Patient reports feeling better than yesterday. OBJECTIVE: Supine in bed. Johnson in place. IV attached to LUE. IV finished, this therapist notifies the nurse and turns off the IV regulator. ? PAIN: Reports less pain than yesterday. No complaint of pain. VITALS: monitored by nursing staff. ? Therapeutic Activities (88238p3): Direct one-on-one instruction in dynamic activities to improve functional performance. ? BED MOBILITY/TRANSFERS? Rolling L/R: Rolling to right, modified independent with side rail. Rolling left limited by pain at surgical site. Supine-sit: Extended time needed. Mod assist of one by hand hold for patient to pull up, with maximally elevated HOB. ?Sit-supine: min assist of one to raise LLE over side of bed. LLE is leading leg.? Sit-stand: Min assist of one pulling up on gait belt. ? Stand-sit: CGA with verbal cues for hand placement, pacing, sitting back as far as possible. ? Bed-Chair: CGA ? Chair-bed: CGA Provided skilled cues and instruction on performance and technique throughout. Gait Training ([id number]): Direct one-on-one instruction and skilled instruction in: [] employing an assistive device [] modified weight-bearing status [x] movement sequencing [x] turning and movement with proper form [x] Provided verbal cues for equipment management and technique [x] Provided instruction in gait pattern [] Patient education regarding pacing and breathing techniques to maximize activity tolerance? GAIT? Assistive Device: FWW ? Weight bearing: WBAT Assist: CGA? Distance:? 12 feet ? Deviation: reduced step length, reduced darell, antalgic step-to gait pattern with left leg leading, equal time in stance phase bilaterally. ? ASSESSMENT:? Patient tolerates therapy well, appears pleased with the improvement of today over yesterday, no reports of increased pain after ambulation. C/o back pain once back in bed. RN Juanjose aware. PLAN: Continue global strengthening per plan of care until patient is medically cleared for discharge. TREATMENT CODE/TIME: 29 minutes beginning at 16:03
[2023-07-25] MEDS: REMDESIVIR 100 MG in Normal Saline 250 ML 250 MG IVPB (16:59)
[2023-07-25 18:34] VITALS: BP 154/88; PULSE 81; RESP 18; TEMP 36.9; O2SAT 97
--- NOTE | 2023-07-25 20:02 | PGE_ITS ---
Date of Service Date of service: 07/25/23 Time of Service: 20:02 Assessment and Plan Assessment and plan (1) Gram-positive cocci bacteremia: Status: Acute Assessment and plan: E faecium on blood cx 07/22/23. Repeat blood cx w/ NGTD. Change abx to vancomcyin. Will discuss recommendations for therapy with ID> In setting of recent surgical intervention: there does not appear to be a focus of infection in the leg, per ortho. No evidence of vegetations on the echo. (2) COVID: Status: Acute Assessment and plan: Does have a cough. Venous dopplers BLEs were negative. Encourage pulmonary toilet. Not requiring oxygen. Continue remdesivir, vitamin C and zinc. Is vitamin D deficient - replete. (3) Pain in both lower extremities: Status: Acute Assessment and plan: As above. Venous dopplers negative for DVT. Suspect myalgias. Treat with tylenol. (4) Anemia: Status: Chronic Assessment and plan: s/p 2 units pRBCS Heme +, B12 is borderline low, getting repleted. H/H stable. Continue PPI. Heparin is on hold (prophylactic dose previously). 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 Continue to monitor. (6) Painful orthopaedic hardware: Status: Acute Assessment and plan: S/p removal on 07/18. Seen by Dr Garcia. (7) Trochanteric bursitis, left hip: Status: Acute Assessment and plan: S/p removal of hardware. 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 SC heparin on hold given Heme + stools. Subjective Subjective Interval history since last seen: Ms Carrillo states that she is having left lower abdominal pain. She had a large BM today, she states. She thinks she may need to have another one. Otherwise, no dizziness, CP, SOB, n/v. Exam Narrative Exam Narrative: General: Pleasant elderly female who is laying comfortably in bed, A&Ox3, NAD, does not look ill HEENT: EOMI, MMM Heart: RRR, no m/r/g Lungs: Diminished breath sounds B Abdomen: soft, tender in LLQ, nondistended Extremities: trace LLE edema; Objective Last Vital Signs Temp 36.9 C 07/25/23 18:34 Pulse 81 07/25/23 18:34 Resp 18 07/25/23 18:34 BP 154/88 H 07/25/23 18:34 Pulse Ox 97 07/25/23 18:34 Laboratory Results - last 24 hr 07/25/23 07/25/23 07/25/23 05:35 09:45 10:45 WBC 6.81 RBC 3.34 L Hgb 9.6 L Hct 29.9 L MCV 90 MCH 28.7 MCHC 32.1 RDW 15.6 H Plt Count 243 MPV 10.2 Immature Gran % 0.7 Neutrophils % 73.1 Lymphocytes % 15.4 Monocytes % 8.5 Eosinophils % 2.2 Basophils % 0.1 Nucleated RBC % 0.0 Absolute Neutrophils 4.97 Absolute Lymphocytes 1.05 L Absolute Monocytes 0.58 Absolute Eosinophils 0.15 Absolute Basophils 0.01 PT 10.8 INR 1.1 D-Dimer 2458 H Sodium 138 Potassium 3.6 Chloride 107 Carbon Dioxide 23.8 Anion Gap 7.2 BUN 13 Creatinine 0.8 Est GFR (CKD-EPI 2020) 72.16 Glucose 193 H Calcium 8.2 L Magnesium 1.7 L C-Reactive Protein 6.11 H Time Spent with Patient Time Spent with Patient: 25-34 minutes Time was spent: preparing to see the patient(eg.review tests), obtaining and/or reviewing separately otained hiistory, ordering medications,tests, procedures, referring, communicating with other health primary care coordinator, indepentently interpreting results, counseling the patient and care coordination
[2023-07-25] MEDS: Donepezil 5 MG TAB PO (20:41)
[2023-07-25 20:45] VITALS: BP 131/74; PULSE 70; RESP 16; TEMP 37.4; O2SAT 95
[2023-07-25] MEDS: Benzocaine/Menthol LOZG 15/BOX 1 EACH SUC (22:53)
[2023-07-26] VITALS (7 sets, daily range): BP systolic 114–154; BP diastolic 51–76; PULSE 68–80; RESP 16–18; TEMP 36.5–37.2; O2SAT 95–96
[2023-07-26] MEDS: VANCOMYCIN 750 MG in Normal Saline 250 ML 250 MG IVPB ×2 (00:31→11:42)
[2023-07-26] MEDS: Acetaminophen 325 MG TAB PO ×3 (04:25→20:24)
[2023-07-26 07:12] LABS: Abs Immature Grans 0.05 10^3/uL (0.0-0.06); Absolute Basophil Count 0.01 10^3/uL (0.0-0.2); Absolute Eosinophil Count 0.21 10^3/uL (0.0-0.7); Absolute Lymphocyte Count 1.18 10^3/uL (1.2-3.4); Absolute Monocyte Count 0.81 10^3/uL (0.1-0.8); Absolute Neutrophil Count 4.62 10^3/uL (1.2-6.7); Basophils % 0.1; Eosinophils % 3.1; HCT 28.2 % (36.0-46.0); HGB 9.1 g/dL (11.2-15.7); Immature Grans % 0.7; Lymphocytes % 17.2; MCH 28.9 pg (27.0-33.0); MCHC 32.3 % (32.0-36.0); MCV 90 fL (80-95); Monocytes % 11.8; Neutrophils % 67.1; Platelet Count 245 10^3/uL (130-400); RBC 3.15 10^6/uL (3.93-5.22); RDW 15.5 % (11.7-14.6); RDW-SD 50.7 fL; WBC 6.88 10^3/uL (4.4-10.8)
[2023-07-26 07:25] LABS: Prothrombin Time 10.1 sec (9.3-11.0)
[2023-07-26 07:43] LABS: D-Dimer 1845 ng/mlFEU (<500)
[2023-07-26 07:45] LABS: Anion Gap 9.9 mmol/L (3-11); BUN 13 mg/dL (7-18); C-Reactive Protein 4.58 mg/dL (0.0-0.3); CO2 22.1 mmol/L (21.0-32.0); CREATININE 0.7 mg/dL (0.55-1.02); Calcium 8.1 mg/dL (8.5-10.1); Chloride 109 mmol/L (98-107); Glucose 101 mg/dL (74-106); Magnesium 1.8 mg/dL (1.8-2.4); Potassium 3.6 mmol/L (3.5-5.1); Sodium 141 mmol/L (136-145)
[2023-07-26 08:20] LABS: Procalcitonin < 0.1 ng/mL
[2023-07-26] MEDS: Losartan 50 MG TAB 100 MG PO (09:57)
[2023-07-26] MEDS: Normal Saline Flush 10 ML SYR IVP ×3 (09:57→16:23)
[2023-07-26] MEDS: Pantoprazole 40 MG VIAL IVP ×2 (09:57→20:26)
[2023-07-26] MEDS: Cyanocobalamin 500 MCG TAB 1000 MCG PO (09:58)
[2023-07-26] MEDS: Senna TAB 1 TAB PO ×2 (09:58→20:27)
[2023-07-26] MEDS: Cholecalciferol (Vitamin D3) 1,000 UNIT TAB 2000 UNITS PO (09:58)
[2023-07-26] MEDS: Gabapentin 100 MG CAP PO ×3 (09:58→20:26)
[2023-07-26] MEDS: Zinc Sulfate 220 MG TAB PO (09:58)
[2023-07-26] MEDS: Docusate Sodium 100 MG CAP PO ×2 (09:58→20:25)
[2023-07-26] MEDS: Ascorbic Acid 500 MG TAB PO ×2 (09:58→20:25)
--- NOTE | 2023-07-26 15:58 | CMPROGNOTE_ITS ---
Date of service: 07/26/23 Time of Service: 15:58 Care Management Progress Note Progress Note Text Progress Note Text: S/O:? Amelia remains on precautions as she is Covid + and continues to be treated with Remdesivir.? CM spoke with her sister Jessica who requested an update.? Jessica advises that she changed her mind about the referral being sent to the [facility]. Still, Awaiting exterminator ABX course to determine if pt is able to d/c to a SNF or needs to SWB. CM will follow. A:? Amelia is an 83 year old female admitted to [facility] on 07/22/23 for Covid and Anemia. P:? Amelia will likely require SNF for STR vs. SWB when medically cleared by provider. ? SNF referrals have already been sent to [facility], [facility], [facility], [facility] and [facility] for review.? Family do not want Amelia going to the [facility].? CM will continue to follow.? ?
[2023-07-26] MEDS: REMDESIVIR 100 MG in Normal Saline 250 ML 250 MG IVPB (16:23)
--- NOTE | 2023-07-26 16:24 | PTTR_ITS ---
Date of service: 07/26/23 Time of Service: 15:20 PT Notes Visit Reasons: Covid, anemia Inpatient Physical Therapy Treatment Note [facility] Date: 07/26/23 PRECAUTIONS: Fall, standard, activity as tolerated. SUBJECTIVE: Patient asleep when this therapist enters room, wakes easily, agreeable to therapy. OBJECTIVE: Patient supine in bed, agreeable to therapy, JACQUELINE alarm active in bed. ? PAIN: yes, left hip. Reports it hurts less than yesterday but appears more stiff. VITALS: monitored by nursing staff.? BED MOBILITY/TRANSFERS? Rolling L/R: rolling to right, modified independent with side rails. Rolling to left limited by pain Supine-sit: min assist of one pulling left hip forward with pull sheet, with extra time for patient to do as much as she can on her own. ?Sit-supine: min assist of one to lift feet into the bed, then adjust shoulders in line with hips. ? Sit-stand: CGA from elevated bed (knees >100 degrees with feet flat on floor)? Stand-sit: CGA with increased time, verbal cues to reach back for sitting surface. ? Bed-Chair: CGA ? Chair-bed: CGA Provided skilled cues and instruction on performance and technique throughout. ? Therapeutic Exercises ([id number]): Direct one-on-one instruction in therapeutic exercises to develop strength, endurance, range of motion and flexibility. ? Exercises: * seated marching 2x10 * seated heel/toe raises 2x10 * sit to stand x5 ?Ambulation ? Assistive Device: FWW? Weight bearing: WBAT LLE with AD Assist: CGA ? Distance:? 3x12 feet with seated rests between ? Deviation: Very slow darell, Step-to gait pattern with left leg leading, antalgic gait, disinclined to bed Left knee or hip, no push-off or heel strike on left side. ? Provided skilled instruction in proper exercise performance Provided skilled manual cues to facilitate proper muscle recruitment and/or form. ASSESSMENT:? Patient tolerates therapy well, reports that her legs are getting tired, would like to return to bed. Set up comfortably with call de la rosa and telephone within easy reach. PLAN: continue global strengthening per plan of care until patient is medically cleared for discharge. TREATMENT CODE/TIME: 35 minutes beginning at 15:20
--- NOTE | 2023-07-26 18:45 | W.PM.PROGNOT ---
Date of Service Date of service: 07/26/23 Time of Service: 18:45 Assessment and Plan Assessment and plan (1) Gram-positive cocci bacteremia: Status: Acute Assessment and plan: E faecium on blood cx 07/22/23. Repeat blood cx w/ NGTD. Continue vancomcyin. I tried calling ID today and was placed on a very long hold. Will try again tomorrow morning. In setting of recent surgical intervention: there does not appear to be a focus of infection in the leg, per ortho. No evidence of vegetations on the echo. (2) COVID: Status: Acute Assessment and plan: better. Not on O2; cough resolved. Venous dopplers BLEs were negative. Encourage pulmonary toilet. Finished remdesivir. Continue vitamin C and zinc. Is vitamin D deficient - replete. (3) Pain in both lower extremities: Status: Acute Assessment and plan: As above. Venous dopplers negative for DVT. Suspect myalgias. Treat with tylenol. (4) Anemia: Status: Chronic Assessment and plan: Multifactorial: due to both acute blood loss and B12 deficiency. s/p 2 units pRBCS Heme +, B12 is borderline low, getting repleted. H/H stable. Continue PPI. Resume SQ heparin and monitor H/H. 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 Continue to monitor. (6) Painful orthopaedic hardware: Status: Acute Assessment and plan: S/p removal on 07/18. Seen by Dr Garcia. (7) Trochanteric bursitis, left hip: Status: Acute Assessment and plan: S/p removal of hardware. 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 SC heparin on hold given Heme + stools. Subjective Subjective Interval history since last seen: Ms Carrillo states she is feeling good. She denies dizziness, CP, SOB, n/v, diarrhea. Both legs are achy, not just the left. Exam Narrative Exam Narrative: General: Pleasant elderly female who is laying comfortably in bed, A&Ox3, NAD, looks better HEENT: EOMI, MMM Heart: RRR, no m/r/g Lungs: Diminished breath sounds B Abdomen: soft, tender in LLQ, nondistended Extremities: trace LLE edema; Objective Last Vital Signs Temp 37.2 C 07/26/23 16:11 Pulse 72 07/26/23 16:11 Resp 17 07/26/23 16:11 BP 114/51 L 07/26/23 16:11 Pulse Ox 96 07/26/23 16:11 Laboratory Results - last 24 hr 07/26/23 07/26/23 07/26/23 06:15 06:15 06:15 WBC 6.88 RBC 3.15 L Hgb 9.1 L Hct 28.2 L MCV 90 MCH 28.9 MCHC 32.3 RDW 15.5 H Plt Count 245 MPV 10.0 Immature Gran % 0.7 Neutrophils % 67.1 Lymphocytes % 17.2 Monocytes % 11.8 Eosinophils % 3.1 Basophils % 0.1 Nucleated RBC % 0.0 Absolute Neutrophils 4.62 Absolute Lymphocytes 1.18 L Absolute Monocytes 0.81 H Absolute Eosinophils 0.21 Absolute Basophils 0.01 PT INR D-Dimer Sodium 141 Potassium 3.6 Chloride 109 H Carbon Dioxide 22.1 Anion Gap 9.9 BUN 13 Creatinine 0.7 Est GFR (CKD-EPI 2020) 84.70 Glucose 101 Calcium 8.1 L Magnesium 1.8 C-Reactive Protein 4.58 H Procalcitonin < 0.1 07/26/23 06:15 WBC RBC Hgb Hct MCV MCH MCHC RDW Plt Count MPV Immature Gran % Neutrophils % Lymphocytes % Monocytes % Eosinophils % Basophils % Nucleated RBC % Absolute Neutrophils Absolute Lymphocytes Absolute Monocytes Absolute Eosinophils Absolute Basophils PT 10.1 INR 1.0 D-Dimer 1845 H Sodium Potassium Chloride Carbon Dioxide Anion Gap BUN Creatinine Est GFR (CKD-EPI 2020) Glucose Calcium Magnesium C-Reactive Protein Procalcitonin Time Spent with Patient Time Spent with Patient: 25-34 minutes Time was spent: preparing to see the patient(eg.review tests), obtaining and/or reviewing separately otained hiistory, ordering medications,tests, procedures, referring, communicating with other health patient care representative, indepentently interpreting results, counseling the patient and care coordination
[2023-07-26] MEDS: Donepezil 5 MG TAB PO (20:26)
[2023-07-27] MEDS: Acetaminophen 325 MG TAB PO ×3 (00:16→20:36)
[2023-07-27] MEDS: VANCOMYCIN 750 MG in Normal Saline 250 ML 250 MG IVPB (00:16)
[2023-07-27 02:58] VITALS: BP 141/80; PULSE 77; RESP 16; TEMP 36.4; O2SAT 96
[2023-07-27] MEDS: Heparin 5,000 UNITS/ML VIAL 5000 UNITS SC ×2 (05:25→17:39)
[2023-07-27 07:05] LABS: Abs Immature Grans 0.06 10^3/uL (0.0-0.06); Absolute Basophil Count 0.01 10^3/uL (0.0-0.2); Absolute Eosinophil Count 0.23 10^3/uL (0.0-0.7); Absolute Lymphocyte Count 1.43 10^3/uL (1.2-3.4); Absolute Monocyte Count 0.73 10^3/uL (0.1-0.8); Absolute Neutrophil Count 4.81 10^3/uL (1.2-6.7); Basophils % 0.1; Eosinophils % 3.2; HCT 28.3 % (36.0-46.0); HGB 9.1 g/dL (11.2-15.7); Immature Grans % 0.8; Lymphocytes % 19.7; MCH 28.6 pg (27.0-33.0); MCHC 32.2 % (32.0-36.0); MCV 89 fL (80-95); MPV 9.6 fL (8.0-11.0); Neutrophils % 66.2; Platelet Count 244 10^3/uL (130-400); RBC 3.18 10^6/uL (3.93-5.22); RDW 15.3 % (11.7-14.6); WBC 7.27 10^3/uL (4.4-10.8)
[2023-07-27 07:20] LABS: Prothrombin Time 10.4 sec (9.3-11.0)
[2023-07-27 07:29] LABS: ALT 26 U/L (14-59); AST 30 U/L (15-37); Albumin 1.9 g/dL (3.4-5.0); Alkaline Phosphatase 145 U/L (46-116); Anion Gap 8.4 mmol/L (3-11); BUN 14 mg/dL (7-18); Bilirubin, Direct 0.2 mg/dL (0.0-0.2); Bilirubin, Total 0.4 mg/dL (0.2-1.0); C-Reactive Protein 4.44 mg/dL (0.0-0.3); CO2 22.6 mmol/L (21.0-32.0); CREATININE 0.7 mg/dL (0.55-1.02); Calcium 7.9 mg/dL (8.5-10.1); Chloride 107 mmol/L (98-107); Glucose 89 mg/dL (74-106); Magnesium 1.8 mg/dL (1.8-2.4); Potassium 3.9 mmol/L (3.5-5.1); Sodium 138 mmol/L (136-145); Total Protein 5.3 g/dL (6.4-8.2)
[2023-07-27 07:39] LABS: D-Dimer 1683 ng/mlFEU (<500)
[2023-07-27 08:32] VITALS: BP 160/67; PULSE 74; RESP 18; TEMP 37; O2SAT 95
[2023-07-27] MEDS: Ascorbic Acid 500 MG TAB PO ×2 (08:32→20:36)
[2023-07-27] MEDS: Cholecalciferol (Vitamin D3) 1,000 UNIT TAB 2000 UNITS PO (08:33)
[2023-07-27] MEDS: Gabapentin 100 MG CAP PO ×3 (08:34→20:37)
[2023-07-27] MEDS: Docusate Sodium 100 MG CAP PO (08:34)
[2023-07-27] MEDS: Cyanocobalamin 500 MCG TAB 1000 MCG PO (08:34)
[2023-07-27] MEDS: Senna TAB 1 TAB PO (08:35)
[2023-07-27] MEDS: Pantoprazole 40 MG VIAL IVP ×2 (08:35→20:37)
[2023-07-27] MEDS: Losartan 50 MG TAB 100 MG PO (08:35)
[2023-07-27] MEDS: Zinc Sulfate 220 MG TAB PO (08:36)
[2023-07-27 11:45] VITALS: BP 155/62; PULSE 74; RESP 18; TEMP 37; O2SAT 95
--- NOTE | 2023-07-27 13:02 | PDOC.CMPRO ---
Date of service: 07/27/23 Time of Service: 13:02 Care Management Progress Note Progress Note Text Progress Note Text: S/O:? Amelia remains on precautions as she is Covid +, overall she is doing much better and working with PT.? CM spoke with Amelia via phone to let her know about her bed offer at [facility] on Monday and she accepted the bed. Her Niece Jazzy Shine was added to pts HIPAA and received an update, per pts request. Dr. Latham spoke with ID and making ABX adjustments to help determine if fci antibiotics are needed. CM will follow. A:? Amelia is an 83 year old female admitted to [facility] on 07/22/23 for Covid and Anemia. P:? Waiting to find out what her ABX course will be, if any. Amelia will likely require SNF for STR vs. SWB when medically cleared by provider. ? SNF referrals are sent to [facility], [facility], [facility], [facility] and [facility] for review.? Bed offer accepted at [facility] Monday. CM will continue to follow.? ?
--- NOTE | 2023-07-27 15:40 | PT.INPN ---
Date of service: 07/27/23 Time of Service: 15:40 PT Notes Visit Reasons: Covid, anemia Physical Therapy Inpatient Progress Note Date: 07/27/23 Dates of Service: 07/23/2023 through 07/27/2023 Precautions: Fall. Dementia. [place] Precautions for COVID-19. Patient Profile/Admitting Diagnosis:? Amelia is an 83 yo female that presented to the ER on 07/22/23 for weakness. She had surgery 07/18/23 for open debridement/excision of LEFT trochanteric bursa, iliotibial band tenotomy, and removal of hardware at LEFT femur. She returned home following surgery. At ER tested positive for COVID-19. Subjective:? Reported 5/10 pain at rest and with weight bearing. Agrees that she needs to move to make her recovery faster from COVID and from having had hip surgery. Objective:? General Observation: Supine in bed. PICC Line in L UE. IV access through R UE. Mental Status: A&O at least 2 Pain: 5/10 left hip Vital Signs: WNL as taken by this PT before session ROM: Right Upper Extremity: Shoulder Flexion allows up to 90 degrees only. Shoulder abduction allows up to 90 degrees only. Elbow flexion WFL. Wrist flexion WFL. Opening and closing of hand WFL. Left Upper Extremity: Shoulder Flexion allows up to 90 degrees only. Shoulder abduction allows up to 90 degrees only. Elbow flexion WFL. Wrist flexion WFL. Opening and closing of hand WFL. Right Lower Extremity: Hip flexion WFL. Hip abduction WFL. Knee flexion WFL. Ankle dorsiflexion to neutral only. Ankle plantarflexion WFL. Left Lower Extremity: Hip flexion lacks the last 25% of AROM. Hip abduction lacks the last 25% of AROM. Knee flexion 10 degrees to 90 degrees. Ankle dorsiflexion WFL. Ankle plantarflexion WFL. Strength: Right Upper Extremity: Shoulder flexors 3-/5. Shoulder abductors 3-/5. Elbow flexors 5/5. Elbow extensors 5/5. Broke Beater Operator strong. Left Upper Extremity: Shoulder flexors 3-/5. Shoulder abductors 3-/5. Elbow flexors 5/5. Elbow extensors 5/5. Broke Beater Operator strong. Right Lower Extremity: Hip flexors 4/5. Knee flexors 5/5. Knee extensors 4+/5. Ankle dorsiflexors 3-/5. Ankle plantarflexors 3/5. Left Lower Extremity: Hip flexors 3-/5. Knee flexors 3-/5. Knee extensors 3-/5. Ankle dorsiflexors 4-/5. Ankle plantarflexors 3/5. Sensation:? Intact as to pain and pressure on bilateral lower extremities. Bed Mobility/Transfers: Supine to sit: stand by assist with HOB at 30 degrees Sit to stand: contact guard assist, moderate cues given to use B UE for support and for ensuring COG is forward prior to ascent Stand to sit: contact guard assist, moderate cues given to safely back up onto chair use B UE for support and for ensuring COG is forward prior to ascent Bed to chair: contact guard assist, moderate cues given for safe technique Chair to bed: contact guard assist, moderate cues given for safe technique Gait:? 20 feet x 2 using FWW with moderate verbal and tactile cueing to stay focused on task to increase step height and length and to take slow turns with the walker. R foot unable to step through the level of the L foot due to antalgia. No heel strike on L, whole foot strikes the ground due to weak R DF. Balance:? Static Sitting: Fair Dynamic Sitting: Poor Static Standing: Poor Dynamic Standing: Poor Special Tests: Mobility Limitations Standardized Measure [facility]-PAC 6 clicks Basic Mobility Inpatient Short Form: Raw Score: 18 ? CMS Score: 47%deficit Informed Consent/Education:? Patient instructed in purpose of PT consult and plan of care ASSESSMENT: Amelia has demonstrated improvement in mobility level and activity tolerance however has been very reliant on nursing staff about getting her cleaned up after a few incontinent episodes despite instruction to call before she goes. Timed voiding with nursing staff may work with patient considering her current cognitive issue. Requires tactile and verbal cueing with movement initiation, AD management, and posture as patient appeared to have issues with staying on track with task performance. Reported 5/10 pain in the L hip that did not increase with weight bearing. Nurse Healy premedicated patient before this visit which worked well. Short-term rehab placement will facilitate overall mobility progression and decrease fall risk. Patient presents with clinical signs and symptoms consistent with current/admitting diagnoses that have resulted to mobility limitations, gait instability, generalized weakness, and impairment of motor control as demonstrated by the following impairment level findings: 1. Decreased strength to left hip major muscle groups 2. Impaired sitting/standing balance 3. Impaired activity tolerance 4. Limitation of joint range of motion in left hip Impairments are contributing to the following functional limitations: 1. Dependent bed mobility skills 2. Increased dependence with transfers 3. Inability to safely ambulate without assistive device and physical assistance 4. Increase completion time for mobility ADL performance 5. Increased fall risk 6. Inability to negotiate steps alone safely Patient is assessed as a 73012 moderate complexity based on the following: History: 83 year old female with impairment level findings, functional limitations, and past medical history as indicated above Examination: Demonstrable impairment in strength, balance, and mobility level with underlying impairments and functional limitations as documented above Presentation: Evolving Decision Makin moderate complexity TODAY'S INTERVENTIONS: Provided retraining with mobility ADL performance of bed mobility, transfers, and ambulation to increase safety and reduce fall risk as indicated above. Guided patient with correct movement execution and pacing with the following exercises: Chest expansion exercises with B shoulder flexion/extension with DBE x 5 Seated marches x 10 Chest expansion exercises with B shoulder horizontal abd/add with DBE x 5 LAQs x 10 Chest expansion exercises with B shoulder flexion/extension with DBE x 5 Chiar push ups x 5 Goals: Goals x1 week 1. Supine-Sit: Min A MET, PROGRESS TO MODIFIED INDEPENDENT 2. Sit-Supine: Min A MET, PROGRESS TO MODIFIED INDEPENDENT 3. Sit-Stand: Min A MET, PROGRESS TO MODIFIED INDEPENDENT 4. Stand-Sit: Min A MET, PROGRESS TO MODIFIED INDEPENDENT 5. Bed-Chair: Min A MET, PROGRESS TO MODIFIED INDEPENDENT 6. Chair-Bed: Min A MET, PROGRESS TO MODIFIED INDEPENDENT 7. CGA gait on level surface with use of least restrictive device for at least 50 feet without report of pain nor dyspnea NOT MET, CONTINUE Plan of Care/Treatment Plan: 1x/day, 7 days/week x1 week. Plan of care has been reviewed with the MOTION PI[employer]URE CAMER[employer] LENS TECHNICIAN providing the service under Physical Therapy direction. Continue with functional mobility progression, B LE strengthening, and balance retraining to improve activity tolerance, and functional mobility independence with all goals upgraded as above. Discharge Plan DISCHARGE RECOMMENDATIONS: Short-term rehabilitation post L hip hardware removal to regain highest functional outcomes in anticipation of discharge to home. TREATMENT CODE/TIME: 48757 x 25 minutes for 2 units, 15088 x 17 minutes for 1 unit beginning at 15:40 PM.?
[2023-07-27 15:45] VITALS: BP 140/70; PULSE 74; RESP 18; TEMP 37.3; O2SAT 95
--- NOTE | 2023-07-27 16:09 | PGE_ITS ---
Date of Service Date of service: 07/27/23 Time of Service: 16:09 Assessment and Plan Assessment and plan (1) Gram-positive cocci bacteremia: Status: Acute Assessment and plan: E faecium on blood cx 07/22/23. Repeat blood cx w/ NGTD. Discussed w/ ID - feel that a single culture with E. faecium could be a contaminant and, since there is no clear focus of infection, recommendation was to stop vancomycin and see if fever recurs. IF it does recur, reculture at that point. No evidence of vegetations on the echo. (2) COVID: Status: Acute Assessment and plan: better. Not on O2; cough resolved. Venous dopplers BLEs were negative. Encourage pulmonary toilet. Finished remdesivir. Continue vitamin C and zinc. Is vitamin D deficient - replete. We will do antigen testing to see when precautions can be d/c'ed. Covid could have caused diarrhea as well. (3) Diarrhea: Status: Acute Assessment and plan: D/c stool softeners. Check C. diff. Provide prn loperamide. (4) Pain in both lower extremities: Status: Acute Assessment and plan: As above. Venous dopplers negative for DVT. Suspect myalgias. Treat with tylenol. (5) Anemia: Status: Chronic Assessment and plan: Multifactorial: due to both acute blood loss and B12 deficiency. s/p 2 units pRBCS Heme +, B12 is borderline low, getting repleted. H/H stable. Continue PPI. H/H stable with resumption of SC heparin. 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 Continue to monitor. (7) Painful orthopaedic hardware: Status: Acute Assessment and plan: S/p removal on 07/18. Seen by Dr Garcia. (8) Trochanteric bursitis, left hip: Status: Acute Assessment and plan: S/p removal of hardware. 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 SC heparin resumed and H/H is tolerating this. Subjective Subjective Interval history since last seen: Having more diarrhea today. Reports lower abdominal pain as well. The patient states her rags[place] catheter fell out. She denies dizziness, CP, SOB, n/v. Exam Narrative Exam Narrative: General: Pleasant elderly female who is laying comfortably in bed, A&Ox3, NAD, looks tired HEENT: EOMI, MMM Heart: RRR, no m/r/g Lungs: Diminished breath sounds B Abdomen: soft, tender in LLQ, nondistended Extremities: trace LLE edema; Objective Last Vital Signs Temp 37.0 C 07/27/23 11:45 Pulse 74 07/27/23 11:45 Resp 18 07/27/23 11:45 BP 155/62 H 07/27/23 11:45 Pulse Ox 95 07/27/23 11:45 Laboratory Results - last 24 hr 07/27/23 07/27/23 07/27/23 06:30 06:30 06:30 WBC 7.27 RBC 3.18 L Hgb 9.1 L Hct 28.3 L MCV 89 MCH 28.6 MCHC 32.2 RDW 15.3 H Plt Count 244 MPV 9.6 Immature Gran % 0.8 Neutrophils % 66.2 Lymphocytes % 19.7 Monocytes % 10.0 Eosinophils % 3.2 Basophils % 0.1 Nucleated RBC % 0.0 Absolute Neutrophils 4.81 Absolute Lymphocytes 1.43 Absolute Monocytes 0.73 Absolute Eosinophils 0.23 Absolute Basophils 0.01 PT 10.4 INR 1.0 D-Dimer 1683 H Sodium 138 Potassium 3.9 Chloride 107 Carbon Dioxide 22.6 Anion Gap 8.4 BUN 14 Creatinine 0.7 Est GFR (CKD-EPI 2020) 84.70 Glucose 89 Calcium 7.9 L Magnesium 1.8 Total Bilirubin 0.4 Conjugated Bilirubin 0.2 AST 30 ALT 26 Alkaline Phosphatase 145 H C-Reactive Protein 4.44 H Total Protein 5.3 L Albumin 1.9 L Time Spent with Patient Time Spent with Patient: 25-34 minutes Time was spent: preparing to see the patient(eg.review tests), obtaining and/or reviewing separately otained hiistory, ordering medications,tests, procedures, referring, communicating with other health daycare provider, indepentently interpreting results, counseling the patient and care coordination
[2023-07-27 17:41] LABS: C Diff PCR Negative (Negative)
[2023-07-27 19:16] VITALS: BP 135/81; PULSE 84; RESP 16; TEMP 36.9; O2SAT 96
[2023-07-27] MEDS: Donepezil 5 MG TAB PO (20:37)
[2023-07-27] MEDS: Loperamide 2 MG CAP PO (20:43)
[2023-07-27 22:53] VITALS: BP 136/70; PULSE 74; RESP 16; TEMP 36.7; O2SAT 96
[2023-07-28] VITALS (7 sets, daily range): BP systolic 128–150; BP diastolic 59–84; PULSE 72–83; RESP 16–18; TEMP 36.5–37.4; O2SAT 94–98
[2023-07-28] MEDS: Heparin 5,000 UNITS/ML VIAL 5000 UNITS SC ×2 (05:34→17:26)
[2023-07-28 06:33] LABS: Abs Immature Grans 0.04 10^3/uL (0.0-0.06); Absolute Basophil Count 0.01 10^3/uL (0.0-0.2); Absolute Eosinophil Count 0.29 10^3/uL (0.0-0.7); Absolute Monocyte Count 0.74 10^3/uL (0.1-0.8); Absolute Neutrophil Count 5.93 10^3/uL (1.2-6.7); Basophils % 0.1; Eosinophils % 3.4; HGB 9.9 g/dL (11.2-15.7); Immature Grans % 0.5; Lymphocytes % 17.6; MCH 28.7 pg (27.0-33.0); MCHC 31.9 % (32.0-36.0); MCV 90 fL (80-95); MPV 9.6 fL (8.0-11.0); Monocytes % 8.7; Neutrophils % 69.7; Platelet Count 255 10^3/uL (130-400); RBC 3.45 10^6/uL (3.93-5.22); RDW 15.6 % (11.7-14.6); RDW-SD 50.7 fL; WBC 8.51 10^3/uL (4.4-10.8)
[2023-07-28 06:58] LABS: BUN 13 mg/dL (7-18); C-Reactive Protein 5.53 mg/dL (0.0-0.3); CREATININE 0.6 mg/dL (0.55-1.02); Calcium 8.6 mg/dL (8.5-10.1); Chloride 107 mmol/L (98-107); Estimated GFR 87.91 (mL/min/1.73m2); Glucose 93 mg/dL (74-106); Magnesium 1.9 mg/dL (1.8-2.4); Sodium 139 mmol/L (136-145)
[2023-07-28] MEDS: Pantoprazole 40 MG VIAL IVP ×2 (08:49→20:14)
[2023-07-28] MEDS: Losartan 50 MG TAB 100 MG PO (08:50)
[2023-07-28] MEDS: Cholecalciferol (Vitamin D3) 1,000 UNIT TAB 2000 UNITS PO (08:50)
[2023-07-28] MEDS: Zinc Sulfate 220 MG TAB PO (08:51)
[2023-07-28] MEDS: Gabapentin 100 MG CAP PO ×3 (08:51→20:14)
[2023-07-28] MEDS: Cyanocobalamin 500 MCG TAB 1000 MCG PO (08:51)
[2023-07-28] MEDS: Ascorbic Acid 500 MG TAB PO ×2 (08:51→20:14)
--- NOTE | 2023-07-28 10:32 | PGE_ITS ---
Date of Service Date of service: 07/28/23 Time of Service: 10:32 Assessment and Plan Assessment and plan (1) Gram-positive cocci bacteremia: Status: Acute Assessment and plan: E faecium on blood cx 07/22/23. Repeat blood cx w/ NGTD. Discussed w/ ID - feel that a single culture with E. faecium could be a contaminant and, since there is no clear focus of infection, recommendation was to stop vancomycin and see if fever recurs. IF it does recur, reculture at that point. No evidence of vegetations on the echo. Vancomycin stopped on 07/27/23. Monitor for fever or clinical worsening. (2) COVID: Status: Acute Assessment and plan: better. Not on O2; cough resolved. Venous dopplers BLEs were negative. Encourage pulmonary toilet. Finished remdesivir. Continue vitamin C and zinc. Is vitamin D deficient - replete. We will do antigen testing to see when precautions can be d/c'ed. Covid could have caused diarrhea as well. (3) Diarrhea: Status: Acute Assessment and plan: Appears to have slowed down. C.Diff negative. Stool softeners stopped. Could have been partially due to COVID-19 as well. Provide prn loperamide. (4) Pain in both lower extremities: Status: Acute Assessment and plan: As above. Venous dopplers negative for DVT. Suspect myalgias. Treat with tylenol. (5) Anemia: Status: Chronic Assessment and plan: Multifactorial: due to both acute blood loss and B12 deficiency. s/p 2 units pRBCS on this admission. Heme +, B12 is borderline low, getting repleted. H/H stable despite being on SC heparin. Continue PPI. Monitor H/H. 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 Continue to monitor. (7) Painful orthopaedic hardware: Status: Acute Assessment and plan: S/p removal on 07/18. Seen by Dr Garcia. (8) Trochanteric bursitis, left hip: Status: Acute Assessment and plan: S/p removal of hardware. 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 SC heparin resumed and H/H is tolerating this. Subjective Subjective Interval history since last seen: Amelia states that she is feeling well. She is not worse. She is reporting lower abdominal cramping - she thinks, because she is about to have a BM. Denies dizziness, CP, SOB, n/v. Pain is controlled. Exam Narrative Exam Narrative: General: Pleasant elderly female who is laying comfortably in bed, A&Ox3, NAD, looks well HEENT: EOMI, MMM Heart: RRR, no m/r/g Lungs: Diminished breath sounds B Abdomen: soft, slightly tender in BLQ, nondistended Extremities: trace LLE edema; LLE incision dressed - c/d/i Objective Last Vital Signs Temp 36.5 C 07/28/23 08:41 Pulse 81 07/28/23 08:41 Resp 18 07/28/23 08:41 BP 135/80 07/28/23 08:41 Pulse Ox 98 07/28/23 08:41 Laboratory Results - last 24 hr 07/27/23 07/28/23 07/28/23 15:48 06:05 06:05 WBC 8.51 RBC 3.45 L Hgb 9.9 L Hct 31.0 L MCV 90 MCH 28.7 MCHC 31.9 L RDW 15.6 H Plt Count 255 MPV 9.6 Immature Gran % 0.5 Neutrophils % 69.7 Lymphocytes % 17.6 Monocytes % 8.7 Eosinophils % 3.4 Basophils % 0.1 Nucleated RBC % 0.0 Absolute Neutrophils 5.93 Absolute Lymphocytes 1.50 Absolute Monocytes 0.74 Absolute Eosinophils 0.29 Absolute Basophils 0.01 Sodium 139 Potassium 4.0 Chloride 107 Carbon Dioxide 24.0 Anion Gap 8.0 BUN 13 Creatinine 0.6 Est GFR (CKD-EPI 2020) 87.91 Glucose 93 Calcium 8.6 Magnesium 1.9 C-Reactive Protein 5.53 H Stl C.difficile Tox PCR Negative Time Spent with Patient Time Spent with Patient: 25-34 minutes Time was spent: preparing to see the patient(eg.review tests), obtaining and/or reviewing separately otained hiistory, ordering medications,tests, procedures, referring, communicating with other health medical care evaluation specialist, indepentently interpreting results, counseling the patient and care coordination
--- NOTE | 2023-07-28 11:44 | PDOC.CMPRO ---
Date of service: 07/28/23 Time of Service: 11:44 Care Management Progress Note Progress Note Text Progress Note Text: S/O:? Amelia remains on precautions as she is Covid +, overall she is doing much better and continues to work with PT.? CM spoke with Amelia via phone and she is feeling well today. She is trying to stay busy watching TV. She is offered activities from the [place] today and not interested.? Her Niece Jazzy Shine received an update today when she called.? Per provider, ABX have been d/c'd, waiting to see if patient becomes febrile per [facility] ID recommendation. . CM will follow. A:? Amelia is an 83 year old female admitted to [facility] on 07/22/23 for Covid and Anemia. P:? Waiting to find out what her ABX course will be, if any. Amelia will likely require SNF for STR vs. SWB when medically cleared by provider. ? SNF referrals are sent to [facility], [facility], [facility], [facility] and [facility] for review.??Bed offer accepted at [facility]? Monday.? CM will continue to follow.? ?
--- NOTE | 2023-07-28 17:03 | PT.INTREAT ---
Date of service: 07/28/23 Time of Service: 16:41 PT Notes Visit Reasons: Covid, anemia Inpatient Physical Therapy Treatment Note [facility] Date: 07/28/23 PRECAUTIONS: Fall, standard, activity as tolerated. [place] PRECAUTIONS FOR COVID-19 SUBJECTIVE: Patient reports being very cold. Thermostat set to 68, this therapist adjusts it to 72. Room feels cold to this therapist also. Patient also states that she has not been able to find her call de la rosa. This is located in the chair that she is in, on her left side, behind the pillow. OBJECTIVE: Patient sitting up in chair, agreeable to therapy.? PAIN: Patient reports stiffness and cold, but no pain. VITALS: monitored by nursing staff. ? BED MOBILITY/TRANSFERS? Rolling L/R: not assessed Supine-sit: not assessed ? Sit-supine: not assessed ? Sit-stand: SBA ? Stand-sit: SBA? Bed-Chair: SBA ? Chair-bed: SBA Provided skilled cues and instruction on performance and technique throughout. ? Therapeutic Exercises (19109m5): Direct one-on-one instruction in therapeutic exercises to develop strength, endurance, range of motion and flexibility. ?Ambulation ? Assistive Device: FWW ? Weight bearing: full Assist: SBA? Distance:? 60 feet ? Deviation: Extreme slow darell initially, this improves as patient works out the kinks. Reduced stride length, reduced step height, antalgic gait pattern. ? Provided skilled instruction in proper exercise performance Provided skilled manual cues to facilitate proper muscle recruitment and/or form. ASSESSMENT:? Session ends when patient's dinner arrives. Patient tolerates therapy well, returns to recliner at end of session. Nurse Monet notified of patient being so cold. PLAN: Continue global strengthening per plan of care until patient is medically cleared for discharge. TREATMENT CODE/TIME: 22 minutes beginning at 16:41
[2023-07-28] MEDS: Donepezil 5 MG TAB PO (20:14)
[2023-07-28] MEDS: Normal Saline Flush 10 ML SYR IVP (20:14)
[2023-07-29] VITALS (8 sets, daily range): BP systolic 110–132; BP diastolic 60–77; PULSE 70–86; RESP 16–18; TEMP 36–37.8; O2SAT 94–98
[2023-07-29] MEDS: Normal Saline Flush 10 ML SYR IVP ×2 (05:24→09:36)
[2023-07-29] MEDS: Heparin 5,000 UNITS/ML VIAL 5000 UNITS SC ×2 (05:24→17:26)
[2023-07-29 06:37] LABS: Abs Immature Grans 0.08 10^3/uL (0.0-0.06); Absolute Basophil Count 0.02 10^3/uL (0.0-0.2); Absolute Eosinophil Count 0.35 10^3/uL (0.0-0.7); Absolute Lymphocyte Count 1.62 10^3/uL (1.2-3.4); Absolute Monocyte Count 0.91 10^3/uL (0.1-0.8); Basophils % 0.2; Eosinophils % 3.2; HCT 30.6 % (36.0-46.0); HGB 9.8 g/dL (11.2-15.7); Immature Grans % 0.7; Lymphocytes % 14.6; MCH 28.9 pg (27.0-33.0); MCV 90 fL (80-95); MPV 9.7 fL (8.0-11.0); Monocytes % 8.2; Neutrophils % 73.1; Platelet Count 290 10^3/uL (130-400); RBC 3.39 10^6/uL (3.93-5.22); RDW 15.5 % (11.7-14.6); RDW-SD 51.4 fL; WBC 11.08 10^3/uL (4.4-10.8)
[2023-07-29 07:02] LABS: Anion Gap 7.5 mmol/L (3-11); BUN 13 mg/dL (7-18); C-Reactive Protein 4.88 mg/dL (0.0-0.3); CO2 24.5 mmol/L (21.0-32.0); CREATININE 0.7 mg/dL (0.55-1.02); Calcium 8.4 mg/dL (8.5-10.1); Chloride 105 mmol/L (98-107); Glucose 96 mg/dL (74-106); Magnesium 1.8 mg/dL (1.8-2.4); Potassium 4.1 mmol/L (3.5-5.1); Sodium 137 mmol/L (136-145)
[2023-07-29 07:36] LABS: Procalcitonin < 0.1 ng/mL
[2023-07-29] MEDS: Pantoprazole 40 MG VIAL IVP (09:34)
[2023-07-29] MEDS: Cholecalciferol (Vitamin D3) 1,000 UNIT TAB 2000 UNITS PO (09:35)
[2023-07-29] MEDS: Ascorbic Acid 500 MG TAB PO ×2 (09:35→20:24)
[2023-07-29] MEDS: Zinc Sulfate 220 MG TAB PO (09:35)
[2023-07-29] MEDS: Losartan 50 MG TAB 100 MG PO (09:35)
[2023-07-29] MEDS: Gabapentin 100 MG CAP PO ×3 (09:35→17:27)
[2023-07-29] MEDS: Cyanocobalamin 500 MCG TAB 1000 MCG PO (09:35)
--- NOTE | 2023-07-29 11:47 | PT.INTREAT ---
Date of service: 07/29/23 Time of Service: 09:50 PT Notes Visit Reasons: Covid, anemia Inpatient Physical Therapy Treatment [facility] Date: 07/29/2023 PRECAUTIONS: Fall, standard, activity as tolerated. [place] PRECAUTIONS FOR CASSIE-19 SUBJECTIVE: Stated she feels like she needs to have a bowel movement, but was only able to pass gas while sitting on toilet while I was in room. Discussed moving around with exercises may help with moving her bowels. OBJECTIVE: ? PAIN: Pain in the left hip region occasionally with movement in chair, but indicated hip is much more comfortable since recent surgery. VITALS: ? Post-Treatment: HR 87 b/m with O2 reading of 97% on room air ?? Therapeutic Activities (70965v0): Direct one-on-one instruction in dynamic activities to improve functional performance. ? BED MOBILITY/TRANSFERS? Standing up with nursing when I arrive to room? Sit-stand: CGA? Stand-sit: CGA ? Provided skilled cues and instruction on performance and technique throughout. GAIT? Assistive Device: FWW? Weight bearing: Full Assist: CGA ? Distance:? 30ft ? Deviation: Slow pace, with step to gait pattern with left LE. Indicated it hurts left hip to attempt to step past right foot when walking.? Therapeutic Exercises (62266h7): Direct one-on-one instruction in therapeutic exercises to develop strength, endurance, range of motion and flexibility. ? Exercises :Chest Expansion with bilateral arm flex/ ext x 10 reps Seated march x 10 reps Chest Expansion with bilateral horizontal shoulder abd/add x 5 reps LAQ x10 reps Chest Expansion with bilateral arm flex/ ext x 5 reps Chair push ups x 6, performed with use of commode arms and recliner. ASSESSMENT:? Tolerated today's session fair. Did try having a bowel movement prior to ambulation so was a bit tired. PLAN: Continue to focus on improved ADL function for return to home. TREATMENT CODE/TIME: 87891 x 1 and 90456 x 1, 9:05 to 10:15 am
--- NOTE | 2023-07-29 16:02 | W.PM.PROGNOT ---
Date of Service Date of service: 07/29/23 Time of Service: 16:02 Assessment and Plan Assessment and plan (1) Gram-positive cocci bacteremia: Status: Acute Assessment and plan: E faecium on blood cx 07/22/23. Repeat blood cx w/ NGTD. Discussed by Dr. Latham w/ ID - feel that a single culture with E. faecium could be a contaminant and, since there is no clear focus of infection, recommendation was to stop vancomycin and see if fever recurs. IF it does recur, reculture at that point. No evidence of vegetations on the echo. Vancomycin stopped on 07/27/23. so far her blood cultures from 07/24 are no growth and she has had no fevers, however, I am concerned that her WBC since yesterday have gone up to 11,000 but her procalcitonin remains <0.1, but her CRP remains mildly elevated at 4.88 but is trending down. For now I will continue to withold antibiotics but I explained to the patient that if she has a fever or her WBC continue to rise then I will repeat her blood cultures and resume antibiotics. I will also ask nursing to proceed w/ straight cath for UA and urine cultures. (2) COVID: Status: Acute Assessment and plan: doing better. cough minimal. no fevers and no hypoxemia. she completed Remdesevir treatment 07/22-07/26. (3) Diarrhea: Status: Acute Assessment and plan: Appears to have slowed down. C.Diff negative. Stool softeners stopped. Could have been partially due to COVID-19 as well. Provide prn loperamide. (4) Pain in both lower extremities: Status: Acute Assessment and plan: As above. Venous dopplers negative for DVT. Suspect myalgias. Treat with tylenol. (5) Anemia: Status: Chronic Assessment and plan: Multifactorial: due to both acute blood loss and B12 deficiency. s/p 2 units pRBCS on this admission. Heme +, B12 is borderline low, getting repleted. H/H stable despite being on SC heparin. change protonix to po from iv Monitor H/H. 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 Continue to monitor. (7) Painful orthopaedic hardware: Status: Acute Assessment and plan: S/p removal on 07/18. Seen by Dr Garcia. (8) Trochanteric bursitis, left hip: Status: Acute Assessment and plan: S/p removal of hardware. As above (9) Irritable bowel syndrome: Status: Chronic Assessment and plan: Continue prn dicyclomine Qualifiers: Irritable bowel syndrome type: with both diarrhea and constipation Qualified Code(s): K58.2 - Mixed irritable bowel syndrome (10) Discharge planning issues: Status: Acute Assessment and plan: Full code Continues to require hospitalization Anticipate SNF on discharge, possibly Monday (11) DVT prophylaxis: Status: Acute Assessment and plan: SCDs. SC heparin resumed and H/H is tolerating this. Subjective Subjective Patient reports: no new complaints and feels better Interval history since last seen: Patient states she has minimal cough, white phlegm. Not dyspneic. She remains afebrile. Moving her bowels ok. appetite is better. Exam Narrative Exam Narrative: Elderly white female sitting up in her chair, no acute distress, watching TV Lungs: clear Heart: regular w/ soft systolic murmur over apex c/w MR Abdomen: soft, nondistended, normal bowel sounds, nontender Exteremities: no edema Objective Last Vital Signs Temp 37.2 C 07/29/23 12:44 Pulse 72 07/29/23 12:44 Resp 18 07/29/23 12:44 BP 117/71 07/29/23 12:44 Pulse Ox 95 07/29/23 12:44 Laboratory Results - last 24 hr 07/29/23 07/29/23 07/29/23 06:16 06:16 06:16 WBC 11.08 H RBC 3.39 L Hgb 9.8 L Hct 30.6 L MCV 90 MCH 28.9 MCHC 32.0 RDW 15.5 H Plt Count 290 MPV 9.7 Immature Gran % 0.7 Neutrophils % 73.1 Lymphocytes % 14.6 Monocytes % 8.2 Eosinophils % 3.2 Basophils % 0.2 Nucleated RBC % 0.0 Absolute Neutrophils 8.10 H Absolute Lymphocytes 1.62 Absolute Monocytes 0.91 H Absolute Eosinophils 0.35 Absolute Basophils 0.02 Sodium 137 Potassium 4.1 Chloride 105 Carbon Dioxide 24.5 Anion Gap 7.5 BUN 13 Creatinine 0.7 Est GFR (CKD-EPI 2020) 84.70 Glucose 96 Calcium 8.4 L Magnesium 1.8 C-Reactive Protein 4.88 H Procalcitonin < 0.1 Time Spent with Patient Time Spent with Patient: 25-34 minutes Time was spent: preparing to see the patient(eg.review tests), ordering medications,tests, procedures, referring, communicating with other health care management specialist, indepentently interpreting results, counseling the patient and care coordination
[2023-07-29 18:51] LABS: Bilirubin Negative (Negative); Blood Negative (Negative); Clarity Sl Cloudy (Clear); Glucose Negative (Negative); Ketones Negative (Negative); Leukocyte Esterase Trace (Negative); Nitrite Negative (Negative); Urobilinogen 0.2 mg/dL (Up to 0.2); pH 5.5 (5-8)
[2023-07-29] MEDS: Acetaminophen 325 MG TAB PO (18:57)
[2023-07-29 18:58] LABS: Epithelial Cells Few HPF (Negative); Other Cells Few Yeast (Negative); RBC 0-2 HPF (0-2)
[2023-07-29 18:59] LABS: Bacteria Few HPF (Negative); C & S Indicated? C&S Done As Ordered; Casts Negative LPF (Negative); Crystals Negative HPF (Negative); Mucus Negative (Negative)
[2023-07-29] MEDS: Donepezil 5 MG TAB PO (20:24)
--- NOTE | 2023-07-30 | DI.RAD_ITS ---
Exam(s) XR FOOT LT COMPLETE XR ANKLE LT COMPLETE EXAM: XR ANKLE LT COMPLETE and XR foot LT complete CLINICAL HISTORY: left ankle pain TECHNIQUE: 2D digital imaging was performed of the left ankle. Six images were obtained. AP, later al and oblique views were obtained. COMPARISON: No priors for comparison. FINDINGS: BONES: No acute fracture is present. No bony destructive lesion is seen. JOINTS:The ankle mortise is normally aligned. There are mild degenerative changes seen in the foot. SOFT TISSUE: There is soft tissue swelling around the ankle. IMPRESSION: 1. No acute fracture or dislocation in the foot or ankle. 2. Soft tissue swelling around the ankle. DATA REPOSITORY: RADIATION DOSE DELIVERED:
[2023-07-30 03:13] VITALS: BP 126/74; PULSE 69; RESP 18; TEMP 36.5; O2SAT 95
[2023-07-30 06:20] LABS: MRSA PCR Negative (Negative)
[2023-07-30] MEDS: Heparin 5,000 UNITS/ML VIAL 5000 UNITS SC ×2 (06:33→17:08)
[2023-07-30 08:17] VITALS: BP 132/66; PULSE 74; RESP 18; TEMP 36.6; O2SAT 96
[2023-07-30] MEDS: Losartan 50 MG TAB 100 MG PO (08:31)
[2023-07-30] MEDS: Cholecalciferol (Vitamin D3) 1,000 UNIT TAB 2000 UNITS PO (08:31)
[2023-07-30] MEDS: Cyanocobalamin 500 MCG TAB 1000 MCG PO (08:31)
[2023-07-30] MEDS: Ascorbic Acid 500 MG TAB PO ×2 (08:31→20:40)
[2023-07-30] MEDS: Pantoprazole 20 MG TABCR PO (08:32)
[2023-07-30] MEDS: Zinc Sulfate 220 MG TAB PO (08:32)
[2023-07-30] MEDS: Gabapentin 100 MG CAP PO ×3 (08:32→20:40)
[2023-07-30 11:11] VITALS: BP 134/65; PULSE 73; RESP 18; TEMP 37; O2SAT 95
[2023-07-30 13:28] LABS: Abs Immature Grans 0.09 10^3/uL (0.0-0.06); Absolute Basophil Count 0.02 10^3/uL (0.0-0.2); Absolute Lymphocyte Count 1.17 10^3/uL (1.2-3.4); Absolute Neutrophil Count 7.75 10^3/uL (1.2-6.7); Basophils % 0.2; HCT 33.2 % (36.0-46.0); HGB 10.4 g/dL (11.2-15.7); Immature Grans % 0.9; Lymphocytes % 11.8; MCH 28.5 pg (27.0-33.0); MCHC 31.3 % (32.0-36.0); MCV 91 fL (80-95); MPV 9.4 fL (8.0-11.0); Neutrophils % 78.1; Platelet Count 315 10^3/uL (130-400); RBC 3.65 10^6/uL (3.93-5.22); RDW 15.5 % (11.7-14.6); RDW-SD 51.5 fL; WBC 9.93 10^3/uL (4.4-10.8)
[2023-07-30 13:42] LABS: ALT 25 U/L (14-59); AST 22 U/L (15-37); Albumin 2.2 g/dL (3.4-5.0); Alkaline Phosphatase 196 U/L (46-116); Anion Gap 6.8 mmol/L (3-11); BUN 17 mg/dL (7-18); Bilirubin, Total 0.4 mg/dL (0.2-1.0); C-Reactive Protein 3.73 mg/dL (0.0-0.3); CO2 26.2 mmol/L (21.0-32.0); CREATININE 0.9 mg/dL (0.55-1.02); Calcium 8.3 mg/dL (8.5-10.1); Chloride 103 mmol/L (98-107); Estimated GFR 62.65 (mL/min/1.73m2); Glucose 127 mg/dL (74-106); Sodium 136 mmol/L (136-145); Total Protein 6.2 g/dL (6.4-8.2)
--- NOTE | 2023-07-30 14:25 | PGE_ITS ---
Date of Service Date of service: 07/30/23 Time of Service: 14:25 Assessment and Plan Assessment and plan (1) Left ankle pain: Status: Acute Assessment and plan: check xray of left ankle and foot, check uric acid levels; use Tylenol and voltaren gel (2) Left foot pain: Status: Acute Assessment and plan: as above (3) Gram-positive cocci bacteremia: Status: Resolved Assessment and plan: E faecium on blood cx 07/22/23. Repeat blood cx w/ NGTD. Discussed by Dr. Latham w/ ID - feel that a single culture with E. faecium could be a contaminant and, since there is no clear focus of infection, recommendation was to stop vancomycin and see if fever recurs. IF it does recur, reculture at that point. No evidence of vegetations on the echo. Vancomycin stopped on 07/27/23. so far her blood cultures from 07/24 are no growth and she has had no fevers, her leukocytosis of 11,000 yesterday was transient, now normal at 9900. however, CRP still mildly elevated at 3.73 but trending down. I will repeat her labs tomorrow and if WBC still normal and CRP still trending down, then I think she can be dc to SNF w/out further antibiotics. (4) COVID: Status: Acute Assessment and plan: doing better. cough minimal. no fevers and no hypoxemia. she completed Remde sevir treatment 07/22-07/26. (5) Diarrhea: Status: Resolved Assessment and plan: appears to have resolved. last BM two days ago and soft and formed. C diff negative (6) Pain in both lower extremities: Status: Acute Assessment and plan: As above. Venous dopplers negative for DVT. Suspect myalgias. Treat with tylenol. will check xrays of left foot and ankle (7) Anemia: Status: Chronic Assessment and plan: Multifactorial: due to both acute blood loss and B12 deficiency. s/p 2 units pRBCS on this admission. Heme +, H/H stable despite being on SC heparin. change protonix to po from iv Monitor H/H. Note: B12 is not low, at 353 pg/mL. nevertheless she has been put on cyanocobalamin 1000 mcg daily. I will check her methylmalonic acid levels. Note her folate level is normal at 17. Her iron is low at 17, TIBC is normal at 283, transferrin saturation is low at 6%, and ferritin is normal at 115. the low transferrin saturation would suggest either iron deficiency anemia of anemia of inflammation w/ a concommittant iron deficiency. I will put her on iron supplementation and repeat her labs in 2 to 4 weeks. 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 Continue to monitor. (9) Painful orthopaedic hardware: Status: Acute Assessment and plan: S/p removal on 07/18. Seen by Dr Garcia. (10) Trochanteric bursitis, left hip: Status: Acute Assessment and plan: S/p removal of hardware. 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 SC heparin resumed and H/H is tolerating this. Subjective Subjective Interval history since last seen: Patient complains of left foot and ankle pain. She denies any fall or injury to the foot. Nursing brought this to my attention this morning when they did their a.m. assessment, yet her left foot and ankle pain has not limited her ability to ambulate Exam Narrative Exam Narrative: Patient is sitting up in her chair, alert, oriented to person/place/circumstances, she is able to give her nurse her name and prior to her meds She says that her left foot hurts; When I examined her I did not see any bruising of the left foot or ankle and no deformity Pedal pulses are intact, sensation intact to light touch No open sores and no redness of her ankle or her foot. She has some tenderness at base of 2nd MTP and she has some soreness w/ inversion or eversion of the left ankle Objective Last Vital Signs Temp 37 C 07/30/23 11:11 Pulse 73 07/30/23 11:11 Resp 18 07/30/23 11:11 BP 134/65 07/30/23 11:11 Pulse Ox 95 07/30/23 11:11 Laboratory Results - last 24 hr 07/29/23 07/29/23 07/29/23 16:04 18:43 22:21 WBC RBC Hgb Hct MCV MCH MCHC RDW Plt Count MPV Immature Gran % Neutrophils % Lymphocytes % Monocytes % Eosinophils % Basophils % Nucleated RBC % Absolute Neutrophils Absolute Lymphocytes Absolute Monocytes Absolute Eosinophils Absolute Basophils Sodium Potassium Chloride Carbon Dioxide Anion Gap BUN Creatinine Est GFR (CKD-EPI 2020) Glucose Calcium Total Bilirubin AST ALT Alkaline Phosphatase C-Reactive Protein Cancelled Total Protein Albumin Urine Color Yellow Urine Clarity Sl Cloudy Urine pH 5.5 Ur Specific [place] 1.020 Urine Protein Negative Urine Ketones Negative Urine Blood Negative Urine Nitrite Negative Urine Bilirubin Negative Urine Urobilinogen 0.2 Ur Leukocyte Esterase Trace H Urine RBC 0-2 Urine WBC 5-10 Ur Epithelial Cells Few Urine Crystals Negative Urine Bacteria Few Urine Casts Negative Urine Mucus Negative Urine Other Few Yeast Ur Culture Indicated? C&S Done As Ordered Urine Glucose Negative MRSA (TEM-PCR) Negative 07/30/23 07/30/23 13:17 13:17 WBC 9.93 RBC 3.65 L Hgb 10.4 L Hct 33.2 L MCV 91 MCH 28.5 MCHC 31.3 L RDW 15.5 H Plt Count 315 MPV 9.4 Immature Gran % 0.9 Neutrophils % 78.1 Lymphocytes % 11.8 Monocytes % 7.0 Eosinophils % 2.0 Basophils % 0.2 Nucleated RBC % 0.0 Absolute Neutrophils 7.75 H Absolute Lymphocytes 1.17 L Absolute Monocytes 0.70 Absolute Eosinophils 0.20 Absolute Basophils 0.02 Sodium 136 Potassium 4.0 Chloride 103 Carbon Dioxide 26.2 Anion Gap 6.8 BUN 17 Creatinine 0.9 Est GFR (CKD-EPI 2020) 62.65 Glucose 127 H Calcium 8.3 L Total Bilirubin 0.4 AST 22 ALT 25 Alkaline Phosphatase 196 H C-Reactive Protein 3.73 H Total Protein 6.2 L Albumin 2.2 L Urine Color Urine Clarity Urine pH Ur Specific [place] Urine Protein Urine Ketones Urine Blood Urine Nitrite Urine Bilirubin Urine Urobilinogen Ur Leukocyte Esterase Urine RBC Urine WBC Ur Epithelial Cells Urine Crystals Urine Bacteria Urine Casts Urine Mucus Urine Other Ur Culture Indicated? Urine Glucose MRSA (TEM-PCR) Time Spent with Patient Time Spent with Patient: 35-49 minutes Time was spent: preparing to see the patient(eg.review tests), ordering medications,tests, procedures, referring, communicating with other health residential caregiver, indepentently interpreting results, counseling the patient and care coordination
--- NOTE | 2023-07-30 14:29 | PT.INTREAT ---
Date of service: 07/30/23 Time of Service: 11:55 PT Notes Visit Reasons: Covid, anemia Inpatient Physical Therapy Treatment [facility] Date: 07/30/2023 PRECAUTIONS: Fall, standard, activity as tolerated. [place] PRECAUTIONS FOR CASSIE-19 SUBJECTIVE: Stated she is doing pretty good today, but wishes she could have a bowel movement. OBJECTIVE: ? PAIN: Not bad today. Left hips is feeling pretty good. VITALS: ? Pre-Treatment: O2 97% with HR of 87b/m ? Post-Ambulation: O2 95% with HR of 92 b/m ? Therapeutic Activities (05491e8): Direct one-on-one instruction in dynamic activities to improve functional performance. ? BED MOBILITY/TRANSFERS? Up in recliner when I arrived to patient's room ? Sit-stand: CGA? Stand-sit: CGA ? Provided skilled cues and instruction on performance and technique throughout. ? GAIT? Assistive Device: FWW ? Weight bearing: Full Assist: CGA- SBA ? Distance:?70ft - in room ? Deviation: Slow controlled pace? Therapeutic Exercises (20051x2): Direct one-on-one instruction in therapeutic exercises to develop strength, endurance, range of motion and flexibility. ? Exercises Chest Expansion with bilateral arm flex/ ext x 10 reps ? Seated march x 10 reps ? Chest Expansion with bilateral horizontal shoulder abd/add x 10 reps ? LAQ x10 reps ? Chest Expansion with bilateral arm flex/ ext x 10 reps ? Chair push ups x 6, performed while in recliner. ? ASSESSMENT:? Tolerated ambulation within room very well and good effort with ther exercise also. PLAN: Continue to focus on improved ADL function as per POC. TREATMENT CODE/TIME: 75841g0, 11:55 to 12:15 (20')
[2023-07-30 14:51] LABS: Lab Add On Test DONE
[2023-07-30] MEDS: Acetaminophen 325 MG TAB PO (15:11)
[2023-07-30 15:20] VITALS: BP 123/79; PULSE 75; RESP 18; TEMP 36.6; O2SAT 96
[2023-07-30 15:22] LABS: Uric Acid 4.3 mg/dL (2.6-6.0)
--- NOTE | 2023-07-30 15:43 | DI.VRAD_ITS ---
PROCEDURE INFORMATION: Exam: XR Left Ankle Exam date and time: 07/30/2023 3:09 PM Age: 83 years old Clinical indication: Pain; Ankle; Left TECHNIQUE: Imaging protocol: Radiologic exam of the left ankle. Views: 3 or more views. COMPARISON: CR XR FOOT LT COMPLETE 07/30/2023 3:05 PM FINDINGS: Bones/joints: There is no evidence of acute fracture in any of the visualized osseous structures.. There is no evidence of malalignment or dislocation of any visualized joint. Soft tissues: Bimalleolar soft tissue swelling IMPRESSION: 1. There is no evidence of acute fracture in any of the visualized osseous structures.. 2. There is no evidence of malalignment or dislocation of any visualized joint. Dictated and Authenticated by: Daly Gore MD. [facility] Sulema Sprague MD
--- NOTE | 2023-07-30 15:44 | DI.VRAD_ITS ---
PROCEDURE INFORMATION: Exam: XR Left Foot Exam date and time: 07/30/2023 3:05 PM Age: 83 years old Clinical indication: Left; Patient HX: L foot pain TECHNIQUE: Imaging protocol: Radiologic exam of the left foot. Views: 3 or more views. 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 Degenerative changes in the 1st metatarsophalangeal joint and IP joint. There is no evidence of acute fracture in any of the visualized osseous structures.. There is no evidence of malalignment or dislocation of any visualized joint. Soft tissues: Normal. IMPRESSION: 1. There is no evidence of acute fracture in any of the visualized osseous structures.. 2. There is no evidence of malalignment or dislocation of any visualized joint. Dictated and Authenticated by: Daly Gore MD. Ordering:[facility] Sulema Sprague MD
[2023-07-30] MEDS: Fosfomycin Tromethamine 3 GM PACKET PO (18:11)
[2023-07-30 19:22] VITALS: BP 123/72; PULSE 79; RESP 18; TEMP 37.1; O2SAT 97
[2023-07-30] MEDS: Donepezil 5 MG TAB PO (20:40)
[2023-07-31] VITALS: BP 130/59; PULSE 73; RESP 18; TEMP 36.7; O2SAT 97
[2023-07-31] MEDS: Heparin 5,000 UNITS/ML VIAL 5000 UNITS SC ×2 (05:12→17:15)
[2023-07-31 05:22] VITALS: BP 132/63; PULSE 76; RESP 18; TEMP 36.7; O2SAT 96
[2023-07-31] MEDS: Ferrous Sulfate 325 MG TAB PO (08:17)
[2023-07-31] MEDS: Cholecalciferol (Vitamin D3) 1,000 UNIT TAB 2000 UNITS PO (08:17)
[2023-07-31] MEDS: Pantoprazole 20 MG TABCR PO (08:17)
[2023-07-31] MEDS: Zinc Sulfate 220 MG TAB PO (08:17)
[2023-07-31] MEDS: Ascorbic Acid 500 MG TAB PO ×2 (08:17→19:30)
[2023-07-31] MEDS: Gabapentin 100 MG CAP PO (08:17)
[2023-07-31] MEDS: Losartan 50 MG TAB 100 MG PO (08:18)
[2023-07-31] MEDS: Cyanocobalamin 500 MCG TAB 1000 MCG PO (08:18)
--- NOTE | 2023-07-31 10:44 | CMPROGNOTE_ITS ---
Date of service: 07/31/23 Time of Service: 10:44 Care Management Progress Note Progress Note Text Progress Note Text: S/O:? Amelia remains on covid precautions, tomorrow is day #10. PCR done today was positive, however she may test positive for several weeks so clarification is needed for the validity of result. LT ABX course is no longer needed. CM updated pts sister Amelia and will continue to follow. CM will follow. A:? Amelia is an 83 year old female admitted to [facility] on 07/22/23 for Covid and Anemia. P:? Waiting to find out what her ABX course will be, if any. Amelia will likely require SNF for STR vs. SWB when medically cleared by provider. ? [facility], [facility] for [facility].??Bed offer accepted at [facility]? 08/01/23.? CM will continue to follow.? ?
[2023-07-31] MEDS: Diclofenac 1% Gel 100 GM TUBE TP ×3 (11:54→19:32)
[2023-07-31 11:59] VITALS: BP 128/70; PULSE 70; RESP 18; TEMP 36.7; O2SAT 97
--- NOTE | 2023-07-31 12:38 | PGE_ITS ---
Date of Service Date of service: 07/31/23 Time of Service: 12:38 Assessment and Plan Assessment and plan (1) Left ankle pain: Status: Acute Assessment and plan: xray negative for any acute mikie abnormalities. continue Voltaren gel and titrate up her gabapentin (2) Left foot pain: Status: Acute Assessment and plan: as above (3) Gram-positive cocci bacteremia: Status: Resolved Assessment and plan: E faecium on blood cx 07/22/23. Repeat blood cx 07/24 w/ NGTD. Discussed by Dr. Latham w/ ID - feel that a single culture with E. faecium could be a contaminant and, since there is no clear focus of infection, recommendation was to stop vancomycin and see if fever recurs. IF it does recur, reculture at that point. No evidence of vegetations on the echo. Vancomycin stopped on 07/27/23. Leukocytosis has resolved (4) COVID: Status: Acute Assessment and plan: Markedly improved. No cough and no dyspnea. she completed Remdesevir treatment 07/22-07/26. although her antigen test remains positive (5) Diarrhea: Status: Resolved Assessment and plan: appears to have resolved. last BM two days ago and soft and formed. C diff negative She is actuially now constipated. I will resume stool softeners (6) Pain in both lower extremities: Status: Acute Assessment and plan: likely neuropathy. adjust gabapentin as above (7) Anemia: Status: Chronic Assessment and plan: Multifactorial: due to both acute blood loss and B12 deficiency. s/p 2 units pRBCS on this admission. Heme +, H/H stable despite being on SC heparin. change protonix to po from iv Monitor H/H. Note: B12 is not low, at 353 pg/mL. nevertheless she has been put on cyanocobalamin 1000 mcg daily. I will check her methylmalonic acid levels. Note her folate level is normal at 17. Her iron is low at 17, TIBC is normal at 283, transferrin saturation is low at 6%, and ferritin is normal at 115. the low transferrin saturation would suggest either iron deficiency anemia of anemia of inflammation w/ a concommittant iron deficiency. I will put her on iron supplementation and repeat her labs in 2 to 4 weeks. 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 Continue to monitor. (9) Painful orthopaedic hardware: Status: Acute Assessment and plan: S/p removal on 07/18. Seen by Dr Garcia. (10) Trochanteric bursitis, left hip: Status: Acute Assessment and plan: S/p removal of hardware. As above (11) Irritable bowel syndrome: Status: Chronic Assessment and plan: Continue prn dicyclomine Qualifiers: Irritable bowel syndrome type: with both diarrhea and constipation Qualified Code(s): K58.2 - Mixed irritable bowel syndrome (12) Discharge planning issues: Status: Acute Assessment and plan: Full code Continues to require hospitalization Patient has been accepted to [facility] pending negative COVID antigen or 10 days since her diagnosis and asymptomatic status (13) DVT prophylaxis: Status: Acute Assessment and plan: SCDs. SC heparin resumed and H/H is tolerating this. Subjective Subjective Interval history since last seen: Patient states that her appetite is good. No nausea or abdominal complaints other than some constipation. No dyspnea or cough. As for her left foot pain, it is tender to the touch over the dorsum of the foot but not on the heel or MTP joints and no pain w/ weight bearing. Xray yesterday of her left foot and ankle was negative for any fracures. I think this may be a neuropathy. She is already on gabapentin 100 mg tid, I will increase this to 200 mg tid to see if she can get some relief. Unfortunately her SARS-COV2 antigen test remains positive and [facility] will not take her until she has been 10 days out from her initial infection and she has been asymptomatic and afebrile which she is. She is now 9 days out from diagnosis. Exam Narrative Exam Narrative: Amelia is sitting up in her chair eating her lunch. N.A.D Lungs: clear Heart: RRR Abdomen: soft, nontender, nondistended Legs/feet: no edema, left foot sensitive to touch over dorsum of the foot but w/out redness or swelling. Objective Last Vital Signs Temp 36.7 C 07/31/23 11:59 Pulse 70 07/31/23 11:59 Resp 18 07/31/23 11:59 BP 128/70 07/31/23 11:59 Pulse Ox 97 07/31/23 11:59 Laboratory Results - last 24 hr 07/30/23 07/30/23 07/30/23 13:17 13:17 13:17 WBC 9.93 RBC 3.65 L Hgb 10.4 L Hct 33.2 L MCV 91 MCH 28.5 MCHC 31.3 L RDW 15.5 H Plt Count 315 MPV 9.4 Immature Gran % 0.9 Neutrophils % 78.1 Lymphocytes % 11.8 Monocytes % 7.0 Eosinophils % 2.0 Basophils % 0.2 Nucleated RBC % 0.0 Absolute Neutrophils 7.75 H Absolute Lymphocytes 1.17 L Absolute Monocytes 0.70 Absolute Eosinophils 0.20 Absolute Basophils 0.02 Sodium 136 Potassium 4.0 Chloride 103 Carbon Dioxide 26.2 Anion Gap 6.8 BUN 17 Creatinine 0.9 Est GFR (CKD-EPI 2020) 62.65 Glucose 127 H Uric Acid Calcium 8.3 L Total Bilirubin 0.4 AST 22 ALT 25 Alkaline Phosphatase 196 H C-Reactive Protein 3.73 H Total Protein 6.2 L Albumin 2.2 L Add-On Test Request DONE 07/30/23 13:17 WBC RBC Hgb Hct MCV MCH MCHC RDW Plt Count MPV Immature Gran % Neutrophils % Lymphocytes % Monocytes % Eosinophils % Basophils % Nucleated RBC % Absolute Neutrophils Absolute Lymphocytes Absolute Monocytes Absolute Eosinophils Absolute Basophils Sodium Potassium Chloride Carbon Dioxide Anion Gap BUN Creatinine Est GFR (CKD-EPI 2020) Glucose Uric Acid 4.3 Calcium Total Bilirubin AST ALT Alkaline Phosphatase C-Reactive Protein Total Protein Albumin Add-On Test Request Time Spent with Patient Time Spent with Patient: 25-34 minutes Time was spent: preparing to see the patient(eg.review tests), ordering medications,tests, procedures, referring, communicating with other health manager home healthcare, indepentently interpreting results, counseling the patient and care coordination
[2023-07-31] MEDS: Gabapentin 100 MG CAP 200 MG PO ×2 (13:59→19:30)
--- NOTE | 2023-07-31 14:45 | W.PM.PROGNOT ---
Date of Service Date of service: 07/31/23 Time of Service: 13:05 Assessment and Plan Assessment and plan (1) Left ankle pain: Status: Acute Assessment and plan: Amelia has some complaints of left ankle pain but I do not find any true source for this. She does have pain over the lateral malleolus but the x-rays are negative. Her description of this burning sensation would suggest that is mostly related to some neuropathy which she has already. It could also be positioning with compression of the superficial peroneal nerve. Either way, I would continue to treat this with other supportive medications and methods. (2) Trochanteric bursitis, left hip: Status: Acute Assessment and plan: Amelia is about 2 weeks status post removal hardware from the left hip with iliotibial band lengthening as well as bursectomy. The dressings may be removed prior to discharge to the skilled facility. I will see her back in the office in 4 weeks. Weightbearing as tolerated. No restrictions. Subjective Subjective Interval history since last seen: Amelia reports no significant pain of the left hip. She has been having some pain in the left ankle. However, when I put her on this discomfort about the left ankle she reports this more of a tingling sensation when she tries to get out of the bed. It has not necessarily affected her ability to weight-bear and she is unable to reproduce it. However, she did find that it was quite painful the other day when getting out of the bed. Has not been persistent. She had recent x-rays of the left ankle which did not show any signs of fracture. She does have some osteopenia. She has been able to mobilize physical therapy. She is still on airborne precautions due to COVID infection but generally has less discomfort than she had previously. She had no issues with the left hip wound. Exam Narrative Exam Narrative: No acute distress. Evaluation of the left hip shows a clean dry and intact dressing. No significant ecchymosis. The thigh is soft. Further evaluation of the left lower leg and ankle and foot demonstrates no notable defect. There is no pain to palpation except slight amount over the lateral malleolus. However, there is no pain with maximal dorsiflexion nor dorsiflexion external rotation. She is able to demonstrate active eversion of the left foot as well as active dorsiflexion. Reported sensation is intact to light touch over the deep and superficial peroneal nerve and tibial nerve. Objective Last Vital Signs Temp 36.7 C 07/31/23 11:59 Pulse 70 07/31/23 11:59 Resp 18 07/31/23 11:59 BP 128/70 07/31/23 11:59 Pulse Ox 97 07/31/23 11:59 Laboratory Results - last 24 hr 07/30/23 07/30/23 13:17 13:17 Uric Acid 4.3 Add-On Test Request DONE Objective Narrative Objective Narrative: X-ray of the left foot and ankle does not demonstrate any signs of fracture. No malalignment. No significant arthritis. No suspicious lesions. Time Spent with Patient Time Spent with Patient: 25-34 minutes Time was spent: ordering medications,tests, procedures, indepentently interpreting results and counseling the patient
[2023-07-31 14:55] VITALS: BP 125/76; PULSE 79; RESP 18; TEMP 36.8; O2SAT 96
--- NOTE | 2023-07-31 15:26 | PT.INTREAT ---
Date of service: 07/31/23 Time of Service: 15:00 PT Notes Visit Reasons: Covid, anemia Inpatient Physical Therapy Treatment Note [facility] Date: 07/31/23 PRECAUTIONS: Fall, standard, activity as tolerated. AIRBORNE PRECAUTIONS FOR COVID-19. SUBJECTIVE: Patient reports feeling stiff today. ANTONIO Csota also reports that patient has been stiff. OBJECTIVE: sitting up in recliner, agreeable to therapy. ? PAIN: Yes, patient reports pain and stiffness in left thigh. VITALS: monitored by nursing staff? ? ? BED MOBILITY/TRANSFERS? Rolling L/R: not assessed Supine-sit: not assessed ? Sit-supine: not assessed ? Sit-stand: independent? Stand-sit: CGA for safety, patient attempted to sit too far from chair. ? Bed-Chair: CGA ? Chair-bed: CGA Gait Training ([id number]): Direct one-on-one instruction and skilled instruction in: [] employing an assistive device [] modified weight-bearing status [x] movement sequencing [] turning and movement with proper form [x] Provided verbal cues for equipment management and technique [x] Provided instruction in gait pattern [] Patient education regarding pacing and breathing techniques to maximize activity tolerance? GAIT? Assistive Device: FWW? Weight bearing: full Assist: CGA? Distance:? 20 feet x2, 50 feet x1 ? Deviation: Patient initially steps forward with left leg, steps right leg up only to the back of the left foot. As she warms up, she steps right foot to about the middle of the left foot, then steps forward with the left foot. 2x5 leg swings bilaterally with verbal and tactile cues to facilitate longer and more equal step length, after which patient moves with a more symmetrical step pattern. On average, 10 steps from chair to door before leg swings, 7 steps from chair to door after leg swings. ? ASSESSMENT:? Patient tolerates therapy well, no c/o increased pain, no SOB, no LOB. Returns to sit in recliner and reports that she is comfortable. [place] easily accessible. PLAN: Continue global strengthening per plan of care until patient is medically cleared for discharge. TREATMENT CODE/TIME: 25 minutes beginning at 15:00
[2023-07-31 19:29] VITALS: BP 113/65; PULSE 83; RESP 18; TEMP 37.2; O2SAT 96
[2023-07-31] MEDS: Docusate Sodium 100 MG/10 ML CUP 50 MG PO (19:31)
[2023-07-31] MEDS: Acetaminophen 325 MG TAB PO (19:49)
[2023-07-31] MEDS: Donepezil 5 MG TAB PO (21:35)
[2023-08-01 03:20] VITALS: BP 112/69; PULSE 67; RESP 16; TEMP 35.8; O2SAT 98
[2023-08-01 05:26] VITALS: TEMP 36.3; O2SAT 98
[2023-08-01] MEDS: Normal Saline Flush 10 ML SYR IVP ×2 (05:28→14:28)
[2023-08-01] MEDS: Heparin 5,000 UNITS/ML VIAL 5000 UNITS SC ×2 (05:29→18:35)
[2023-08-01 07:07] LABS: Abs Immature Grans 0.07 10^3/uL (0.0-0.06); Absolute Basophil Count 0.02 10^3/uL (0.0-0.2); Absolute Eosinophil Count 0.28 10^3/uL (0.0-0.7); Absolute Lymphocyte Count 1.67 10^3/uL (1.2-3.4); Absolute Neutrophil Count 4.76 10^3/uL (1.2-6.7); Basophils % 0.3; Eosinophils % 3.7; HCT 32.2 % (36.0-46.0); HGB 10.2 g/dL (11.2-15.7); Immature Grans % 0.9; MCH 28.7 pg (27.0-33.0); MCHC 31.7 % (32.0-36.0); MCV 91 fL (80-95); MPV 9.6 fL (8.0-11.0); Monocytes % 10.5; Neutrophils % 62.6; Platelet Count 332 10^3/uL (130-400); RBC 3.55 10^6/uL (3.93-5.22); RDW 15.8 % (11.7-14.6); RDW-SD 52.5 fL
[2023-08-01 07:29] LABS: C-Reactive Protein 2.15 mg/dL (0.0-0.3)
[2023-08-01] MEDS: Gabapentin 100 MG CAP 200 MG PO ×3 (07:40→20:24)
[2023-08-01] MEDS: Losartan 50 MG TAB 100 MG PO (07:41)
[2023-08-01] MEDS: Ascorbic Acid 500 MG TAB PO ×2 (07:41→20:24)
[2023-08-01] MEDS: Ferrous Sulfate 325 MG TAB PO (07:42)
[2023-08-01] MEDS: Pantoprazole 20 MG TABCR PO (07:42)
[2023-08-01] MEDS: Cyanocobalamin 500 MCG TAB 1000 MCG PO (07:42)
[2023-08-01] MEDS: Cholecalciferol (Vitamin D3) 1,000 UNIT TAB 2000 UNITS PO (07:42)
[2023-08-01] MEDS: Zinc Sulfate 220 MG TAB PO (07:42)
[2023-08-01 08:07] VITALS: BP 148/82; PULSE 70; RESP 16; TEMP 36.4; O2SAT 98
--- NOTE | 2023-08-01 11:52 | DSE_ITS ---
Date of service: 08/02/23 Time of Service: 09:30 DS: Diagnosis Discharge Diagnosis (1) Left ankle pain: Status: Acute (2) Trochanteric bursitis, left hip: Status: Acute Discharge Plan Disposition Patient Disposition: Long-Term Facility(SNF) Condition: Stable Discharge Details Reason For Visit: Covid, anemia Admit Date/Time: 07/22/23 13:03 Admit Provider: Leo Diaz Attending Provider: Leo Diaz Primary Care Provider: Virginia Pino Hospital Course Hospital Course: This is a 83-year-old female patient with past medical history significant for dementia who was followed by orthopedics for complaints of left leg pain. She was diagnosed with painful hardware and trochanteric bursitis. She was taken to the OR on July [address]. Garcia remove painful hardware from her left leg. She had no complications and was discharged home after her surgery but unfortunately returned back to the emergency department with complaints of weakness and fever. She was also experiencing cough headache runny nose. She did test positive for COVID 19. She was also found to be anemic. She required 2 units of packed red blood cells and was started on supplemental iron. She was admitted to hospitalist services and treated with remdesivir. She had no oxygen requirements. Blood cultures did grow gram- positive cocci so vancomycin was added. Ultimately it was thought these blood cultures were contaminant as it was only 1 bottle and repeat cultures remained negative. Orthopedics continue to follow and there was no postoperative complications. Her pain persisted and she continued to have pain in her left ankle and this was evaluated by orthopedics that did not see any etiology for her symptoms. Thought to be neuropathy and gabapentin continued. She was working with physical therapy and did not appropriate for discharge to home Case management following and referrals were placed for skilled rehabilitation. She has been accepted at [facility] and rehab in today 10 days postinfection has tested negative by antigen for COVID. Discharged discussed with Dr. La Home Meds and New Rx's Prescriptions: New ferrous sulfate 325 mg (65 mg iron) Tablet 325 mg PO DAILY Qty: 0 0RF pantoprazole 20 mg Tablet,Delayed Release (Dr/Ec) 20 mg PO DAILY@0730 Qty: 0 0RF Continued MaxiVision 1 cap PO DAILY cholecalciferol (vitamin D3) 25 mcg (1,000 unit) capsule 25 mcg PO DAILY Qty: 90 3RF Rx Instructions: /take one capsule daily loperamide 2 mg capsule 2 mg PO Q6H PRN (Reason: loose stool) Qty: 90 1RF losartan 100 mg tablet 100 mg PO DAILY Qty: 90 4RF dicyclomine 10 mg capsule 10 mg PO BID PRN (Reason: IBS) Qty: 120 3RF lidocaine [Lidoderm] 5 % adhesive patch,medicated 2 patch topical DAILY Qty: 30 12RF Rx Instructions: leave on most painful area for up to 12 hrs clotrimazole 1 % cream 1 applic topical BID Qty: 45 0RF Rx Instructions: Apply to affected areas twice a dayfor 2-4wks donepezil 5 mg tablet 5 mg PO QHS Qty: 30 3RF meloxicam 15 mg tablet 15 mg PO DAILY Qty: 30 1RF Rx Instructions: Take one tablet daily for inflammation and pain fluticasone propionate 50 mcg/actuation spray,suspension 2 spray intranasal DAILY PRN (Reason: allergy symptoms) Qty: 16 11RF Rx Instructions: administer into each nostril docusate sodium 50 mg Capsule 50 mg PO PRN PRN acetaminophen 500 mg tablet 1,000 mg PO Q8H PRN Qty: 90 0RF Rx Instructions: Take two tablets up to every 8 hours as needed for pain tramadol 50 mg tablet 50 mg PO Q4H PRN (Reason: severe postoperative pain) Qty: 18 0RF Rx Instructions: Take one tablet up to every 4 hours as needed for severe pain acetaminophen [Tylenol] 325 mg Tablet 650 mg PO Q6H PRN PRN (Reason: fever or pain) Qty: 1 0RF Changed gabapentin 100 mg capsule 200 mg PO TID Qty: 90 12RF Discharge Instructions Instructions: Hip Bursitis (ED), Arthralgia (ED), Anemia (DC), COVID-19 (Coronavirus Disease 2019) (DC) Additional Instructions: Weightbearing as tolerated.? No restrictions. can leave surgical wound open to air. Stand Alone Forms: Nursing Discharge Form Referrals: Colin Garcia MD [ [facility] ST[facility]FF [facility]YSICIAN] - 08/28/23 2:00 pm () Activity:: Activity as Tolerated Equipment/Supplies:: No Equipment Needed Diet:: As Tolerated Discharge Orders Discharge Orders: Discharge Order (Routine); Ordered 08/01/23 Ordered By: Giselle Watts DS: Summary Time Spent with Patient providing and/or coordinating discharge services: Greater than 30 minutes Status at Discharge Functional status at discharge: uses cane/walker Overall status at discharge: patient is progressing back to baseline Mental Status: mental status grossly normal Speech and Movement: speech and movement normal Mood: congruent mood Affect: normal affect Exam Const General: cooperative, healthy appearing and no acute distress Orientation: alert and awake HENMT Head: normal to inspection Face and sinus: normal facial exam Eyes General: appearance normal, both eyes and all related structures Neck Neck: normal visual inspection Chest Chest: normal inspection of the chest Resp Effort & Inspection: normal respiratory effort and able to speak in complete sentences Auscultation: clear to auscultation bilaterally Cardio Rate: regular rate Rhythm: regular rhythm GI Inspection: normal to inspection Palpation: soft and nontender Skin Trauma: other (surgical dressing intact, no drainage, no surrounding erythema) Neuro General: patient alert and patient awake Speech: speech normal Motor: muscle tone normal throughout Sensory Exam: no sensory deficits noted Extrem General: normal to inspection and full ROM Psych Appearance: grossly normal Mental Status: mental status grossly normal Speech and Movement: speech and movement normal Mood: congruent mood Affect: normal affect DS: Data Vitals/I&O Vitals and I&O: Vital Signs Temperature 36.4 C L 08/01/23 08:07 Temperature Source Tympanic 08/01/23 08:07 Pulse 70 08/01/23 08:07 Pulse Rhythm Regular 08/01/23 08:00 Pulse 81 07/22/23 14:10 Respiratory Rate 16 08/01/23 08:07 Respiratory Effort Normal, Non-Labored 08/01/23 08:00 Respiratory Depth Normal 08/01/23 08:00 Respiratory Pattern Normal 08/01/23 08:00 Blood Pressure 148/82 H 08/01/23 08:07 Blood Pressure Mean 90 07/24/23 20:13 Blood Pressure Position Supine 07/22/23 14:45 Pulse Oximetry 98 08/01/23 08:07 Respiratory End-tidal CO2 24 07/22/23 11:03 Oxygen Delivery Method Room Air 08/01/23 08:07 Oxygen Flow Rate 0 08/01/23 08:07 Pain Level 0 08/01/23 03:20 Comment Pt. denies pain at this time. 07/25/23 14:46 Comment Right wrist 07/22/23 18:14 Intake & Output 07/31/23 07/31/23 08/01/23 11:59 23:59 11:59 Intake Total 480 / 1140 660 / 1140 300 / 300 Output Total 650 / 650 Balance 480 / 1140 660 / 1140 -350 / -350 Intake: Oral 480 / 1140 660 / 1140 300 / 300 Output: Urine 650 / 650 Other: Urine Color Yellow Yellow Yellow Urine Appearance Clear Clear Urine Odor None None Comment unmeasured, mixed with stool Stool Size Small Moderate Stool Characteristics Soft Formed Brown Voiding Methods Toilet Diaper Diaper Bedside Commode Incontinent Incontinent Data Completed and Pending Labs on day of discharge: Labs from last 24 hours 08/01/23 08/01/23 06:30 06:30 WBC 7.60 RBC 3.55 L Hgb 10.2 L Hct 32.2 L MCV 91 MCH 28.7 MCHC 31.7 L RDW 15.8 H Plt Count 332 MPV 9.6 Immature Gran % 0.9 Neutrophils % 62.6 Lymphocytes % 22.0 Monocytes % 10.5 Eosinophils % 3.7 Basophils % 0.3 Nucleated RBC % 0.0 Absolute Neutrophils 4.76 Absolute Lymphocytes 1.67 Absolute Monocytes 0.80 Absolute Eosinophils 0.28 Absolute Basophils 0.02 C-Reactive Protein 2.15 H PFSH All Active Problems (Updated 08/01/23 @ 13:41 by Giselle Watts NP) Left foot pain (Acute) Left ankle pain (Acute) DVT prophylaxis (Acute) Pain in both lower extremities (Acute) Discharge planning issues (Acute) Anemia (Chronic) Hypertension (Chronic) Iron deficiency anemia (Chronic) Osteoporosis (Chronic) Irritable bowel syndrome (Chronic) prior evaluation with [facility] Low back pain (Acute) Vitamin D deficiency (Acute) Sciatica (Acute) Emphysema lung (Acute) GERD (gastroesophageal reflux disease) (Chronic) Hiatal hernia (Chronic) 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 Jani Rothman. Squamous mucosa with reactive changes. Gastric type mucosa with chronic and focally active inflammation but no intestinal metaplasia or dysplasia. No helical factor pylori microorganisms identified. EGD 07/13/18, Dr. Azar Eldridge, [facility], dilatation of lower esophageal stricture Breast cancer C. difficile enteritis at hospitalization may 2014 Deep vein thrombosis Diverticulitis (09/19/14) May 2014 [facility] sigmoid resection and colostomy post op infection and malnutrition February 2015 colostomy takedown (post op infection) History of esophageal stricture Hx of fracture of left hip s/p short TFN Dr. Mathis DOS: 10/11/19 Hydrocephalus in adult s/p admission to [facility] for lumbar puncture; no change in pressures. NPH ruled out. Hypothyroidism (08/10/12) Incidental lung nodule, > 3mm and < 8mm on xray and CT scan with contrast / [facility] pulm. Indeterminate colitis (02/04/16) 01/22/16 colonoscopy at [facility] Malignant neoplasm of female breast (09/21/92) R MAST AND RECONSTRUCTION. 10/25 INFLAMMATION AT [facility] BX WAS NEG FOR MALIGNANCY Ventral hernia without obstruction or gangrene Surgical History Colectomy (~05/2014) for colon stricture presumed to be from diverticulitis colostomy reversal History of mastectomy (~1994) right mastectomy (no radiation or chemotherapy); s/p reconstruction after the mastectomy Laparotomy (06/08/14) for [place] leak. End colostomy done Family History Mother , 84 Essential hypertension COPD (chronic obstructive pulmonary disease) Father , 51 Stomach cancer Mouth cancer Brother No problems noted. Maternal Grandfather No problems noted. Paternal Grandfather No problems noted. Maternal Grandmother No problems noted. Paternal Grandmother No problems noted. Sister No problems noted. Sister COPD (chronic obstructive pulmonary disease) Social History Smoking/Tobacco Use Status: Former Tobacco Use tobacco type: cigarettes Quit Date: 10/23/94 Pack-years: 40 Tobacco: How many years used: 40 Second Hand Exposure: No Smoking risk assessment performed?: Yes Alcohol Intake: never Drug use: Never Substance use type: does not use Caregiver/Support person: Yes Household members: none Housing: house Communication Needs: None Do you need help understanding health information?: Never Pets and animals: No Sexually active: No Current gender identity: female What is your relationship status?: never How often do you talk on the phone with friends or family?: three or more times per week How often do you get together with friends or relatives?: three or more times per week How often do you attend holiness or protestant services?: decline to answer Do you belong to any clubs or organized social groups?: no Panel score (0-1 are the most socially isolated patients): 1 What type of physical activity do you participate in: decline to answer Duration: decline to answer Frequency: decline to answer Leslie/Christianity: No preference Special leslie needs: No Seatbelt use: always Drive intox or ride w/intox cement truck driver: No Additional Social history: unable to assess privately History History 0 Para 0 Hx # Term Pregnancies 0 Multiple births Hx # Pregnancies 0 Ectopic pregnancies AB induced 0 Hx Number of Living Children 0 AB spontaneous 0 Time Spent with Patient Time Spent with Patient: 45-69 minutes Time was spent: preparing to see the patient(eg.review tests), ordering medications,tests, procedures and counseling the patient
[2023-08-01] MEDS: Diclofenac 1% Gel 100 GM TUBE TP ×3 (12:06→20:26)
--- NOTE | 2023-08-01 13:39 | W.PM.PROGNOT ---
Date of Service Date of service: 08/01/23 Time of Service: 13:39 Assessment and Plan Assessment and plan (1) Left ankle pain: Status: Acute Assessment and plan: xray negative for any acute mikie abnormalities. continue Voltaren gel and titrate up her gabapentin (2) Left foot pain: Status: Acute Assessment and plan: as above (3) Gram-positive cocci bacteremia: Status: Resolved Assessment and plan: E faecium on blood cx 07/22/23. Repeat blood cx 07/24 w/ NGTD. Discussed by Dr. Latham w/ ID - feel that a single culture with E. faecium could be a contaminant and, since there is no clear focus of infection, recommendation was to stop vancomycin and see if fever recurs. IF it does recur, reculture at that point. No evidence of vegetations on the echo. Vancomycin stopped on 07/27/23. Leukocytosis has resolved (4) COVID: Status: Resolved Assessment and plan: Markedly improved. No cough and no dyspnea. she completed Remdesevir treatment 07/22-07/26. her antigen test now negative (5) Pain in both lower extremities: Status: Acute Assessment and plan: likely neuropathy. continue gabapentin as above (6) Anemia: Status: Chronic Assessment and plan: Multifactorial: due to both acute blood loss and B12 deficiency. s/p 2 units pRBCS on this admission. Heme +, H/H stable despite being on SC heparin. change protonix to po from iv Monitor H/H. Note: B12 is not low, at 353 pg/mL. nevertheless she has been put on cyanocobalamin 1000 mcg daily. I will check her methylmalonic acid levels. Note her folate level is normal at 17. Her iron is low at 17, TIBC is normal at 283, transferrin saturation is low at 6%, and ferritin is normal at 115. the low transferrin saturation would suggest either iron deficiency anemia of anemia of inflammation w/ a concommittant iron deficiency. I will put her on iron supplementation and repeat her labs in 2 to 4 weeks. 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 Continue to monitor. (8) Painful orthopaedic hardware: Status: Acute Assessment and plan: S/p removal on 07/18. Seen by Dr Garcia. can leave dressing off and wound open to air, no complications needs follow up outpatient in 4 weeks full weight bear as tolerated, continue PT/OT (9) Trochanteric bursitis, left hip: Status: Acute Assessment and plan: S/p removal of hardware. As above (10) Irritable bowel syndrome: Status: Chronic Assessment and plan: Continue prn dicyclomine Qualifiers: Irritable bowel syndrome type: with both diarrhea and constipation Qualified Code(s): K58.2 - Mixed irritable bowel syndrome (11) DVT prophylaxis: Status: Acute Assessment and plan: SCDs. SC heparin resumed and H/H is tolerating this. (12) Discharge planning issues: Status: Acute Assessment and plan: Full code Patient has been accepted to [facility]& pending for tomorrow Her COVID antigen is now negative and today is day 10 since her diagnosis and shis is asymptomatic discussed with DR Leone Subjective Subjective Patient reports: no new complaints, still having pain, tolerating liquids well, tolerating a regular diet, voiding w/o difficulty and afebrile Exam Const General: cooperative, healthy appearing and no acute distress Orientation: alert and awake HENGA Head: normal to inspection Face and sinus: normal facial exam Eyes General: appearance normal, both eyes and all related structures Neck Neck: normal visual inspection Chest Chest: normal inspection of the chest Resp Effort & Inspection: normal respiratory effort and able to speak in complete sentences Auscultation: clear to auscultation bilaterally Cardio Rate: regular rate Rhythm: regular rhythm GI Inspection: normal to inspection Palpation: soft and nontender Skin Trauma: other (surgical dressing intact, no drainage, no surrounding erythema) Neuro General: patient alert and patient awake Speech: speech normal Motor: muscle tone normal throughout Sensory Exam: no sensory deficits noted Extrem General: normal to inspection and full ROM Psych Appearance: grossly normal Mental Status: mental status grossly normal Speech and Movement: speech and movement normal Affect: normal affect Objective Last Vital Signs Temp 36.4 C L 08/01/23 08:07 Pulse 70 08/01/23 08:07 Resp 16 08/01/23 08:07 BP 148/82 H 08/01/23 08:07 Pulse Ox 98 08/01/23 08:07 Laboratory Results - last 24 hr 08/01/23 08/01/23 06:30 06:30 WBC 7.60 RBC 3.55 L Hgb 10.2 L Hct 32.2 L MCV 91 MCH 28.7 MCHC 31.7 L RDW 15.8 H Plt Count 332 MPV 9.6 Immature Gran % 0.9 Neutrophils % 62.6 Lymphocytes % 22.0 Monocytes % 10.5 Eosinophils % 3.7 Basophils % 0.3 Nucleated RBC % 0.0 Absolute Neutrophils 4.76 Absolute Lymphocytes 1.67 Absolute Monocytes 0.80 Absolute Eosinophils 0.28 Absolute Basophils 0.02 C-Reactive Protein 2.15 H Time Spent with Patient Time Spent with Patient: 25-34 minutes Time was spent: preparing to see the patient(eg.review tests), obtaining and/or reviewing separately otained hiistory, indepentently interpreting results, counseling the patient and care coordination
--- NOTE | 2023-08-01 13:59 | CMPROGNOTE_ITS ---
Date of service: 08/01/23 Time of Service: 14:14 Care Management Progress Note Progress Note Text Progress Note Text: S/O: Amelia remains on covid restrictions, today is day 10, therefore she will no longer be on precautions after today. MARIAN contacted [facility] today, inquiring about her possible transfer, and spoke to Marj, who indicated that Amelia is accepted for tomorrow, 08/02/23. Marj will coordinate w/c van transport tomorrow at 11am. MARIAN spoke to Amelia's sister, Jessica, and updated her on Amelia's plan; she expressed understanding and is agreeable to the plan. A:? Amelia is an 83 year old female admitted to [facility] on 07/22/23 for Covid and Anemia. P: Amelia will likely require SNF for STR vs. SWB when medically cleared by provider. ? SNF referrals are sent to [facility], [facility], [facility], [facility] and [facility] for review.??Bed offer accepted at [facility]? 08/02/23.? CM will continue to follow.??
[2023-08-01] MEDS: Acetaminophen 325 MG TAB PO ×2 (15:51→20:24)
[2023-08-01 15:52] VITALS: BP 116/64; PULSE 79; RESP 18; TEMP 36.4; O2SAT 95
--- NOTE | 2023-08-01 16:55 | PT.INTREAT ---
Date of service: 08/01/23 Time of Service: 16:34 PT Notes Visit Reasons: Covid, anemia Inpatient Physical Therapy Treatment Note [facility] Date: 08/01/23 PRECAUTIONS: Fall, standard, activity as tolerated. NO LONGER ON AIRBORNE PRECAUTIONS. SUBJECTIVE: Patient reports feeling pretty good. Excited for dinner. Ordered shepards pie and cut fruit and a elbert oliver - already feels full just from describing it. OBJECTIVE: Patient sitting up in chair, JACQUELINE alarm in place. ? PAIN: none reported, although patient does show signs of pain. VITALS: monitored by nursing staff ? ? ? BED MOBILITY/TRANSFERS? Rolling L/R: not assessed Supine-sit: not assessed ? Sit-supine: not assessed ? Sit-stand: SBA ? Stand-sit: SBA ? Bed-Chair: SBA ? Chair-bed: SBA ? Therapeutic Exercises ([id number]): Direct one-on-one instruction in therapeutic exercises to develop strength, endurance, range of motion and flexibility. ?Ambulation ? Assistive Device: FWW ? Weight bearing: WBAT Assist: SBA ? Distance:? 120 feet ? Deviation: antalgic, step to gait pattern with left leg leading, which becomes more symmetrical as the walk progresses, trunk lurch noted when patient is in stance phase on left. ? Provided skilled instruction in proper exercise performance Provided skilled manual cues to facilitate proper muscle recruitment and/or form. ASSESSMENT:? Patient tolerates therapy well, states that it was good to get out of her room for a bit, moving feels good. PLAN: Continue global strengthening per plan of care until patient is medically cleared for discharge. Facilitate hip abductor and extensor activation. TREATMENT CODE/TIME: 14 minutes beginning at 16:34
[2023-08-01 18:42] LABS: Soluble Transferrin Receptor 2.8 mg/L (1.8 - 4.6)
[2023-08-01] MEDS: Donepezil 5 MG TAB PO (20:24)
[2023-08-01] MEDS: Senna TAB 1 TAB PO (20:24)
[2023-08-01 23:18] VITALS: BP 119/80; PULSE 85; RESP 16; TEMP 36.5; O2SAT 96
[2023-08-02] MEDS: Heparin 5,000 UNITS/ML VIAL 5000 UNITS SC (06:16)
[2023-08-02] MEDS: Docusate Sodium 100 MG/10 ML CUP 50 MG PO (07:53)
[2023-08-02] MEDS: Losartan 50 MG TAB 100 MG PO (07:53)
[2023-08-02] MEDS: Cyanocobalamin 500 MCG TAB 1000 MCG PO (07:53)
[2023-08-02] MEDS: Zinc Sulfate 220 MG TAB PO (07:53)
[2023-08-02] MEDS: Gabapentin 100 MG CAP 200 MG PO (07:53)
[2023-08-02] MEDS: Pantoprazole 20 MG TABCR PO (07:53)
[2023-08-02] MEDS: Ferrous Sulfate 325 MG TAB PO (07:54)
[2023-08-02] MEDS: Cholecalciferol (Vitamin D3) 1,000 UNIT TAB 2000 UNITS PO (07:54)
[2023-08-02] MEDS: Diclofenac 1% Gel 100 GM TUBE TP (07:54)
[2023-08-02] MEDS: Ascorbic Acid 500 MG TAB PO (07:54)
[2023-08-02 08:55] LABS: Methylmalonic Acid 0.29 nmol/mL (<=0.40)
[2023-08-02 09:31] VITALS: BP 130/82; PULSE 97; RESP 18; TEMP 36.8; O2SAT 93
--- NOTE | 2023-08-02 10:17 | PT.INTREAT ---
Date of service: 08/02/23 Time of Service: 09:55 PT Notes Visit Reasons: Covid, anemia Inpatient Physical Therapy Treatment Note [facility] Date: 08/02/23 PRECAUTIONS: Fall, standard, activity as tolerated, WBAT LLE with AD SUBJECTIVE: Patient reports feeling better. Excited to go to [facility] and rehab later today OBJECTIVE: Patient sitting up in recliner with feet down. Agreeable to therapy.? PAIN: None reported VITALS: monitored by nursing staff? Therapeutic Activities ([id number]): Direct one-on-one instruction in dynamic activities to improve functional performance. ? BED MOBILITY/TRANSFERS? Rolling L/R: not assessed Supine-sit: not assessed ? Sit-supine: not assessed ? Sit-stand: SBA ? Stand-sit: SBA ? Bed-Chair: SBA ? Chair-bed: SBA Provided skilled cues and instruction on performance and technique throughout. Gait Training ([id number]): Direct one-on-one instruction and skilled instruction in: [] employing an assistive device [] modified weight-bearing status [x] movement sequencing [x] turning and movement with proper form [] Provided verbal cues for equipment management and technique [x] Provided instruction in gait pattern [] Patient education regarding pacing and breathing techniques to maximize activity tolerance? GAIT? Assistive Device: FWW ? Weight bearing: WBAT Assist: SBA ? Distance:? 200 feet? Deviation: Step-to gait pattern resolves earlier, more symmetrical step pattern achieved today vs yesterday. Today is the first day patient naturally keeps her head and eyes facing forward instead of down. ? ASSESSMENT:? Patient is greatly improved over the course of her stay here. Would benefit from continued therapy at a SNF before returning home, to ensure enough strength, stamina and balance to manage safely. PLAN: Continue global strengthening until patient is medically cleared for discharge, and achieves safe discharge plan which at this point would include a short SNF stay. TREATMENT CODE/TIME: 21 minutes beginning at 9:55
[2023-08-02 10:46] LABS: Homocysteine 11.1 umol/L (5.0-13.9)
--- NOTE | 2023-08-02 10:51 | PDOC.CMDIS ---
Date of service: 08/02/23 Time of Service: 10:51 LACE Index Scoring Tool Questions: Length of Stay (in days): 7 - 13 Was the patient admitted via the E.D.?: Yes Comorbidities: Dementia E.D. Visits: 2 Answers: Total Score: 13 Risk of Readmission: High Risk Care Management Discharge Plan Reason for Hospitalization: Covid, Anemia Discharge Plan: Amelia is discharged to [facility] for STR, prior to discharging home. She will follow up with community/facility providers and her discharge plan of care as instructed. She is transported via facility w/c van. Patient/Family Education Needs: Review discharge instructions, limitations, medications and plan to follow up with community providers. Discuss ask me three. Services Needed at Discharge: Longterm Facility ([facility] for STR)
--- NOTE | 2023-08-02 18:00 | PT.INDS ---
PT Notes Visit Reasons: Covid, anemia Physical Therapy Inpatient Discharge Summary Date: 08/02/23 Dates of Service: 07/23/2023 through 08/02/2023 This is a clinical summary of care provided for the duration of dates listed above. No charge was made in the completion of this documentation. Precautions: Fall. Dementia. AIRBORNE Precautions for COVID-19. Patient Profile/Admitting Diagnosis:Storm Cisneros is an 83 yo female that presented to the ER on 07/22/23 for weakness. She had surgery 07/18/23 for open debridement/excision of LEFT trochanteric bursa, iliotibial band tenotomy, and removal of hardware in LEFT femur. She returned home following surgery. Tested positive for COVID-19 at the ED. Subjective:? NT. See most recent SENIOR CONSTRUCTION PROJECT MANAGER notes. Objective:? General Observation: NT. See most recent SENIOR CONSTRUCTION PROJECT MANAGER notes. Mental Status: NT. See most recent SENIOR CONSTRUCTION PROJECT MANAGER notes. Pain: NT. See most recent SENIOR CONSTRUCTION PROJECT MANAGER notes. Vital Signs: NT. See most recent SENIOR CONSTRUCTION PROJECT MANAGER notes. ROM: Right Upper Extremity: Shoulder Flexion allows up to 90 degrees only. Shoulder abduction allows up to 90 degrees only. Elbow flexion WFL. Wrist flexion WFL. Opening and closing of hand WFL. Left Upper Extremity: Shoulder Flexion allows up to 90 degrees only. Shoulder abduction allows up to 90 degrees only. Elbow flexion WFL. Wrist flexion WFL. Opening and closing of hand WFL. Right Lower Extremity: Hip flexion WFL. Hip abduction WFL. Knee flexion WFL. Ankle dorsiflexion to neutral only. Ankle plantarflexion WFL. Left Lower Extremity: Hip flexion lacks the last 25% of AROM. Hip abduction lacks the last 25% of AROM. Knee flexion 10 degrees to 90 degrees. Ankle dorsiflexion WFL. Ankle plantarflexion WFL. Strength: Right Upper Extremity: Shoulder flexors 3-/5. Shoulder abductors 3-/5. Elbow flexors 5/5. Elbow extensors 5/5. Founder strong. Left Upper Extremity: Shoulder flexors 3-/5. Shoulder abductors 3-/5. Elbow flexors 5/5. Elbow extensors 5/5. Founder strong. Right Lower Extremity: Hip flexors 4/5. Knee flexors 5/5. Knee extensors 4+/5. Ankle dorsiflexors 3-/5. Ankle plantarflexors 3/5. Left Lower Extremity: Hip flexors 3-/5. Knee flexors 3-/5. Knee extensors 3-/5. Ankle dorsiflexors 4-/5. Ankle plantarflexors 3/5. Sensation:? Intact as to pain and pressure on bilateral lower extremities. BED MOBILITY/TRANSFERS? Rolling L/R: not assessed Supine-sit: not assessed ? Sit-supine: not assessed ? Sit-stand: SBA ? Stand-sit: SBA ? Bed-Chair: SBA ? Chair-bed: SBA GAIT? Assistive Device: FWW ? Weight bearing: WBAT Assist: SBA ? Distance:? 200 feet? Deviation: Step-to gait pattern resolves earlier, more symmetrical step pattern Balance:? Static Sitting: Fair Dynamic Sitting: Poor Static Standing: Poor Dynamic Standing: Poor ASSESSMENT: Patient has been medically cleared to got to SNF for continued rehab. Pepito Lao has demonstrated improvement in mobility level and activity tolerance however has been very reliant on nursing staff about getting her cleaned up after a few incontinent episodes despite instruction to call before she goes. Timed voiding with nursing staff may work with patient considering her current cognitive issue. Requires tactile and verbal cueing with movement initiation, AD management, and posture as patient appeared to have issues with staying on track with task performance. Short-term rehab placement will facilitate overall mobility progression and decrease fall risk. Patient presents with clinical signs and symptoms consistent with current/admitting diagnoses that have resulted to mobility limitations, gait instability, generalized weakness, and impairment of motor control as demonstrated by the following impairment level findings: 1. Decreased strength to left hip major muscle groups 2. Impaired sitting/standing balance 3. Impaired activity tolerance 4. Limitation of joint range of motion in left hip Impairments are contributing to the following functional limitations: 1. Dependent bed mobility skills 2. Increased dependence with transfers 3. Inability to safely ambulate without assistive device and physical assistance 4. Increase completion time for mobility ADL performance 5. Increased fall risk 6. Inability to negotiate steps alone safely Goals: Goals x1 week 1. Supine-Sit: Min A MET, PROGRESS TO MODIFIED INDEPENDENT 2. Sit-Supine: Min A MET, PROGRESS TO MODIFIED INDEPENDENT 3. Sit-Stand: Min A MET, PROGRESS TO MODIFIED INDEPENDENT 4. Stand-Sit: Min A MET, PROGRESS TO MODIFIED INDEPENDENT 5. Bed-Chair: Min A MET, PROGRESS TO MODIFIED INDEPENDENT 6. Chair-Bed: Min A MET, PROGRESS TO MODIFIED INDEPENDENT 7. CGA gait on level surface with use of least restrictive device for at least 50 feet without report of pain nor dyspnea NOT MET, CONTINUE Discharge Plan DISCHARGE RECOMMENDATIONS: Short-term rehabilitation post L hip hardware removal to regain highest functional outcomes in anticipation of discharge to home. TREATMENT CODE/TIME: ARMEN Thank you for the opportunity to participate in the care of this patient. Shweta Malik PT, DPT, CLT [facility] [place], [place]
== END 2023-08-02 11:08 | disposition skilled nursing facility (03) | DRG 178 ==
LOC: ER 13:17 → ICU 14:16 → MS 07-24 21:13
PROVIDERS: Emergency Medicine; Family Medicine; Internal Medicine; Admitting Provider Family Medicine; Emergency Provider Emergency Medicine; PCP Family Medicine; Visit Provider Family Medicine
DX: U07.1 COVID-19 (principal); D62 Acute posthemorrhagic anemia; G30.1 Alzheimer's disease with late onset; F02.80 Dementia in other diseases classified elsewhere, unspecified severity, without behavioral disturbance, psychotic disturbance, mood disturbance, and anxiety; M70.62 Trochanteric bursitis, left hip; K58.2 Mixed irritable bowel syndrome; M79.604 Pain in right leg; M79.605 Pain in left leg; R19.7 Diarrhea, unspecified; M25.572 Pain in left ankle and joints of left foot; I10 Essential (primary) hypertension; K21.9 Gastro-esophageal reflux disease without esophagitis; M81.0 Age-related osteoporosis without current pathological fracture; M54.40 Lumbago with sciatica, unspecified side; E55.9 Vitamin D deficiency, unspecified; J43.9 Emphysema, unspecified; K44.9 Diaphragmatic hernia without obstruction or gangrene; M16.12 Unilateral primary osteoarthritis, left hip; I73.89 Other specified peripheral vascular diseases; Z85.3 Personal history of malignant neoplasm of breast; Z87.891 Personal history of nicotine dependence; R53.1 Weakness; M79.18 Myalgia, other site; G62.9 Polyneuropathy, unspecified; D53.8 Other specified nutritional anemias
CPT/HCPCS: 36410; 36415; 36430; 36592; 80048; 80053; 80076; 80186; 82306; 82805; 83090; 84145; 85027; 86850; 86900; 86901; 86920; 87040; 87077; 87186; 87493; 87637; 87641; 93005; 93306; 97110; 97116; 97163; 97530; 99285; 71045; 73610; 73630; 74177; 81003; 81015; 82607; 82728; 82746; 83540; 83550; 83605; 83735; 84238; 84443; 84550; 85014; 85018; 85025; 85379; 85610; 86140; 87086; 93010; 93970; 94667; 94668; 99223; 99232; 99233; 99239; J0131; J0248; J1644; J3420; J3490; P9016

== ENCOUNTER → 2023-10-06 09:50 | Outpatient (BNVA) | payer MEDICARE, SELFPAY | PROVIDERS: PCP Family Medicine; Referring Provider Family Medicine; Visit Provider Student in an Organized Health Care Education/Training Program | DX: Z47.89 Encounter for other orthopedic aftercare (principal); R29.898 Other symptoms and signs involving the musculoskeletal system ==

== ENCOUNTER 2023-10-22 12:51 | Observation (INO) | payer MEDICARE, SELFPAY ==
[2023-10-22] VITALS (9 sets, daily range): BP systolic 146–182; BP diastolic 52–107; PULSE 78–98; RESP 16–18; TEMP 36.4–36.8; O2SAT 95–98
--- NOTE | 2023-10-22 13:00 | DI.RAD_ITS ---
Exam(s) XR FEMUR LT EXAM: XR FEMUR LT CLINICAL HISTORY: pain. TECHNIQUE: 2D digital imaging was performed. Three views. COMPARISON: None. FINDINGS: BONES: No acute fracture is present. Old proximal femoral fracture deformity. Lucency related to pr eviously removed hardware. No bony destructive lesion is seen. JOINTS: No dislocation present. Mild hip joint space narrowing. Periarticular spurring. The knee i s unremarkable. SOFT TISSUE: suture material in low pelvis. IMPRESSION: No evidence of acute fracture. Old deformity of proximal femur. DATA REPOSITORY: RADIATION DOSE DELIVERED:
--- NOTE | 2023-10-22 13:00 | DI.RAD_ITS ---
Exam(s) XR TIB/FIB LT EXAM: XR TIB/FIB LT CLINICAL HISTORY: pain. TECHNIQUE: 2D digital imaging was performed. Two views. COMPARISON: CR,XR XR FEMUR LT from 10/10/2019 FINDINGS: BONES: No acute fracture is present. No bony destructive lesion is seen. Visualized portion of knee a nd ankle joints are unremarkable. SOFT TISSUE: Lower leg edema. Anterior soft tissue calcifications. IMPRESSION: Soft tissue edema. No acute bone or joint abnormality DATA REPOSITORY: RADIATION DOSE DELIVERED:
--- NOTE | 2023-10-22 13:16 | W.ED.GENAD ---
Discharge Plan Disposition Patient Disposition: Admit to [facility] Condition: Stable Discharge Details Chief Complaint: Cellulitis Clinical Impression: Ambulatory dysfunction, Left leg pain, Hip pain, left Primary Care Provider: Virginia Pino ED Provider: Rodri Bran Home Meds and New Rx's Prescriptions: No Action MaxiVision 1 cap PO DAILY loperamide 2 mg capsule 2 mg PO Q6H PRN (Reason: loose stool) Qty: 90 1RF losartan 100 mg tablet 100 mg PO DAILY Qty: 90 4RF dicyclomine 10 mg capsule 10 mg PO BID PRN (Reason: IBS) Qty: 120 3RF lidocaine [Lidoderm] 5 % adhesive patch,medicated 2 patch topical DAILY Qty: 30 12RF Rx Instructions: leave on most painful area for up to 12 hrs fluticasone propionate 50 mcg/actuation spray,suspension 2 spray intranasal DAILY PRN (Reason: allergy symptoms) Qty: 16 11RF Rx Instructions: administer into each nostril pantoprazole 20 mg tablet,delayed release (DR/EC) 20 mg PO DAILY Qty: 90 1RF gabapentin 100 mg capsule 100 mg PO TID Qty: 90 12RF donepezil 5 mg tablet 5 mg PO QHS Qty: 30 3RF meloxicam 15 mg tablet 15 mg PO DAILY Qty: 30 1RF Rx Instructions: Take one tablet daily for inflammation and pain cholecalciferol (vitamin D3) 25 mcg (1,000 unit) capsule 25 mcg PO DAILY Qty: 90 3RF Rx Instructions: /take one capsule daily acetaminophen 500 mg tablet 1,000 mg PO Q8H PRN Qty: 90 0RF Rx Instructions: Take two tablets up to every 8 hours as needed for pain tramadol 50 mg tablet 50 mg PO Q4H PRN (Reason: severe postoperative pain) Qty: 18 0RF Rx Instructions: Take one tablet up to every 4 hours as needed for severe pain acetaminophen [Tylenol] 325 mg Tablet 650 mg PO Q6H PRN PRN (Reason: fever or pain) Qty: 1 0RF ferrous sulfate 325 mg (65 mg iron) Tablet 325 mg PO DAILY Qty: 0 0RF Medical Decision Making 83 yo female with hx of dementia, gerd, htn, who had left hip hardware removed earlier this year comes in with complaint of one day of left leg swelling and pain. Denies any falls or injuries. She denies fevers, chills, chest pain, dyspnea. She is oriented to person and place at this time. She is moving her extremities equally. She has no swelling noted on her left leg compared to the right, no calf tenderness, intact senastion and cap refill. She has pain in the anterior mid thigh and tibia, some discomfort in the left lateral hip, has no erythema or warmth of the leg. Unclear etiology for her increased leg pain, no physical exam findings to suggest dvt or infectious etiology. Will obtain cbc, cmp, crp and esr along with d dimer as we don't have u/s available today and obtain xrays of the left leg. ct shows no acute fracture, has evidence of avascular necrosis, discussed with ortho Dr. Garcia and no acute interventions surgically, may require a hip replacement in the future. Pt still not able to stand and pivot and her sister is not comfortable with bringing her home, will discuss with hospitalist about admission, will require a f/u u/s of her leg given elevated d dimer Differential Diagnosis Differential Diagnosis: strain, muscle spasm, fracture Imaging Data Radiologic Study: Attestation: I personally reviewed and interpreted this imaging study as follows: Imaging: X-Ray Radiologist's impression: PROCEDURE INFORMATION: Exam: XR Left Femur Exam date and time: 10/22/2023 3:30 PM Age: 83 years old Clinical indication: Pain; Thigh; Left TECHNIQUE: Imaging protocol: Radiologic exam of the left femur. Views: 2 views. COMPARISON: CR XR FEMUR LT 10/10/2019 3:51 PM FINDINGS: Bones/joints: Post traumatic changes left intertrochanteric hip. The compression nail and intramedullary chuy has been removed. The left hip fracture is healed. There are degenerative changes in the left hip joint space. No new fracture. Soft tissues: See Bones/joints finding. IMPRESSION: Stable posttraumatic changes left hip. Radiologic Study #2: Attestation: I personally reviewed and interpreted this imaging study as follows: Imaging: X-Ray Radiologist's impression: PROCEDURE INFORMATION: Exam: XR Pelvis Exam date and time: 10/22/2023 3:28 PM Age: 83 years old Clinical indication: Hip pain; Left hip TECHNIQUE: Imaging protocol: Radiologic exam of the pelvis. Views: 1 or 2 view. COMPARISON: CT ABDOMEN PELVIS W 07/22/2023 11:10 AM FINDINGS: Bones/joints: Bilateral hip arthropathy. Stable post traumatic changes left intertrochanteric hip. Compression nail and the intramedullary chuy has been removed. Soft tissues: Unremarkable. IMPRESSION: Stable posttraumatic changes of the left hip. Radiologic Study #3: Attestation: I personally reviewed and interpreted this imaging study as follows: Imaging: X-Ray Radiologist's impression: PROCEDURE INFORMATION: Exam: XR Pelvis Exam date and time: 10/22/2023 3:28 PM Age: 83 years old Clinical indication: Hip pain; Left hip TECHNIQUE: Imaging protocol: Radiologic exam of the pelvis. Views: 1 or 2 view. COMPARISON: CT ABDOMEN PELVIS W 07/22/2023 11:10 AM FINDINGS: Bones/joints: Bilateral hip arthropathy. Stable post traumatic changes left intertrochanteric hip. Compression nail and the intramedullary chuy has been removed. Soft tissues: Unremarkable. IMPRESSION: Stable posttraumatic changes of the left hip. Radiologic Study #4: Attestation: I personally reviewed and interpreted this imaging study as follows: Imaging: CT Scan Radiologist's impression: IMPRESSION: Posttraumatic findings left hip from prior intertrochanteric hip fracture and ORIF. Hardware has been removed. Serpiginous sclerosis in the left femoral head and neck. Possible avascular necrosis. Mild medial subchondral collapse of the femoral head. HPI General Mode of arrival: EMS. Date/Time Provider Initiated Documentation: 10/22/23 12:53. Information obtained by: patient. History of Present Illness 83 year old F presents to the emergency department with the chief complaint of left leg pain, described as moderate, Patient started experiencing this day(s) (1) and it has been constant. No relieving factors improve symptom(s), No exacerbating factors reported . Patient notes no other symptoms.. Patient did receive the following treatments prior to arrival, none Related Data Home Medications Medication Instructions Recorded Confirmed MaxiVision 1 cap PO DAILY 02/14/19 10/08/23 acetaminophen 325 mg tablet 650 mg (2 x 325 mg) PO Q6H PRN PRN 10/15/19 10/22/23 (Tylenol) fever or pain #1 tab lidocaine 5 % topical patch 2 patch topical DAILY #30 ea 01/11/23 10/22/23 (Lidoderm) dicyclomine 10 mg capsule 10 mg PO BID PRN IBS #120 caps 02/24/23 10/22/23 loperamide 2 mg capsule 2 mg PO Q6H PRN loose stool #90 02/24/23 10/22/23 caps losartan 100 mg tablet 100 mg PO DAILY #90 tabs 02/24/23 10/22/23 fluticasone propionate 50 2 spray intranasal DAILY PRN 07/13/23 10/22/23 mcg/actuation nasal allergy symptoms #16 grams spray,suspension acetaminophen 500 mg tablet 1,000 mg (2 x 500 mg) PO Q8H PRN 07/18/23 10/22/23 pain #90 tabs tramadol 50 mg tablet 50 mg PO Q4H PRN severe 07/18/23 10/22/23 postoperative pain #18 tabs ferrous sulfate 325 mg (65 mg 325 mg PO DAILY #0 tabs 08/01/23 10/22/23 iron) tablet pantoprazole 20 mg tablet,delayed 20 mg PO DAILY #90 tabs 09/06/23 10/22/23 release gabapentin 100 mg capsule 100 mg PO TID #90 caps 09/13/23 10/22/23 donepezil 5 mg tablet 5 mg PO QHS #30 tabs 09/21/23 10/22/23 meloxicam 15 mg tablet 15 mg PO DAILY #30 tabs 09/21/23 10/22/23 cholecalciferol (vitamin D3) 25 25 mcg PO DAILY #90 caps 10/11/23 10/22/23 mcg (1,000 unit) capsule Previous Rx's Medication Instructions Recorded acetaminophen 325 mg tablet 650 mg (2 x 325 mg) PO Q6H PRN PRN 10/15/19 (Tylenol) fever or pain #1 tab lidocaine 5 % topical patch 2 patch topical DAILY #30 ea 01/11/23 (Lidoderm) dicyclomine 10 mg capsule 10 mg PO BID PRN IBS #120 caps 02/24/23 loperamide 2 mg capsule 2 mg PO Q6H PRN loose stool #90 02/24/23 caps losartan 100 mg tablet 100 mg PO DAILY #90 tabs 02/24/23 fluticasone propionate 50 2 spray intranasal DAILY PRN 07/13/23 mcg/actuation nasal allergy symptoms #16 grams spray,suspension acetaminophen 500 mg tablet 1,000 mg (2 x 500 mg) PO Q8H PRN 07/18/23 pain #90 tabs tramadol 50 mg tablet 50 mg PO Q4H PRN severe 07/18/23 postoperative pain #18 tabs ferrous sulfate 325 mg (65 mg 325 mg PO DAILY #0 tabs 08/01/23 iron) tablet pantoprazole 20 mg tablet,delayed 20 mg PO DAILY #90 tabs 09/06/23 release gabapentin 100 mg capsule 100 mg PO TID #90 caps 09/13/23 donepezil 5 mg tablet 5 mg PO QHS #30 tabs 09/21/23 meloxicam 15 mg tablet 15 mg PO DAILY #30 tabs 09/21/23 cholecalciferol (vitamin D3) 25 25 mcg PO DAILY #90 caps 10/11/23 mcg (1,000 unit) capsule Allergies Allergy/AdvReac Type Severity Reaction Status Date / Time Penicillins Allergy Severe hives Verified 10/22/23 12:58 polyethylene glycol 3350 Allergy Severe rash all Verified 10/22/23 12:58 [From Miralax] over cefazolin Allergy Unknown Verified 10/22/23 12:58 General Stated Complaint: Cellulitis HANS: 3 Review of Systems All systems reviewed & are unremarkable except as noted in HPI and below Constitutional Constitutional: Denies chills, Denies fever(s) and Denies weakness Cardiovascular Cardiovascular: Denies chest pain and Denies dyspnea Respiratory Respiratory: Denies cough and Denies dyspnea Gastrointestinal Gastrointestinal: Denies abdominal pain, Denies nausea and Denies vomiting Musculoskeletal Musculoskeletal: Denies joint swelling Neurologic Neurologic: Denies weakness PFS All Active Problems (Updated 10/22/23 @ 18:39 by Rodri Bran MD) Hip pain, left (Acute) Left leg pain (Acute) Ambulatory dysfunction (Acute) Left foot pain (Acute) Left ankle pain (Acute) Pain in both lower extremities (Acute) Anemia (Chronic) Hypertension (Chronic) Iron deficiency anemia (Chronic) Osteoporosis (Chronic) Irritable bowel syndrome (Chronic) prior evaluation with [facility] Low back pain (Acute) Vitamin D deficiency (Acute) Sciatica (Acute) Emphysema lung (Acute) GERD (gastroesophageal reflux disease) (Chronic) Hiatal hernia (Chronic) 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 NPH ruled out. Ventral hernia without obstruction or gangrene Hx of fracture of left hip s/p short TFN Dr. Mathis DOS: 10/11/19 Deep vein thrombosis Incidental lung nodule, > 3mm and < 8mm on xray and CT scan with contrast / [facility] pulm. Malignant neoplasm of female breast (09/21/92) R MAST AND RECONSTRUCTION. 10/25 INFLAMMATION AT [facility] WAS NEG FOR MALIGNANCY Indeterminate colitis (02/04/16) 01/22/16 colonoscopy at [facility] Hypothyroidism (08/10/12) Diverticulitis (09/19/14) May 2014 [facility] [place] sigmoid resection and colostomy post op infection and malnutrition February 2015 colostomy takedown (post op infection) C. difficile enteritis at hospitalization may 2014 Barretts esophagus Status post EGD with esophageal biopsy on July 05, [address] Jani Rothman. Squamous mucosa with reactive changes. Gastric type mucosa with chronic and focally active inflammation but no intestinal metaplasia or dysplasia. No helical factor pylori microorganisms identified. EGD 07/13/18, Dr. Azar Eldridge, [facility], dilatation of lower esophageal stricture Breast cancer Surgical History History of mastectomy (~1994) right mastectomy (no radiation or chemotherapy); s/p reconstruction after the mastectomy colostomy reversal Laparotomy (06/08/14) for [place] leak. End colostomy done Colectomy (~05/2014) for colon stricture presumed to be from diverticulitis Family History Mother , 84 Essential hypertension COPD (chronic obstructive pulmonary disease) Father , 51 Stomach cancer Mouth cancer Brother No problems noted. Maternal Grandfather No problems noted. Paternal Grandfather No problems noted. Maternal Grandmother No problems noted. Paternal Grandmother No problems noted. Sister No problems noted. Sister COPD (chronic obstructive pulmonary disease) Social History Smoking/Tobacco Use Status: Former Tobacco Use tobacco type: cigarettes Quit Date: 10/23/94 Pack-years: 40 Tobacco: How many years used: 40 Second Hand Exposure: No Smoking risk assessment performed?: Yes Alcohol Intake: never Drug use: Never Substance use type: does not use Caregiver/Support person: Yes Household members: none Housing: house Communication Needs: None Do you need help understanding health information?: Never Pets and animals: No Sexually active: No Current gender identity: female What is your relationship status?: never How often do you talk on the phone with friends or family?: three or more times per week How often do you get together with friends or relatives?: three or more times per week How often do you attend adventist or mormon services?: decline to answer Do you belong to any clubs or organized social groups?: no Panel score (0-1 are the most socially isolated patients): 1 What type of physical activity do you participate in: decline to answer Duration: decline to answer Frequency: decline to answer Leslie/Hindu: No preference Special leslie needs: No Seatbelt use: always Drive intox or ride w/intox coach tour driver: No Do you feel safe at home: Yes Do you feel safe in your relationship?: Yes Additional Social history: unable to assess privately History History 0 Para 0 Hx # Term Pregnancies 0 Multiple births Hx # Pregnancies 0 Ectopic pregnancies AB induced 0 Hx Number of Living Children 0 AB spontaneous 0 Exam Const General: no acute distress Orientation: alert HENMT Head: normal to inspection Ears: external ears normal General nose exam: external nose normal Mouth: moist mucous membranes Eyes General: appearance normal, both eyes and all related structures Neck Neck: normal visual inspection Resp Effort & Inspection: normal respiratory effort and able to speak in complete sentences Cardio Rate: regular rate GI Palpation: soft and nontender Skin General skin exam: no rashes or lesions noted Neuro General: patient alert and patient oriented x3 Extrem General: normal to inspection, full ROM and capillary refill normal Psych Mental Status: mental status grossly normal Course Vital Signs Vital signs: Vital Signs Temperature 36.4 C 10/22/23 12:52 Pulse 85 10/22/23 12:52 Respiratory Rate 18 10/22/23 12:52 Blood Pressure 175/107 H 10/22/23 12:52 Pulse Oximetry 96 10/22/23 12:52 Temperature 36.4 C 10/22/23 13:09 Pulse 85 10/22/23 13:09 Respiratory Rate 18 10/22/23 13:09 Respiratory Effort Normal, Non-Labored 10/22/23 13:09 Blood Pressure 175/107 H 10/22/23 13:09 Pulse Oximetry 96 10/22/23 13:09 Oxygen Delivery Method Room Air 10/22/23 13:09 Oxygen Flow Rate 0 10/22/23 13:09 Pain Level 7 10/22/23 13:09
[2023-10-22] MEDS: Acetaminophen 325 MG TAB 650 MG PO (13:47)
[2023-10-22 15:04] LABS: Abs Immature Grans 0.04 10^3/uL (0.0-0.06); Absolute Basophil Count 0.03 10^3/uL (0.0-0.2); Absolute Eosinophil Count 0.29 10^3/uL (0.0-0.7); Absolute Lymphocyte Count 1.59 10^3/uL (1.2-3.4); Absolute Monocyte Count 0.72 10^3/uL (0.1-0.8); Basophils % 0.3; Eosinophils % 3.1; HCT 34.6 % (36.0-46.0); HGB 10.8 g/dL (11.2-15.7); Immature Grans % 0.4; MCH 28.1 pg (27.0-33.0); MCHC 31.2 % (32.0-36.0); MCV 90 fL (80-95); MPV 10.1 fL (8.0-11.0); Monocytes % 7.7; Neutrophils % 71.5; Platelet Count 255 10^3/uL (130-400); RBC 3.85 10^6/uL (3.93-5.22); RDW 15.9 % (11.7-14.6); RDW-SD 52.6 fL; WBC 9.37 10^3/uL (4.4-10.8)
[2023-10-22 15:06] LABS: ESR 26 mm/hr (0-30)
[2023-10-22 15:17] LABS: PTT Activated 24.3 sec (23.6-32.8); Prothrombin Time 10.1 sec (9.1-11.1)
[2023-10-22 15:20] LABS: ALT 28 U/L (14-59); AST 23 U/L (15-37); Albumin 3.3 g/dL (3.4-5.0); Alkaline Phosphatase 154 U/L (46-116); Anion Gap 8.8 mmol/L (3-11); BUN 27 mg/dL (7-18); Bilirubin, Total 0.3 mg/dL (0.2-1.0); C-Reactive Protein 0.74 mg/dL (0.0-0.3); CO2 27.2 mmol/L (21.0-32.0); CREATININE 1.1 mg/dL (0.55-1.02); Calcium 9.3 mg/dL (8.5-10.1); Chloride 108 mmol/L (98-107); Creatine Kinase 85 U/L (26-192); Estimated GFR 49.24 (mL/min/1.73m2); Glucose 82 mg/dL (74-106); Sodium 144 mmol/L (136-145); Total Protein 7.5 g/dL (6.4-8.2)
[2023-10-22 15:32] LABS: D-Dimer 1927 ng/mlFEU (<500)
[2023-10-22 15:39] LABS: Procalcitonin < 0.1 ng/mL
--- NOTE | 2023-10-22 16:19 | DI.VRAD_ITS ---
PROCEDURE INFORMATION: Exam: XR Left Tibia and Fibula Exam date and time: 10/22/2023 3:27 PM Age: 83 years old Clinical indication: Pain; Lower leg; Left TECHNIQUE: Imaging protocol: Radiologic exam of the left tibia and fibula. Views: 2 views. COMPARISON: CR XR ANKLE LT COMPLETE 07/30/2023 3:09 PM FINDINGS: Bones/joints: Normal. Soft tissues: Soft tissue edema. IMPRESSION: No acute findings. Dictated and Authenticated by: Kaleb Faith MD. Ordering:MARCELA Mace MD
--- NOTE | 2023-10-22 16:19 | DI.VRAD_ITS ---
PROCEDURE INFORMATION: Exam: XR Left Femur Exam date and time: 10/22/2023 3:30 PM Age: 83 years old Clinical indication: Pain; Thigh; Left TECHNIQUE: Imaging protocol: Radiologic exam of the left femur. Views: 2 views. COMPARISON: CR XR FEMUR LT 10/10/2019 3:51 PM FINDINGS: Bones/joints: Post traumatic changes left intertrochanteric hip. The compression nail and intramedullary chuy has been removed. The left hip fracture is healed. There are degenerative changes in the left hip joint space. No new fracture. Soft tissues: See Bones/joints finding. IMPRESSION: Stable posttraumatic changes left hip. Dictated and Authenticated by: Kaleb Faith MD. Ordering:MARCELA Mace MD
--- NOTE | 2023-10-22 16:20 | DI.VRAD_ITS ---
PROCEDURE INFORMATION: Exam: XR Pelvis Exam date and time: 10/22/2023 3:28 PM Age: 83 years old Clinical indication: Hip pain; Left hip TECHNIQUE: Imaging protocol: Radiologic exam of the pelvis. Views: 1 or 2 view. COMPARISON: CT ABDOMEN PELVIS W 07/22/2023 11:10 AM FINDINGS: Bones/joints: Bilateral hip arthropathy. Stable post traumatic changes left intertrochanteric hip. Compression nail and the intramedullary chuy has been removed. Soft tissues: Unremarkable. IMPRESSION: Stable posttraumatic changes of the left hip. Dictated and Authenticated by: Kaleb Faith MD. Ordering:MARCELA Maec MD
--- NOTE | 2023-10-22 16:45 | DI.CT_ITS ---
Exam(s) CT PELVIC WO XR PELVIS AP EXAM: CT PELVIC WO CLINICAL HISTORY: left hip pain. TECHNIQUE: Imaging Protocol: Axial computed tomography images with coronal and sagittal reformatted images were created and reviewed. CONTRAST MATERIAL: Oral: no COMPARISON: CR XR HIP LT AP LAT ONLY from 04/28/2020 CR XR HIP LT COMPLETE AP PELVIS from 01/20/2023 XR HIP LT IN OR from 07/18/[address] ABDOMEN PELVIS W from 07/22/2023 CR,XR XR PELVIS AP from 10/22/2023 FINDINGS: Bladder: Symmetric distention, no gross wall thickening. Bowel: No obstruction or bowel wall thickening. Suture material at the sigmoid colon. Appendix ernesto l. Peritoneal cavity: No ascites, collection or mesenteric inflammatory response. Reproductive: Unremarkable. Bones: Osteoporotic. No acute fracture. Removal of compression screw and intramedullary chuy again noted. Mild sclerosis left femoral head and slight subchondral collapse. No change from prior CT. Hip joint spaces mildly narrowed. Mild acetabular spurring. No sacral or pelvic fractures. No visi ble joint effusion. Soft tissues: Scarring left lateral hip. No fluid collection. IMPRESSION: No acute fracture. Tract in left proximal femur related to previously removed hardware. Mild sclerosis and slight collapse of left femoral head may represent avascular necrosis. stable from prior CT. RADIATION DOSE DELIVERED: Total DLP DATA REPOSITORY: All CT scans at this facility are submitted to the National Radiology Data Registry (NRDR) Dose Index Registry (DIR) with the [employer] (ACR). RADIATION OPTIMIZATION: All CT scans at this facility use at least one of these dose optimization te chniques: automated exposure control; mA and/or kV adjustment per patient size (includes targeted exa ms where dose is matched to clinical indication); or iterative reconstruction.
--- NOTE | 2023-10-22 17:26 | DI.VRAD_ITS ---
PROCEDURE INFORMATION: Exam: CT Pelvis Without Contrast Exam date and time: 10/22/2023 4:59 PM Age: 83 years old Clinical indication: Left hip; Patient HX: L hip pain TECHNIQUE: Imaging protocol: Computed tomography of the pelvis without contrast. COMPARISON: CT ABDOMEN PELVIS W 07/22/2023 11:10 AM FINDINGS: Stomach and bowel: Anastomotic sutures present in the sigmoid colon. Appendix: No evidence of appendicitis. Intraperitoneal space: Unremarkable. No free air. No significant fluid collection. Lymph nodes: Unremarkable. No enlarged lymph nodes. Urinary bladder: Normal. No mass. Reproductive: Normal as visualized. Bones/joints: Post trauma findings left hip. Left compression nail and intramedullary marcin has been removed. Marcin tract persists. Healed fracture deformity of the left intertrochanteric hip. No acute fracture. Bilateral symmetric narrowing of the hip joint spaces. No acute pelvic fracture. Serpiginous sclerosis present in the left femoral head. Mild medial subchondral collapse of the femoral head. Soft tissues: No soft tissue hematoma. IMPRESSION: Posttraumatic findings left hip from prior intertrochanteric hip fracture and ORIF. Hardware has been removed. Serpiginous sclerosis in the left femoral head and neck. Possible avascular necrosis. Mild medial subchondral collapse of the femoral head. Dictated and Authenticated by: Kaleb Faith MD. Ordering:MARCELA Mace MD
--- NOTE | 2023-10-22 18:59 | W.PM.HP.N ---
Date of service: 10/22/23 Time of Service: 18:59 Assessment and Plan Assessment and plan (1) Left leg pain: Status: Acute Assessment and plan: LLE pain. Unclear if this is entirely new problem or more acute on chronic pain related to previously identified issues, including possible neuropathy, bursitis and chronic hip pain; additionally there is the elevated d-Dimer, though this is evidrently chronic and exam and history does not otherwise suggest DVT. I think the best guess at this point, and most supported by exam, would be trochanteric bursitis along with an element of chronic neuropathic pain. I think DVT is quite unlikely but should probably cover for this until we can get U/S given the importance of not missing this diagnosis and the otherwise at present unexplained d-Dimer. Would trial Advil, APAP, increae dose Neurontin and PT consult. Will also give full dose Lovenox until U/S can rule out DVT. Reviewed ADs, requests Full Code. History of Present Illness History of Present Illness Chief Complaint: leg pain Narrative: 83 female with h/o left hip fx, s/p ORIF, s/o removal of hardware due to paion, chronic LLE pain of unknown etiology but possibly neuropathic --usually gets around with walker, here now with 2 days of increasing pain LLE (and during visit reports also in RLE). No injury. In ER findings of note for absence of fever or leukocytosis; plain films and CT of hip showing old derangement. Ortho consulted and did not feel there was any specific intervention indicated. Labs otherwise of note for d-Dimer 1927, but this has been in this range for at least several months now. I was asked to evaluate for admission. Denies SOB or CP. Notes chronic swelling LEs but states it may have been worse on left recently. 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 NPH ruled out. Ventral hernia without obstruction or gangrene Hx of fracture of left hip s/p short TFN Dr. Mathis DOS: 10/11/19 Deep vein thrombosis Incidental lung nodule, > 3mm and < 8mm on xray and CT scan with contrast / [facility] [place]. Malignant neoplasm of female breast (09/21/92) R [facility] AND RECONSTRUCTION. 10/25 INFLAMMATION AT [facility] WAS NEG FOR MALIGNANCY Indeterminate colitis (02/04/16) 01/22/16 [place] [facility] Hypothyroidism (08/10/12) Diverticulitis (09/19/14) May 2014 [facility] [place]moid resection and colostomy post op infection and malnutrition February 2015 colostomy takedown (post op infection) C. difficile enteritis at hospitalization may 2014 Barretts esophagus Status post EGD with esophageal biopsy on July 05, [address] Jani Rothman. Squamous mucosa with reactive changes. Gastric type mucosa with chronic and focally active inflammation but no intestinal metaplasia or dysplasia. No helical factor pylori microorganisms identified. EGD 07/13/18, Dr. Azar Eldridge, [facility], dilatation of lower esophageal stricture Breast cancer Surgical History History of mastectomy (~1994) right mastectomy (no radiation or chemotherapy); s/p reconstruction after the mastectomy colostomy reversal Laparotomy (06/08/14) for [place] leak. End colostomy done Colectomy (~05/2014) for colon stricture presumed to be from diverticulitis Family History Mother , 84 Essential hypertension COPD (chronic obstructive pulmonary disease) Father , 51 Stomach cancer Mouth cancer Brother No problems noted. Maternal Grandfather No problems noted. Paternal Grandfather No problems noted. Maternal Grandmother No problems noted. Paternal Grandmother No problems noted. Sister No problems noted. Sister COPD (chronic obstructive pulmonary disease) Social History Smoking/Tobacco Use Status: Former Tobacco Use tobacco type: cigarettes Quit Date: 10/23/94 Pack-years: 40 Tobacco: How many years used: 40 Second Hand Exposure: No Smoking risk assessment performed?: Yes Alcohol Intake: never Drug use: Never Substance use type: does not use Caregiver/Support person: Yes Household members: none Housing: house Communication Needs: None Do you need help understanding health information?: Never Pets and animals: No Sexually active: No Current gender identity: female What is your relationship status?: never How often do you talk on the phone with friends or family?: three or more times per week How often do you get together with friends or relatives?: three or more times per week How often do you attend judaism or protestant services?: decline to answer Do you belong to any clubs or organized social groups?: no Panel score (0-1 are the most socially isolated patients): 1 What type of physical activity do you participate in: decline to answer Duration: decline to answer Frequency: decline to answer Leslie/Orthodoxy: No preference Special leslie needs: No Seatbelt use: always Drive 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 Do you feel safe at home: Yes Do you feel safe in your relationship?: Yes Additional Social history: unable to assess privately History History 0 Para 0 Hx # Term Pregnancies 0 Multiple births Hx # Pregnancies 0 Ectopic pregnancies AB induced 0 Hx Number of Living Children 0 AB spontaneous 0 Meds Allergies and Home Medications Allergies Allergy/AdvReac Type Severity Reaction Status Date / Time Penicillins Allergy Severe hives Verified 10/22/23 12:58 polyethylene glycol 3350 Allergy Severe rash all Verified 10/22/23 12:58 [From Miralax] over cefazolin Allergy Unknown Verified 10/22/23 12:58 Home Medications Medication Instructions Recorded Confirmed Type MaxiVision 1 cap PO DAILY 02/14/19 10/08/23 History acetaminophen 325 mg tablet 650 mg (2 x 325 mg) PO Q6H PRN PRN 10/15/19 10/22/23 Rx (Tylenol) fever or pain #1 tab lidocaine 5 % topical patch 2 patch topical DAILY #30 ea 01/11/23 10/22/23 Rx (Lidoderm) dicyclomine 10 mg capsule 10 mg PO BID PRN IBS #120 caps 02/24/23 10/22/23 Rx loperamide 2 mg capsule 2 mg PO Q6H PRN loose stool #90 02/24/23 10/22/23 Rx caps losartan 100 mg tablet 100 mg PO DAILY #90 tabs 02/24/23 10/22/23 Rx fluticasone propionate 50 2 spray intranasal DAILY PRN 07/13/23 10/22/23 Rx mcg/actuation nasal allergy symptoms #16 grams spray,suspension acetaminophen 500 mg tablet 1,000 mg (2 x 500 mg) PO Q8H PRN 07/18/23 10/22/23 Rx pain #90 tabs tramadol 50 mg tablet 50 mg PO Q4H PRN severe 07/18/23 10/22/23 Rx postoperative pain #18 tabs ferrous sulfate 325 mg (65 mg 325 mg PO DAILY #0 tabs 08/01/23 10/22/23 Rx iron) tablet pantoprazole 20 mg tablet,delayed 20 mg PO DAILY #90 tabs 09/06/23 10/22/23 Rx release gabapentin 100 mg capsule 100 mg PO TID #90 caps 09/13/23 10/22/23 Rx donepezil 5 mg tablet 5 mg PO QHS #30 tabs 09/21/23 10/22/23 Rx meloxicam 15 mg tablet 15 mg PO DAILY #30 tabs 09/21/23 10/22/23 Rx cholecalciferol (vitamin D3) 25 25 mcg PO DAILY #90 caps 10/11/23 10/22/23 Rx mcg (1,000 unit) capsule Exam Narrative Exam Narrative: 177/83, 98, 36.4, 18, 98% RA. HEENT atraumatiuc; neck supple; lungs clear; heart RRR; abdomen soft and NT. Extremities bilateral 2+ pedal edema, slightly worse on left, no redness, tenderness or cord and Roman's negative bilateral; left hip pain-free ROM, moderate tenderness over left troch bursa, and hyperesthesia of essentially the entire LLE Results Labs 10/22/23 14:45 10/22/23 14:45 Labs: Laboratory Results - last 24 hr 10/22/23 14:45 WBC 9.37 RBC 3.85 L Hgb 10.8 L Hct 34.6 L MCV 90 MCH 28.1 MCHC 31.2 L RDW 15.9 H Plt Count 255 MPV 10.1 Immature Gran % 0.4 Neutrophils % 71.5 Lymphocytes % 17.0 Monocytes % 7.7 Eosinophils % 3.1 Basophils % 0.3 Nucleated RBC % 0.0 Absolute Neutrophils 6.70 Absolute Lymphocytes 1.59 Absolute Monocytes 0.72 Absolute Eosinophils 0.29 Absolute Basophils 0.03 ESR 26 PT 10.1 INR 1.0 APTT 24.3 D-Dimer 1927 H Sodium 144 Potassium 5.0 Chloride 108 H Carbon Dioxide 27.2 Anion Gap 8.8 BUN 27 H Creatinine 1.1 H Est GFR (CKD-EPI 2020) 49.24 Glucose 82 Calcium 9.3 Magnesium 2.0 Total Bilirubin 0.3 AST 23 ALT 28 Alkaline Phosphatase 154 H Creatine Kinase 85 C-Reactive Protein 0.74 H Total Protein 7.5 Albumin 3.3 L Procalcitonin < 0.1 Last Vital Signs Temp 36.4 C 10/22/23 13:09 Pulse 98 H 10/22/23 18:06 Resp 18 10/22/23 18:06 BP 177/83 H 10/22/23 18:06 Pulse Ox 98 10/22/23 18:06 Time Spent Time spent with Patient: 40-54 minutes Time was spent: preparing to see the patient(eg.review tests), obtaining and/or reviewing separately otained hiistory, ordering medications,tests, procedures, referring, communicating with other health pet care worker and indepentently interpreting results
[2023-10-22] MEDS: Enoxaparin 60 MG/0.6 ML SYR SC (20:43)
[2023-10-22] MEDS: traMADol 50 MG TAB PO (20:44)
[2023-10-22] MEDS: Gabapentin 100 MG CAP 200 MG PO (21:10)
[2023-10-22] MEDS: Donepezil 5 MG TAB PO (21:10)
[2023-10-22] MEDS: Acetaminophen 500 MG TAB 1000 MG PO (22:16)
[2023-10-23] MEDS: traMADol 50 MG TAB PO (00:45)
[2023-10-23] MEDS: Acetaminophen 500 MG TAB 1000 MG PO ×2 (05:49→15:23)
[2023-10-23 06:14] LABS: Abs Immature Grans 0.01 10^3/uL (0.0-0.06); Absolute Basophil Count 0.03 10^3/uL (0.0-0.2); Absolute Eosinophil Count 0.22 10^3/uL (0.0-0.7); Absolute Lymphocyte Count 1.68 10^3/uL (1.2-3.4); Absolute Monocyte Count 0.54 10^3/uL (0.1-0.8); Absolute Neutrophil Count 5.96 10^3/uL (1.2-6.7); Basophils % 0.4; Eosinophils % 2.6; HCT 29.9 % (36.0-46.0); HGB 9.5 g/dL (11.2-15.7); Immature Grans % 0.1; Lymphocytes % 19.9; MCH 28.6 pg (27.0-33.0); MCHC 31.8 % (32.0-36.0); MCV 90 fL (80-95); MPV 9.9 fL (8.0-11.0); Monocytes % 6.4; Neutrophils % 70.6; Platelet Count 238 10^3/uL (130-400); RBC 3.32 10^6/uL (3.93-5.22); RDW 15.8 % (11.7-14.6); RDW-SD 52.5 fL; WBC 8.44 10^3/uL (4.4-10.8)
[2023-10-23 07:15] VITALS: BP 151/67; PULSE 68; RESP 22; TEMP 36.5; O2SAT 94
[2023-10-23] MEDS: Lidocaine 5% Patch 2 PATCH TP (08:01)
[2023-10-23] MEDS: Enoxaparin 60 MG/0.6 ML SYR SC ×2 (08:02→20:14)
[2023-10-23] MEDS: Normal Saline Flush 10 ML SYR IVP ×2 (08:04→20:13)
[2023-10-23] MEDS: Ondansetron 4 MG/2 ML VIAL IVP ×2 (08:14→14:11)
[2023-10-23] MEDS: Losartan 50 MG TAB 100 MG PO (10:15)
[2023-10-23] MEDS: Gabapentin 100 MG CAP 200 MG PO ×3 (10:15→20:13)
[2023-10-23] MEDS: Pantoprazole 20 MG TABCR PO (10:15)
[2023-10-23] MEDS: Ferrous Sulfate 325 MG TAB PO (10:15)
[2023-10-23] MEDS: Meloxicam 15 MG TAB PO (10:15)
--- NOTE | 2023-10-23 13:21 | W.PM.PROGNOT ---
Date of Service Date of service: 10/23/23 Time of Service: 16:58 Assessment and Plan Assessment and plan (1) Left leg pain: Status: Acute Assessment and plan: -Unclear if this is entirely new problem or more acute on chronic pain related to previously identified issues, including possible neuropathy, bursitis and chronic hip pain; -D-dimer elevated, however patient does have chronically elevated D-dimer -At this point, appears to be either trochanteric bursitis, acute on chronic neuropathic pain, or less likely possible early herpetic neuralgia -Consider MRI pelvis,/lower extremities tomorrow -Will discuss with pain specialist tomorrow -Continue increased dose Neurontin (2) Alzheimer's type dementia with late onset without behavioral disturbance: Status: Chronic Assessment and plan: - Continue home donepezil (3) Hypertension: Status: Chronic Assessment and plan: - Continue home losartan Subjective Subjective Interval history since last seen: Patient states that she is feeling a little bit better though she continues to experience pain and proximal posterior left greater than right lower extremity even with light touch. She understands the plan to continue with gabapentin, likely have MRI and consultation with pain management tomorrow. Exam Narrative Exam Narrative: Well-appearing older female laying in bed in mild distress due to pain and mild nausea, ANO x 4, heart regular rhythm, lungs clear to auscultation bilaterally, abdomen soft, nontender, nondistended, significant pain to palpation of the proximal posterior left greater than right lower extremity appears to be originating just posteriorly from the greater trochanter Objective Last Vital Signs Temp 97.7 F 10/23/23 07:15 Pulse 68 10/23/23 07:15 Resp 22 10/23/23 07:15 BP 151/67 H 10/23/23 07:15 Pulse Ox 94 10/23/23 07:15 Laboratory Results - last 24 hr 10/22/23 10/23/23 14:45 06:05 WBC 9.37 8.44 RBC 3.85 L 3.32 L Hgb 10.8 L 9.5 L Hct 34.6 L 29.9 L MCV 90 90 MCH 28.1 28.6 MCHC 31.2 L 31.8 L RDW 15.9 H 15.8 H Plt Count 255 238 MPV 10.1 9.9 Immature Gran % 0.4 0.1 Neutrophils % 71.5 70.6 Lymphocytes % 17.0 19.9 Monocytes % 7.7 6.4 Eosinophils % 3.1 2.6 Basophils % 0.3 0.4 Nucleated RBC % 0.0 0.0 Absolute Neutrophils 6.70 5.96 Absolute Lymphocytes 1.59 1.68 Absolute Monocytes 0.72 0.54 Absolute Eosinophils 0.29 0.22 Absolute Basophils 0.03 0.03 ESR 26 PT 10.1 INR 1.0 APTT 24.3 D-Dimer 1927 H Sodium 144 Potassium 5.0 Chloride 108 H Carbon Dioxide 27.2 Anion Gap 8.8 BUN 27 H Creatinine 1.1 H Est GFR (CKD-EPI 2020) 49.24 Glucose 82 Calcium 9.3 Magnesium 2.0 Total Bilirubin 0.3 AST 23 ALT 28 Alkaline Phosphatase 154 H Creatine Kinase 85 C-Reactive Protein 0.74 H Total Protein 7.5 Albumin 3.3 L Procalcitonin < 0.1 Time Spent with Patient Time Spent with Patient: >50 minutes Time was spent: preparing to see the patient(eg.review tests), obtaining and/or reviewing separately otained hiistory, ordering medications,tests, procedures, referring, communicating with other health wild animal caretaker, indepentently interpreting results, counseling the patient and care coordination
--- NOTE | 2023-10-23 13:35 | PHA.REVIEW2 ---
Pharmacy Admission Review Admission Clinical Review Admission Pharmacy Review: (Updated 10/22/23 @ 18:39 by Rodri Bran MD) Hip pain, left (Acute) Left leg pain (Acute) Ambulatory dysfunction (Acute) Penicillins Allergy (Severe, Verified 10/22/23 12:58) hives polyethylene glycol 3350 [From Miralax] Allergy (Severe, Verified 10/22/23 12:58) rash all over cefazolin Allergy (Unknown, Verified 10/22/23 12:58) Resuscitation Status Full Code Height 5 ft 5 in Weight 63.957 kg Comments Comments/Follow Ups: Watch BP, SCr, labs and for med changes (possible renal dose adjustments). Pharmacy Admission Review Renal Dosing Renal Dosing: BUN 27 mg/dL (7-18) H 10/22/23 14:45 Creatinine 1.1 mg/dL (0.55-1.02) H 10/22/23 14:45 Medications needing adjustments: Reviewed (Crcl ~37.8 mL/min current meds okay.) Anticoagulation Anticoagulation: Hgb 9.5 g/dL (11.2-15.7) L 10/23/23 06:05 Hct 29.9 % (36.0-46.0) L 10/23/23 06:05 Plt Count 238 10^3/uL (130-400) 10/23/23 06:05 INR 1.0 (0.9-1.1) 10/22/23 14:45 Creatinine 1.1 mg/dL (0.55-1.02) H 10/22/23 14:45 Therapeutic Anticoagulation: Reviewed Medications: Enoxaparin (therapeutic dosing of enoxaparin ordered until DVT can be ruled out by ultrasound per H&P.) Opiate Usage Evaluate Pain Scale/Pains Meds: Reviewed Scheduled Bowel Reg ordered if on Opiates?: No (will mention to provider) Relevant Labs Relevant Labs: ESR 26 mm/hr (0-30) 10/22/23 14:45 Sodium 144 mmol/L (136-145) 10/22/23 14:45 Potassium 5.0 mmol/L (3.5-5.1) 10/22/23 14:45 Chloride 108 mmol/L (98-107) H 10/22/23 14:45 Magnesium 2.0 mg/dL (1.8-2.4) 10/22/23 14:45 C-Reactive Protein 0.74 mg/dL (0.0-0.3) H 10/22/23 14:45 Electrolytes, C-Reactive P, ESR: Reviewed DM Control DM Control: Glucose 82 mg/dL (74-106) 10/22/23 14:45 DM Control: N/A (No DM in patients medical history, no A1c on file) Cardiac Review BP, HR, EF%: Reviewed (BP has been elevated and HR within normal limits most of admission so far.) QTc Review QTc: N/A IV to PO Switch IV Medications: Reviewed Home Meds Home Med List reviewed: Reviewed Relevent Home Meds Not ordered & why?: cholecalciferol, fluticasone (PRN) Current Meds Current Medication Order Review: Intervened (adjusted timing of pantoprazole based on medical reimbursement manager time policy, added patch removal order for the lidocaine) Comments Comments/Follow Ups: Watch BP, SCr, labs and for med changes (possible renal dose adjustments).
[2023-10-23] MEDS: Dicyclomine 10 MG CAP PO (15:23)
[2023-10-23] MEDS: Normal Saline 1,000 ML 75 ML IV (18:02)
[2023-10-23 19:33] VITALS: BP 158/78; PULSE 75; RESP 18; TEMP 36.4; O2SAT 92
[2023-10-23] MEDS: Donepezil 5 MG TAB PO (20:13)
[2023-10-23] MEDS: Lidocaine Patch Removal 2 EACH TP (20:18)
[2023-10-23 23:30] VITALS: BP 112/61; PULSE 80; RESP 17; TEMP 37.1; O2SAT 95
--- NOTE | 2023-10-24 | DI.US_ITS ---
Exam(s) US LOWER EXTREMITY VENOUS LT EXAM: US LOWER EXTREMITY VENOUS LT CLINICAL HISTORY: LLE pain, elevated d-Dimer TECHNIQUE: Left lower extremity venous ultrasound performed using grayscale, color-flow, and spectra l Doppler analysis. COMPARISON: US US EXTREMITY VENOUS BI from 07/24/2023 FINDINGS: The left common femoral, femoral and popliteal veins demonstrate normal compressibility, augmentation , and color Doppler. The posterior tibial and peroneal veins are patent. The saphenofemoral junction is unremarkable. There is no evidence of a Fritz cyst. The soft tissues are unremarkable. IMPRESSION: No evidence of a left lower extremity DVT. DATA REPOSITORY:
[2023-10-24] MEDS: Acetaminophen 500 MG TAB 1000 MG PO ×2 (01:58→20:04)
[2023-10-24] MEDS: Normal Saline 1,000 ML 75 ML IV (05:56)
[2023-10-24 05:57] VITALS: BP 127/73
[2023-10-24 07:11] VITALS: BP 105/65; PULSE 68; RESP 17; TEMP 36.5; O2SAT 93
[2023-10-24 07:53] VITALS: BP 153/76; PULSE 63
[2023-10-24] MEDS: Lidocaine 5% Patch 2 PATCH TP (08:00)
[2023-10-24] MEDS: Enoxaparin 60 MG/0.6 ML SYR SC ×2 (08:00→20:04)
[2023-10-24] MEDS: Ferrous Sulfate 325 MG TAB PO (08:01)
[2023-10-24] MEDS: Meloxicam 15 MG TAB PO (08:01)
[2023-10-24] MEDS: Losartan 50 MG TAB 100 MG PO (08:01)
[2023-10-24] MEDS: Pantoprazole 20 MG TABCR PO (08:01)
[2023-10-24] MEDS: Gabapentin 100 MG CAP 200 MG PO ×3 (08:01→20:05)
--- NOTE | 2023-10-24 08:14 | INITIAL_ITS ---
Date of service: 10/24/23 Time of Service: 08:14 Care Management Initial Assmt Initial Assessment REASON FOR HOSPITALIZATION:: leg pain PREVIOUS FUNCTIONAL STATUS/SOCIAL/FAMILY SUPPORTS:: Amelia lives in [place] in a single family home. Her sister Radha lives with her and provides her care. Amelia is independent with ADLs but does need assistance with ambulation, transportation, meal preparation, housework, shopping etc. 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 Her sister Jessica is also one of her primary supports. Jessica lives next door and cooks for Amelia. She also provides her transportation, since she no longer drives. She is independent with her ADL's at baseline. CURRENT FUNCTIONAL STATUS:: Amelia was sitting up in a chair visiting with her sisters when CM met with her. She was polite but not very interactive. Her sisters answered many of the questions posed. Amelia informed CM that she was able to ambulate around the unit this morning but that she still had some hip and leg pain. CM explained that it would likely be a while before she returned to baseline as she has chronic pain as well. In discussion, CM offered to send a referral to [facility] for Options Counseling and community case management. Amelia was not sure if she was interested, so no referral has been made at this time. ADVANCE DIRECTIVES:: On file. Radha Brownlee (sister) [facility] Has patient been provided with info about the portal/API?: Yes Did the patient sign up for the portal?: No CODE STATUS:: Full Code INSURANCE COVERAGE / FINANCIAL ISSUES:: Medicare Financial Assist 83 CURRENT HOME/COMMUNITY SERVICES/EQUIPMENT:: uses a walker PRIMARY CARE PHYSICIAN:: Virginia Pino POTENTIAL DISCHARGE NEEDS:: follow up with PCP and plan of care PATIENT/FAMILY EDUCATION NEEDS:: Review of discharge instructions, activity, limitations, follow up plan, discuss Ask Me Three TRANSPORTATION:: to be determined by disposition PLAN:: Amelia will likely be discharged home, possibly with new home health services, when medically cleared. She will follow up with her community providers and plan of care and transport with a friend or family member. CM will continue to support Amelia and her discharge planning needs. PFSH All Active Problems Hip pain, left (Acute) Left leg pain (Acute) Ambulatory dysfunction (Acute) Left foot pain (Acute) Left ankle pain (Acute) Pain in both lower extremities (Acute) Anemia (Chronic) Hypertension (Chronic) Iron deficiency anemia (Chronic) Osteoporosis (Chronic) Irritable bowel syndrome (Chronic) prior evaluation with 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 NPH ruled out. Ventral hernia without obstruction or gangrene Hx of fracture of left hip s/p short TFN Dr. Mathis DOS: 10/11/19 Deep vein thrombosis Incidental lung nodule, > 3mm and < 8mm on xray and CT scan with contrast / [facility] pulm. Malignant neoplasm of female breast (09/21/92) R [facility]ST AND RECONSTRUCTION. 10/25 INFLAMMATION AT [facility] WAS NEG FOR MALIGNANCY Indeterminate colitis (02/04/16) 01/22/16 colonoscopy at [facility] Hypothyroidism (08/10/12) Diverticulitis (09/19/14) May 2014 [facility] sigmoid resection and colostomy post op infection and malnutrition February 2015 colostomy takedown (post op infection) C. difficile enteritis at hospitalization may 2014 Barretts esophagus Status post EGD with esophageal biopsy on July 05, [address] Jani Rothman. Squamous mucosa with reactive changes. Gastric type mucosa with chronic and focally active inflammation but no intestinal metaplasia or dysplasia. No helical factor pylori microorganisms identified. EGD 07/13/18, Dr. Azar Eldridge, [facility], dilatation of lower esophageal stricture Breast cancer Surgical History History of mastectomy (~1994) right mastectomy (no radiation or chemotherapy); s/p reconstruction after the mastectomy colostomy reversal Laparotomy (06/08/14) for [place] leak. End colostomy done Colectomy (~05/2014) for colon stricture presumed to be from diverticulitis Family History Mother , 84 Essential hypertension COPD (chronic obstructive pulmonary disease) Father , 51 Stomach cancer Mouth cancer Brother No problems noted. Maternal Grandfather No problems noted. Paternal Grandfather No problems noted. Maternal Grandmother No problems noted. Paternal Grandmother No problems noted. Sister No problems noted. Sister COPD (chronic obstructive pulmonary disease) Social History Smoking/Tobacco Use Status: Former Tobacco Use tobacco type: cigarettes Quit Date: 10/23/94 Pack-years: 40 Tobacco: How many years used: 40 Second Hand Exposure: No Smoking risk assessment performed?: Yes Alcohol Intake: never Drug use: Never Substance use type: does not use Caregiver/Support person: Yes Household members: none Housing: house Communication Needs: None Do you need help understanding health information?: Never Pets and animals: No Sexually active: No Current gender identity: female What is your relationship status?: never How often do you talk on the phone with friends or family?: three or more times per week How often do you get together with friends or relatives?: three or more times per week How often do you attend episcopalian or sikhism services?: decline to answer Do you belong to any clubs or organized social groups?: no Panel score (0-1 are the most socially isolated patients): 1 What type of physical activity do you participate in: decline to answer Duration: decline to answer Frequency: decline to answer Leslie/Buddhist: No preference Special leslie needs: No Seatbelt use: always Drive 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
[2023-10-24] MEDS: Senna TAB 1 TAB PO (09:38)
--- NOTE | 2023-10-24 09:47 | W.PM.PROGNOT ---
Date of Service Date of service: 10/24/23 Time of Service: 09:47 Assessment and Plan Assessment and plan (1) Left leg pain: Status: Acute Assessment and plan: -Unclear if this is entirely new problem or more acute on chronic pain related to previously identified issues, including possible neuropathy, bursitis and chronic hip pain; -D-dimer elevated, however patient does have chronically elevated D-dimer -At this point, appears to be either trochanteric bursitis, acute on chronic neuropathic pain as patient experienced significant improvement with gabapentin and lidocaine -She will work with physical therapy today on ambulation -Given significant improvement with above-mentioned therapies, MRI is no longer required nor is pain specialist consultation (2) 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 Her leg pain is better and she is no longer nauseous. She is looking forward to working with physical therapy on her ambulation Exam Narrative Exam Narrative: Well-appearing older female laying in bed in mild distress due to pain and mild nausea, ANO x 4, heart regular rhythm, lungs clear to auscultation bilaterally, abdomen soft, nontender, nondistended, pain of the proxmial posterior LLE improved as compared to previous day Objective Last Vital Signs Temp 97.7 F 10/24/23 07:11 Pulse 63 10/24/23 07:53 Resp 17 10/24/23 07:11 BP 153/76 H 10/24/23 07:53 Pulse Ox 93 10/24/23 07:11 Time Spent with Patient Time Spent with Patient: >50 minutes Time was spent: preparing to see the patient(eg.review tests), obtaining and/or reviewing separately otained hiistory, ordering medications,tests, procedures, referring, communicating with other health intensive care ambulance paramedic, indepentently interpreting results, counseling the patient and care coordination
--- NOTE | 2023-10-24 10:12 | PT.INIE ---
PT Notes Visit Reasons: Leg Pain Physical Therapy Inpatient Initial Evaluation Date: 10/24/2023 Referring Doctor: Arias Spears MD PT Orders: PT CONSULT: Exacerbation of Chronic Cond Precautions: Fall. Standard. Dementia. Activity as tolerated. Patient Profile/Admitting Diagnosis: Amelia is an 83 yea-old female who presented to the ED on 10/22/2023 for L leg swelling and pain. She had surgery 07/18/23 for open debridement/excision of LEFT trochanteric bursa, iliotibial band tenotomy, and removal of hardware at LEFT femur. She is admitted for management of L leg pain, Alzheimer's dementia without behavioral deficit, and HTN. Pelvic CT showed serpiginous sclerosis in left femoral head and neck with possible of avascular necrosis as well as mild subchondral collapse of the humeral head. Ultrasound to the left LE was negative for DVT. PMHX: All Active Problems Hip pain, left (Acute) Left leg pain (Acute) Ambulatory dysfunction (Acute) Left foot pain (Acute) Left ankle pain (Acute) Pain in both lower extremities (Acute) Anemia (Chronic) Hypertension (Chronic) Iron deficiency anemia (Chronic) Osteoporosis (Chronic) Irritable bowel syndrome (Chronic) prior evaluation with 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 NPH ruled out.Ventral hernia without obstruction or gangrene Hx of fracture of left hip s/p short TFN Dr. Mathis DOS: 10/11/19 Deep vein thrombosis Incidental lung nodule, > 3mm and < 8mm on xray and CT scan with contrast [place] [facility]. Malignant neoplasm of female breast (09/21/92) R MAST AND RECONSTRUCTION. 10/25 INFLAMMATION AT [facility] WAS NEG FOR MALIGNANCY Indeterminate colitis (02/04/16) 01/22/16 [place] [facility] Hypothyroidism (08/10/12) Diverticulitis (09/19/14) May [place] [facility] [place]moid [place] and colostomy post op infection and malnutrition February 2015 colostomy takedown (post op infection) C. difficile enteritis at hospitalization may 2014 Barretts esophagus Status post EGD with esophageal biopsy on July 05, [address] Jani Rothman. Squamous mucosa with reactive changes. Gastric type mucosa with chronic and focally active inflammation but no intestinal metaplasia or dysplasia. No helical factor pylori microorganisms identified. EGD 07/13/18, Dr. Azar Eldridge, [facility], dilatation of lower esophageal strictureBreast cancer Surgical History History of mastectomy (~1994) right mastectomy (no radiation or chemotherapy); s/p reconstruction after the mastectomy colostomy reversal Laparotomy (06/08/14) for anastamotis leak. End colostomy done Colectomy (~05/2014) for colon stricture presumed to be from diverticulitis Social History/Home Situation: Lives alone with 3 SANDY, uses front-wheeled walker. Sister Radha provides 24/7 care per patient and helps with meals, patient does not drive. Sister Jessica does grocery shopping. Patient is a set up for bathing and has a shower chair. Equipment Owned/DME: 4WW, FWW, shower chair Subjective: Complained of pain in the low back, L side of thigh, front and back of knee aggravated by walking. Pain level at 5/10 with weight bearing. Denies headache, chest pain, and lightheadedness throughout. Feels that swelling and pain have gone down, agreeable to walking in the hallway using walker. Objective: General Observation: Pleasant Mental Status: A&O at least 2 Pain: 5/10 left hip ROM: Right Upper Extremity: Shoulder Flexion WFL. Shoulder abduction WFL. Elbow flexion WFL. Wrist flexion WFL. Opening and closing of hand WFL. Left Upper Extremity: Shoulder Flexion WFL. Shoulder abduction WFL. Elbow flexion WFL. Wrist flexion WFL. Opening and closing of hand WFL. Right Lower Extremity: Hip flexion lacks the last 25% of AROM. Hip abduction lacks the last 25% of AROM. Knee flexion WFL. Ankle dorsiflexion to neutral only. Ankle plantarflexion WFL. Left Lower Extremity: Hip flexion lacks the last 50% of AROM. Hip abduction lacks the last 50% of AROM. Knee flexion -20 degrees to 90 degrees. Ankle dorsiflexion to neutral only. Ankle plantarflexion WFL. Strength: Right Upper Extremity: Shoulder flexors 4/5. Shoulder abductors 4/5. Elbow flexors 5/5. Elbow extensors 5/5. Parking Assistant strong. Left Upper Extremity: Shoulder flexors 4/5. Shoulder abductors 4/5. Elbow flexors 5/5. Elbow extensors 5/5. Parking Assistant strong. Right Lower Extremity: Hip flexors 4/5. Knee flexors 5/5. Knee extensors 4+/5. Ankle dorsiflexors 3-/5. Ankle plantarflexors 3+/5. Left Lower Extremity: Hip flexors 2-/5. Knee flexors 43-/5. Knee extensors 3-/5. Ankle dorsiflexors 3-5. Ankle plantarflexors 3+/5. Sensation: Intact as to pain and pressure on bilateral lower extremities. Bed Mobility/Transfers: Moderate verbal cueing provided for use of B hands as needed for support, movement sequence, Ad management, and and posture to reduce fall risk and minimize pain report. Sit to stand: contact guard assist Stand to sit: contact guard assist Bed to chair: contact guard assist Chair to bed: contact guard assist Gait: Facilitated safe and correct performance of level surface ambulation covering a distance of 50 to 60 feet x 3 using front wheeled walker with contact-guard assist and IV pole management as well and wheelchair follow by PT. Right foot steps to level of left foot each time due to pain on the L hip, back, lateral hip, anterior and posterior knee. Minimal verbal cueing provided for AD management, posture, and limb advancement to reduce fall risk and minimize pain report. Balance: Static Sitting: Good Dynamic Sitting: Fair Static Standing: Fair Dynamic Standing: Fair Special Tests: Mobility Limitations Standardized Measure [facility] AM-PAC 6 clicks Basic Mobility Inpatient Short Form: Raw Score: 18 CMS Score: 47% deficit Informed Consent/Education: Patient instructed in purpose of PT consult and plan of care. THERA EX: Slow seated marches x 5 Slow clam shell exercises x 5 Slow LAQs x 5 Assessment: Pain in low back, L hip, L lateral thigh, anterior and posterior knee minimal at rest but aggravated with weight bearing. Pelvic CT findings of serpiginous sclerosis in the L femoral head with mild subchondral collapse and possible avascular necrosis may be contributing mainly to the patient's pain level, low back and L hip/knee muscle imbalance and strain, and arthritic processes both on the hip and the knee. Trochateric bursitis recurrence on L, ITB syndrome, and worsening arthritis also compunding issues. Patient presents with clinical signs and symptoms consistent with current/admitting diagnoses that have resulted to mobility limitations, gait instability, generalized weakness, and impairment of motor control as demonstrated by the following impairment level findings: 1. Decreased strength to left hip/knee major muscle groups 2. Impaired sitting/standing balance 3. Impaired activity tolerance 4. Limitation of joint range of motion in left hip 5. Pain in areas mentioned above Impairments are contributing to the following functional limitations: 1. Dependent bed mobility skills 2. Increased dependence with transfers 3. Inability to safely ambulate without assistive device and physical assistance 4. Increase completion time for mobility ADL performance 5. Increased fall risk 6. Inability to negotiate steps alone safely Patient is assessed as a moderate complexity based on the following: History: 83 year old female with impairment level findings, functional limitations, and past medical history as indicated above Examination: Demonstrable impairment in strength, balance, and mobility level with underlying impairments and functional limitations as documented above Presentation: Evolving Decision Making: High complexity Goals: Goals X1 week 1. Supine-Sit independent 2. Sit-Supine independent 3. Sit-Stand supervision 4. Stand-Sit supervision 5. Bed-Chair supervision 6. Chair-Bed supervision 7. Supervision with gait on level surface with use of FWW for at least 150 feet without report of pain nor dyspnea 8. Supervision with stair negotiation while holding onto bilateral rails for at least 3 steps without report of pain nor dyspnea 9. Supervision with home exercise program 10. Good static and dynamic standing balance/tolerance Plan of Care/Treatment Plan: 1-2x/day, 7 days/week x1 week. Plan of care has been reviewed with the HAT BLOCK MAKER providing the service under Physical Therapy direction. Initiate Physical Therapy intervention for strengthening, bed mobility, transfers, gait, stairs, balance training, and use of assistive device. -Premedicate for pain. -Gentle STM to lateral hip thigh and knee to minimize pain from ITB -Gentle AROM on the L hip/knee Discharge Plan DISCHARGE RECOMMENDATIONS: [] Home with no services [] [X] Home with services. Patient will benefit from home health PT services in order to progress mobility level using least restrictive assistive ambulatory device, assess home safety, identify additional equipment needs, and establish a functional maintenance program that will increase ability of patient to remain at home. [] Home with outpatient PT [] [] SNF for continued rehabilitation [] [] Intermediate Care [] [] SNF versus LTC based on ability to participate and progress [] TREATMENT CODE/TIME: 88184 x 15 minutes, 22502 x 27 minutes x 2 units beginning at 10:12 AM. Thank you for the opportunity to participate in the care of this patient. Shweta Malik PT, DPT, CLT [facility] [place], [place]
[2023-10-24] MEDS: traMADol 50 MG TAB PO (15:04)
--- NOTE | 2023-10-24 15:27 | OCONE_ITS ---
Date of service: 10/24/23 Time of Service: 15:27 History of Present Illness History of Present Illness Chief Complaint: Left Hip and Leg Pain Narrative: Amelia is a 83-year-old female previously for surgery around the left hip. She had had a previous intraperitoneal fixation of an intertrochanteric fracture about the left hip. This healed but unfortunately with some shortening which is limited to bursitis around the greater trochanter and the and the helical blade. The hardware was removed and the bursectomy was performed on July 18, 2023. She did well from this. She was discharged initially to scrutinizing facility and eventually to home. She has been able to maintain regular ambulation with minimal pain or discomfort reported. However, about 3 to 4 days ago she started developing increasing pain about the left leg to the point that she was unable to walk. She reports that it is due to the exercises. She presented to the emergency department. Given the failure to ambulate even with assistance, she was admitted for pain control and therapy. Her current complaint is about the left leg. She actually points to her anterior tibia as well as the lateral left knee. She has lidocaine is about the lateral aspect of the left hip and thigh. She reports mild pain around the left hip thigh. No groin pain. No numbness or tingling. Consult Reason Left hip/leg pain Assessment and Plan Assessment and plan (1) Trochanteric bursitis, left hip: Status: Acute Assessment and plan: Amelia appears to have some recurrence of trochanteric bursitis about the left hip. She also has some symptoms of generalized soft tissue deconditioning about the left leg. Her examination does not seem to indicate that the hip joint is a problem. She does have some irregularity of the femoral head as seen on CT scan which is largely unchanged and does not seem to be problematic based on testing today. She does report that the exercises make it worse and she is very reluctant to do any of the exercises and is quite possible that the peripheral edema that she is experiencing about the leg is adding to some of the soft tissue demand causing the symptoms to be more aggravated. I do not see any concerns. At this point I did offer an injection for the trochanteric bursa although things are getting better and will continue to improve with time. I think is important that we think about medications to help out with some of this discomfort including soft tissue massage, heat, and topical treatments which could be utilized. Encouraged physical therapy. Weightbearing as tolerated with assistive device. Recommend outpatient physical therapy for soft tissues, bursitis, and ambulatory dysfunction. (2) Peripheral edema: Status: Acute Assessment and plan: Would expect her generalized pain with the left leg to improve once the edema resolves or improves. This is reported to be worse than usual. (3) Ambulatory dysfunction: Status: Acute Assessment and plan: Multifactorial. She does have some deformity of the femoral head along with bursitis and other soft tissue complaints about the left leg which adds to her generalized weakened state. I would continue with physical therapy. No acute concerns. Review of Systems All systems reviewed & are unremarkable except as noted in HPI and below PFSH All Active Problems (Updated 10/25/23 @ 06:36 by Colin Garcia MD) Peripheral edema (Acute) Hip pain, left (Acute) Left leg pain (Acute) Ambulatory dysfunction (Acute) Left foot pain (Acute) Left ankle pain (Acute) Pain in both lower extremities (Acute) Anemia (Chronic) Hypertension (Chronic) Iron deficiency anemia (Chronic) Osteoporosis (Chronic) Irritable bowel syndrome (Chronic) prior evaluation with [facility] Low back pain (Acute) Vitamin D deficiency (Acute) Sciatica (Acute) Emphysema lung (Acute) GERD (gastroesophageal reflux disease) (Chronic) Hiatal hernia (Chronic) 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 [place] for [place] puncture; no change in pressures. NPH ruled out. Ventral hernia without obstruction or gangrene Hx of fracture of left hip s/p short TFN Dr. Mathis DOS: 10/11/19 Deep vein thrombosis Incidental lung nodule, > 3mm and < 8mm on xray and CT scan with contrast / [facility] [place] pulm. Malignant neoplasm of female breast (09/21/92) R MAST AND RECONSTRUCTION. 10/25 INFLAMMATION AT [facility] WAS NEG FOR MALIGNANCY Indeterminate colitis (02/04/16) 01/22/[address] [facility] [place] Hypothyroidism (08/10/12) Diverticulitis (09/19/14) May [address] [facility] [place] sigmoid resection and colostomy post op infection and malnutrition February 2015 colostomy takedown (post op infection) C. difficile enteritis at hospitalization may 2014 Barretts esophagus Status post EGD with esophageal biopsy on July 05, [address] Jani Rothman. Squamous mucosa with reactive changes. Gastric type mucosa with chronic and focally active inflammation but no intestinal metaplasia or dysplasia. No helical factor pylori microorganisms identified. EGD 07/13/18, Dr. Azar Eldridge, [facility], dilatation of lower esophageal stricture Breast cancer Surgical History History of mastectomy (~1994) right mastectomy (no radiation or chemotherapy); s/p reconstruction after the mastectomy colostomy reversal Laparotomy (06/08/14) for [place] leak. End colostomy done Colectomy (~05/2014) for colon stricture presumed to be from diverticulitis Family History Mother , 84 Essential hypertension COPD (chronic obstructive pulmonary disease) Father , 51 Stomach cancer Mouth cancer Brother No problems noted. Maternal Grandfather No problems noted. Paternal Grandfather No problems noted. Maternal Grandmother No problems noted. Paternal Grandmother No problems noted. Sister No problems noted. Sister COPD (chronic obstructive pulmonary disease) Social History Smoking/Tobacco Use Status: Former Tobacco Use tobacco type: cigarettes Quit Date: 10/23/94 Pack-years: 40 Tobacco: How many years used: 40 Second Hand Exposure: No Smoking risk assessment performed?: Yes Alcohol Intake: never Drug use: Never Substance use type: does not use Caregiver/Support person: Yes Household members: none Housing: house Communication Needs: None Do you need help understanding health information?: Never Pets and animals: No Sexually active: No Current gender identity: female What is your relationship status?: never How often do you talk on the phone with friends or family?: three or more times per week How often do you get together with friends or relatives?: three or more times per week How often do you attend scientology or episcopalian services?: decline to answer Do you belong to any clubs or organized social groups?: no Panel score (0-1 are the most socially isolated patients): 1 What type of physical activity do you participate in: decline to answer Duration: decline to answer Frequency: decline to answer Leslie/Baptist: No preference Special leslie needs: No Seatbelt use: always Drive intox or ride w/intox garbage truck driver: No Do you feel safe at home: Yes Do you feel safe in your relationship?: Yes Additional Social history: unable to assess privately History History 2 0 Para 0 Hx # Term Pregnancies 0 Multiple births Hx # Pregnancies 0 Ectopic pregnancies AB induced 0 Hx Number of Living Children 0 AB spontaneous 0 Exam Narrative Exam Narrative: Sitting up in the chair. No acute distress. Awake and alert. Evaluation of the left leg shows well-healed incision over the lateral aspect of the left hip. No signs of infection. No swelling. No ecchymosis. There are multiple lidocaine patches seen about the left lateral thigh. She has exquisite pain to palpation over the greater trochanteric as well as the middle portion of the previous incision. There is some mild pain along the lateral IT band and slightly increased surrounding the lateral joint line of the left knee. She also has exquisite pain with palpation about the pretibial area of the left leg with notable 2+ pitting edema. No pain with ankle dorsiflexion plantarflexion. No pain with passive knee extension or flexion. There is also no significant pain with passive hip flexion, internal rotation and external rotation. Results Last Vital Signs Temp 36.5 C 10/24/23 07:11 Pulse 63 10/24/23 07:53 Resp 17 10/24/23 07:11 BP 153/76 H 10/24/23 07:53 Pulse Ox 93 10/24/23 07:11 Labs 10/23/23 06:05 10/22/23 14:45 Imaging Imaging Studies: I reviewed the x-rays about her left leg including a CT scan of her left hip. This shows some deformity of the proximal femur due to previous fracture which has healed and thus subsequent removal of hardware. Ghost tracks are seen from the hardware itself. There may be some irregularity and collapse of the medial aspect of the femoral head which looks largely unchanged from previous imaging studies. There is no gross weightbearing collapse although there is some arthritic change within the hip noted by joint space narrowing, subchondral sclerosis, and osteophytes. No apparent fracture within the femur or within the pelvis. Procedures Bursa Procedures Site of procedure: trochanteric bursa (Left) XRAY obtained: none Antisepsis used: other Medication injected: methylprednisolone acetate (80mg) Amount of medication used (mg): 80 Lidocaine added to medication: Yes (6 cc of 0.25% bupivacaine) Patient tolerated procedure: well Complications: none Additional comments: Hemostasis obtained and Band-Aid applied.
--- NOTE | 2023-10-24 15:31 | PT.INTREAT ---
PT Notes Visit Reasons: Leg Pain Date: 10/24/2023 Referring Doctor: Arias Spears MD PT Orders: PT CONSULT: Exacerbation of Chronic Cond Precautions: Fall. Standard. Dementia. Activity as tolerated. SUBJECTIVE: pleasant and agreeable to participating in PT, although expresses that he would prefer not to get out of bed as that induces dizziness and lightheadedness. OBJECTIVE: ? PAIN: Patient c/o pain 5-610 lowback, left hip, left knee, left ankle. pt with IV line on right arm, rory alarm active. BED MOBILITY/TRANSFERS? Supine-sit: not assessed ? Sit-supine: not assessed ? Sit-stand: CGA? Stand-sit: CGA cue for reaching behind for armrest? GAIT? Assistive Device: FWW? Weight bearing: WBAT Assist: CGA ? Distance:? 60'x2 with WC follow ? +1 for IV pole management? Deviation: antalgic gait with left LE leading step to gait pattern, ? ASSESSMENT:? pt able to tolerate activity given enough rest break in between distances. pt reports the pain to be consistent and slightly increased close to the end of session with one episode of lillie shooting pain on the LLe during stand pivot transfer going back to recliner requiring min A to maintain upright position. pt refused further engagement after getting settled back in recliner. PLAN: will conitnue to work on strengthening, bed mobility, transfers, gait, stairs, balance training, and use of assistive device until pt is ready for DC. TREATMENT CODE/TIME: 28103k0 30mins (1:55-2:25pm) ?
[2023-10-24 15:41] VITALS: BP 132/57; PULSE 74; RESP 18; TEMP 37; O2SAT 95
[2023-10-24] MEDS: Bupivacaine 0.25% Pres-Free 10 ML VIAL IJ (16:45)
[2023-10-24] MEDS: methylPREDNISolone ACETATE 80 MG/ML VIAL IJ (16:45)
[2023-10-24] MEDS: Furosemide 20 MG/2 ML VIAL IVP (16:52)
[2023-10-24] MEDS: Normal Saline Flush 10 ML SYR IVP ×2 (16:53→20:04)
--- NOTE | 2023-10-24 17:10 | CHAPLAIN ---
Amelia was up in the chair when I visited. She told me that her foot was painful. There was a tennis match on the tv, but Amelia said she doesn't like tennis. Amelia's two sister, who provide support, have been in to visit. I explained my role and offered support.
[2023-10-24] MEDS: Donepezil 5 MG TAB PO (20:04)
[2023-10-24 20:05] VITALS: BP 127/72; PULSE 79; RESP 18; TEMP 36.6; O2SAT 93
[2023-10-24] MEDS: Lidocaine Patch Removal 2 EACH TP (20:05)
[2023-10-25 00:28] VITALS: BP 149/78; PULSE 68; RESP 16; TEMP 37.2; O2SAT 95
[2023-10-25 07:48] VITALS: BP 146/79; PULSE 69; RESP 18; TEMP 36.5; O2SAT 93
[2023-10-25] MEDS: Lidocaine 5% Patch 2 PATCH TP (08:34)
[2023-10-25] MEDS: Normal Saline Flush 10 ML SYR IVP (08:34)
[2023-10-25] MEDS: Gabapentin 100 MG CAP 200 MG PO (08:34)
[2023-10-25] MEDS: Losartan 50 MG TAB 100 MG PO (08:34)
[2023-10-25] MEDS: Pantoprazole 20 MG TABCR PO (08:34)
[2023-10-25] MEDS: Meloxicam 15 MG TAB PO (08:35)
[2023-10-25] MEDS: Enoxaparin 60 MG/0.6 ML SYR SC (08:35)
[2023-10-25] MEDS: Ferrous Sulfate 325 MG TAB PO (08:35)
--- NOTE | 2023-10-25 09:27 | PDOC.HHF2F ---
Home Health Referral Home Health Orders Clinical synopsis of why skilled professionals are needed: Chronic lower back pain and sciatica with ambulatory pain Physical Therapist: Check all that apply Increase strength & endurance for safe mobility at home: Ordered To design/establish home maintenance program: Ordered Fall reduction therapy program for patient with history of frequent falls: Ordered Home safety evaluation and teaching/gait training including stair management (if applicable): Ordered Better Breathing Program: Ordered Encounter Date and Reason: I certify that a FTF encounter for this patient was performed on October 25, 2023 and that such encounter was related to the primary reason the patient requires home health services. The encounter was conducted in the following manner: By me as the certifying physician, SALES REPRESENTATIVE EDUCATION COURSES, PA or By an inpatient physician, SALES REPRESENTATIVE EDUCATION COURSES or PA during an inpatient stay who communicated findings to me, Certification And Authentication I certify that I composed the above information based on my clinical judgment relating to this patient's medical condition and, if applicable, clinical findings communicated to me by the NPP or inpatient physician who performed the FTF encounter. Name of Provider that will be monitoring home health services: Virginia Pino
--- NOTE | 2023-10-25 09:31 | W.PM.DS.N ---
Date of service: 10/25/23 Time of Service: 09:33 DS: Diagnosis Discharge Diagnosis (1) Trochanteric bursitis, left hip: Status: Acute Asessment and Plan: Likely source of pain is combination of a trochanteric bursitis and worsening of chronic back pain/sciatica. Imaging has been negative, and patient experienced significant improvement with increase in her gabapentin dose allowing her to ambulate. (2) Peripheral edema: Status: Acute Asessment and Plan: - Mild, mild, but patient was on IV fluids for short period of time due to nausea/poor p.o. intake while adjusting to increased gabapentin dose. Patient now tolerating p.o. intake -Was given 1 dose of 20 mg IV Lasix with good urine output improvement of lower EXTR (3) Ambulatory dysfunction: Status: Acute Discharge Plan Disposition Patient Disposition: Home W/Home Health Services Condition: Good Discharge Details Reason For Visit: Leg Pain Admit Date/Time: 10/22/23 19:13 Admit Provider: Arias Spears Attending Provider: Arias Spears Primary Care Provider: Virginia Pino Hospital Course Hospital Course: The patient initially presented with intractable pain of her left upper posterior leg. After imaging was determined that there was no acute fracture or other findings. Her gabapentin was increased, and over the subsequent 24 hours patient has significant improvement of her pain, confirming that patient had worsening of her chronic lower back pain/sciatica pain that had just increase intensity and location and duration. Given that her pain is now well-controlled enough for her to ambulate, it was determined that she was stable for Home Meds and New Rx's Prescriptions: New gabapentin 100 mg capsule 200 mg PO TID Qty: 150 0RF Continued MaxiVision 1 cap PO DAILY loperamide 2 mg capsule 2 mg PO Q6H PRN (Reason: loose stool) Qty: 90 1RF losartan 100 mg tablet 100 mg PO DAILY Qty: 90 4RF dicyclomine 10 mg capsule 10 mg PO BID PRN (Reason: IBS) Qty: 120 3RF lidocaine [Lidoderm] 5 % adhesive patch,medicated 2 patch topical DAILY Qty: 30 12RF Rx Instructions: leave on most painful area for up to 12 hrs fluticasone propionate 50 mcg/actuation spray,suspension 2 spray intranasal DAILY PRN (Reason: allergy symptoms) Qty: 16 11RF Rx Instructions: administer into each nostril pantoprazole 20 mg tablet,delayed release (DR/EC) 20 mg PO DAILY Qty: 90 1RF gabapentin 100 mg capsule 100 mg PO TID Qty: 90 12RF donepezil 5 mg tablet 5 mg PO QHS Qty: 30 3RF meloxicam 15 mg tablet 15 mg PO DAILY Qty: 30 1RF Rx Instructions: Take one tablet daily for inflammation and pain cholecalciferol (vitamin D3) 25 mcg (1,000 unit) capsule 25 mcg PO DAILY Qty: 90 3RF Rx Instructions: /take one capsule daily acetaminophen 500 mg tablet 1,000 mg PO Q8H PRN Qty: 90 0RF Rx Instructions: Take two tablets up to every 8 hours as needed for pain tramadol 50 mg tablet 50 mg PO Q4H PRN (Reason: severe postoperative pain) Qty: 18 0RF Rx Instructions: Take one tablet up to every 4 hours as needed for severe pain acetaminophen [Tylenol] 325 mg Tablet 650 mg PO Q6H PRN PRN (Reason: fever or pain) Qty: 1 0RF ferrous sulfate 325 mg (65 mg iron) Tablet 325 mg PO DAILY Qty: 0 0RF Discharge Instructions Instructions: Sciatica (DC) Activity:: Activity as Tolerated Equipment/Supplies:: Blood Glucose Monitor Diet:: As Tolerated Discharge Orders Discharge Orders: Discharge Order (Routine); Ordered 10/25/23 Ordered By: Aris Vora DS: Summary Time Spent with Patient providing and/or coordinating discharge services: Greater than 30 minutes Status at Discharge Functional status at discharge: independent ambulation Overall status at discharge: patient is back to baseline Mental Status: mental status grossly normal Speech and Movement: speech and movement normal Mood: congruent mood Affect: normal affect Quality:SDOH Health Related Social Needs: No Data to Display Exam Narrative Exam Narrative: Well-appearing older female laying in bed in mild distress due to pain and mild nausea, ANO x 4, heart regular rhythm, lungs clear to auscultation bilaterally, abdomen soft, nontender, nondistended, pain of the proxmial posterior LLE improved as compared to previous day Psych Mental Status: mental status grossly normal Speech and Movement: speech and movement normal Mood: congruent mood Affect: normal affect DS: Data Vitals/I&O Vitals and I&O: Vital Signs Temperature 97.7 F 10/25/23 07:48 Temperature Source Temporal Artery Scan 10/25/23 07:48 Pulse 69 10/25/23 07:48 Pulse Rhythm Regular 10/24/23 20:00 Respiratory Rate 18 10/25/23 07:48 Respiratory Effort Normal, Non-Labored 10/24/23 20:00 Respiratory Depth Normal 10/24/23 20:00 Respiratory Pattern Normal 10/24/23 20:00 Blood Pressure 146/79 H 10/25/23 07:48 Pulse Oximetry 93 10/25/23 07:48 Oxygen Delivery Method Room Air 10/25/23 07:48 Oxygen Flow Rate 0 10/25/23 07:48 Pain Level 5 10/24/23 20:05 Comment pt reports some cramping to RLE, denies severe pain, does not want narcotic PRN, warm blankets provided, pt resting comfortably. 10/25/23 00:28 Intake & Output 10/24/23 10/25/23 10/25/23 17:59 05:59 17:59 Intake Total 1720 / 1720 250 / 1970 Output Total 200 / 200 900 / 1100 Balance 1520 / 1520 -650 / 870 Intake: IV 1000 / 1000 Oral 720 / 720 250 / 970 Output: Urine 200 / 200 900 / 1100 Other: Urine Color Yellow Pale Yellow Urine Appearance Clear Clear Urine Odor None Comment pt has been incontinent multiple times today purewick Stool Size Moderate Small Stool Characteristics Soft Soft Voiding Methods Diaper Diaper Incontinent Incontinent [facility] All Active Problems (Updated 10/25/23 @ 06:36 by Colin Garcia MD) Peripheral edema (Acute) Hip pain, left (Acute) Left leg pain (Acute) Ambulatory dysfunction (Acute) Left foot pain (Acute) Left ankle pain (Acute) Pain in both lower extremities (Acute) Anemia (Chronic) Hypertension (Chronic) Iron deficiency anemia (Chronic) Osteoporosis (Chronic) Irritable bowel syndrome (Chronic) prior evaluation with [facility] Low back pain (Acute) Vitamin D deficiency (Acute) Sciatica (Acute) Emphysema lung (Acute) GERD (gastroesophageal reflux disease) (Chronic) Hiatal hernia (Chronic) 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 NPH ruled out. Ventral hernia without obstruction or gangrene Hx of fracture of left hip s/p short TFN Dr. Mathis DOS: 10/11/19 Deep vein thrombosis Incidental lung nodule, > 3mm and < 8mm on xray and CT scan with contrast / [facility] [place] pulm. Malignant neoplasm of female breast (09/21/92) R MAST AND RECONSTRUCTION. 10/25 INFLAMMATION AT [facility] WAS NEG FOR MALIGNANCY Indeterminate colitis (02/04/16) 01/22/16 colonoscopy at [facility] [place] Hypothyroidism (08/10/12) Diverticulitis (09/19/14) May 2014 [facility] [place] sigmoid resection and colostomy post op infection and malnutrition February 2015 colostomy takedown (post op infection) C. difficile enteritis at hospitalization may 2014 Barretts esophagus Status post EGD with esophageal biopsy on July 05, [address] Jani Rothman. Squamous mucosa with reactive changes. Gastric type mucosa with chronic and focally active inflammation but no intestinal metaplasia or dysplasia. No helical factor pylori microorganisms identified. EGD 07/13/18, Dr. Azar Eldridge, [facility], dilatation of lower esophageal stricture Breast cancer Surgical History History of mastectomy (~1994) right mastectomy (no radiation or chemotherapy); s/p reconstruction after the mastectomy colostomy reversal Laparotomy (06/08/14) for [place] leak. End colostomy done Colectomy (~05/2014) for colon stricture presumed to be from diverticulitis Family History Mother , 84 Essential hypertension COPD (chronic obstructive pulmonary disease) Father , 51 Stomach cancer Mouth cancer Brother No problems noted. Maternal Grandfather No problems noted. Paternal Grandfather No problems noted. Maternal Grandmother No problems noted. Paternal Grandmother No problems noted. Sister No problems noted. Sister COPD (chronic obstructive pulmonary disease) Social History Smoking/Tobacco Use Status: Former Tobacco Use tobacco type: cigarettes Quit Date: 10/23/94 Pack-years: 40 Tobacco: How many years used: 40 Second Hand Exposure: No Smoking risk assessment performed?: Yes Alcohol Intake: never Drug use: Never Substance use type: does not use Caregiver/Support person: Yes Household members: none Housing: house Communication Needs: None Do you need help understanding health information?: Never Pets and animals: No Sexually active: No Current gender identity: female What is your relationship status?: never How often do you talk on the phone with friends or family?: three or more times per week How often do you get together with friends or relatives?: three or more times per week How often do you attend amish or confucianism services?: decline to answer Do you belong to any clubs or organized social groups?: no Panel score (0-1 are the most socially isolated patients): 1 What type of physical activity do you participate in: decline to answer Duration: decline to answer Frequency: decline to answer Leslie/Hindu: No preference Special leslie needs: No Seatbelt use: always Drive intox or ride w/intox stacker driver: No Do you feel safe at home: Yes Do you feel safe in your relationship?: Yes Additional Social history: unable to assess privately History History 0 Para 0 Hx # Term Pregnancies 0 Multiple births Hx # Pregnancies 0 Ectopic pregnancies AB induced 0 Hx Number of Living Children 0 AB spontaneous 0 Time Spent with Patient Time Spent with Patient: <45 minutes Time was spent: preparing to see the patient(eg.review tests), obtaining and/or reviewing separately otained hiistory, ordering medications,tests, procedures, referring, communicating with other health hospice care sales consultant, indepentently interpreting results, counseling the patient and care coordination
--- NOTE | 2023-10-25 09:48 | PDOC.CMDIS ---
Date of service: 10/25/23 Time of Service: 09:48 LACE Index Scoring Tool Questions: Length of Stay (in days): 3 Was the patient admitted via the E.D.?: Yes Comorbidities: Any Tumor and Dementia E.D. Visits: 2 Answers: Total Score: 13 Risk of Readmission: High Risk Care Management Discharge Plan Reason for Hospitalization: leg pain Discharge Plan: Amelia will be discharged home with new home health services for PT. She will follow up with her community providers and plan of care and transport with her sister. Patient/Family Education Needs: Review of discharge instructions, activity, limitations, follow up plan, discuss Ask Me Three Services Needed at Discharge: Home Health Care Services SDOH Health Related Social Needs: No Data to Display
--- NOTE | 2023-10-25 10:05 | PT.INTREAT ---
Date of service: 10/25/23 Time of Service: 09:53 PT Notes Visit Reasons: Leg Pain Inpatient Physical Therapy Treatment Note [facility] Date: 10/25/2023 PRECAUTIONS: Fall, standard, activity as tolerated. SUBJECTIVE: Patient reports eagerness to go home. RN Kimberley reports patient stating that she can't walk, despite walking from bed to bedside chair. OBJECTIVE: Patient sitting up in bedside chair, agreeable to therapy. ? PAIN: Reports pain in left hip, reports that she was given a shot in that hip so it's hard to move around much. VITALS: monitored by nursing staff. ? BED MOBILITY/TRANSFERS? Rolling L/R: not assessed Supine-sit: not assessed ? Sit-supine: not assessed ? Sit-stand: CGA ? Stand-sit: CGA? Bed-Chair: CGA ? Chair-bed: CGA Provided skilled cues and instruction on performance and technique throughout. Gait Training ([id number]): Direct one-on-one instruction and skilled instruction in: [x] employing an assistive device [] modified weight-bearing status [x] movement sequencing [x] turning and movement with proper form [x] Provided verbal cues for equipment management and technique [x] Provided instruction in gait pattern [] Patient education regarding pacing and breathing techniques to maximize activity tolerance? GAIT? Assistive Device: FWW ? Weight bearing: WBAT Assist: SBA? Distance:? 200 feet ? Deviation: Patient's right leg lags significantly. Correctable with verbal cues. Needs cueing each time she begins walking to bring right leg up to left leg, otherwise she demonstrates a gait pattern where her left leg advances only inches at a time, right leg lags behind by a foot or more. ? STAIRS: Patient ascends and descends 2x six inch stairs with CGA, bilateral hand rails, and verbal cues for appropriate gait sequence of ascending unaffected leg first, descending affected leg first. Patient leans heavily on left railing, especially on the descent.? ASSESSMENT:? Patient reports increased pain at the end of treatment session vs beginning. RN Kimberley notified. PLAN: Continue global strengthening per plan of care until patient is medically cleared for discharge. TREATMENT CODE/TIME: 10 minutes starting at 9:53 and 30 minutes beginning at 10:09 for a total of 40 minutes today.
[2023-10-25] MEDS: Acetaminophen 500 MG TAB 1000 MG PO (11:15)
== END 2023-10-25 11:36 | disposition home health service (06) ==
LOC: ER 19:39 → MS 19:55
PROVIDERS: Admitting Provider General Practice; Emergency Provider Emergency Medicine; PCP Family Medicine; Visit Provider General Practice
DX: M70.62 Trochanteric bursitis, left hip (principal); M79.605 Pain in left leg; R60.0 Localized edema; R26.2 Difficulty in walking, not elsewhere classified; I10 Essential (primary) hypertension; D50.9 Iron deficiency anemia, unspecified; M81.0 Age-related osteoporosis without current pathological fracture; K58.9 Irritable bowel syndrome, unspecified; E55.9 Vitamin D deficiency, unspecified; M54.40 Lumbago with sciatica, unspecified side; K21.9 Gastro-esophageal reflux disease without esophagitis; J43.9 Emphysema, unspecified; G30.1 Alzheimer's disease with late onset; F02.80 Dementia in other diseases classified elsewhere, unspecified severity, without behavioral disturbance, psychotic disturbance, mood disturbance, and anxiety; K44.9 Diaphragmatic hernia without obstruction or gangrene; M16.12 Unilateral primary osteoarthritis, left hip; Z86.718 Personal history of other venous thrombosis and embolism; Z85.3 Personal history of malignant neoplasm of breast; E03.9 Hypothyroidism, unspecified; Z90.49 Acquired absence of other specified parts of digestive tract; Z87.891 Personal history of nicotine dependence; G62.9 Polyneuropathy, unspecified
CPT/HCPCS: 20610; 00123; 36415; 73552; 80053; 82550; 84145; 85652; 96361; 96372; 96374; 96375; 97116; 97162; 97530; 99222; 99285; 72170; 72192; 73590; 83735; 85025; 85379; 85610; 85730; 86140; 93971; 99233; 99239; G0378; J0665; J1040; J1650; J1941; J2405; J3490

== ENCOUNTER → 2023-11-14 17:46 | Outpatient (CLI) | payer MEDICARE, SELFPAY ==
--- NOTE | 2023-11-14 17:45 | DI.RAD_ITS ---
Exam(s) XR TOE LT GREAT EXAM: XR TOE LT GREAT CLINICAL HISTORY: rule out osteomyelitis. TECHNIQUE: 2D digital imaging was performed. Three views. COMPARISON: CR,XR XR FOOT LT COMPLETE from 07/30/2023 FINDINGS: BONES: No acute fracture is present. The cortex of the tuft of the great toe is slightly indistinct when compared the prior exam. JOINTS: No dislocation present. SOFT TISSUE: Gauze overlying grade toe. Soft tissue swelling and ulceration. No foreign body. IMPRESSION: Soft tissue ulceration proved question of minimal cortical erosion at the tuft. DATA REPOSITORY: RADIATION DOSE DELIVERED:
--- NOTE | 2023-11-14 18:12 | DI.VRAD_ITS ---
PROCEDURE INFORMATION: Exam: XR Left Toe(s) Exam date and time: 11/14/2023 6:02 PM Age: 83 years old Clinical indication: Pain; Toes; Left TECHNIQUE: Imaging protocol: Radiologic exam of the left toes. Views: Minimum 2 views. Total images: 3 COMPARISON: CR XR TIB/FIB LT 10/22/2023 3:27 PM FINDINGS: Bones/joints: Bone mineralization is normal. No visible acute fracture or dislocation. No evidence of osteomyelitis. Soft tissues: Soft tissue swelling and laceration/ulceration. No visible retained radiopaque foreign bodies. IMPRESSION: 1. No visible acute fracture or dislocation. 2. No evidence of osteomyelitis. 3. Soft tissue swelling and laceration/ulceration. Dictated and Authenticated by: Marialuisa Rose MD. Ordering:RIDGE Gordon MD
== END ==
PROVIDERS: PCP Family Medicine; Visit Provider Physician Assistant
DX: L08.9 Local infection of the skin and subcutaneous tissue, unspecified (principal)
CPT/HCPCS: 73660

== ENCOUNTER 2023-11-14 21:46 | Outpatient (REF) | payer MEDICARE, SELFPAY | END 2023-11-14 21:47 | disposition home or self-care (01) | LOC: NCHCN 21:46 | PROVIDERS: PCP Family Medicine; Visit Provider Physician Assistant | DX: L98.8 Other specified disorders of the skin and subcutaneous tissue (principal); L08.89 Other specified local infections of the skin and subcutaneous tissue | CPT/HCPCS: 87070; 87205 ==

== ENCOUNTER 2024-01-08 18:30 | Inpatient (IN) | payer MEDICARE, SELFPAY ==
[2024-01-08] VITALS (55 sets, daily range): BP systolic 75–180; BP diastolic 28–159; PULSE 83–112; RESP 8–25; TEMP 36.6; O2SAT 97–98
--- NOTE | 2024-01-08 18:30 | RT.EKG_ITS ---
APPROVED REPORT Exam: Resting ECG Reason for Exam: Back Pain Patient Location: E HR:87 bpm ECG Measurements Heart Rate 87 AXIS HI 184 P 66 QRSd 81 QRS 64 QT 355 T 59 QTc 428 Conclusion Sinus rhythm 87 normal axis no stemi
[2024-01-08 19:20] LABS: Abs Immature Grans 1.13 10^3/uL (0.0-0.06); HGB 10.3 g/dL (11.2-15.7); MCH 29.8 pg (27.0-33.0); MCHC 33.2 % (32.0-36.0); MCV 90 fL (80-95); MPV 10.9 fL (8.0-11.0); Platelet Count 186 10^3/uL (130-400); RBC 3.46 10^6/uL (3.93-5.22); RDW 15.4 % (11.7-14.6); RDW-SD 50.6 fL
[2024-01-08 19:24] LABS: WBC 32.54 10^3/uL (4.4-10.8)
--- NOTE | 2024-01-08 19:30 | DI.CT_ITS ---
Exam(s) CT HEAD WO EXAM: CT HEAD WO CLINICAL HISTORY: confusion. TECHNIQUE: Imaging Protocol: Axial computed tomography images with coronal and sagittal reformatted images were created and reviewed COMPARISON: CT CT BRAIN NECK CTA from 01/12/2022 FINDINGS: There are no skull fractures. There is no fluid in the visualized paranasal sinuses. There is no evidence of intracranial hemorrhage, mass effect, or shift of midline structures. There are no extra-axial fluid collections. There is abundant bilateral periventricular hypodensity consis tent with chronic small vessel disease again noted. In addition, the size of the lateral ventricles is again noted be mildly out of proportion when compared to the size of the overlying cortical sulci. . IMPRESSION: No acute intracranial findings on this noninfused CT scan of the brain. However, there is dilatation of the ventricles somewhat out of proportion when compared to the overly ing cortical sulci. This can be seen with NPH and correlation with any clinical signs of normal pres sure hydrocephalus is recommended RADIATION DOSE DELIVERED: Total DLP DATA REPOSITORY: All CT scans at this facility are submitted to the National Radiology Data Registry (NRDR) Dose Index Registry (DIR) with the [employer] (ACR). RADIATION OPTIMIZATION: All CT scans at this facility use at least one of these dose optimization te chniques: automated exposure control; mA and/or kV adjustment per patient size (includes targeted exa ms where dose is matched to clinical indication); or iterative reconstruction.
[2024-01-08 19:38] LABS: Atypical Lymphocytes % 0; Bands % 17
[2024-01-08 19:39] LABS: ALT 29 U/L (14-59); AST 25 U/L (15-37); Albumin 2.7 g/dL (3.4-5.0); Alkaline Phosphatase 146 U/L (46-116); Anion Gap 12.7 mmol/L (3-11); BUN 52 mg/dL (7-18); Bilirubin, Total 0.3 mg/dL (0.2-1.0); CO2 22.3 mmol/L (21.0-32.0); CREATININE 1.8 mg/dL (0.55-1.02); Calcium 9.1 mg/dL (8.5-10.1); Chloride 105 mmol/L (98-107); Diff Comment Manual Differential; Glucose 109 mg/dL (74-106); Lipase < 10 U/L (16-77); Magnesium 1.6 mg/dL (1.8-2.4); Metamyelocytes % 3; Myelocytes % 2; Potassium 4.7 mmol/L (3.5-5.1); RBC Morphology Normal; Sodium 140 mmol/L (136-145); Total Protein 6.4 g/dL (6.4-8.2)
[2024-01-08 19:41] LABS: Absolute Lymphocyte Count 2.93 10^3/uL (1.2-3.4); Absolute Neutrophil Count 26.36 10^3/uL (1.2-6.7)
[2024-01-08 19:42] LABS: Absolute Basophil Count 0.33 10^3/uL (0.0-0.2)
[2024-01-08 19:50] LABS: Lactate 2.1 mmol/L (0.6-1.4)
[2024-01-08] MEDS: levoFLOXacin 750 MG/150 ML BAG 100 MG IVPB (19:56)
[2024-01-08] MEDS: Normal Saline 1,000 ML 1000 ML IV (19:56)
[2024-01-08] MEDS: Omnipaque 350 MG/ML 100 ML BTL IJ (20:25)
[2024-01-08] MEDS: Normal Saline - Diluent 50 ML VIAL IJ (20:27)
[2024-01-08] MEDS: Normal Saline Flush 10 ML SYR IVP (20:28)
--- NOTE | 2024-01-08 20:37 | DI.CT_ITS ---
Exam(s) CT CHEST/ABD/PEL W EXAM: CT CHEST/ABD/PEL W CLINICAL HISTORY: abd pain, wbc 32,000. TECHNIQUE: Imaging Protocol: Axial computed tomography images with coronal and sagittal reformatted images were created and reviewed CONTRAST MATERIAL: Intravenous: Omnipaque 350 Contrast volume:100 ml Oral: None COMPARISON: CT CT CHEST WO from 08/03/[address] ABDOMEN PELVIS W from 07/22/2023 FINDINGS: CHEST: LUNGS: There are no confluent infiltrates nor pleural effusions. No ominous pulmonary nodules. No s ignificant focal findings in the trachea and mainstem bronchi.. MEDIASTINUM: There is no hilar nor mediastinal adenopathy. Visualized thyroid unremarkable.Large retr ocardiac hiatal hernia noted. CARDIAC: Heart size is normal. There is no pericardial effusion.Caliber of the thoracic aorta is wit hin normal limits. OSSEOUS: There is a wedge compression fracture of T3 as well as T11 and there is superior endplate in vagination of L2 noted. The T11 and L2 findings are unchanged from abdominal CT scan of 07/22/2023. T3 fracture does not appear acute.. ABDOMEN: There is no ascites. LIVER: There are 3 hypodensities in the liver which appear cystic somewhat difficult to assess becaus e of the respiratory motion artifact here. There appears to be some debris within the largest cyst w hich is in the posterior aspect of the right hepatic lobe and measures 2.6 x 2.2 cm. No dilated intr ahepatic ducts. GALLBLADDER/BILIARY: No obvious gallbladder pathology. CBD is not dilated. PANCREAS: No evidence of pancreatic mass nor dilatation of the pancreatic duct. SPLEEN: Spleen is not enlarged. There are no intrasplenic lesions. Splenic and portal veins are vuong nt. ADRENALS: There are no significant adrenal masses. KIDNEYS: There are benign-appearing cysts in both kidneys measuring up to 4 cm size. These do not re quire further imaging workup. There are also parapelvic cysts in both kidneys. No obvious hydroneph rosis. No solid renal masses. No calculi.. ABDOMINAL AORTA: Calcified but not enlarged. The common iliac arteries are also calcified but not en larged. LYMPH NODES: There is no retroperitoneal nor paraaortic adenopathy. ABDOMINAL WALL: No evidence of significant anterior abdominal wall nor inguinal hernia. GI: There is no evidence of bowel obstruction. PELVIS: LYMPH NODES: There is no intrapelvic nor inguinal adenopathy. GI: No evidence of appendicitis.There is evidence of resection. No obstruction at this level. There is also a small bowel anastomosissuture line in left side of the pelvis. The small bowel diameter i s slightly prominent at this level but without evidence of a true bowel obstruction. No free air nor abscess. No bowel obstruction. URINARY BLADDER: No calculi nor masses evident REPRODUCTIVE: Age-appropriate. OSSEOUS: Healed fracture deformity of the left hip evident. No remaining hardware in the hip. IMPRESSION: 1. No focal pulmonary findings and no pleural effusions. 2. Prominent hiatal hernia noted. 3. Evidence of previous partial sigmoid resection as well as small bowel loop anastomosis noted in le ft side of the pelvis. No evidence of bowel obstruction, free air, nor abscess. No ascites. 4. There appear to be 3 cysts in the liver measuring up to 2.6 cm. One of these appears to contain s ome debris although this may be spurious/related to the amount of respiratory motion artifact here. Nevertheless, given the history here I feel it would be prudent to study the liver cysts with ultraso und to ensure that there are simple cysts and do not have characteristics of possible abscesses, give n the clinical history here. 5. Nonacute appearing fractures of T3, T11, and L2. The T11 and L2 were documented on prior imaging studies. All of these fractures are unchanged from CT scan of 08/03/2021. RADIATION DOSE DELIVERED: Total DLP DATA REPOSITORY: All CT scans at this facility are submitted to the National Radiology Data Registry (NRDR) Dose Index Registry (DIR) with the [employer] (ACR). RADIATION OPTIMIZATION: All CT scans at this facility use at least one of these dose optimization te chniques: automated exposure control; mA and/or kV adjustment per patient size (includes targeted exa ms where dose is matched to clinical indication); or iterative reconstruction.
--- NOTE | 2024-01-08 21:02 | DI.VRAD_ITS ---
PROCEDURE INFORMATION: Exam: CT Head Without Contrast Exam date and time: 01/08/2024 8:25 PM Age: 84 years old Clinical indication: Confusion TECHNIQUE: Imaging protocol: Computed tomography of the head without contrast. Radiation optimization: All CT scans at this facility use at least one of these dose optimization techniques: automated exposure control; mA and/or kV adjustment per patient size (includes targeted exams where dose is matched to clinical indication); or iterative reconstruction. COMPARISON: CT BRAIN NECK CTA 01/12/2022 11:19 AM FINDINGS: Brain: Age-related involutional changes and chronic microvascular ischemic disease. No evidence for acute transcortical infarct. No mass effect or midline shift. No extra-axial collection. No acute intracranial hemorrhage. Basal cisterns are patent. Cerebral ventricles: Dilatation of the ventricles out of proportion to the degree of cortical atrophy, which can be seen in normal pressure hydrocephalus. Paranasal sinuses: Visualized sinuses are unremarkable. No fluid levels. Mastoid air cells: Visualized mastoid air cells are well aerated. Bones/joints: Unremarkable. No acute fracture. Soft tissues: Unremarkable. IMPRESSION: 1. No evidence for acute transcortical infarct, acute intracranial hemorrhage, or mass effect. 2. Dilatation of the ventricles out of proportion to the degree of cortical atrophy, which can be seen in normal pressure hydrocephalus. Dictated and Authenticated by: Jas Chi MD. Ordering:RIVAS Hopper MD
[2024-01-08] MEDS: Lactated Ringers 1,000 ML 1000 ML IV (21:12)
[2024-01-08 21:16] LABS: Bilirubin Negative (Negative); Blood Large (Negative); Clarity Cloudy (Clear); Glucose Negative (Negative); Ketones Negative (Negative); Leukocyte Esterase Moderate (Negative); Nitrite Positive (Negative); Urobilinogen 0.2 mg/dL (Up to 0.2); pH 5.5 (5-8)
--- NOTE | 2024-01-08 21:21 | DI.VRAD_ITS ---
PROCEDURE INFORMATION: Exam: CT Chest With Contrast; Diagnostic Exam date and time: 01/08/2024 8:27 PM Age: 84 years old Clinical indication: Other: Abd pain, wbc 32,000; Prior surgery; Surgery date: 6+ months; Surgery type: Colostomy bag with reversal TECHNIQUE: Imaging protocol: Diagnostic computed tomography of the chest with contrast. 3D rendering (Not supervised by radiologist): MIP and/or 3D reconstructed images were created by the technologist. Radiation optimization: All CT scans at this facility use at least one of these dose optimization techniques: automated exposure control; mA and/or kV adjustment per patient size (includes targeted exams where dose is matched to clinical indication); or iterative reconstruction. Contrast material: OMNIPAQUE 350; Contrast volume: 84 ml; Contrast route: INTRAVENOUS (IV); COMPARISON: CT CHEST/ABD/PEL W 08/12/2022 12:42 FINDINGS: Thyroid: Normal. No significant nodule or enlargement. Trachea: Normal. Lungs: Unremarkable. No consolidation. No nodule or mass. Pleural spaces: Unremarkable. No pneumothorax. No pleural effusion or thickening. Heart: No cardiomegaly. No pericardial effusion. Coronary arteries: No significant calcification. Esophagus: No esophageal mass or wall thickening. No hiatal hernia. Mediastinal space: Normal. No mass or adenopathy. Lymph nodes: No enlarged mediastinal or axillary lymph nodes. Vasculature: Unremarkable. No aortic aneurysm. Diaphragm: Large retrocardiac hiatal hernia. Bones/joints: There is an anterior wedge compression fracture of T3 which was present on the previous exam. There is additional old fracture of T11. Soft tissues: Unremarkable. Other findings: Visualized upper abdomen is unremarkable. IMPRESSION: No acute findings. PROCEDURE INFORMATION: Exam: CT Abdomen And Pelvis With Contrast Exam date and time: 01/08/2024 8:27 PM Age: 84 years old Clinical indication: Other: Abd pain, wbc 32,000; Prior surgery; Surgery date: 6+ months; Surgery type: Colostomy bag with reversal TECHNIQUE: Imaging protocol: Computed tomography of the abdomen and pelvis with contrast. 3D rendering (Not supervised by radiologist): MIP and/or 3D reconstructed images were created by the technologist. Radiation optimization: All CT scans at this facility use at least one of these dose optimization techniques: automated exposure control; mA and/or kV adjustment per patient size (includes targeted exams where dose is matched to clinical indication); or iterative reconstruction. Contrast material: OMNIPAQUE 350; Contrast volume: 84 ml; Contrast route: INTRAVENOUS (IV); COMPARISON: CT PELVIC WO 22/10/2023 16:59 FINDINGS: Lungs: Visualized lung bases are clear. Liver: Few Patak cysts. No mass or ductal dilatation. Mild fatty infiltration of the liver. Gallbladder and bile ducts: Normal. No calcified stones. No ductal dilation. Pancreas: Pancreas is atrophic. Spleen: Normal. No splenomegaly. Adrenal glands: Normal. No mass. Kidneys and ureters: 3.5 cm cyst at the upper pole of the left kidney. Multiple other renal cysts bilaterally. No calculus or obstruction. Stomach and bowel: No small bowel dilatation or wall thickening. Previous colon surgery with anastomosis in the sigmoid segment. Moderate amount of retained fecal material throughout the colon. 5.8 cm rectal impaction. Appendix: No evidence of appendicitis. Intraperitoneal space: Unremarkable. No free air. No significant fluid collection. Vasculature: Atherosclerotic aorta with no aneurysm. Lymph nodes: No enlarged retroperitoneal or mesenteric lymph nodes. Urinary bladder: No mass or wall thickening. Reproductive: Uterus is absent. No adnexal cyst or mass. Bones/joints: Old left hip fracture. Soft tissues: Unremarkable. IMPRESSION: No acute abnomality in the abdomen or pelvis. Multiple incidental findings as above. Nothing to explain the patient's elevated white count. Dictated and Authenticated by: Toro Coats MD. Ordering:RIVAS Hopper MD
[2024-01-08 21:22] LABS: Bacteria Many HPF (Negative); C & S Indicated? Yes; Casts Negative LPF (Negative); Crystals Negative HPF (Negative); Epithelial Cells Rare HPF (Negative); Mucus Negative (Negative); WBC 20-50 HPF (0-5)
[2024-01-08 21:39] LABS: Procalcitonin 183.1 ng/mL
--- NOTE | 2024-01-08 22:12 | ED.GENADUL_ITS ---
Discharge Plan Disposition Patient Disposition: Admit to [facility] Condition: Serious Discharge Details Clinical Impression: BRAYAN (acute kidney injury), Septic shock, Dementia, Fecal impaction, Acute UTI Primary Care Provider: Virginia Pino ED Provider: Ruchi Levine Home Meds and New Rx's Prescriptions: No Action MaxiVision 1 cap PO DAILY loperamide 2 mg capsule 2 mg PO Q6H PRN (Reason: loose stool) Qty: 90 1RF losartan 100 mg tablet 100 mg PO DAILY Qty: 90 4RF dicyclomine 10 mg capsule 10 mg PO BID PRN (Reason: IBS) Qty: 120 3RF lidocaine [Lidoderm] 5 % adhesive patch,medicated 2 patch topical DAILY Qty: 30 12RF Rx Instructions: leave on most painful area for up to 12 hrs cholecalciferol (vitamin D3) 1,250 mcg (50,000 unit) capsule 1,250 mcg PO QWEEK Qty: 14 0RF ferrous sulfate 325 mg (65 mg iron) tablet 325 mg PO BID Qty: 60 5RF mupirocin 2 % ointment 1 applic topical TID Qty: 15 0RF fluticasone propionate 50 mcg/actuation spray,suspension 2 spray intranasal DAILY PRN (Reason: allergy symptoms) Qty: 16 11RF Rx Instructions: administer into each nostril pantoprazole 20 mg tablet,delayed release (DR/EC) 20 mg PO DAILY Qty: 90 1RF donepezil 5 mg tablet 5 mg PO QHS Qty: 30 3RF meloxicam 15 mg tablet 15 mg PO DAILY Qty: 30 1RF Rx Instructions: Take one tablet daily for inflammation and pain acetaminophen 500 mg tablet 1,000 mg PO Q8H PRN Qty: 90 0RF Rx Instructions: Take two tablets up to every 8 hours as needed for pain HPI General Date/Time Provider Initiated Documentation: 01/08/24 18:33 . HPI Narrative: This 84-year-old presents with report of altered mental status at home for the past several days. Patient has also had difficulty hearing her sister. Patient denies any current complaints except for abdominal pain. Denies any fever or chills. Denies any falls or injuries. Denies any chest pain or shortness of breath. Denies headaches. Related Data Home Medications Medication Instructions Recorded Confirmed MaxiVision 1 cap PO DAILY 02/14/19 01/08/24 lidocaine 5 % topical patch 2 patch topical DAILY #30 ea 01/11/23 01/08/24 (Lidoderm) dicyclomine 10 mg capsule 10 mg PO BID PRN IBS #120 caps 02/24/23 01/08/24 loperamide 2 mg capsule 2 mg PO Q6H PRN loose stool #90 02/24/23 01/08/24 caps losartan 100 mg tablet 100 mg PO DAILY #90 tabs 02/24/23 01/08/24 fluticasone propionate 50 2 spray intranasal DAILY PRN 07/13/23 01/08/24 mcg/actuation nasal allergy symptoms #16 grams spray,suspension acetaminophen 500 mg tablet 1,000 mg (2 x 500 mg) PO Q8H PRN 07/18/23 01/08/24 pain #90 tabs pantoprazole 20 mg tablet,delayed 20 mg PO DAILY #90 tabs 09/06/23 01/08/24 release donepezil 5 mg tablet 5 mg PO QHS #30 tabs 09/21/23 01/08/24 meloxicam 15 mg tablet 15 mg PO DAILY #30 tabs 10/27/23 01/08/24 cholecalciferol (vitamin D3) 1,250 1,250 mcg PO QWEEK #14 caps 11/03/23 01/08/24 mcg (50,000 unit) capsule ferrous sulfate 325 mg (65 mg 325 mg PO BID #60 tabs 11/03/23 01/08/24 iron) tablet mupirocin 2 % topical ointment 1 applic topical TID #15 grams 11/14/23 01/08/24 Previous Rx's Medication Instructions Recorded lidocaine 5 % topical patch 2 patch topical DAILY #30 ea 01/11/23 (Lidoderm) dicyclomine 10 mg capsule 10 mg PO BID PRN IBS #120 caps 02/24/23 loperamide 2 mg capsule 2 mg PO Q6H PRN loose stool #90 02/24/23 caps losartan 100 mg tablet 100 mg PO DAILY #90 tabs 02/24/23 fluticasone propionate 50 2 spray intranasal DAILY PRN 07/13/23 mcg/actuation nasal allergy symptoms #16 grams spray,suspension acetaminophen 500 mg tablet 1,000 mg (2 x 500 mg) PO Q8H PRN 07/18/23 pain #90 tabs pantoprazole 20 mg tablet,delayed 20 mg PO DAILY #90 tabs 09/06/23 release donepezil 5 mg tablet 5 mg PO QHS #30 tabs 09/21/23 meloxicam 15 mg tablet 15 mg PO DAILY #30 tabs 10/27/23 cholecalciferol (vitamin D3) 1,250 1,250 mcg PO QWEEK #14 caps 11/03/23 mcg (50,000 unit) capsule ferrous sulfate 325 mg (65 mg 325 mg PO BID #60 tabs 11/03/23 iron) tablet mupirocin 2 % topical ointment 1 applic topical TID #15 grams 11/14/23 Allergies Allergy/AdvReac Type Severity Reaction Status Date / Time Penicillins Allergy Severe hives Verified 11/14/23 16:42 polyethylene glycol 3350 Allergy Severe rash all Verified 11/14/23 16:42 [From Miralax] over cefazolin Allergy Unknown Verified 11/14/23 16:42 General Stated Complaint: AMS/LOC HANS: 3 Course Vital Signs Vital signs: Vital Signs Temperature 36.6 C 01/08/24 18:30 Pulse 94 H 01/08/24 18:30 Respiratory Rate 14 01/08/24 18:30 Blood Pressure 115/52 L 01/08/24 18:30 Pulse Oximetry 97 01/08/24 18:30 Temperature 36.6 C 01/08/24 18:30 Temperature Source Oral 01/08/24 18:30 Pulse 102 H 01/08/24 21:15 Pulse 104 H 01/08/24 21:20 Respiratory Rate 23 01/08/24 21:20 Respiratory Effort Normal 01/08/24 18:36 Respiratory Depth Normal 01/08/24 18:36 Respiratory Pattern Normal 01/08/24 18:36 Blood Pressure 112/46 L 01/08/24 21:15 Blood Pressure Mean 58 01/08/24 21:15 Blood Pressure Position Supine 01/08/24 18:36 Pulse Oximetry 98 01/08/24 18:36 Oxygen Delivery Method Room Air 01/08/24 18:36 Oxygen Flow Rate 0 01/08/24 18:30 Lab/Test Results Lab/Test Results: 01/08/24 21:10 Urine - Reflex from Ua Urine Culture - Pending Laboratory Tests Range/Units 01/08/24 01/08/24 01/08/24 19:03 19:45 21:10 WBC (4.4-10.8) 10^3/uL 32.54 H* RBC (3.93-5.22) 10^6/uL 3.46 L Hgb (11.2-15.7) g/dL 10.3 L Hct (36.0-46.0) % 31.0 L MCV (80-95) fL 90 MCH (27.0-33.0) pg 29.8 MCHC (32.0-36.0) % 33.2 RDW (11.7-14.6) % 15.4 H Plt Count (130-400) 10^3/uL 186 MPV (8.0-11.0) fL 10.9 Immature Gran % 0.0 Neutrophils % 64.0 Band Neutrophils % 17 Lymphocytes % 9.0 Atypical Lymphs % 0 Monocytes % 4.0 Eosinophils % 0.0 Basophils % 1.0 Metamyelocytes % 3 Myelocytes % 2 Nucleated RBC % (0.0-0.3) % 0.0 Absolute Neutrophils (1.2-6.7) 10^3/uL 26.36 H Absolute Lymphocytes (1.2-3.4) 10^3/uL 2.93 Absolute Monocytes (0.1-0.8) 10^3/uL 1.30 H Absolute Eosinophils (0.0-0.7) 10^3/uL 0.00 Absolute Basophils (0.0-0.2) 10^3/uL 0.33 H RBC Morphology Normal VBG Lactate (0.6-1.4) mmol/L 2.1 H Sodium (136-145) mmol/L 140 Potassium (3.5-5.1) mmol/L 4.7 Chloride (98-107) mmol/L 105 Carbon Dioxide (21.0-32.0) mmol/L 22.3 Anion Gap (3-11) mmol/L 12.7 H BUN (7-18) mg/dL 52 H Creatinine (0.55-1.02) mg/dL 1.8 H Est GFR (CKD-EPI 2020) (mL/min/1.73m2) 27.10 Glucose (74-106) mg/dL 109 H Calcium (8.5-10.1) mg/dL 9.1 Magnesium (1.8-2.4) mg/dL 1.6 L Total Bilirubin (0.2-1.0) mg/dL 0.3 AST (15-37) U/L 25 ALT (14-59) U/L 29 Alkaline Phosphatase (46-116) U/L 146 H Total Protein (6.4-8.2) g/dL 6.4 Albumin (3.4-5.0) g/dL 2.7 L Lipase (16-77) U/L < 10 L Procalcitonin ng/mL 183.1 Urine Color (Yellow) Yellow Urine Clarity (Clear) Cloudy Urine pH (5-8) 5.5 Ur Specific [place] (1.005-1.025) 1.020 Urine Protein (Neg-Trace) mg/dL 30 H Urine Ketones (Negative) mg/dL Negative Urine Blood (Negative) Large H Urine Nitrite (Negative) Positive H Urine Bilirubin (Negative) Negative Urine Urobilinogen (Up to 0.2) mg/dL 0.2 Ur Leukocyte Esterase (Negative) Moderate H Urine RBC (0-2) HPF 10-20 H Urine WBC (0-5) HPF 20-50 H Ur Epithelial Cells (Negative) HPF Rare Urine Crystals (Negative) HPF Negative Urine Bacteria (Negative) HPF Many Urine Casts (Negative) LPF Negative Urine Mucus (Negative) Negative Ur Culture Indicated? Yes Urine Glucose (Negative) mg/dL Negative Medical Decision Making This 84-year-old female presents with alteration in mental status, on initial assessment, patient is alert and oriented x 3 She is calm and cooperative She has tenderness on her abdominal exam, approximately 15 minutes after evaluating the patient and she dropped her blood pressures to lines were established into liters of fluid were supplied CT abdomen and pelvis, chest, and had ordered which she did not show evidence of acute abnormality aside from fecal impaction from her radiology interpretation my review Patient was given 2 L of fluid for septic shock and labs were ordered, unfortunately I did order procalcitonin and lactate, lactate 2.1, procalcitonin 183, this will be repeating Leukocytosis, 32, Levaquin emaciated secondary pulmonary patient allergies, no QTc prolongation on EKG interpretation her attendings documentation Patient was disimpacted rectally with any noted, tolerated procedure without incident, feeling symptomatic improvement Patient advised I is in serious condition stable, she will her eyes admission She wishes to be a full CODE STATUS her close for this discussion Patient has not taking any of her meds for the past 2 days reportedly Case discussed with Dr. Lester, who will admit pt to his service ct head per radiology interpretation and my review does not show evidence of acute abnormality per my review and radiology interpretation Quality:[facility] Health Related Social Needs: No Data to Display Critical Care Time Critical Care Time Attestation: 45 min of CCare time was performed secondary to septic shock with fluid bolus initiation, IV antibiotic administration diagnostic interpretation telemetry monitoring, diagnostic lab interpretation and review, admission to the intensive care unit [facility] All Active Problems (Updated 01/08/24 @ 22:39 by BRYAN Williamson) Acute UTI (Acute) Fecal impaction (Acute) Dementia (Chronic) Septic shock (Acute) BRAYAN (acute kidney injury) (Acute) UTI (urinary tract infection) (Acute) Acute dehydration (Acute) Hypotension (Acute) Sepsis syndrome (Acute) Need for home health care (Acute) Impaired instrumental activities of daily living (Acute) Deficit in activities of daily living (ADL) (Acute) ACP (advance care planning) (Acute) Peripheral edema (Acute) Pain in both lower extremities (Acute) Hypertension (Chronic) Iron deficiency anemia (Chronic) Osteoporosis (Chronic) Irritable bowel syndrome (Chronic) prior evaluation with [facility] GI Low back pain (Acute) Vitamin D deficiency (Acute) Sciatica (Acute) Emphysema lung (Acute) GERD (gastroesophageal reflux disease) (Chronic) Hiatal hernia (Chronic) 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 NPH ruled out. Ventral hernia without obstruction or gangrene Hx of fracture of left hip s/p short TFN Dr. Mathis DOS: 10/11/19 Deep vein thrombosis Incidental lung nodule, > 3mm and < 8mm on xray and CT scan with contrast / [facility] pulm. Malignant neoplasm of female breast (09/21/92) R MAST AND RECONSTRUCTION. 1/03 INFLAMMATION AT [facility] WAS NEG FOR MALIGNANCY Indeterminate colitis (02/04/16) 01/22/16 colonoscopy at [facility] Hypothyroidism (08/10/12) Diverticulitis (09/19/14) May 2014 [facility] sigmoid resection and colostomy post op infection and malnutrition February 2015 colostomy takedown (post op infection) C. difficile enteritis at hospitalization may 2014 Barretts esophagus Status post EGD with esophageal biopsy on July 05, [address] Jani Rothman. Squamous mucosa with reactive changes. Gastric type mucosa with chronic and focally active inflammation but no intestinal m etaplasia or dysplasia. No helical factor pylori microorganisms identified. EGD 07/13/18, Dr. Azar Eldridge, [facility], dilatation of lower esophageal stricture Breast cancer Surgical History History of mastectomy (~1994) right mastectomy (no radiation or chemotherapy); s/p reconstruction after the mastectomy colostomy reversal Laparotomy (06/08/14) for [place] leak. End colostomy done Colectomy (~05/2014) for colon stricture presumed to be from diverticulitis Family History Mother , 84 Essential hypertension COPD (chronic obstructive pulmonary disease) Father , 51 Stomach cancer Mouth cancer Brother No problems noted. Maternal Grandfather No problems noted. Paternal Grandfather No problems noted. Maternal Grandmother No problems noted. Paternal Grandmother No problems noted. Sister No problems noted. Sister COPD (chronic obstructive pulmonary disease) Social History Smoking/Tobacco Use Status: Former Tobacco Use tobacco type: cigarettes Quit Date: 10/23/94 Pack-years: 40 Tobacco: How many years used: 40 Second Hand Exposure: No Smoking risk assessment performed?: Yes Alcohol Intake: never Drug use: Never Substance use type: does not use Caregiver/Support person: Yes Household members: none Housing: house Communication Needs: None Do you need help understanding health information?: Never Pets and animals: No Sexually active: No Current gender identity: female What is your relationship status?: never How often do you talk on the phone with friends or family?: three or more times per week How often do you get together with friends or relatives?: three or more times per week How often do you attend nondenominational or bahai services?: decline to answer Do you belong to any clubs or organized social groups?: no Panel score (0-1 are the most socially isolated patients): 1 What type of physical activity do you participate in: decline to answer Duration: decline to answer Frequency: decline to answer Leslie/Synagogue: No preference Special leslie needs: No Seatbelt use: always Drive intox or ride w/intox 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
--- NOTE | 2024-01-08 22:19 | HPE_ITS ---
Date of service: 01/08/24 Time of Service: 22:19 Assessment and Plan Assessment and plan (1) Sepsis syndrome: Start date: 01/08/24 Status: Acute Assessment and plan: This is an 84-year-old lady with recent altered mental status and off from her baseline dementia with no fever but found to have a UTI with leukocytosis and markedly elevated procalcitonin with hypotension and tachycardia meeting acute sepsis syndrome criteria with mild shock responding to IV fluid resuscitation. She had normal left-ventricular ejection fraction late 2022 though she does have chronic edema of her left leg. She is not on diuretics chronically. She appears slightly dehydrated from her baseline and should do well with continued IV fluid resuscitation now on her third liter of fluids with normal saline. Will trend labs, and treat the UTI as source of infection with Levaquin with patient's allergies to penicillin and cephalosporins. She will be in the ICU because of her low blood pressure along with sepsis syndrome. She is a full code. (2) UTI (urinary tract infection): Start date: 01/08/24 Status: Acute Assessment and plan: Levaquin IV and continue monitor urine output with IV fluid resuscitation. Follow-up on urine culture and adjust antibiotics accordingly. She does have a history of recurrent UTIs. The Johnson should be discontinued as soon as possible being in place presently to monitor output with IV fluid resuscitation and a demented patient. Qualifiers: Hematuria presence: with hematuria Urinary tract infection type: acute cystitis Qualified Code(s): N30.01 - Acute cystitis with hematuria (3) Hypotension: Start date: 01/08/24 Status: Acute Assessment and plan: Secondary to acute sepsis syndrome with UTI as source of infection. She has had gram-positive cocci septicemia in the past with breakdown of her left foot lesions and having chronic edema in her left leg. This does not appear to be a problem presently. Qualifiers: Hypotension type: other hypotension type Qualified Code(s): I95.89 - Other hypotension (4) Acute dehydration: Start date: 01/08/24 Status: Acute Assessment and plan: IV hydration with patient having hypotension with acute UTI and sepsis syndrome. Patient's echocardiogram recently showed preserved left ventricular ejection fraction. Watch for fluid overload with a history of edema in the past and presently having only nonpitting edema of the left lower extremity which is chronic. She is not on diuretics chronically. (5) Fecal impaction in rectum: Start date: 01/08/24 Status: Acute Assessment and plan: Successfully disimpacted by ED provider. Patient is on antidiarrheals at times for IBS and this needs to be used with caution. Stool cathartics as needed while hospitalized. (6) Hypertension: Status: Chronic Assessment and plan: While acutely ill patient's losartan will be held with IV hydration and treatment of sepsis with shock. Once patient is recovering reassess antihypertensive meds as an outpatient. She has been off her medications for the last couple days. 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 She has not been on this medication for the last couple days. History of Present Illness History of Present Illness Chief Complaint: Increased sleepiness with altered mental status at home Narrative: This is an 84-year-old female patient who lives with her sister who was noted to be sleeping more than usual and more confused at home prompting sister to bring her to the emergency room for evaluation. This been going on for several days with no fever or rigors but the patient having more difficulty caring her sister. She has a recent diagnosis of Alzheimer's dementia and is on Namenda and Aricept. She does have chronic swelling of her left lower extremity status post left SHIRA and did have cellulitis in her left foot and leg late 2022 with gram-positive septicemia. She recovered from this and has been living at home independently with her sister. She is a full code and wants aggressive treatment of reversible problems. She does have a history of recurrent UTIs. She has not taken her medicine in the usual way of the last 2 days and has had decreased intake. Patient did appear dry upon presentation to the ED. She had a low blood pressure which responded to IV fluid resuscitation which is ongoing. Because of her markedly elevated leukocyte count and markedly positive procalcitonin along with altered mental status and tachycardia without fever, she met sepsis criteria especially with low blood pressure. Her source of infection appears to be her urinary tract with a UTI on IV Levaquin at this time. She is chronically on losartan which will be held with IV fluid resuscitation. When I saw the patient she was more comfortable but still slightly confused with details of her history though she knew that she was in the hospital and knew that I was her treating physician along with date and general time. She was continued on IV fluids with clearing urine through the Johnson catheter. She was also found to have a fecal impaction in the ED with imaging and this was disimpacted with success. She does take medications for irritable bowel syndrome which may cause constipation. Review of Systems Narrative: 13 point review of systems otherwise unrevealing or stable. Patient is wandering in conversation when asked details and still slightly confused. [facility] All Active Problems (Updated 01/09/24 @ 00:40 by Arias Thomas) Fecal impaction in rectum (Acute) Acute UTI (Acute) Fecal impaction (Acute) Dementia (Chronic) Septic shock (Acute) BRAYAN (acute kidney injury) (Acute) UTI (urinary tract infection) (Acute) Acute dehydration (Acute) Hypotension (Acute) Sepsis syndrome (Acute) Need for home health care (Acute) Impaired instrumental activities of daily living (Acute) Deficit in activities of daily living (ADL) (Acute) ACP (advance care planning) (Acute) Peripheral edema (Acute) Pain in both lower extremities (Acute) Hypertension (Chronic) Iron deficiency anemia (Chronic) Osteoporosis (Chronic) Irritable bowel syndrome (Chronic) prior evaluation with [facility] Low back pain (Acute) Vitamin D deficiency (Acute) Sciatica (Acute) Emphysema lung (Acute) GERD (gastroesophageal reflux disease) (Chronic) Hiatal hernia (Chronic) 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 NPH ruled out. Ventral hernia without obstruction or gangrene Hx of fracture of left hip s/p short TFN Dr. Mathis DOS: 10/11/19 Deep vein thrombosis Incidental lung nodule, > 3mm and < 8mm on xray and CT scan with contrast / [facility] pulm. Malignant neoplasm of female breast (09/21/92) R MAST AND RECONSTRUCTION. 10/25 INFLAMMATION AT [facility] WAS NEG FOR MALIGNANCY Indeterminate colitis (02/04/16) 01/22/16 colonoscopy at [facility] Hypothyroidism (08/10/12) Diverticulitis (09/19/14) May 2014 [facility] sigmoid resection and colostomy post op infection and malnutrition February 2015 colostomy takedown (post op infection) C. difficile enteritis at hospitalization may 2014 Barretts esophagus Status post EGD with esophageal biopsy on July 05, [address] Jani Rothman. Squamous mucosa with reactive changes. Gastric type mucosa with chronic and focally active inflammation but no intestinal metaplasia or dysplasia. No helical factor pylori microorganisms identified. EGD 07/13/18, Dr. Azar Eldridge, [facility], dilatation of lower esophageal stricture Breast cancer Surgical History History of mastectomy (~1994) right mastectomy (no radiation or chemotherapy); s/p reconstruction after the mastectomy colostomy reversal Laparotomy (06/08/14) for [place] leak. End colostomy done Colectomy (~05/2014) for colon stricture presumed to be from diverticulitis Family History Mother , 84 Essential hypertension COPD (chronic obstructive pulmonary disease) Father , 51 Stomach cancer Mouth cancer Brother No problems noted. Maternal Grandfather No problems noted. Paternal Grandfather No problems noted. Maternal Grandmother No problems noted. Paternal Grandmother No problems noted. Sister No problems noted. Sister COPD (chronic obstructive pulmonary disease) Social History Smoking/Tobacco Use Status: Former Tobacco Use tobacco type: cigarettes Quit Date: 10/23/94 Pack-years: 40 Tobacco: How many years used: 40 Second Hand Exposure: No Smoking risk assessment performed?: Yes Alcohol Intake: never Drug use: Never Substance use type: does not use Caregiver/Support person: Yes Household members: none Housing: house Communication Needs: None Do you need help understanding health information?: Never Pets and animals: No Sexually active: No Current gender identity: female What is your relationship status?: never How often do you talk on the phone with friends or family?: three or more times per week How often do you get together with friends or relatives?: three or more times per week How often do you attend restorationism or shinto services?: decline to answer Do you belong to any clubs or organized social groups?: no Panel score (0-1 are the most socially isolated patients): 1 What type of physical activity do you participate in: decline to answer Duration: decline to answer Frequency: decline to answer Leslie/Rastafari: No preference Special leslie needs: No Seatbelt use: always Drive intox or ride w/intox escort vehicle driver: No Do you feel safe at home: Yes Do you feel safe in your relationship?: Yes Additional Social history: unable to assess privately History History 2 0 Para 0 Hx # Term Pregnancies 0 Multiple births Hx # Pregnancies 0 Ectopic pregnancies AB induced 0 Hx Number of Living Children 0 AB spontaneous 0 Meds Allergies and Home Medications Allergies Allergy/AdvReac Type Severity Reaction Status Date / Time Penicillins Allergy Severe hives Verified 11/14/23 16:42 polyethylene glycol 3350 Allergy Severe rash all Verified 11/14/23 16:42 [From Miralax] over cefazolin Allergy Unknown Verified 11/14/23 16:42 Home Medications Medication Instructions Recorded Confirmed Type MaxiVision 1 cap PO DAILY 02/14/19 01/08/24 History lidocaine 5 % topical patch 2 patch topical DAILY #30 ea 01/11/23 01/08/24 Rx (Lidoderm) dicyclomine 10 mg capsule 10 mg PO BID PRN IBS #120 caps 02/24/23 01/08/24 Rx loperamide 2 mg capsule 2 mg PO Q6H PRN loose stool #90 02/24/23 01/08/24 Rx caps losartan 100 mg tablet 100 mg PO DAILY #90 tabs 02/24/23 01/08/24 Rx fluticasone propionate 50 2 spray intranasal DAILY PRN 07/13/23 01/08/24 Rx mcg/actuation nasal allergy symptoms #16 grams spray,suspension acetaminophen 500 mg tablet 1,000 mg (2 x 500 mg) PO Q8H PRN 07/18/23 01/08/24 Rx pain #90 tabs pantoprazole 20 mg tablet,delayed 20 mg PO DAILY #90 tabs 09/06/23 01/08/24 Rx release donepezil 5 mg tablet 5 mg PO QHS #30 tabs 09/21/23 01/08/24 Rx meloxicam 15 mg tablet 15 mg PO DAILY #30 tabs 01/05/24 03/18/24 Rx cholecalciferol (vitamin D3) 1,250 1,250 mcg PO QWEEK #14 caps 11/03/23 01/08/24 Rx mcg (50,000 unit) capsule ferrous sulfate 325 mg (65 mg 325 mg PO BID #60 tabs 11/03/23 01/08/24 Rx iron) tablet mupirocin 2 % topical ointment 1 applic topical TID #15 grams 11/14/23 01/08/24 Rx Exam Narrative Exam Narrative: General: Patient appears appropriate for age, in no acute distress resting in bed appearing alert and oriented x 3. As stated she does slightly wandering conversation with details at times appearing slightly confused which may be part of her sepsis syndrome with mild delusions. She also has a history of Alzheimer's dementia though this does not appear to be severe at this time. HEENT: Normocephalic, eyes with pupils equal and react light symmetrically, extraocular movement intact and sclera anicteric. Oropharynx with dry mucosa and fair dentition. Neck: Supple without JVD. Back: Stooped posture without CVA tenderness. Lungs: Fair aeration and clear to auscultation percussion with no focalizing rales or rhonchi. Normal expiratory phase and no expiratory wheeze. Breast: Exam deferred. Heart: Tachycardic rate at the time of my exam with no appreciable murmur or gallop. Normal rhythm. Abdomen: Obese contour, soft and nontender to palpation with no palpable hepatosplenomegaly. No focal guarding or rebound. Bowel sounds positive in all quadrants. Genitalia/rectal: Exam deferred. Patient does have a Johnson catheter in place. Extremities: Left lower extremity has nonpitting edema 2-3+ with some tenderness to palpation over the calf and leg but no palpable cord and negative Homans' sign. Patient has had skin breakdown over her toes and feet on the left in the past with no obvious drainage. No clubbing or cyanosis. Right lower extremity has no edema. Left hip does have well-healed scar. Good capillary refill. Skin: Slightly pale, warm and dry. Neuro: Cranial nerves II through XII appear to be grossly intact. No focalizing motor deficits. No tremor. Psych: Normal affect though slightly anxious at times when being questioned. Normal mood. No abnormal thought processes. Remote and recent memory appear to be grossly intact though she wanders at times with details on her history which may be a sign of early Alzheimer's dementia. Results Imaging Imaging Studies: Exam: CT Chest With Contrast; Diagnostic Exam date and time: 01/08/2024 8:27 PM Age: 84 years old Clinical indication: Other: Abd pain, wbc 32,000; Prior surgery; Surgery date: 6+ months; Surgery type: Colostomy bag with reversal COMPARISON: CT CHEST/ABD/PEL W 08/12/2022 12:42 FINDINGS: Thyroid: Normal. No significant nodule or enlargement. Trachea: Normal. Lungs: Unremarkable. No consolidation. No nodule or mass. Pleural spaces: Unremarkable. No pneumothorax. No pleural effusion or thickening. Heart: No cardiomegaly. No pericardial effusion. Coronary arteries: No significant calcification. Esophagus: No esophageal mass or wall thickening. No hiatal hernia. Mediastinal space: Normal. No mass or adenopathy. Lymph nodes: No enlarged mediastinal or axillary lymph nodes. Vasculature: Unremarkable. No aortic aneurysm. Diaphragm: Large retrocardiac hiatal hernia. Bones/joints: There is an anterior wedge compression fracture of T3 which was present on the previous exam. There is additional old fracture of T11. Soft tissues: Unremarkable. Other findings: Visualized upper abdomen is unremarkable. IMPRESSION: No acute findings. PROCEDURE INFORMATION: Exam: CT Abdomen And Pelvis With Contrast Exam date and time: 01/08/2024 8:27 PM Age: 84 years old Clinical indication: Other: Abd pain, wbc 32,000; Prior surgery; Surgery date: 6+ months; Surgery type: Colostomy bag with reversal COMPARISON: CT PELVIC WO 22/10/2023 16:59 FINDINGS: Lungs: Visualized lung bases are clear. Liver: Few Patak cysts. No mass or ductal dilatation. Mild fatty infiltration of the liver. Gallbladder and bile ducts: Normal. No calcified stones. No ductal dilation. Pancreas: Pancreas is atrophic. Spleen: Normal. No splenomegaly. Adrenal glands: Normal. No mass. Kidneys and ureters: 3.5 cm cyst at the upper pole of the left kidney. Multiple other renal cysts bilaterally. No calculus or obstruction. Stomach and bowel: No small bowel dilatation or wall thickening. Previous colon surgery with anastomosis in the sigmoid segment. Moderate amount of retained fecal material throughout the colon. 5.8 cm rectal impaction. Appendix: No evidence of appendicitis. Intraperitoneal space: Unremarkable. No free air. No significant fluid collection. Vasculature: Atherosclerotic aorta with no aneurysm. Lymph nodes: No enlarged retroperitoneal or mesenteric lymph nodes. Urinary bladder: No mass or wall thickening. Reproductive: Uterus is absent. No adnexal cyst or mass. Bones/joints: Old left hip fracture. Soft tissues: Unremarkable. IMPRESSION: No acute abnomality in the abdomen or pelvis. Multiple incidental findings as above. Nothing to explain the patient's elevated white count. Exam: CT Head Without Contrast Exam date and time: 01/08/2024 8:25 PM Age: 84 years old Clinical indication: Confusion COMPARISON: CT BRAIN NECK CTA 01/12/2022 11:19 AM FINDINGS: Brain: Age-related involutional changes and chronic microvascular ischemic disease. No evidence for acute transcortical infarct. No mass effect or midline shift. No extra-axial collection. No acute intracranial hemorrhage. Basal cisterns are patent. Cerebral ventricles: Dilatation of the ventricles out of proportion to the degree of cortical atrophy, which can be seen in normal pressure hydrocephalus. Paranasal sinuses: Visualized sinuses are unremarkable. No fluid levels. Mastoid air cells: Visualized mastoid air cells are well aerated. Bones/joints: Unremarkable. No acute fracture. Soft tissues: Unremarkable. IMPRESSION: 1. No evidence for acute transcortical infarct, acute intracranial hemorrhage, or mass effect. 2. Dilatation of the ventricles out of proportion to the degree of cortical atrophy, which can be seen in normal pressure hydrocephalus. Labs 01/08/24 19:03 01/08/24 19:03 Labs: Laboratory Results - last 24 hr 01/08/24 01/08/24 01/08/24 19:03 19:45 21:10 WBC 32.54 H* RBC 3.46 L Hgb 10.3 L Hct 31.0 L MCV 90 MCH 29.8 MCHC 33.2 RDW 15.4 H Plt Count 186 MPV 10.9 Immature Gran % 0.0 Neutrophils % 64.0 Band Neutrophils % 17 Lymphocytes % 9.0 Atypical Lymphs % 0 Monocytes % 4.0 Eosinophils % 0.0 Basophils % 1.0 Metamyelocytes % 3 Myelocytes % 2 Nucleated RBC % 0.0 Absolute Neutrophils 26.36 H Absolute Lymphocytes 2.93 Absolute Monocytes 1.30 H Absolute Eosinophils 0.00 Absolute Basophils 0.33 H RBC Morphology Normal VBG Lactate 2.1 H Sodium 140 Potassium 4.7 Chloride 105 Carbon Dioxide 22.3 Anion Gap 12.7 H BUN 52 H Creatinine 1.8 H Est GFR (CKD-EPI 2020) 27.10 Glucose 109 H Calcium 9.1 Magnesium 1.6 L Total Bilirubin 0.3 AST 25 ALT 29 Alkaline Phosphatase 146 H Total Protein 6.4 Albumin 2.7 L Lipase < 10 L Procalcitonin 183.1 Urine Color Yellow Urine Clarity Cloudy Urine pH 5.5 Ur Specific [place] 1.020 Urine Protein 30 H Urine Ketones Negative Urine Blood Large H Urine Nitrite Positive H Urine Bilirubin Negative Urine Urobilinogen 0.2 Ur Leukocyte Esterase Moderate H Urine RBC 10-20 H Urine WBC 20-50 H Ur Epithelial Cells Rare Urine Crystals Negative Urine Bacteria Many Urine Casts Negative Urine Mucus Negative Ur Culture Indicated? Yes Urine Glucose Negative Last Vital Signs Temp 36.6 C 01/08/24 18:30 Pulse 102 H 01/08/24 21:15 Resp 23 01/08/24 21:20 BP 112/46 L 01/08/24 21:15 Pulse Ox 98 01/08/24 18:36 Time Spent Time spent with Patient: >75 minutes Time was spent: preparing to see the patient(eg.review tests), obtaining and/or reviewing separately otained hiistory, ordering medications,tests, procedures, referring, communicating with other health resident care supervisor, indepentently interpreting results and care coordination
[2024-01-08] MEDS: Lactated Ringers 500 ML IV (23:10)
[2024-01-08 23:18] LABS: TSH 1.49 uIU/Ml (0.36-3.74)
[2024-01-09] VITALS (111 sets, daily range): BP systolic 83–126; BP diastolic 34–70; PULSE 67–114; RESP 11–26; TEMP 36.2–36.8; O2SAT 78–98
[2024-01-09] MEDS: Normal Saline 1,000 ML 150 ML IV ×3 (00:15→12:25)
--- NOTE | 2024-01-09 00:19 | NUR.NOTE ---
Pts Claritza [facility]ine [phone] [place] [phone] Cell
--- NOTE | 2024-01-09 00:24 | W.PC.ACHO ---
Registration Status: REG ER Primary Language: Preferred Language: Slovenian ED Information & Data Chief Complaint AMS/LOC 01/08/24 22:14 Triage Note Pt recently diagnosed with 01/08/24 18:30 dementia. Family states she has been acting altered and very restless today, sleeping a lot. Pt also has not been taking her medications X2 days. Pt states only complaint is slight backpain. No falls / trauma Medical / Surgical History (Last Reviewed 01/08/24 @ 22:20 by Arias Thomas) History of esophageal stricture Hydrocephalus in adult Ventral hernia without obstruction or gangrene Hx of fracture of left hip Deep vein thrombosis Incidental lung nodule, > 3mm and < 8mm Malignant neoplasm of female breast (09/21/92) Indeterminate colitis (02/04/16) Hypothyroidism (08/10/12) Diverticulitis (09/19/14) C. difficile enteritis Barretts esophagus Breast cancer (Last Reviewed 01/08/24 @ 22:20 by Arias Thomas) History of mastectomy (~1994) colostomy reversal Laparotomy (06/08/14) Colectomy (~05/2014) Most Recent Vital Signs Temperature 36.6 C 01/08/24 18:30 Temperature Source Oral 01/08/24 18:30 Pulse 99 H 01/09/24 00:22 Pulse 100 H 01/09/24 00:10 Respiratory Rate 16 01/09/24 00:22 Respiratory Effort Normal 01/08/24 18:36 Respiratory Depth Normal 01/08/24 18:36 Respiratory Pattern Normal 01/08/24 18:36 Blood Pressure 107/41 L 01/09/24 00:22 Blood Pressure Mean 63 01/09/24 00:00 Blood Pressure Position Supine 01/08/24 18:36 Pulse Oximetry 98 01/09/24 00:22 Oxygen Delivery Method Room Air 01/08/24 18:36 Oxygen Flow Rate 0 01/08/24 18:30 Allergies Penicillins Allergy (Severe, Verified 11/14/23 16:42) hives polyethylene glycol 3350 [From Miralax] Allergy (Severe, Verified 11/14/23 16:42) rash all over cefazolin Allergy (Unknown, Verified 11/14/23 16:42) Per sister breaks out with rash all over Precautions Isolation Standard precaution 01/08/24 18:36 Active Medications Generic Name Dose Route Start Last Admin Trade Name Freq PRN Reason Stop Dose Admin Sodium Chloride 1,000 mls @ 150 mls/hr 01/08/24 22:45 01/09/24 00:15 Saline 1000ml Bag IV 150 mls/hr INFUSION CHAPARRO Administration Iohexol 100 ml 01/08/24 20:30 01/08/24 20:25 Omnipaque 350 Mg/Ml 100 Ml Btl IJ 02/07/24 23:59 100 ml DIRECTED CHAPARRO Administration Sodium Chloride 50 ml 01/08/24 20:30 01/08/24 20:27 Normal Saline - Diluent 50 Ml Vial IJ 50 ml .FOR DI USE CHAPARRO Administration Sodium Chloride 0 ml 01/08/24 20:28 01/08/24 20:28 Normal Saline Flush 10 Ml Syr IVP 10 ml PRN PRN Administration IV IV Catheter Type [Left Forearm Peripheral IV ] IV Catheter Type [Right Peripheral IV Forearm] IV Catheter Gauge [Left 20 Forearm] IV Catheter Gauge [Right 18 Forearm] Diet Orders Category Date Time Status Heart Healthy Eating [DIET] Nutrition 01/09/24 Breakfast Active Diagnostics 01/09/24 01/08/24 01/08/24 Range/Units 05:35 22:35 21:10 WBC Pending (4.4-10.8) 10^3/uL RBC Pending (3.93-5.22) 10^6/uL Hgb Pending (11.2-15.7) g/dL Hct Pending (36.0-46.0) % MCV Pending (80-95) fL MCH Pending (27.0-33.0) pg MCHC Pending (32.0-36.0) % RDW Pending (11.7-14.6) % Plt Count Pending (130-400) 10^3/uL MPV Pending (8.0-11.0) fL Immature Gran % Neutrophils % Band Neutrophils % Lymphocytes % Atypical Lymphs % Monocytes % Eosinophils % Basophils % Metamyelocytes % Myelocytes % Nucleated RBC % (0.0-0.3) % Absolute Neutrophils (1.2-6.7) 10^3/uL Absolute Lymphocytes (1.2-3.4) 10^3/uL Absolute Monocytes (0.1-0.8) 10^3/uL Absolute Eosinophils (0.0-0.7) 10^3/uL Absolute Basophils (0.0-0.2) 10^3/uL RBC Morphology VBG Lactate (0.6-1.4) mmol/L Sodium Pending (136-145) mmol/L Potassium Pending (3.5-5.1) mmol/L Chloride Pending (98-107) mmol/L Carbon Dioxide Pending (21.0-32.0) mmol/L Anion Gap Pending (3-11) mmol/L BUN Pending (7-18) mg/dL Creatinine Pending (0.55-1.02) mg/dL Est GFR (CKD-EPI 2020) Pending (mL/min/1.73m2) Glucose Pending (74-106) mg/dL Calcium Pending (8.5-10.1) mg/dL Magnesium (1.8-2.4) mg/dL Total Bilirubin Pending (0.2-1.0) mg/dL AST Pending (15-37) U/L ALT Pending (14-59) U/L Alkaline Phosphatase Pending (46-116) U/L Total Protein Pending (6.4-8.2) g/dL Albumin Pending (3.4-5.0) g/dL Lipase (16-77) U/L Procalcitonin ng/mL TSH 1.49 (0.36-3.74) uIU/Ml Urine Color Yellow (Yellow) Urine Clarity Cloudy (Clear) Urine pH 5.5 (5-8) Ur Specific [place] 1.020 (1.005-1.025) Urine Protein 30 H (Neg-Trace) mg/dL Urine Ketones Negative (Negative) mg/dL Urine Blood Large H (Negative) Urine Nitrite Positive H (Negative) Urine Bilirubin Negative (Negative) Urine Urobilinogen 0.2 (Up to 0.2) mg/dL Ur Leukocyte Esterase Moderate H (Negative) Urine RBC 10-20 H (0-2) HPF Urine WBC 20-50 H (0-5) HPF Ur Epithelial Cells Rare (Negative) HPF Urine Crystals Negative (Negative) HPF Urine Bacteria Many (Negative) HPF Urine Casts Negative (Negative) LPF Urine Mucus Negative (Negative) Ur Culture Indicated? Yes Urine Glucose Negative (Negative) mg/dL 01/08/24 01/08/24 Range/Units 19:45 19:03 WBC 32.54 H* (4.4-10.8) 10^3/uL RBC 3.46 L (3.93-5.22) 10^6/uL Hgb 10.3 L (11.2-15.7) g/dL Hct 31.0 L (36.0-46.0) % MCV 90 (80-95) fL MCH 29.8 (27.0-33.0) pg MCHC 33.2 (32.0-36.0) % RDW 15.4 H (11.7-14.6) % Plt Count 186 (130-400) 10^3/uL MPV 10.9 (8.0-11.0) fL Immature Gran % 0.0 Neutrophils % 64.0 Band Neutrophils % 17 Lymphocytes % 9.0 Atypical Lymphs % 0 Monocytes % 4.0 Eosinophils % 0.0 Basophils % 1.0 Metamyelocytes % 3 Myelocytes % 2 Nucleated RBC % 0.0 (0.0-0.3) % Absolute Neutrophils 26.36 H (1.2-6.7) 10^3/uL Absolute Lymphocytes 2.93 (1.2-3.4) 10^3/uL Absolute Monocytes 1.30 H (0.1-0.8) 10^3/uL Absolute Eosinophils 0.00 (0.0-0.7) 10^3/uL Absolute Basophils 0.33 H (0.0-0.2) 10^3/uL RBC Morphology Normal VBG Lactate 2.1 H (0.6-1.4) mmol/L Sodium 140 (136-145) mmol/L Potassium 4.7 (3.5-5.1) mmol/L Chloride 105 (98-107) mmol/L Carbon Dioxide 22.3 (21.0-32.0) mmol/L Anion Gap 12.7 H (3-11) mmol/L BUN 52 H (7-18) mg/dL Creatinine 1.8 H (0.55-1.02) mg/dL Est GFR (CKD-EPI 2020) 27.10 (mL/min/1.73m2) Glucose 109 H (74-106) mg/dL Calcium 9.1 (8.5-10.1) mg/dL Magnesium 1.6 L (1.8-2.4) mg/dL Total Bilirubin 0.3 (0.2-1.0) mg/dL AST 25 (15-37) U/L ALT 29 (14-59) U/L Alkaline Phosphatase 146 H (46-116) U/L Total Protein 6.4 (6.4-8.2) g/dL Albumin 2.7 L (3.4-5.0) g/dL Lipase < 10 L (16-77) U/L Procalcitonin 183.1 ng/mL TSH (0.36-3.74) uIU/Ml Urine Color (Yellow) Urine Clarity (Clear) Urine pH (5-8) Ur Specific [place] (1.005-1.025) Urine Protein (Neg-Trace) mg/dL Urine Ketones (Negative) mg/dL Urine Blood (Negative) Urine Nitrite (Negative) Urine Bilirubin (Negative) Urine Urobilinogen (Up to 0.2) mg/dL Ur Leukocyte Esterase (Negative) Urine RBC (0-2) HPF Urine WBC (0-5) HPF Ur Epithelial Cells (Negative) HPF Urine Crystals (Negative) HPF Urine Bacteria (Negative) HPF Urine Casts (Negative) LPF Urine Mucus (Negative) Ur Culture Indicated? Urine Glucose (Negative) mg/dL 01/08/24 22:40 Blood Culture - Pending Blood 01/08/24 22:35 Blood Culture - Pending Blood 01/08/24 21:10 Urine Culture - Pending Urine - Reflex from Ua Intake and Output - 24 Hour Total 01/08/24 18:22 thru 01/09/24 00:21 Intake Total 2650.000 Output Total 260 Balance 2390.000 Weight 61.7 g Intake: IV 2650.000 Output: Urine 260 Other: Urine Color Yellow Urine Appearance Cloudy Urinary Catheter Urinary Catheter Date of 01/08/24 Insertion [Uretheral (Jonhson)] Time of insertion [Uretheral ( 21:05 Johnson)] Falls Risk Assessment History of Falls No History 01/08/24 18:36 Fall Total Score 0 01/08/24 18:36 Level of Risk Standard/Low Risk 01/08/24 18:36 Problems (Last Reviewed 01/08/24 @ 22:20 by Arias Thomas) UTI (urinary tract infection) (Acute) Acute dehydration (Acute) Hypotension (Acute) Sepsis syndrome (Acute) Hypertension (Chronic) 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 Information / Comments: Report received from:Lang Kebedeedic
[2024-01-09] MEDS: Normal Saline Flush 10 ML SYR IVP ×3 (02:38→19:38)
[2024-01-09 07:03] LABS: HCT 26.2 % (36.0-46.0); HGB 8.6 g/dL (11.2-15.7); MCH 29.5 pg (27.0-33.0); MCHC 32.8 % (32.0-36.0); MCV 90 fL (80-95); MPV 11.7 fL (8.0-11.0); RBC 2.92 10^6/uL (3.93-5.22); RDW 15.6 % (11.7-14.6); RDW-SD 50.8 fL; WBC 18.05 10^3/uL (4.4-10.8)
[2024-01-09 07:29] LABS: Platelet Count 87 10^3/uL (130-400)
[2024-01-09 07:30] LABS: ALT 21 U/L (14-59); AST 24 U/L (15-37); Alkaline Phosphatase 122 U/L (46-116); Anion Gap 10.5 mmol/L (3-11); BUN 40 mg/dL (7-18); Bilirubin, Total 0.2 mg/dL (0.2-1.0); CO2 20.5 mmol/L (21.0-32.0); CREATININE 1.2 mg/dL (0.55-1.02); Calcium 7.7 mg/dL (8.5-10.1); Chloride 110 mmol/L (98-107); Estimated GFR 44.08 (mL/min/1.73m2); Glucose 79 mg/dL (74-106); Potassium 4.3 mmol/L (3.5-5.1); Sodium 141 mmol/L (136-145); Total Protein 4.8 g/dL (6.4-8.2)
[2024-01-09] MEDS: Ferrous Sulfate 325 MG TAB PO ×2 (08:31→19:38)
[2024-01-09] MEDS: Pantoprazole 20 MG TABCR PO (08:31)
[2024-01-09] MEDS: Lidocaine 5% Patch 2 PATCH TP (08:31)
[2024-01-09] MEDS: Meloxicam 15 MG TAB PO (08:31)
[2024-01-09] MEDS: Enoxaparin 30 MG/0.3 ML SYR SC (08:31)
--- NOTE | 2024-01-09 10:57 | PGE_ITS ---
Date of Service Date of service: 01/09/24 Time of Service: 10:58 Assessment and Plan Assessment and plan (1) Severe sepsis: Status: Acute Assessment and plan: - Patient met criteria for severe sepsis wit heart rate greater than 90 bpm, white blood cell count 32.5, infectious encephalopathy, and mean arterial pressures less than 65 that improved after slow infusion of 30 cc/kg fluid resuscitation -Patient was initially started on IV Levaquin due to allergy to penicillin and cephalosporins -However, upon further review of patient's chart she appears to have been able to tolerate cephalosporins in the past and will be transition to 1 g ceftriaxone every 24 hours -Sepsis pathology has resolved and patient's mental status is back to baseline -Follow-up blood and urine culture results (2) UTI (urinary tract infection): Start date: 01/08/24 Status: Acute Assessment and plan: -as noted above Qualifiers: Urinary tract infection type: acute cystitis Hematuria presence: with hematuria Qualified Code(s): N30.01 - Acute cystitis with hematuria (3) Hypotension: Start date: 01/08/24 Status: Acute Assessment and plan: -as noted above Qualifiers: Hypotension type: other hypotension type Qualified Code(s): I95.89 - Other hypotension (4) Acute dehydration: Start date: 01/08/24 Status: Acute Assessment and plan: -as noted above (5) Fecal impaction in rectum: Start date: 01/08/24 Status: Acute Assessment and plan: -Successfully disimpacted by ED provider. Patient is on antidiarrheals at times for IBS and this needs to be used with caution. Stool cathartics as needed while hospitalized. (6) Hypertension: Status: Chronic Assessment and plan: -While acutely ill patient's losartan will be held with IV hydration and treatment of sepsis with shock. 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 She has not been on this medication for the last couple days. Subjective Subjective Interval history since last seen: Patient states that she feels much better today and is no longer confused. She has no complaints or concerns at this time. Exam Narrative Exam Narrative: Well-appearing elderly female sitting up in the chair no acute distress, awake, alert, oriented to person and place, heart regular rhythm, lungs clear to auscultation bilaterally, abdomen soft, nontender, nondistended Objective Last Vital Signs Temp 97.7 F 01/09/24 07:26 Pulse 95 H 01/09/24 07:26 Resp 22 01/09/24 07:26 BP 102/44 L 01/09/24 07:26 Pulse Ox 94 01/09/24 07:26 Laboratory Results - last 24 hr 01/08/24 01/08/24 01/08/24 19:03 19:45 21:10 WBC 32.54 H* RBC 3.46 L Hgb 10.3 L Hct 31.0 L MCV 90 MCH 29.8 MCHC 33.2 RDW 15.4 H Plt Count 186 MPV 10.9 Immature Gran % 0.0 Neutrophils % 64.0 Band Neutrophils % 17 Lymphocytes % 9.0 Atypical Lymphs % 0 Monocytes % 4.0 Eosinophils % 0.0 Basophils % 1.0 Metamyelocytes % 3 Myelocytes % 2 Nucleated RBC % 0.0 Absolute Neutrophils 26.36 H Absolute Lymphocytes 2.93 Absolute Monocytes 1.30 H Absolute Eosinophils 0.00 Absolute Basophils 0.33 H RBC Morphology Normal VBG Lactate 2.1 H Sodium 140 Potassium 4.7 Chloride 105 Carbon Dioxide 22.3 Anion Gap 12.7 H BUN 52 H Creatinine 1.8 H Est GFR (CKD-EPI 2020) 27.10 Glucose 109 H Calcium 9.1 Magnesium 1.6 L Total Bilirubin 0.3 AST 25 ALT 29 Alkaline Phosphatase 146 H Total Protein 6.4 Albumin 2.7 L Lipase < 10 L Procalcitonin 183.1 TSH Urine Color Yellow Urine Clarity Cloudy Urine pH 5.5 Ur Specific [place] 1.020 Urine Protein 30 H Urine Ketones Negative Urine Blood Large H Urine Nitrite Positive H Urine Bilirubin Negative Urine Urobilinogen 0.2 Ur Leukocyte Esterase Moderate H Urine RBC 10-20 H Urine WBC 20-50 H Ur Epithelial Cells Rare Urine Crystals Negative Urine Bacteria Many Urine Casts Negative Urine Mucus Negative Ur Culture Indicated? Yes Urine Glucose Negative 01/08/24 01/09/24 22:35 05:48 WBC 18.05 H RBC 2.92 L Hgb 8.6 L Hct 26.2 L MCV 90 MCH 29.5 MCHC 32.8 RDW 15.6 H Plt Count 87 L D MPV 11.7 H Immature Gran % Neutrophils % Band Neutrophils % Lymphocytes % Atypical Lymphs % Monocytes % Eosinophils % Basophils % Metamyelocytes % Myelocytes % Nucleated RBC % Absolute Neutrophils Absolute Lymphocytes Absolute Monocytes Absolute Eosinophils Absolute Basophils RBC Morphology VBG Lactate Sodium 141 Potassium 4.3 Chloride 110 H Carbon Dioxide 20.5 L Anion Gap 10.5 BUN 40 H Creatinine 1.2 H Est GFR (CKD-EPI 2020) 44.08 Glucose 79 Calcium 7.7 L Magnesium Total Bilirubin 0.2 AST 24 ALT 21 Alkaline Phosphatase 122 H Total Protein 4.8 L Albumin 2.0 L Lipase Procalcitonin TSH 1.49 Urine Color Urine Clarity Urine pH Ur Specific [place] Urine Protein Urine Ketones Urine Blood Urine Nitrite Urine Bilirubin Urine Urobilinogen Ur Leukocyte Esterase Urine RBC Urine WBC Ur Epithelial Cells Urine Crystals Urine Bacteria Urine Casts Urine Mucus Ur Culture Indicated? Urine Glucose Time Spent with Patient Time Spent with Patient: >50 minutes Time was spent: preparing to see the patient(eg.review tests), obtaining and/or reviewing separately otained hiistory, ordering medications,tests, procedures, referring, communicating with other health director of health care marketing, indepentently interpreting results, counseling the patient and care coordination
--- NOTE | 2024-01-09 11:25 | INITIAL_ITS ---
Date of service: 01/09/24 Time of Service: 11:26 Care Management Initial Assmt Initial Assessment REASON FOR HOSPITALIZATION:: Sepsis with shock, UTI, Acute dehydration, dementia PREVIOUS FUNCTIONAL STATUS/SOCIAL/FAMILY SUPPORTS:: Amelia lives in [place] in a single family home. Her sister Radha lives with her and provides her care. Amelia is independent with ADLs but does need assistance with ambulation, transportation, meal preparation, housework, shopping etc. 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 Her sister Jessica is also one of her primary supports. Jessica lives next door and cooks for Amelia. She also provides her transportation, since she no longer drives. She is independent with her ADL's at baseline. CURRENT FUNCTIONAL STATUS:: Amelia is much improved, per MD and will evaluated by PT for discharge recommendations. CM following. ADVANCE DIRECTIVES:: On file. Radha Brownlee (sister) [facility] Has patient been provided with info about the portal/API?: Yes Did the patient sign up for the portal?: No CODE STATUS:: Full Code INSURANCE COVERAGE / FINANCIAL ISSUES:: Medicare Financial Assist 83 CURRENT HOME/COMMUNITY SERVICES/EQUIPMENT:: [facility] PRIMARY CARE PHYSICIAN:: Virginia Pino POTENTIAL DISCHARGE NEEDS:: Follow up with PCP and plan of care PATIENT/FAMILY EDUCATION NEEDS:: Review of discharge instructions, activity, limitations, follow up plan, discuss Ask Me Three TRANSPORTATION:: To be determined by disposition. PLAN:: Amelia will likely be discharged home with resumption of home health services, when medically cleared. She will follow up with her community providers and plan of care and transport with a friend or family member. CM will continue to support Amelia and her discharge planning needs. PFSH All Active Problems (Updated 01/09/24 @ 11:01 by Aris Vora MD) Severe sepsis (Acute) Severe sepsis with acute organ dysfunction (Acute) Fecal impaction in rectum (Acute) Acute UTI (Acute) Fecal impaction (Acute) Dementia (Chronic) Septic shock (Acute) BRAYAN (acute kidney injury) (Acute) UTI (urinary tract infection) (Acute) Acute dehydration (Acute) Hypotension (Acute) Sepsis syndrome (Acute) Need for home health care (Acute) Impaired instrumental activities of daily living (Acute) Deficit in activities of daily living (ADL) (Acute) ACP (advance care planning) (Acute) Peripheral edema (Acute) Pain in both lower extremities (Acute) Hypertension (Chronic) Iron deficiency anemia (Chronic) Osteoporosis (Chronic) Irritable bowel syndrome (Chronic) prior evaluation with [facility] Low back pain (Acute) Vitamin D deficiency (Acute) Sciatica (Acute) Emphysema lung (Acute) GERD (gastroesophageal reflux disease) (Chronic) Hiatal hernia (Chronic) 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 NPH ruled out. Ventral hernia without obstruction or gangrene Hx of fracture of left hip s/p short TFN Dr. Mathis DOS: 10/11/19 Deep vein thrombosis Incidental lung nodule, > 3mm and < 8mm on xray and CT scan with contrast / [facility] [place] pulm. Malignant neoplasm of female breast (09/21/92) R MAST AND RECONSTRUCTION. 10/25 INFLAMMATION AT [facility] WAS NEG FOR MALIGNANCY Indeterminate colitis (02/04/16) 01/22/16 colonoscopy at [facility] [place] Hypothyroidism (08/10/12) Diverticulitis (09/19/14) May 2014 [facility] [place] sigmoid resection and colostomy post op infection and malnutrition February 2015 colostomy takedown (post op infection) C. difficile enteritis at hospitalization may 2014 Barretts esophagus Status post EGD with esophageal biopsy on July 05, [address] Jani Rothman. Squamous mucosa with reactive changes. Gastric type mucosa with chronic and focally active inflammation but no intestinal metaplasia or dysplasia. No helical factor pylori microorganisms identified. EGD 07/13/18, Dr. Azar Eldridge, [facility], dilatation of lower esophageal stricture Breast cancer Surgical History History of mastectomy (~1994) right mastectomy (no radiation or chemotherapy); s/p reconstruction after the mastectomy colostomy reversal Laparotomy (06/08/14) for [place] leak. End colostomy done Colectomy (~05/2014) for colon stricture presumed to be from diverticulitis Family History Mother , 84 Essential hypertension COPD (chronic obstructive pulmonary disease) Father , 51 Stomach cancer Mouth cancer Brother No problems noted. Maternal Grandfather No problems noted. Paternal Grandfather No problems noted. Maternal Grandmother No problems noted. Paternal Grandmother No problems noted. Sister No problems noted. Sister COPD (chronic obstructive pulmonary disease) Social History Smoking/Tobacco Use Status: Former Tobacco Use tobacco type: cigarettes Quit Date: 10/23/94 Pack-years: 40 Tobacco: How many years used: 40 Second Hand Exposure: No Smoking risk assessment performed?: Yes Alcohol Intake: never Drug use: Never Substance use type: does not use Caregiver/Support person: Yes Household members: none Housing: house Communication Needs: None Do you need help understanding health information?: Never Pets and animals: No Sexually active: No Current gender identity: female What is your relationship status?: never How often do you talk on the phone with friends or family?: three or more times per week How often do you get together with friends or relatives?: three or more times per week How often do you attend episcopal or sabianist services?: decline to answer Do you belong to any clubs or organized social groups?: no Panel score (0-1 are the most socially isolated patients): 1 What type of physical activity do you participate in: decline to answer Duration: decline to answer Frequency: decline to answer Leslie/Taoism: No preference Special leslie needs: No Seatbelt use: always Drive intox or ride w/intox limo driver: No Do you feel safe at home: Yes Do you feel safe in your relationship?: Yes Additional Social history: unable to assess privately History History 0 Para 0 Hx # Term Pregnancies 0 Multiple births Hx # Pregnancies 0 Ectopic pregnancies AB induced 0 Hx Number of Living Children 0 AB spontaneous 0 SDOH(Care Management) Screening Will the Patient Participate in the Screening?: Yes Do you worry about having a steady place to live?: no Problems where you live: no known problems In the past 12 months, have you had to go without electric, gas, oil or water in your home?: no Have you or anyone in your house had to go without enough food to eat?: no Has lack of transportation kept you from medical appointments or from doing things needed for daily living?: no Has anyone in your support network made you feel unsafe for any reason?: no
[2024-01-09] MEDS: cefTRIAXone 1 GM/50 ML BAG IVPB (12:23)
[2024-01-09] MEDS: Mupirocin 2% Oint. 22 GM TUBE TP ×2 (14:27→19:38)
[2024-01-09] MEDS: Magnesium Lactate-SR 84 MG TABCR PO (19:38)
[2024-01-09] MEDS: Fluticasone NASAL SPRAY 16 GM BTL NS (19:52)
[2024-01-09] MEDS: traZODone 50 MG TAB PO (22:33)
[2024-01-09] MEDS: Lidocaine Patch Removal 2 EACH TP (22:34)
[2024-01-10] VITALS (24 sets, daily range): BP systolic 112–165; BP diastolic 55–81; PULSE 70–96; RESP 16–24; TEMP 36.7–37; O2SAT 94–97
--- NOTE | 2024-01-10 | DI.US_ITS ---
Exam(s) US LOWER EXTREMITY VENOUS LT EXAM: US LOWER EXTREMITY VENOUS LT CLINICAL HISTORY: LLE swelling and tenderness to palpation. TECHNIQUE: Lower extremity venous ultrasound performed using grayscale, color-flow, and spectral Do ppler analysis. COMPARISON: No exams were available for comparison FINDINGS: The common femoral, femoral and popliteal veins demonstrate normal compressibility, augmentation, and color Doppler. The posterior tibial veins are patent. No saphenous vein thrombosis or other superfi cial venous thrombosis is seen. No hematoma or Fritz's cyst is seen. IMPRESSION: Negative lower extremity ultrasound. No evidence of DVT. DATA REPOSITORY:
[2024-01-10 06:16] LABS: HCT 26.3 % (36.0-46.0); HGB 8.5 g/dL (11.2-15.7); MCH 29.5 pg (27.0-33.0); MCHC 32.3 % (32.0-36.0); MCV 91 fL (80-95); MPV 10.9 fL (8.0-11.0); Platelet Count 132 10^3/uL (130-400); RBC 2.88 10^6/uL (3.93-5.22); RDW 15.8 % (11.7-14.6); RDW-SD 52.9 fL; WBC 14.67 10^3/uL (4.4-10.8)
[2024-01-10 06:25] LABS: Anion Gap 12.2 mmol/L (3-11); BUN 30 mg/dL (7-18); CO2 19.8 mmol/L (21.0-32.0); CREATININE 1.1 mg/dL (0.55-1.02); Chloride 111 mmol/L (98-107); Estimated GFR 48.94 (mL/min/1.73m2); Glucose 79 mg/dL (74-106); Sodium 143 mmol/L (136-145)
[2024-01-10] MEDS: Pantoprazole 20 MG TABCR PO (07:28)
[2024-01-10] MEDS: Beta-Carotene(A) w/C,E, & Minerals TAB 1 TAB PO (08:25)
[2024-01-10] MEDS: Ferrous Sulfate 325 MG TAB PO ×2 (08:26→19:35)
[2024-01-10] MEDS: Meloxicam 15 MG TAB PO (08:26)
[2024-01-10] MEDS: Magnesium Lactate-SR 84 MG TABCR PO ×2 (08:26→19:35)
[2024-01-10] MEDS: Enoxaparin 30 MG/0.3 ML SYR SC (08:27)
[2024-01-10] MEDS: Normal Saline Flush 10 ML SYR IVP ×2 (08:27→12:50)
[2024-01-10] MEDS: Mupirocin 2% Oint. 22 GM TUBE TP ×3 (08:28→18:19)
[2024-01-10] MEDS: Lidocaine 5% Patch 2 PATCH TP (08:42)
--- NOTE | 2024-01-10 09:45 | DI.CT_ITS ---
Exam(s) CT ABDOMEN PELVIS W EXAM: CT ABDOMEN PELVIS W CLINICAL HISTORY: LLQ pain. TECHNIQUE: Imaging Protocol: Axial computed tomography images with coronal and sagittal reformatted images were created and reviewed CONTRAST MATERIAL: Intravenous: Omnipaque 350 Contrast volume:100 ml Oral: / no COMPARISON: CT ABD PELVIS WITH CONTRAST from 03/10/[address] ABDOMEN PELVIS W from 07/22/[address] CHEST/ABD/PEL W from 01/08/2024 FINDINGS: ABDOMEN and PELVIS: Lung Bases: Small bilateral effusions and adjacent atelectasis. Large hiatal hernia. Liver: Normal density. Simple appearing liver cysts noted. No follow-up recommended. Gallbladder and biliary tract: No radiodense calculus or dilation. Pancreas: Atrophic. No abnormal calcifications or inflammatory process. No evidence of mass. Spleen: Normal. Kidneys: Normal size, contour and axis. No radiodense stones. No obstructive uropathy. Multiple patrice ateral renal cysts. No follow-up recommended. No suspicious masses seen. Adrenal glands: No masses seen. Vasculature: Abdominal aorta non-dilated. Soft tissues: Some stranding in the soft tissues adjacent to the left hip. No evidence of abscess. Bladder: No gross wall thickening. No calculi.No focal mass. Bowel: Left lower quadrant small bowel anastomosis. Sigmoid anastomosis appears unremarkable. No ob struction. No bowel wall thickening. Peritoneal cavity: No ascites. No focal collection or mesenteric inflammatory response. Bones: Lucency in proximal left femur related to prior hardware which has been removed. Stable compr ession fractures of L2, T11 and T12.. Reproductive organs: Atrophic. Lymph nodes: Unremarkable. IMPRESSION:: Small bilateral pleural effusions and adjacent atelectasis. No acute abnormality in the abdomen or pelvis. RADIATION DOSE DELIVERED: Total DLP DATA REPOSITORY: All CT scans at this facility are submitted to the National Radiology Data Registry (NRDR) Dose Index Registry (DIR) with the [employer] (ACR). RADIATION OPTIMIZATION: All CT scans at this facility use at least one of these dose optimization te chniques: automated exposure control; mA and/or kV adjustment per patient size (includes targeted exa ms where dose is matched to clinical indication); or iterative reconstruction.
[2024-01-10] MEDS: Fluticasone NASAL SPRAY 16 GM BTL NS ×2 (09:50→18:20)
[2024-01-10] MEDS: Normal Saline - Diluent 50 ML VIAL IJ (10:24)
[2024-01-10] MEDS: Omnipaque 350 MG/ML 100 ML BTL IJ (10:25)
--- NOTE | 2024-01-10 11:43 | CMPROGNOTE_ITS ---
Date of service: 01/10/24 Time of Service: 11:43 Care Management Progress Note Progress Note Text Progress Note Text: S/O: Amelia was out of room at ultra sound when CM attempted to connect in the morning. Per MD, she is experiencing increased pain this morning. She will be evaluated by PT; CM requested MD order for possible SNF coordination. Afternoon discussions re: SNF in the afternoon; Amelia will review with her sisters though it appears both Amelia and Radha feel returning home will be the best option for Amelia. CM continues to follow. A: 84 year old female admitted to [facility] 01/08/24 for Sepsis with shock, UTI, acute dehydration, dementia P: Amelia will be evaluated by PT for discharge recommendations. Amelia and her family are discussing SNF referral, anticipate she will return home with resumption of home health PT with addition of RN an OT. CM following and supporting discharge considerations. SDOH(Care Management) Screening Will the Patient Participate in the Screening?: Yes Do you worry about having a steady place to live?: no Problems where you live: no known problems In the past 12 months, have you had to go without electric, gas, oil or water in your home?: no Have you or anyone in your house had to go without enough food to eat?: no Has lack of transportation kept you from medical appointments or from doing things needed for daily living?: no Has anyone in your support network made you feel unsafe for any reason?: no
[2024-01-10] MEDS: cefTRIAXone 1 GM/50 ML BAG IVPB (12:01)
--- NOTE | 2024-01-10 12:46 | W.PM.PROGNOT ---
Date of Service Date of service: 01/10/24 Time of Service: 12:46 Assessment and Plan Assessment and plan (1) Severe sepsis: Status: Acute Assessment and plan: - Patient met criteria for severe sepsis wit heart rate greater than 90 bpm, white blood cell count 32.5, infectious encephalopathy, and mean arterial pressures less than 65 that improved after slow infusion of 30 cc/kg fluid resuscitation -Patient was initially started on IV Levaquin due to allergy to penicillin and cephalosporins -However, upon further review of patient's chart she appears to have been able to tolerate cephalosporins in the past and will be transition to 1 g ceftriaxone every 24 hours -Sepsis pathology has resolved and patient's mental status is back to baseline -Follow-up blood and urine culture results (2) UTI (urinary tract infection): Start date: 01/08/24 Status: Acute Assessment and plan: -as noted above Qualifiers: Urinary tract infection type: acute cystitis Hematuria presence: with hematuria Qualified Code(s): N30.01 - Acute cystitis with hematuria (3) Hypotension: Start date: 01/08/24 Status: Acute Assessment and plan: -as noted above Qualifiers: Hypotension type: other hypotension type Qualified Code(s): I95.89 - Other hypotension (4) Acute dehydration: Start date: 01/08/24 Status: Acute Assessment and plan: -as noted above (5) Fecal impaction in rectum: Start date: 01/08/24 Status: Acute Assessment and plan: -Successfully disimpacted by ED provider. Patient is on antidiarrheals at times for IBS and this needs to be used with caution. Stool cathartics as needed while hospitalized. (6) Hypertension: Status: Chronic Assessment and plan: -While acutely ill patient's losartan will be held with IV hydration and treatment of sepsis with shock. 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 She has not been on this medication for the last couple days. Subjective Subjective Interval history since last seen: Patient states that she is having some pain in her left lower extremity and left lower quadrant though denies any fever, headache, nausea or vomiting or diarrhea constipation. Patient and her sister both ask about placement as they do not believe patient is safe to go home as she has advancing dementia. Exam Narrative Exam Narrative: Well-appearing elderly female sitting up in the chair no acute distress, awake, alert, oriented to person and place, heart regular rhythm, lungs clear to auscultation bilaterally, abdomen soft, nontender, nondistended Objective Last Vital Signs Temp 98.6 F 01/10/24 07:50 Pulse 84 01/10/24 11:21 Resp 23 01/10/24 11:21 BP 154/78 H 01/10/24 11:21 Pulse Ox 97 01/10/24 11:21 Laboratory Results - last 24 hr 01/10/24 05:40 WBC 14.67 H RBC 2.88 L Hgb 8.5 L Hct 26.3 L MCV 91 MCH 29.5 MCHC 32.3 RDW 15.8 H Plt Count 132 D MPV 10.9 Sodium 143 Potassium 4.0 Chloride 111 H Carbon Dioxide 19.8 L Anion Gap 12.2 H BUN 30 H Creatinine 1.1 H Est GFR (CKD-EPI 2020) 48.94 Glucose 79 Calcium 8.0 L Time Spent with Patient Time Spent with Patient: >50 minutes Time was spent: preparing to see the patient(eg.review tests), obtaining and/or reviewing separately otained hiistory, ordering medications,tests, procedures, referring, communicating with other health vehicle care specialist, indepentently interpreting results, counseling the patient and care coordination
[2024-01-10] MEDS: Acetaminophen 325 MG TAB PO (12:57)
--- NOTE | 2024-01-10 13:24 | PT.INIE ---
PT Notes Visit Reasons: Sepsis with shock, UTI, Acute dehydration, Dementi Physical Therapy Inpatient Initial Evaluation Date: 01/10/2024 Referring Doctor: Aris Vora MD PT Orders: PT CONSULT: Eval/Treat Precautions: Fall. Standard. Dementia. Activity as tolerated. Patient Profile/Admitting Diagnosis: Amelia is an 84 year-old female with past medical history significant for Alzheimer's type dementia without behavioral deficits who presented to the ED on 01/08/2024 due to altered mental status, decreased ability to hear, and abdominal pain. She is admitted to ICU level of care for management of severe sepsis, urinary tract infection, hypotension, acute dehydration, fecal impaction and hypertension. PMHX: All Active Problems (Updated 01/09/24 @ 00:40 by Arias Thomas) Fecal impaction in rectum (Acute) Acute UTI (Acute) Fecal impaction (Acute) Dementia (Chronic) Septic shock (Acute) BRAYAN (acute kidney injury) (Acute) UTI (urinary tract infection) (Acute) Acute dehydration (Acute) Hypotension (Acute) Sepsis syndrome (Acute) Need for home health care (Acute) Impaired instrumental activities of daily living (Acute) Deficit in activities of daily living (ADL) (Acute) ACP (advance care planning) (Acute) Peripheral edema (Acute) Pain in both lower extremities (Acute) Hypertension (Chronic) Iron deficiency anemia (Chronic) Osteoporosis (Chronic) Irritable bowel syndrome (Chronic) prior evaluation with [facility] back pain (Acute) Vitamin D deficiency (Acute) Sciatica (Acute) Emphysema lung (Acute) GERD (gastroesophageal reflux disease) (Chronic) Hiatal hernia (Chronic) 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 NPH ruled out.Ventral hernia without obstruction or gangrene Hx of fracture of left hip s/p short TFN Dr. Mathis DOS: 10/11/19Deep vein thrombosis Incidental lung nodule, > 3mm and < 8mm on xray and CT scan with contrast / [facility] pulm. Malignant neoplasm of female breast (09/21/92) R MAST AND RECONSTRUCTION. 10/25 INFLAMMATION AT [facility] WAS NEG FOR MALIGNANCY Indeterminate colitis (02/04/16) 01/22/16 colonoscopy at [facility] Hypothyroidism (08/10/12) Diverticulitis (09/19/14) May 2014 [facility] sigmoid resection and colostomy post op infection and malnutrition February 2015 colostomy takedown (post op infection) C. difficile enteritis at hospitalization may 2014 Barretts esophagus Status post EGD with esophageal biopsy on July 05, [address] Jani Rothman. Squamous mucosa with reactive changes. Gastric type mucosa with chronic and focally active inflammation but no intestinal metaplasia or dysplasia. No helical factor pylori microorganisms identified. EGD 07/13/18, Dr. Azar Eldridge, [facility], dilatation of lower esophageal stricture Breast cancer Surgical History History of mastectomy (~1994) right mastectomy (no radiation or chemotherapy); s/p reconstruction after the mastectomycolostomy reversal Laparotomy (06/08/14) for [place] leak. End colostomy doneColectomy (~05/2014) for colon stricture presumed to be from diverticulitis Social History/Home Situation: Lives with sister Radha with 3 SANDY, uses front-wheeled walker. Sister Radha provides 24/7 care per patient and helps with meals, patient does not drive. Sister Jessica does grocery shopping. Patient is a set up for bathing and has a shower chair. Equipment Owned/DME: 4WW, FWW, shower chair Subjective: Reported pain in the L thigh and knee. Denied abdominal pain. Could hear and follow instructions well. Objective: General Observation: Pleasant Mental Status: A&O at least 2 Pain: 2-3/10 pain in the L thigh and knee (chronic) ROM: Right Upper Extremity: Shoulder Flexion WFL. Shoulder abduction WFL. Elbow flexion WFL. Wrist flexion WFL. Opening and closing of hand WFL. Left Upper Extremity: Shoulder Flexion WFL. Shoulder abduction WFL. Elbow flexion WFL. Wrist flexion WFL. Opening and closing of hand WFL. Right Lower Extremity: Hip flexion lacks the last 25% of AROM. Hip abduction lacks the last 25% of AROM. Knee flexion WFL. Ankle dorsiflexion to neutral only. Ankle plantarflexion WFL. Left Lower Extremity: Hip flexion lacks the last 50% of AROM. Hip abduction lacks the last 50% of AROM. Knee flexion -20 degrees to 90 degrees. Ankle dorsiflexion to neutral only. Ankle plantarflexion WFL. Strength: Right Upper Extremity: Shoulder flexors 4/5. Shoulder abductors 4/5. Elbow flexors 5/5. Elbow extensors 5/5. Roll Finisher strong. Left Upper Extremity: Shoulder flexors 4/5. Shoulder abductors 4/5. Elbow flexors 5/5. Elbow extensors 5/5. Roll Finisher strong. Right Lower Extremity: Hip flexors 4/5. Knee flexors 5/5. Knee extensors 4+/5. Ankle dorsiflexors 3-/5. Ankle plantarflexors 3+/5. Left Lower Extremity: Hip flexors 2-/5. Knee flexors 43-/5. Knee extensors 3-/5. Ankle dorsiflexors 3-5. Ankle plantarflexors 3+/5. Sensation: Intact as to pain and pressure on bilateral lower extremities. Bed Mobility/Transfers: Moderate verbal cueing provided for use of B hands as needed for support, movement sequence, AD management, and and posture to reduce fall risk and minimize pain report. Sit to stand: stand by assist Stand to sit: stand by assist Bed to chair: stand by assist Chair to bed: stand by assist Gait: Facilitated safe and correct performance of level surface ambulation covering a distance of about 150 feet using front-wheeled walker with stand by assist and wheelchair follow by PT. Minimal verbal cueing provided for AD management, posture, and limb advancement to reduce fall risk and minimize pain report. Balance: Static Sitting: Good Dynamic Sitting: Fair Static Standing: Fair Dynamic Standing: Fair Special Tests: Mobility Limitations Standardized Measure [facility] AM-PAC 6 clicks Basic Mobility Inpatient Short Form: Raw Score: 23 CMS Score: 11% deficit Informed Consent/Education: Patient instructed in purpose of PT consult and plan of care. Assessment: Patient presents with clinical signs and symptoms consistent with current/admitting diagnoses that have resulted to mobility limitations, gait instability, generalized weakness, and impairment of motor control as demonstrated by the following impairment level findings: 1. Decreased strength to left hip/knee major muscle groups 2. Impaired sitting/standing balance 3. Impaired activity tolerance Impairments are contributing to the following functional limitations: 1. Inability to safely ambulate without assistive device 2. Increase completion time for mobility ADL performance 3. Increased fall risk 4. Inability to negotiate steps alone safely Patient is assessed as a moderate complexity based on the following: History: 84 year old female with impairment level findings, functional limitations, and past medical history as indicated above Examination: Demonstrable impairment in strength, balance, and mobility level with underlying impairments and functional limitations as documented above Presentation: Evolving Decision Makin Moderate complexity Goals: Goals X1 week 1. Supine-Sit independent 2. Sit-Supine independent 3. Sit-Stand independent 4. Stand-Sit independent 5. Bed-Chair independent 6. Chair-Bed independent 7. Independent with gait on level surface with use of FWW for at least 150 feet without report of pain nor dyspnea 8. Independent with stair negotiation while holding onto bilateral rails for at least 3 steps without report of pain nor dyspnea 9. Independent with home exercise program 10. Good static and dynamic standing balance/tolerance Plan of Care/Treatment Plan: 1-2x/day, 7 days/week x1 week. Plan of care has been reviewed with the DUAL HOSE CEMENTER providing the service under Physical Therapy direction. Initiate Physical Therapy intervention for strengthening, bed mobility, transfers, gait, stairs, balance training, and use of assistive device. Discharge Plan DISCHARGE RECOMMENDATIONS: [] Home with no services [] [X] Home with services. Patient will benefit from home health PT services in order to progress mobility level using least restrictive assistive ambulatory device, assess home safety, identify additional equipment needs, and establish a functional maintenance program that will increase ability of patient to remain at home. [] Home with outpatient PT [] [] SNF for continued rehabilitation [] [] [facility]i Developer [facility] [] [] SNF versus LTC based on ability to participate and progress [] TREATMENT CODE/TIME: 31266 x 24 minutes for 1 unit (13:24-13:48). Thank you for the opportunity to participate in the care of this patient. Shweta Malik PT, DPT, CLT [facility] [place], [place]
[2024-01-10] MEDS: traZODone 50 MG TAB PO (20:30)
[2024-01-10] MEDS: Lidocaine Patch Removal 2 EACH TP (22:32)
[2024-01-11] MEDS: Acetaminophen 325 MG TAB PO (01:42)
[2024-01-11 01:50] VITALS: BP 149/74; PULSE 81; RESP 18; TEMP 36.7; O2SAT 95
[2024-01-11 01:51] VITALS: BP 149/74; PULSE 81; TEMP 36.7; O2SAT 95
[2024-01-11] MEDS: Normal Saline Flush 10 ML SYR IVP ×2 (02:04→07:38)
[2024-01-11 07:34] VITALS: BP 161/74; PULSE 84; RESP 18; TEMP 36.5; O2SAT 95
[2024-01-11] MEDS: Pantoprazole 20 MG TABCR PO (07:36)
[2024-01-11] MEDS: Beta-Carotene(A) w/C,E, & Minerals TAB 1 TAB PO (07:36)
[2024-01-11] MEDS: Meloxicam 15 MG TAB PO (07:36)
[2024-01-11] MEDS: Enoxaparin 40 MG/0.4 ML SYR SC (07:36)
[2024-01-11] MEDS: Ferrous Sulfate 325 MG TAB PO (07:36)
[2024-01-11] MEDS: Magnesium Lactate-SR 84 MG TABCR PO (07:36)
[2024-01-11] MEDS: Lidocaine 5% Patch 2 PATCH TP (07:37)
[2024-01-11] MEDS: Mupirocin 2% Oint. 22 GM TUBE TP (07:37)
[2024-01-11] MEDS: Cefpodoxime 200 MG TAB PO (08:20)
--- NOTE | 2024-01-11 10:05 | PT.INTREAT ---
PT Notes Visit Reasons: Sepsis with shock, UTI, Acute dehydration, Dementi Inpatient Physical Therapy Treatment Note [facility] Date: 01/11/24 PRECAUTIONS: Fall. Standard. Dementia. Activity as tolerated. OBJECTIVE: Therapeutic Activities (08656p[1]): Direct one-on-one instruction in dynamic activities to improve functional performance. ? BED MOBILITY/TRANSFERS? Sit-stand: Min/mod assistx1? Stand-sit: CGAx1 ? Provided skilled cues and instruction on performance and technique throughout. Gait Training (28337f[]): Direct one-on-one instruction and skilled instruction in: ? GAIT? Assistive Device: FWW ? Weight bearing: Full Assist: CGAx1 ? Distance:? Room 220 to the ICU exit doors nearest PT office and back to her room in the chair.? Therapeutic Exercises ([id number][]): Direct one-on-one instruction in therapeutic exercises to develop strength, endurance, range of motion and flexibility. ? Exercises ? Seated row 2x10 Seated shoulder flexion 2x10 Seated shoulder horizontal abd 2x10 Seated shoulder circles 2x10 LAQ 2x10 R only 10 on L LE due to discomfort in leg Seated hip abd 2x10 Seated marching x 20 Seated HR/TR x 20 ? ASSESSMENT:? Pt had more difficulty with her STS from the chair. It took 2 attempts today the second was better. PLAN: Cont as per PT POC. TREATMENT CODE/TIME: 9:40-11 (20) TA
--- NOTE | 2024-01-11 11:39 | PHA.REVIEW2 ---
Pharmacy Admission Review Admission Clinical Review Admission Pharmacy Review: Severe sepsis (Acute) Fecal impaction in rectum (Acute) UTI (urinary tract infection) (Acute) Acute dehydration (Acute) Hypotension (Acute) Sepsis syndrome (Acute) Penicillins Allergy (Severe, Verified 11/14/23 16:42) hives polyethylene glycol 3350 [From Miralax] Allergy (Severe, Verified 11/14/23 16:42) rash all over cefazolin Allergy (Unknown, Verified 01/09/24 08:33) Other (See Comment) Resuscitation Status Full Code Height 5 ft 3 in Weight 63 kg Comments Comments/Follow Ups: Per morning meeting, patient is medically cleared. Pharmacy Admission Review Renal Dosing Renal Dosing: BUN 30 mg/dL (7-18) H 01/10/24 05:40 Creatinine 1.1 mg/dL (0.55-1.02) H 01/10/24 05:40 Medications needing adjustments: Reviewed (CrCl 32.81 mL/min) List of meds needing interventions: Current medications okay Anticoagulation Anticoagulation: Hgb 8.5 g/dL (11.2-15.7) L 01/10/24 05:40 Hct 26.3 % (36.0-46.0) L 01/10/24 05:40 Plt Count 132 10^3/uL (130-400) D 01/10/24 05:40 Creatinine 1.1 mg/dL (0.55-1.02) H 01/10/24 05:40 DVT Prophylaxis: Reviewed Medications: Enoxaparin (40mg q24h) Relevant Labs Relevant Labs: Sodium 143 mmol/L (136-145) 01/10/24 05:40 Potassium 4.0 mmol/L (3.5-5.1) 01/10/24 05:40 Chloride 111 mmol/L (98-107) H 01/10/24 05:40 Magnesium 1.6 mg/dL (1.8-2.4) L 01/08/24 19:03 Electrolytes, C-Reactive P, ESR: Reviewed (No new labs for today) Cardiac Review BP, HR, EF%: Reviewed (BP 161/74, HR WNL) QTc Review QTc: Reviewed (428 from 01/08/24) IV to PO Switch IV Medications: Reviewed Home Meds Home Med List reviewed: Reviewed Relevent Home Meds Not ordered & why?: Losartan (on hold per H+P), Aricept (on hold per H+P), vitamin D3, dicyclomine, loperamide (PRN) Current Meds Current Medication Order Review: Reviewed Pharmacy Antibiotic Review Pharmacy Antibiotic Activity: C/S review and IV to PO Comments: Patient was switched from ceftriaxone to cefpodoxime 200mg PO BID. Blood cultures showing no growth, urine cultures showing gram negative chuy. WBC has been steadily decreasing (32.54 on 01/07, 14.67 on 01/09). Comments Comments/Follow Ups: Per morning meeting, patient is medically cleared.
[2024-01-11 12:39] VITALS: BP 151/63; PULSE 80; RESP 16; TEMP 36.8; O2SAT 94
--- NOTE | 2024-01-11 13:32 | CMDISCH_ITS ---
Date of service: 01/11/24 Time of Service: 13:33 LACE Index Scoring Tool Questions: Length of Stay (in days): 3 Was the patient admitted via the E.D.?: Yes Comorbidities: Dementia E.D. Visits: 2 Answers: Total Score: 11 Risk of Readmission: High Risk Care Management Discharge Plan Reason for Hospitalization: Sepsis with shock, UTI, Acute dehydration, dementia Discharge Plan: Amelia will return home with a resumption of HH PT, OT, and the addition of RN and HIGH SCHOOL PROFESSIONAL, to help support senior care planning needs. Her sister, Jessica will drive her home via private vehicle. She asked for support to get Amelia in the car, and reported that her nephew will be at the home to help Amelia into the home. Per PT, she is contact guard assist and doing very well. CM asked if Amelia would want to send referrals to short term rehab facil ities, as a back up plan from the community, in the event that she does not do well at home, which she declined, stating that she does not want to go to rehab unless she can remain at [facility] for swingbed. At this time, she does not qualify for a swingbed admission. Amelia will follow up with her PCP and discharge plan of care. She is happy to be returning home. Patient/Family Education Needs: Review discharge instructions and limitations, discussion of self care needs including ask me three. Services Needed at Discharge: Home Health Care Services (resume HH PT, OT; add RN and HIGH SCHOOL PROFESSIONAL) SDOH Health Related Social Needs: No Data to Display
--- NOTE | 2024-01-11 13:47 | PDOC.HHF2F_ITS ---
Home Health Referral Home Health Orders Clinical synopsis of why skilled professionals are needed: Dementia, UTI, severe sepsis Physical Therapist: Check all that apply Increase strength & endurance for safe mobility at home: Ordered To design/establish home maintenance program: Ordered Fall reduction therapy program for patient with history of frequent falls: Ordered Home safety evaluation and teaching/gait training including stair management (if applicable): Ordered Better Breathing Program: Ordered Encounter Date and Reason: I certify that a FTF encounter for this patient was performed on January 11, 2024 and that such encounter was related to the primary reason the patient requires home health services. The encounter was conducted in the following manner: * By me as the certifying physician, DIRECTOR [employer]ACLE [employer]AIL, PA or * By an inpatient physician, DIRECTOR ORACLE RETAIL or PA during an inpatient stay who communicated findings to me, Certification And Authentication I certify that I composed the above information based on my clinical judgment relating to this patient's medical condition and, if applicable, clinical findings communicated to me by the NPP or inpatient physician who performed the FTF encounter. Name of Provider that will be monitoring home health services: Virginia Pino
--- NOTE | 2024-01-11 13:48 | DSE_ITS ---
Date of service: 01/11/24 Time of Service: 13:48 DS: Diagnosis Discharge Diagnosis (1) Severe sepsis: Status: Acute Asessment and Plan: - Patient met criteria for severe sepsis wit heart rate greater than 90 bpm, white blood cell count 32.5, infectious encephalopathy, and mean arterial pressures less than 65 that improved after slow infusion of 30 cc/kg fluid resuscitation -Patient was initially started on IV Levaquin due to allergy to penicillin and cephalosporins -However, upon further review of patient's chart she appears to have been able to tolerate cephalosporins in the past and will be transition to 1 g ceftriaxone every 24 hours -Sepsis pathology has resolved and patient's mental status is back to baseline -Urine cultures growing Psudomonas, will DC wtih additional 5 days of cefpodo darin (2) UTI (urinary tract infection): Status: Acute Asessment and Plan: -as noted above (3) Hypotension: Status: Acute Asessment and Plan: -resolved -restart home antihypertensives at DC (4) Acute dehydration: Status: Acute (5) Fecal impaction in rectum: Status: Acute Asessment and Plan: -Successfully disimpacted by ED provider (6) Hypertension: Status: Chronic (7) 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 She was initially treated with ceftriaxone and had significant improvement of her symptoms and resolution of her infectious encephalopathy. However, the patient does have mild dementia, and therefore it is recommended that she have home health services at discharge. Additionally, she will have an additional 4 days of p.o. cefpodoxime. Home Meds and New Rx's Prescriptions: New cefpodoxime 200 mg Tablet 200 mg PO BID Qty: 10 0RF Continued MaxiVision 1 cap PO DAILY loperamide 2 mg capsule 2 mg PO Q6H PRN (Reason: loose stool) Qty: 90 1RF losartan 100 mg tablet 100 mg PO DAILY Qty: 90 4RF dicyclomine 10 mg capsule 10 mg PO BID PRN (Reason: IBS) Qty: 120 3RF lidocaine [Lidoderm] 5 % adhesive patch,medicated 2 patch topical DAILY Qty: 30 12RF Rx Instructions: leave on most painful area for up to 12 hrs cholecalciferol (vitamin D3) 1,250 mcg (50,000 unit) capsule 1,250 mcg PO QWEEK Qty: 14 0RF ferrous sulfate 325 mg (65 mg iron) tablet 325 mg PO BID Qty: 60 5RF mupirocin 2 % ointment 1 applic topical TID Qty: 15 0RF fluticasone propionate 50 mcg/actuation spray,suspension 2 spray intranasal DAILY PRN (Reason: allergy symptoms) Qty: 16 11RF Rx Instructions: administer into each nostril pantoprazole 20 mg tablet,delayed release (DR/EC) 20 mg PO DAILY Qty: 90 1RF donepezil 5 mg tablet 5 mg PO QHS Qty: 30 3RF meloxicam 15 mg tablet 15 mg PO DAILY Qty: 30 1RF Rx Instructions: Take one tablet daily for inflammation and pain acetaminophen 500 mg tablet 1,000 mg PO Q8H PRN Qty: 90 0RF Rx Instructions: Take two tablets up to every 8 hours as needed for pain Discharge Instructions Activity:: Activity as Tolerated Equipment/Supplies:: No Equipment Needed Diet:: As Tolerated Discharge Orders Discharge Orders: Discharge Order (Routine); Ordered 01/11/24 Ordered By: Aris Vora DS: Summary Time Spent with Patient providing and/or coordinating discharge services: Greater than 30 minutes Status at Discharge Functional status at discharge: independent ambulation Overall status at discharge: patient is back to baseline Mental Status: mental status grossly normal Speech and Movement: speech and movement normal Mood: congruent mood Affect: normal affect Quality:SDOH Health Related Social Needs: No Data to Display Exam Narrative Exam Narrative: Well-appearing elderly female sitting up in the chair no acute distress, awake, alert, oriented to person and place, heart regular rhythm, lungs clear to auscultation bilaterally, abdomen soft, nontender, nondistended Psych Mental Status: mental status grossly normal Speech and Movement: speech and movement normal Mood: congruent mood Affect: normal affect DS: Data Vitals/I&O Vitals and I&O: Vital Signs Temperature 98.2 F 01/11/24 12:39 Temperature Source Temporal Artery Scan 01/11/24 01:50 Pulse 80 01/11/24 12:39 Pulse Rhythm Regular 01/11/24 08:26 Pulse 72 01/10/24 16:03 Respiratory Rate 16 01/11/24 12:39 Respiratory Effort Normal, Non-Labored 01/11/24 08:26 Respiratory Depth Normal 01/11/24 08:26 Respiratory Pattern Normal 01/11/24 08:26 Blood Pressure 151/63 H 01/11/24 12:39 Blood Pressure Mean 89 01/11/24 12:39 Blood Pressure Position Sitting 01/10/24 15:22 Pulse Oximetry 94 01/11/24 12:39 Oxygen Delivery Method Room Air 01/11/24 01:50 Oxygen Flow Rate 0 01/11/24 01:50 Pain Level 5 01/11/24 01:50 Comment prn pain relief given at this time. pt in sitting position for B/P 01/11/24 01:50 Intake & Output 01/10/24 01/11/24 01/11/24 17:59 05:59 17:59 Intake Total 370 / 370 260 / 630 500 / 500 Output Total 350 / 350 275 / 625 300 / 300 Balance -15 / 5 200 / 200 Weight 145 lb 15.136 oz 138 lb 14.259 oz Intake: IV 70 / 70 20 / 90 20 / 20 Oral 300 / 300 240 / 540 480 / 480 Output: Urine 350 / 350 275 / 625 300 / 300 Other: Urine Color Yellow Yellow Urine Appearance Clear Clear Clear Urine Odor Normal Comment Pt voiding normally after [place] d/c brief was saturated with urine. pt then voided on the commode Stool Size Moderate Stool Characteristics Soft Brown Voiding Methods Bedside Commode Bedside Commode Diaper Incontinent Data Completed and Pending Labs on day of discharge: Preliminary micro results at discharge 01/08/24 22:40 Blood Culture - Preliminary Blood NO GROWTH 48 HOURS 01/08/24 22:35 Blood Culture - Preliminary Blood NO GROWTH 48 HOURS PFSH All Active Problems (Updated 01/11/24 @ 13:47 by Aris Vora MD) Severe sepsis (Acute) Severe sepsis with acute organ dysfunction (Acute) Fecal impaction in rectum (Acute) Acute UTI (Acute) Fecal impaction (Acute) Dementia (Chronic) Septic shock (Acute) BRAYAN (acute kidney injury) (Acute) UTI (urinary tract infection) (Acute) Acute dehydration (Acute) Hypotension (Acute) Sepsis syndrome (Acute) Need for home health care (Acute) Impaired instrumental activities of daily living (Acute) Deficit in activities of daily living (ADL) (Acute) ACP (advance care planning) (Acute) Peripheral edema (Acute) Pain in both lower extremities (Acute) Hypertension (Chronic) Iron deficiency anemia (Chronic) Osteoporosis (Chronic) Irritable bowel syndrome (Chronic) prior evaluation with [facility] Low back pain (Acute) Vitamin D deficiency (Acute) Sciatica (Acute) Emphysema lung (Acute) GERD (gastroesophageal reflux disease) (Chronic) Hiatal hernia (Chronic) 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 NPH ruled out. Ventral hernia without obstruction or gangrene Hx of fracture of left hip s/p short TFN Dr. Mathis DOS: 10/11/19 Deep vein thrombosis Incidental lung nodule, > 3mm and < 8mm on xray and CT scan with contrast / [facility] [place] pulm. Malignant neoplasm of female breast (09/21/92) R MAST AND RECONSTRUCTION. 10/25 INFLAMMATION AT [facility] WAS NEG FOR MALIGNANCY Indeterminate colitis (02/04/16) 01/22/16 colonoscopy at [facility] Hypothyroidism (08/10/12) Diverticulitis (09/19/14) May 2014 [facility] sigmoid resection and colostomy post op infection and malnutrition February 2015 colostomy takedown (post op infection) C. difficile enteritis at hospitalization may 2014 Barretts esophagus Status post EGD with esophageal biopsy on July 05, [address] Jani Rothman. Squamous mucosa with reactive changes. Gastric type mucosa with chronic and focally active inflammation but no intestinal metaplasia or dysplasia. No helical factor pylori microorganisms identified. EGD 07/13/18, Dr. Azar Eldridge, [facility], dilatation of lower esophageal stricture Breast cancer Surgical History History of mastectomy (~1994) right mastectomy (no radiation or chemotherapy); s/p reconstruction after the mastectomy colostomy reversal Laparotomy (06/08/14) for [place] leak. End colostomy done Colectomy (~05/2014) for colon stricture presumed to be from diverticulitis Family History Mother , 84 Essential hypertension COPD (chronic obstructive pulmonary disease) Father , 51 Stomach cancer Mouth cancer Brother No problems noted. Maternal Grandfather No problems noted. Paternal Grandfather No problems noted. Maternal Grandmother No problems noted. Paternal Grandmother No problems noted. Sister No problems noted. Sister COPD (chronic obstructive pulmonary disease) Social History Smoking/Tobacco Use Status: Former Tobacco Use tobacco type: cigarettes Quit Date: 10/23/94 Pack-years: 40 Tobacco: How many years used: 40 Second Hand Exposure: No Smoking risk assessment performed?: Yes Alcohol Intake: never Drug use: Never Substance use type: does not use Caregiver/Support person: Yes Household members: none Housing: house Communication Needs: None Do you need help understanding health information?: Never Pets and animals: No Sexually active: No Current gender identity: female What is your relationship status?: never How often do you talk on the phone with friends or family?: three or more times per week How often do you get together with friends or relatives?: three or more times per week How often do you attend roman catholic or jewish services?: decline to answer Do you belong to any clubs or organized social groups?: no Panel score (0-1 are the most socially isolated patients): 1 What type of physical activity do you participate in: decline to answer Duration: decline to answer Frequency: decline to answer Leslie/Yarsani: No preference Special leslie needs: No Seatbelt use: always Drive intox or ride w/intox 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 Do you feel safe at home: Yes Do you feel safe in your relationship?: Yes Additional Social history: unable to assess privately History History 0 Para 0 Hx # Term Pregnancies 0 Multiple births Hx # Pregnancies 0 Ectopic pregnancies AB induced 0 Hx Number of Living Children 0 AB spontaneous 0 Time Spent with Patient Time Spent with Patient: <45 minutes Time was spent: preparing to see the patient(eg.review tests), obtaining and/or reviewing separately otained hiistory, ordering medications,tests, procedures, referring, communicating with other health pharmacy care coordinator, indepentently interpreting results, counseling the patient and care coordination
[2024-01-11 14:19] VITALS: BP 171/74; PULSE 79; TEMP 36.8; O2SAT 97
== END 2024-01-11 14:30 | disposition home health service (06) | DRG 871 ==
LOC: ER 23:33 → ICU 01-09 00:41
PROVIDERS: Family Medicine; Admitting Provider Family Medicine; Emergency Provider Physician Assistant; PCP Family Medicine; Visit Provider Family Medicine
DX: R65.21 Severe sepsis with septic shock (principal); G93.49 Other encephalopathy; N30.01 Acute cystitis with hematuria; D72.829 Elevated white blood cell count, unspecified; K56.41 Fecal impaction; A41.9 Sepsis, unspecified organism; I10 Essential (primary) hypertension; G30.1 Alzheimer's disease with late onset; F02.80 Dementia in other diseases classified elsewhere, unspecified severity, without behavioral disturbance, psychotic disturbance, mood disturbance, and anxiety; Z96.642 Presence of left artificial hip joint; R60.0 Localized edema; Z79.899 Other long term (current) drug therapy; D50.9 Iron deficiency anemia, unspecified; E55.9 Vitamin D deficiency, unspecified; M81.0 Age-related osteoporosis without current pathological fracture; M54.50 Low back pain, unspecified; J43.9 Emphysema, unspecified; K21.9 Gastro-esophageal reflux disease without esophagitis; K44.9 Diaphragmatic hernia without obstruction or gangrene; E03.9 Hypothyroidism, unspecified; Z85.3 Personal history of malignant neoplasm of breast; Z87.891 Personal history of nicotine dependence; B96.5 Pseudomonas (aeruginosa) (mallei) (pseudomallei) as the cause of diseases classified elsewhere
CPT/HCPCS: 00123; 36415; 51702; 74177; 80048; 80053; 83690; 84145; 85027; 87040; 87077; 93005; 96361; 96365; 96366; 97162; 97530; 99291; J1650; 70450; 71260; 81003; 81015; 83605; 83735; 84443; 85025; 87086; 87186; 93010; 93971; 99223; 99233; 99238; J0696; J1956; J3490

== ENCOUNTER 2024-01-23 15:15 | Outpatient (REF) | payer MEDICARE, SELFPAY ==
[2024-01-23 14:48] LABS: Abs Immature Grans 0.02 10^3/uL (0.0-0.06); Absolute Basophil Count 0.02 10^3/uL (0.0-0.2); Absolute Eosinophil Count 0.18 10^3/uL (0.0-0.7); Absolute Lymphocyte Count 1.64 10^3/uL (1.2-3.4); Absolute Neutrophil Count 4.76 10^3/uL (1.2-6.7); Basophils % 0.3; Eosinophils % 2.5; HCT 34.1 % (36.0-46.0); HGB 10.6 g/dL (11.2-15.7); Immature Grans % 0.3; Lymphocytes % 22.4; MCHC 31.1 % (32.0-36.0); MCV 93 fL (80-95); MPV 10.7 fL (8.0-11.0); Monocytes % 9.6; Neutrophils % 64.9; Platelet Count 397 10^3/uL (130-400); RBC 3.66 10^6/uL (3.93-5.22); RDW 14.8 % (11.7-14.6); RDW-SD 50.9 fL; WBC 7.32 10^3/uL (4.4-10.8)
[2024-01-23 15:16] LABS: ALT 26 U/L (14-59); AST 22 U/L (15-37); Albumin 3.2 g/dL (3.4-5.0); Alkaline Phosphatase 147 U/L (46-116); Anion Gap 14.6 mmol/L (3-11); BUN 38 mg/dL (7-18); Bilirubin, Total 0.3 mg/dL (0.2-1.0); CO2 24.4 mmol/L (21.0-32.0); CREATININE 1.2 mg/dL (0.55-1.02); Calcium 9.4 mg/dL (8.5-10.1); Chloride 103 mmol/L (98-107); Estimated GFR 44.08 (mL/min/1.73m2); Glucose 84 mg/dL (74-106); Potassium 5.3 mmol/L (3.5-5.1); Sodium 142 mmol/L (136-145); Total Protein 6.8 g/dL (6.4-8.2)
== END 2024-01-23 15:16 | disposition home or self-care (01) ==
LOC: LBN 15:15
PROVIDERS: PCP Family Medicine; Visit Provider Family Medicine
DX: E44.0 Moderate protein-calorie malnutrition (principal); Z00.00 Encounter for general adult medical examination without abnormal findings
CPT/HCPCS: 80053; 85025

== ENCOUNTER → 2024-05-13 10:42 | Outpatient (BNVA) | payer MEDICARE, SELFPAY | PROVIDERS: PCP Family Medicine; Referring Provider Family Medicine; Visit Provider Podiatrist | DX: L60.3 Nail dystrophy (principal); I73.89 Other specified peripheral vascular diseases; L84 Corns and callosities; R60.0 Localized edema; D64.9 Anemia, unspecified | CPT/HCPCS: 11721 ==

== ENCOUNTER 2024-05-16 14:41 | Outpatient (CLI) | payer MEDICARE, SELFPAY ==
[2024-05-16 15:47] LABS: Anion Gap 9.3 mmol/L (3-11); BUN 36 mg/dL (7-18); CO2 27.7 mmol/L (21.0-32.0); CREATININE 1.6 mg/dL (0.55-1.02); Calcium 9.4 mg/dL (8.5-10.1); Chloride 104 mmol/L (98-107); Estimated GFR 31.21 (mL/min/1.73m2); Glucose 91 mg/dL (74-106); Potassium 4.1 mmol/L (3.5-5.1); Sodium 141 mmol/L (136-145); Vitamin D 25 Total 56.1 ng/mL (30-100)
== END 2024-05-16 14:42 | disposition home or self-care (01) ==
LOC: LBO 14:49
PROVIDERS: PCP Family Medicine; Visit Provider Family Medicine
DX: M81.0 Age-related osteoporosis without current pathological fracture (principal); I10 Essential (primary) hypertension
CPT/HCPCS: 36415; 80048; 82306

== ENCOUNTER → 2024-08-21 09:17 | Outpatient (BNVA) | payer MEDICARE, SELFPAY | PROVIDERS: PCP Family Medicine; Visit Provider Podiatrist | DX: L60.3 Nail dystrophy (principal); I73.89 Other specified peripheral vascular diseases; R60.0 Localized edema; N18.30 Chronic kidney disease, stage 3 unspecified; D50.9 Iron deficiency anemia, unspecified | CPT/HCPCS: 11719; 11720 ==

== ENCOUNTER → 2025-01-01 10:23 | Outpatient (BNVA) | payer MEDICARE, SELFPAY | PROVIDERS: PCP Family Medicine; Referring Provider Family Medicine; Visit Provider Podiatrist | DX: L60.3 Nail dystrophy (principal); I73.89 Other specified peripheral vascular diseases; R60.0 Localized edema; N18.30 Chronic kidney disease, stage 3 unspecified; D50.9 Iron deficiency anemia, unspecified; R09.89 Other specified symptoms and signs involving the circulatory and respiratory systems; R20.8 Other disturbances of skin sensation; L65.9 Nonscarring hair loss, unspecified; I83.93 Asymptomatic varicose veins of bilateral lower extremities; R23.8 Other skin changes; L60.2 Onychogryphosis; L85.8 Other specified epidermal thickening; R26.81 Unsteadiness on feet | CPT/HCPCS: 11719; 11720 ==

== ENCOUNTER 2025-03-14 09:02 | Outpatient (CLI) | payer MEDICARE, SELFPAY ==
[2025-03-14 12:42] LABS: Abs Immature Grans 0.03 10^3/uL (0.0-0.06); Absolute Basophil Count 0.02 10^3/uL (0.0-0.2); Absolute Eosinophil Count 0.19 10^3/uL (0.0-0.7); Absolute Lymphocyte Count 1.04 10^3/uL (1.2-3.4); Absolute Monocyte Count 0.56 10^3/uL (0.1-0.8); Absolute Neutrophil Count 4.97 10^3/uL (1.2-6.7); Basophils % 0.3 %; Eosinophils % 2.8 %; HCT 32.7 % (36.0-46.0); HGB 10.5 g/dL (11.2-15.7); Immature Grans % 0.4 %; Lymphocytes % 15.3 %; MCH 29.5 pg (27.0-33.0); MCHC 32.1 % (32.0-36.0); MCV 92 fL (80-95); Monocytes % 8.2 %; Platelet Count 235 10^3/uL (130-400); RBC 3.56 10^6/uL (3.93-5.22); RDW 13.9 % (11.7-14.6); RDW-SD 47.1 fL; WBC 6.81 10^3/uL (4.4-10.8)
[2025-03-14 13:01] LABS: ALT 15 U/L (14-59); AST 24 U/L (15-37); Albumin 3.1 g/dL (3.4-5.0); Alkaline Phosphatase 180 U/L (46-116); Anion Gap 12.8 mmol/L (3-11); BUN 33 mg/dL (7-18); Bilirubin, Total 0.2 mg/dL (0.2-1.0); CO2 23.2 mmol/L (21.0-32.0); CREATININE 1.5 mg/dL (0.55-1.02); Calcium 9.9 mg/dL (8.5-10.1); Chloride 104 mmol/L (98-107); Estimated GFR 33.52 (mL/min/1.73m2); Glucose 88 mg/dL (74-106); Potassium 4.1 mmol/L (3.5-5.1); Sodium 140 mmol/L (136-145); Total Protein 7.5 g/dL (6.4-8.2)
== END 2025-03-14 09:03 | disposition home or self-care (01) ==
PROVIDERS: PCP Family Medicine; Visit Provider Family Medicine
DX: D50.9 Iron deficiency anemia, unspecified (principal); I10 Essential (primary) hypertension
CPT/HCPCS: 36415; 80053; 85025

== ENCOUNTER 2025-04-24 16:48 | Outpatient (REF) | payer MEDICARE, SELFPAY ==
[2025-04-24 14:24] LABS: Glucose Negative (Negative)
[2025-04-24 14:31] LABS: RBC Negative HPF (0-2); WBC 0-2 HPF (0-5)
[2025-04-24 14:32] LABS: C & S Indicated? No
== END 2025-04-24 16:49 | disposition home or self-care (01) ==
LOC: LBN 16:48
PROVIDERS: PCP Family Medicine; Visit Provider Family Medicine
DX: I89.0 Lymphedema, not elsewhere classified (principal)
CPT/HCPCS: 81003; 81015

== ENCOUNTER 2025-07-14 14:18 | Inpatient (IN) | payer OTHER, SELFPAY ==
[2025-07-14 15:24] VITALS: BP 152/71; PULSE 83; RESP 17; TEMP 36.7; O2SAT 88
[2025-07-14 15:41] VITALS: BP 152/71; PULSE 83; RESP 17; TEMP 36.7; O2SAT 88
--- NOTE | 2025-07-14 15:51 | W.PC.ACHO ---
Registration Status: ADM IN Primary Language: Preferred Language: Greenlandic Medical / Surgical History (Last Reviewed 06/06/25 @ 13:10 by Cande Romeo NP) History of esophageal stricture Hydrocephalus in adult Ventral hernia without obstruction or gangrene Hx of fracture of left hip Deep vein thrombosis Incidental lung nodule, > 3mm and < 8mm Malignant neoplasm of female breast (09/21/92) Indeterminate colitis (02/04/16) Hypothyroidism (08/10/12) Diverticulitis (09/19/14) C. difficile enteritis Barretts esophagus Breast cancer (Last Reviewed 06/06/25 @ 13:10 by Cande Romeo NP) History of mastectomy (~1994) colostomy reversal Laparotomy (06/08/14) Colectomy (~05/2014) Most Recent Vital Signs Temperature 36.7 C 07/14/25 15:24 Temperature Source Temporal Artery Scan 07/14/25 15:24 Pulse 83 07/14/25 15:24 Respiratory Rate 17 07/14/25 15:24 Blood Pressure 152/71 H 07/14/25 15:24 Blood Pressure Mean 98 07/14/25 15:24 Pulse Oximetry 88 L 07/14/25 15:24 Oxygen Delivery Method Room Air 07/14/25 15:24 Oxygen Flow Rate 0 07/14/25 15:24 Pain Level 2 07/14/25 15:24 Allergies Penicillins Allergy (Severe, Verified 04/23/25 10:20) hives polyethylene glycol 3350 (From Miralax) Allergy (Severe, Verified 04/23/25 10:20) rash all over cefazolin Allergy (Unknown, Verified 04/23/25 10:20) Other (See Comment) Per sister breaks out with rash all over. Patient has had cefazolin and ceftriaxone here more than once without issues, see progress note 07/24/23 Diet Orders Category Date Time Status Regular/Normal [DIET] Nutrition 07/14/25 Dinner Active Intake and Output - 24 Hour Total 07/14/25 thru 07/14/25 15:25 Other: Comment wisam care done Falls Risk Assessment History of Falls Previous History 07/14/25 15:41 Contributing Factors Confusion 07/14/25 15:41 Ambulatory Aids Uses ambulatory device 07/14/25 15:41 Tubes/Lines None 07/14/25 15:41 Gait Evaluation W/any additional score 07/14/25 15:41 Cognition Cognitive impairment 07/14/25 15:41 Fall Total Score 68 07/14/25 15:41 Level of Risk High Risk 07/14/25 15:41 v v v v v v v v v Sending and/or Receiving Nurses: Please use comment section below to note any information pertinent to the patient hand-off not included above. Information / Comments: Pt admitted to room 225 as a direct admit from home for hospice respite at 1503. Report received from: EMS
[2025-07-14 15:52] VITALS: O2SAT 88
[2025-07-14] MEDS: MORPHine Oral Solution 10 MG/5 ML CUP PO (16:44)
--- NOTE | 2025-07-14 17:38 | W.PM.HP.N ---
Date of service: 07/14/25 Time of Service: 17:00 Assessment and Plan Assessment and plan (1) Alzheimer's type dementia with late onset without behavioral disturbance: Status: Chronic (2) Unintentional weight loss: Status: Acute (3) Deficit in activities of daily living (ADL): Status: Chronic Assessment and plan: consider ragsdale placement (4) Pain in both lower extremities: Status: Chronic (5) Low back pain: Status: Chronic Assessment and plan: treat pain w/morphine 5-20mg q1h PRN; apap 650mg q4h PRN trial cyclobenzaprine 10mg TID PRN monitor use for home calculation may consider fentanyl patch pending next few days (6) Irritable bowel syndrome: Status: Chronic Assessment and plan: monitor bowels will adjust bowel meds as needed (7) Degenerative joint disease of left hip: Status: Chronic (8) Hospice care patient: Status: Acute Assessment and plan: Amelia is an 85 y/o F on hospice for unintentional weight loss 2/2 AD; she is here for hospice RESPITE; plan to return home on Monday07/18/25 to her home under care of sisters pain medications as above ADL assistance; consider ragdsale catheter to go home, pending activity level PT consult placed for safety eval, transfer recommendations normal diet, declining food today, continue to offer for comfort History of Present Illness Narrative: Ms. Cisneros is an 85 y/o F HOSPICE patient admitted to [facility] for HOSPICE RESPITE today 07/14/25 Hospice dx: unintentional weight loss 2/2 Alzheimer's type dementia PMHx sig for osteoarthritis (L hip) and osteoporosis, GERD w/hiatal hernia, HTN, ANA, IBS; Amelia' sisters Radha and Jessica requested a respite stay for Amelia. PO intake: she has been eating less food ongoing for several months; so far she has denied any food/drink offers. no issues w/chewing/swallowing at home Activity: she had a fall a few days ago, she did require assistance up. prior to the fall she was mostly sedentary, post fall she was been more bed bound/chair bound, transfers w/extreme pain and discomfort; she requires assistance w/transfers at this time Pain: was previously on apap potentially 1000mg TID, med recs were difficult; started on morphine yesterday, unknown effect at this time - historically has not liked the way meds make her feel however, pain has never been this extreme - per staff today she is having a hard time w/any repositioning or light movement, grimace/groan - she describes her back pain as a shock, twinge pain BM: long history of IBS and focusing on her bowels; often thinks she has to go w/no output; will perseverate on this; mostly continent of bowels Urine: increased urinary incontinence, eze w/BB status; Amelia feels she needs to be now, but does not want to get up Psych: no reports of agitation, anxiety or other behavioral concerns, no changes reported time of day Social: lives w/sister Radha, sister Jessica comes and helps as well; lives in own home Review of Systems Narrative: as per HPI PFSH All Active Problems (Updated 07/14/25 @ 17:52 by Cande Romeo NP) Hospice care patient (Acute) ACP (advance care planning) (Acute) Back pain (Acute) Encounter for hospice care discussion (Acute) Unintentional weight loss (Acute) Palliative care encounter (Acute) Peripheral vascular disease (Chronic) Nasal congestion with rhinorrhea (Chronic) CKD (chronic kidney disease) stage 3, GFR 30-59 ml/min (Chronic) Need for home health care (Chronic) Impaired instrumental activities of daily living (Chronic) Deficit in activities of daily living (ADL) (Chronic) ACP (advance care planning) (Chronic) Peripheral edema (Chronic) Pain in both lower extremities (Chronic) Hypertension (Chronic) Iron deficiency anemia (Chronic) Osteoporosis (Chronic) Irritable bowel syndrome (Chronic) prior evaluation with 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 NPH ruled out. Ventral hernia without obstruction or gangrene Hx of fracture of left hip s/p short TFN Dr. Mathis DOS: 10/11/19 Deep vein thrombosis Incidental lung nodule, > 3mm and < 8mm on xray and CT scan with contrast / [facility] pulm. Malignant neoplasm of female breast (09/21/92) R MAST AND RECONSTRUCTION. 10/25 INFLAMMATION AT [facility] WAS NEG FOR MALIGNANCY Indeterminate colitis (02/04/16) 01/22/16 colonoscopy at [facility] Hypothyroidism (08/10/12) Diverticulitis (09/19/14) May 2014 [facility] sigmoid resection and colostomy post op infection and malnutrition February 2015 colostomy takedown (post op infection) C. difficile enteritis at hospitalization may 2014 Barretts esophagus Status post EGD with esophageal biopsy on July 05, [address] Jani Rothman. Squamous mucosa with reactive changes. Gastric type mucosa with chronic and focally active inflammation but no intestinal metaplasia or dysplasia. No helical factor pylori microorganisms identified. EGD 07/13/18, Dr. Azar Eldridge, [facility], dilatation of lower esophageal stricture Breast cancer Surgical History History of mastectomy (~1994) right mastectomy (no radiation or chemotherapy); s/p reconstruction after the mastectomy colostomy reversal Laparotomy (06/08/14) for [place] leak. End colostomy done Colectomy (~05/2014) for colon stricture presumed to be from diverticulitis Family History Mother , 84 Essential hypertension COPD (chronic obstructive pulmonary disease) Father , 51 Stomach cancer Mouth cancer Brother , 07/16/24 No problems noted. Maternal Grandfather No problems noted. Paternal Grandfather No problems noted. Maternal Grandmother No problems noted. Paternal Grandmother No problems noted. Sister No problems noted. Sister COPD (chronic obstructive pulmonary disease) Social History Smoking/Tobacco Use Status: Former Tobacco Use tobacco type: cigarettes Quit Date: 10/23/94 Pack-years: 40 Tobacco: How many years used: 40 Second Hand Exposure: Yes Smoking risk assessment performed?: Yes Alcohol Intake: never Drug use: Never Substance use type: does not use Counseling given: No Caregiver/Support person: Yes Household members: none Housing: house Communication Needs: None Do you need help understanding health information?: Never Pets and animals: No Sexually active: No Current gender identity: female What is your relationship status?: never How often do you talk on the phone with friends or family?: decline to answer How often do you get together with friends or relatives?: three or more times per week How often do you attend pentecostal or yarsanism services?: decline to answer Do you belong to any clubs or organized social groups?: no Panel score (0-1 are the most socially isolated patients): 1 What type of physical activity do you participate in: decline to answer Duration: < 15 minutes/day Frequency: decline to answer Leslie/Amish: Non buddhist Special leslie needs: No Seatbelt use: always Drive intox or ride w/intox route driver: No Do you feel safe at home: Yes Do you feel safe in your relationship?: Yes Additional Social history: unable to assess privately History History 0 Para 0 Hx # Term Pregnancies 0 Multiple births Hx # Pregnancies 0 Ectopic pregnancies AB induced 0 Hx Number of Living Children 0 AB spontaneous 0 Meds Allergies and Home Medications Allergies Allergy/AdvReac Type Severity Reaction Status Date / Time Penicillins Allergy Severe hives Verified 04/23/25 10:20 polyethylene glycol 3350 Allergy Severe rash all Verified 04/23/25 10:20 (From Miralax) over cefazolin Allergy Unknown Other (See Verified 04/23/25 10:20 Comment) Home Medications ?Medication ?Instructions ?Recorded ?Confirmed ?Type MaxiVision 1 cap PO DAILY 02/14/19 06/09/25 History acetaminophen 500 mg tablet 1,000 mg (2 x 500 mg) PO Q8H PRN 07/18/23 06/09/25 Rx pain #90 tabs docusate sodium 100 mg tablet 100 mg PO BID #90 tabs 04/23/24 06/09/25 Rx ipratropium bromide 42 mcg (0.06 2 spray intranasal TID #15 mL 07/23/24 06/09/25 Rx %) nasal spray ferrous sulfate 325 mg (65 mg 325 mg PO BID #60 tabs 07/29/24 06/09/25 Rx iron) tablet pantoprazole 20 mg tablet,delayed 20 mg PO DAILY #90 tabs 09/03/24 06/09/25 Rx release donepezil 5 mg tablet 5 mg PO QHS #90 tabs 09/25/24 06/09/25 Rx dicyclomine 10 mg capsule 10 mg PO BID PRN IBS #120 caps 12/02/24 06/09/25 Rx hydrocodone 5 mg-acetaminophen 325 0.5 - 1 tab PO BID PRN pain #5 tabs 01/28/25 06/09/25 Rx mg tablet ondansetron 4 mg disintegrating 4 - 8 mg (1 - 2 x 4 mg) PO Q8H #14 01/28/25 06/09/25 Rx tablet tabs loperamide 2 mg capsule 2 mg PO Q6H PRN loose stool #90 04/23/25 06/09/25 Rx caps cholecalciferol (vitamin D3) 50 50 mcg PO DAILY #90 caps 05/19/25 06/09/25 Rx mcg (2,000 unit) capsule losartan 100 mg tablet 100 mg PO DAILY #90 tabs 06/09/25 06/09/25 Rx acetaminophen 650 mg rectal 650 mg GA Q6H PRN fever, mild pain 06/18/25 Rx suppository #6 supp bisacodyl 10 mg rectal suppository 10 mg GA daily PRN constipation #2 06/18/25 Rx (Dulcolax (bisacodyl)) supp haloperidol lactate 2 mg/mL oral 1 mg (0.5 mL) PO Q6H PRN agitation 06/18/25 Rx concentrate #15 mL hyoscyamine sulfate 0.125 mg 0.125 - 0.25 mg (1 - 2 x 0.125 mg) 06/18/25 Rx disintegrating tablet PO Q4H PRN secretions #24 tabs lorazepam 1 mg tablet 1 mg PO Q4H PRN anxiety, JAMA or 06/18/25 Rx nausea #6 tabs morphine concentrate 100 mg/5 mL 5 - 20 mg (0.25 - 1 mL) PO Q1-4H 06/18/25 Rx (20 mg/mL) oral solution PRN moderate to severe pain or shortness of breath #30 mL prochlorperazine maleate 10 mg 10 mg PO Q6H PRN nausea and 06/18/25 Rx tablet vomiting #6 tabs Exam Narrative Exam Narrative: General: older adult female, lying in bed eyes closed, response to light verbal stimuli; intermittent grimace/groan/guarding of back HEENT: hearing grossly WNL, MMM, normocephalic, atraumatic Resp: even and unlabored, speaks limited sentences w/o SOB; LS limited to anterior, CTA Card: regular rate and rhythm GI: BS active throughout Ext: no pedal edema Psych: cooperative, fatigued, aware she is in hospital for respite; pleasant, guarded in pain; keeps eyes closed as able Results Last Vital Signs Temp 98.1 F 07/14/25 15:41 Pulse 83 07/14/25 15:41 Resp 17 07/14/25 15:41 BP 152/71 H 07/14/25 15:41 Pulse Ox 88 L 07/14/25 15:52 Time Spent Time spent with Patient: <40 minutes Time was spent: preparing to see the patient(eg.review tests), obtaining and/or reviewing separately otained hiistory, ordering medications,tests, procedures, referring, communicating with other health rn primary care, counseling the patient and care coordination
[2025-07-14] MEDS: Ondansetron O.D.T. 4 MG TABEF PO (17:55)
[2025-07-14] MEDS: Cyclobenzaprine 10 MG TAB PO (17:55)
[2025-07-14] MEDS: Normal Saline Flush 10 ML SYR IVP (20:32)
[2025-07-15] MEDS: MORPHine Oral Solution 10 MG/5 ML CUP PO ×3 (08:06→20:16)
[2025-07-15] MEDS: Cyclobenzaprine 10 MG TAB PO ×2 (08:31→14:20)
--- NOTE | 2025-07-15 09:01 | PDOC.CMIN ---
Date of service: 07/15/25 Time of Service: 09:01 Care Management Initial Assmt Initial Assessment Reason for Hospitalization: Alzheimer's type dementia Functional Status/Living Situation Town of Residence: [place] Employment Status: Retired Instrumental Activities of Daily Living (ADLs): Independent Medications Medication Management: No Issues/Barriers identified Advance Directives Advance Directives: Do you have an Advance Directive: Y 04/15/25, 14:[address] [facility]: Y 04/15/25, 14:17 Date Asked 10/10/19 Today, 04:55 AD Date Reviewed 07/14/25 07/14/25, 15:[address] [facility] Yes Today, 04:55 COLST Date Scanned 09/03/24 Today, 04:55 Code Status Resuscitation Status DNR/DNI Insurance Coverage/Financial Issues Insurance: [facility] - [id number] Care Team Visit Care Team Role Provider Type Virginia Pino MD Primary Care Provider [facility] STAFF PHYSICIAN InPatient Allan Anthony Other Providers OTHER Carolynn Villagomez MD Admit Provider [facility] STAFF PHYSICIAN Attending Provider Discharge Anticipated Barriers to Discharge: None Identified Patient/Family Education Needs: Review discharge instructions, discuss Ask Me Three Social Determinants of Health Screening Will the Patient Participate in the Screening?: Unable to obtain Comments: Pt with dementia, on hospice, unable to answer questions. PFSH All Active Problems (Updated 07/14/25 @ 17:52 by Cande Romeo NP) Hospice care patient (Acute) ACP (advance care planning) (Acute) Back pain (Acute) Encounter for hospice care discussion (Acute) Unintentional weight loss (Acute) Palliative care encounter (Acute) Peripheral vascular disease (Chronic) Nasal congestion with rhinorrhea (Chronic) CKD (chronic kidney disease) stage 3, GFR 30-59 ml/min (Chronic) Need for home health care (Chronic) Impaired instrumental activities of daily living (Chronic) Deficit in activities of daily living (ADL) (Chronic) ACP (advance care planning) (Chronic) Peripheral edema (Chronic) Pain in both lower extremities (Chronic) Hypertension (Chronic) Iron deficiency anemia (Chronic) Osteoporosis (Chronic) Irritable bowel syndrome (Chronic) prior evaluation with [facility] Low back pain (Chronic) Vitamin D deficiency (Chronic) Sciatica (Chronic) Emphysema lung (Chronic) GERD (gastroesophageal reflux disease) (Chronic) Hiatal hernia (Chronic) 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 NPH ruled out. Ventral hernia without obstruction or gangrene Hx of fracture of left hip s/p short TFN Dr. Mathis DOS: 10/11/19 Deep vein thrombosis Incidental lung nodule, > 3mm and < 8mm on xray and CT scan with contrast / [facility] pulm. Malignant neoplasm of female breast (09/21/92) R [facility] AND RECONSTRUCTION. 10/25 INFLAMMATION AT [facility] WAS NEG FOR MALIGNANCY Indeterminate colitis (02/04/16) 01/22/16 colonoscopy at [facility] [place] Hypothyroidism (08/10/12) Diverticulitis (09/19/14) May 2014 [facility] [place] sigmoid resection and colostomy post op infection and malnutrition February 2015 colostomy takedown (post op infection) C. difficile enteritis at hospitalization may 2014 Barretts esophagus Status post EGD with esophageal biopsy on July 05, [address] Jani Rothman. Squamous mucosa with reactive changes. Gastric type mucosa with chronic and focally active inflammation but no intestinal metaplasia or dysplasia. No helical factor pylori microorganisms identified. EGD 07/13/18, Dr. Azar Eldridge, [facility], dilatation of lower esophageal stricture Breast cancer Surgical History History of mastectomy (~1994) right mastectomy (no radiation or chemotherapy); s/p reconstruction after the mastectomy colostomy reversal Laparotomy (06/08/14) for [place] leak. End colostomy done Colectomy (~05/2014) for colon stricture presumed to be from diverticulitis Family History Mother , 84 Essential hypertension COPD (chronic obstructive pulmonary disease) Father , 51 Stomach cancer Mouth cancer Brother , 07/16/24 No problems noted. Maternal Grandfather No problems noted. Paternal Grandfather No problems noted. Maternal Grandmother No problems noted. Paternal Grandmother No problems noted. Sister No problems noted. Sister COPD (chronic obstructive pulmonary disease) Social History Smoking/Tobacco Use Status: Former Tobacco Use tobacco type: cigarettes Quit Date: 10/23/94 Pack-years: 40 Tobacco: How many years used: 40 Second Hand Exposure: Yes Smoking risk assessment performed?: Yes Alcohol Intake: never Drug use: Never Substance use type: does not use Counseling given: No Caregiver/Support person: Yes Household members: none Housing: house Communication Needs: None Do you need help understanding health information?: Never Pets and animals: No Sexually active: No Current gender identity: female What is your relationship status?: never How often do you talk on the phone with friends or family?: decline to answer How often do you get together with friends or relatives?: three or more times per week How often do you attend confucianist or restorationist services?: decline to answer Do you belong to any clubs or organized social groups?: no Panel score (0-1 are the most socially isolated patients): 1 What type of physical activity do you participate in: decline to answer Duration: < 15 minutes/day Frequency: decline to answer Leslie/Temple: Non worship Special leslie needs: No Seatbelt use: always Drive intox or ride w/intox driver's license reviewing officer: No Do you feel safe at home: Yes Do you feel safe in your relationship?: Yes Additional Social history: unable to assess privately History History 0 Para 0 Hx # Term Pregnancies 0 Multiple births Hx # Pregnancies 0 Ectopic pregnancies AB induced 0 Hx Number of Living Children 0 AB spontaneous 0
[2025-07-15] MEDS: Docusate Sodium 100 MG CAP PO ×2 (09:16→20:13)
[2025-07-15] MEDS: Losartan 50 MG TAB 100 MG PO (09:17)
--- NOTE | 2025-07-15 11:05 | PDOC.CMPRO ---
Date of service: 07/15/25 Time of Service: 11:05 Care Management Progress Note Progress Note Text Progress Note Text: Amelia is admitted for Hospice Respite care and was lying in bed and appeared to be sleeping comfortably when CM attempted to meet with her. She is currently alone, and a Hospice cart is set up for family when they visit. Per chart review, Amelia lives in her own home with her sister Radha. Her sister Jessica, who also lives locally, provides additional support. The plan is for Amelia to return home on Monday07/18/25, with resumption of Hospice services and caregiver support. A PT consult has been ordered for a safety evaluation and transfer recommendations. CM will follow. Discharge Potential Discharge Needs: Other (Hospice) Anticipated Barriers to Discharge: None Identified Patient/Family Education Needs: Review discharge instructions, discuss Ask Me Three Transportation: Private vehicle Plan: PT consult is pending. Anticipate Amelia will discharge home via private vehicle with family on 07/18/25 with a resumption of Hospice services and caregiver supports. Patient will follow up with Hospice providers and continue per her discharge plan of care as directed. CM will follow. Social Determinants of Health Screening Will the Patient Participate in the Screening?: Unable to obtain Comments: Pt with dementia, on hospice, unable to answer questions.
[2025-07-15 16:09] VITALS: O2SAT 89
--- NOTE | 2025-07-15 17:15 | CHAPLAIN ---
Amelia is here on hospice respite. Her sisters Radha and Jessica take care of her at home. They were here visiting for much of the day. While I was visiting, Amelia was able to say that she was having back pain and we called for her nurse. Amelia fell a few days ago and since has been experiencing back pain. I will continue to visit.
[2025-07-15] MEDS: Donepezil 5 MG TAB PO (20:13)
[2025-07-16] MEDS: MORPHine Oral Solution 10 MG/5 ML CUP PO ×5 (08:46→20:52)
[2025-07-16] MEDS: Pantoprazole 20 MG TABCR PO (08:48)
[2025-07-16] MEDS: Losartan 50 MG TAB 100 MG PO (08:48)
[2025-07-16] MEDS: Docusate Sodium 100 MG CAP PO ×2 (08:48→20:53)
[2025-07-16] MEDS: Cyclobenzaprine 10 MG TAB PO (09:45)
[2025-07-16] MEDS: fentaNYL 12 MCG PATCH TD (13:29)
--- NOTE | 2025-07-16 15:13 | PHA.REVIEW2 ---
Pharmacy Admission Review Admission Clinical Review Admission Pharmacy Review: Hospice care patient (Acute) Unintentional weight loss (Acute) Penicillins Allergy (Severe, Verified 04/23/25 10:20) hives polyethylene glycol 3350 (From Miralax) Allergy (Severe, Verified 04/23/25 10:20) rash all over cefazolin Allergy (Unknown, Verified 04/23/25 10:20) Other (See Comment) Resuscitation Status DNR/DNI Height 65 ft Weight 57.2 kg Comments Comments/Follow Ups: Hospice respite - discharge 07/18/25 Pharmacy Admission Review Renal Dosing Medications needing adjustments: Reviewed (CrCl 23.8 mL/min) List of meds needing interventions: Current medications are okay Opiate Usage Evaluate Pain Scale/Pains Meds: Reviewed (fentanyl 12mcg patch + hydromorphone PO oral concentration q1h PRN - 35mg/24hrs) Scheduled Bowel Reg ordered if on Opiates?: Yes (BID docusate) Relevant Labs Electrolytes, C-Reactive P, ESR: N/A Cardiac Review BP, HR, EF%: N/A List meds needing interventions: Has order for losartan 100mg daily QTc Review QTc: Reviewed (428 from 01/08/24 - most recent EKG on file) IV to PO Switch IV Medications: Reviewed Home Meds Home Med List reviewed: Reviewed Relevent Home Meds Not ordered & why?: bisacodyl (PRN), vitamin D3, ferrous sulfate, ipratropium nasal spray, prochlorperazine (PRN) Current Meds Current Medication Order Review: Reviewed Comments Comments/Follow Ups: Hospice respite - discharge 07/18/25
[2025-07-16 18:30] VITALS: O2SAT 88
[2025-07-16] MEDS: Donepezil 5 MG TAB PO (20:53)
[2025-07-17] MEDS: Docusate Sodium 100 MG CAP PO ×2 (08:18→20:49)
[2025-07-17] MEDS: Cyclobenzaprine 10 MG TAB PO (08:18)
[2025-07-17] MEDS: Losartan 50 MG TAB 100 MG PO (08:19)
[2025-07-17] MEDS: Pantoprazole 20 MG TABCR PO (08:19)
--- NOTE | 2025-07-17 10:23 | PDOC.CMPRO ---
Date of service: 07/17/25 Time of Service: 10:23 Care Management Progress Note Progress Note Text Progress Note Text: Amelia is admitted for Hospice Respite care. When CM met with her, she was lying in bed with her eyes closed, appearing to be sleeping comfortably. She is accompanied by her sisters, Radha and Jessica, as well as her nephew Allan. The plan is for Amelia to return home on Monday07/18/25, with resumption of Hospice services and caregiver support from her sisters. At the family's request, CM provided the family with copies of her COLST (2023) and Adv. Directives (2013.) The sisters believe there may be a more recent document hanging on her fridge and plan to bring it in tomorrow. Also, CM requested a Hospice Cart get delivered to the room, family were appreciative. CM will follow. Discharge Potential Discharge Needs: Other (Hospice) Anticipated Barriers to Discharge: None Identified Patient/Family Education Needs: Review discharge instructions, discuss Ask Me Three Transportation: EMS Plan: Anticipate Amelia will discharge home via EMS on 07/18/25 with a resumption of Hospice services and caregiver support from her sisters. Patient will follow up with Hospice providers and continue per her discharge plan of care as directed. CM will follow. Social Determinants of Health Screening Will the Patient Participate in the Screening?: Unable to obtain Comments: Pt with dementia, on hospice, unable to answer questions.
--- NOTE | 2025-07-17 13:11 | PT.INNT ---
PT Notes Visit Reasons: Alzheimers Type Dementia Attempted consultation today. Patient provides minimal verbal response, with only episodic yes/no responses. Unable to open eyes. 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 Groans in pain with attempt at passive elbow flexion on the right; tolerates to 90* left, but unable to hold independently. Her sisters are present and report that Amelia had severe pain with repositioning earlier. Patient not appropriate for PT intervention at this time, due to inability to participate. Remains total assist for all transfers and mobility.
--- NOTE | 2025-07-17 16:50 | W.PM.PROGNOT ---
Date of Service Date of service: 07/17/25 Time of Service: 16:48 Assessment and Plan Assessment and plan (1) Drug reaction: Status: Acute (2) Hospice care patient: Status: Acute (3) Back pain: Status: Acute (4) Caregiver has difficulty performing caretaking: Status: Deleted Subjective Subjective Patient reports: feels better and pain is less Interval history since last seen: Woke up just prior to my visit. Exam Narrative Exam Narrative: Sleepy but awake. Able to interact. Has bruise which is healing on her back. Objective Last Vital Signs Temp 98.1 F 07/14/25 15:41 Pulse 83 07/14/25 15:41 Resp 17 07/14/25 15:41 BP 152/71 H 07/14/25 15:41 Pulse Ox 88 L 07/16/25 18:30 Time Spent with Patient Time Spent with Patient: 25-34 minutes Time was spent: referring, communicating with other health manager critical care, counseling the patient and care coordination
[2025-07-17] MEDS: Acetaminophen 500 MG TAB 1000 MG PO (17:25)
[2025-07-17] MEDS: Donepezil 5 MG TAB PO (20:49)
[2025-07-17 20:56] VITALS: O2SAT 94
[2025-07-18] MEDS: Cyclobenzaprine 10 MG TAB PO (04:50)
[2025-07-18] MEDS: Pantoprazole 20 MG TABCR PO (06:02)
[2025-07-18 10:00] VITALS: BP 111/51; PULSE 94; RESP 12; TEMP 38; O2SAT 92
[2025-07-18] MEDS: Losartan 50 MG TAB 100 MG PO (10:06)
[2025-07-18] MEDS: Acetaminophen 500 MG TAB 1000 MG PO ×2 (10:06→18:23)
--- NOTE | 2025-07-18 11:38 | CHAPLAIN ---
I visited with Amelia's sister, Radha and Jessica, yesterday. Amelia is a hospice patient, here on respite, and was sleeping while I was in the room. I asked Radha if she and Jessica have been able to rest while Amelia is here on respite this week, and she said she hasn't really rested because she worries about Amelia. She and Jessica shared some personal family history, telling me how they all eventually moved to the [facility] from [place]. Amelia will return home on hospice tomorrow. Dr. Villagomez, from Hospice was here yesterday and today to visit Amelia.
--- NOTE | 2025-07-18 15:34 | CMPROGNOTE_ITS ---
Date of service: 07/18/25 Time of Service: 15:34 Care Management Progress Note Progress Note Text Progress Note Text: Family meeting was held this morning with Dr. Villagomez, Hospice ADMINISTRATIVE TECH Rosana, patients sisters Jessica and Radha and CM. Amelia will be discharging on Monday. Transportation will be provided by EMS and coordinated by Hospice. Discharge destination is either Amelia's home in [facility] or an [facility] home located in [place], as her sisters are expressed reluctance to take her home. Rosana (ADMINISTRATIVE TECH from Hospice) is actively working on placement arrangements with family and home provider Kristy for Monday. CM will offer support as needed. Discharge Potential Discharge Needs: Other (Follow up with hospice) Patient/Family Education Needs: Review discharge instructions, discuss Ask Me Three Transportation: EMS Plan: Amelia will discharge home vs. [facility] home via EMS on 07/19/25 with a resumption of Hospice services and caregiver support. Patient will follow up with Hospice providers and continue per her discharge plan of care as directed. CM will follow. Social Determinants of Health Screening Will the Patient Participate in the Screening?: Unable to obtain Comments: Pt with dementia, on hospice, unable to answer questions.
[2025-07-18] MEDS: Donepezil 5 MG TAB PO (19:49)
[2025-07-18] MEDS: Docusate Sodium 100 MG CAP PO (19:49)
[2025-07-18 20:00] VITALS: O2SAT 95
[2025-07-19] MEDS: Acetaminophen 500 MG TAB 1000 MG PO ×2 (01:42→10:19)
[2025-07-19] MEDS: Losartan 50 MG TAB 100 MG PO (07:55)
[2025-07-19] MEDS: Pantoprazole 20 MG TABCR PO (07:55)
[2025-07-19] MEDS: Docusate Sodium 100 MG CAP PO (07:55)
--- NOTE | 2025-07-19 08:53 | CMDISCH_ITS ---
Date of service: 07/19/25 Time of Service: 08:54 LACE Index Scoring Tool Questions: Length of Stay (in days): 4 - 6 Was the patient admitted via the E.D.?: No Comorbidities: Dementia and Liver or Renal Disease E.D. Visits: 0 Answers: Total Score: 9 Risk of Readmission: Low Risk Care Management Discharge Plan Reason for Hospitalization: Hospice respite Discharge Plan: Amelia will be discharged home today. She will resume her h ospice services. She will be transported via EMS as coordinated by Hospice. Patient/Family Education Needs: Review of discharge instructions, activity, limitations, and discharge plan of care. Discuss ask me three. Services Needed at Discharge: Transportation
--- NOTE | 2025-07-19 09:25 | DSE_ITS ---
Date of service: 07/19/25 Time of Service: : DS: Diagnosis Discharge Diagnosis (1) Drug reaction: Status: Acute (2) Hospice care patient: Status: Acute (3) Back pain: Status: Acute (4) Caregiver has difficulty performing caretaking: Status: Acute Discharge Plan Disposition Patient Disposition: Home W/Hospice Services Condition: Deteriorating Discharge Details Reason For Visit: Alzheimers Type Dementia Admit Date/Time: 07/14/25 14:18 Admit Provider: Carolynn Villagomez Attending Provider: Carolynn Villagomez Primary Care Provider: Virginia Pino Hospital Course Hospital Course: This is an 85-year-old female with a history of late-onset Alzheimer?s dementia, unintentional weight loss, and multiple chronic comorbidities, who was admitted to [facility] on 07/14/2025 for hospice respite care. Her primary hospice diagnosis is weight loss secondary to dementia. She resides at home with her sister Radha and receives additional support from her sister Jessica. Prior to admission, she experienced a fall, resulting in increased immobility, pain with transfers, and near-total dependence for activities of daily living. She has also experienced increasing urinary incontinence and decreased oral intake. During her stay, pain management was optimized with morphine 5?20 mg PO every 1?4 hours as needed, along with acetaminophen 650 mg every 4 hours as needed. A trial of cyclobenzaprine 10 mg three times a day as needed was initiated to assess for relief of musculoskeletal discomfort, particularly related to chronic low back pain and bilateral lower extremity pain. Use of these medications was monitored for effectiveness and to guide home dosing. A fentanyl patch was initiated. She remained alert but fatigued, with intermittent pain-related grimacing during repositioning. Physical therapy was consulted and noted the patient had markedly decreased responsiveness. Patient was deemed inappropriate for physical therapy intervention due to severely limited responsiveness and inability to participate in any therapeutic activities. She remains total assist for all transfers and mobility. A Johnson catheter was placed for discharge to assist with incontinence and ease of care. Patient's chronic irritable bowel syndrome was bowel habits were monitored and medications adjusted as needed. Her nutritional intake remained minimal, consistent with disease progression, and feeding remained comfort-focused. She tolerated a normal diet when offered but declined most intake. There were no signs of agitation or behavioral disturbances during this stay. No new medical concerns arose. Today, Amelia is unarousable. Respiratory rate is decreased, approximately 8 breaths per minute, with intermittent periods of apnea noted. Hands and feet are cool to the touch; no mottling observed at this time. She appears comfortable, with no grimacing, moaning, or other signs of pain or distress. [facility] with continued care by the hospice team and her sisters. Medications will be continued per hospice protocol with a focus on comfort. A Johnson catheter has been placed for comfort, No additional interventions are planned, and the family is aware of and in agreement with the discharge plan. Patient is discharge to home via EMS. A hospice nurse will visit this afternoon. Home Meds and New Rx's Prescriptions: New fentanyl 12 mcg/hr patch 72 hour 1 patch transdermal Q72H Qty: 5 0RF Continued MaxiVision 1 cap PO DAILY docusate sodium 100 mg tablet 100 mg PO BID Qty: 90 3RF ipratropium bromide 42 mcg (0.06 %) spray,non-aerosol 2 spray intranasal TID Qty: 15 12RF Rx Instructions: administer into each nostril hydrocodone-acetaminophen 5-325 mg tablet 0.5 - 1 tab PO BID MDD 2 tabs PRN (Reason: pain) Qty: 5 0RF Rx Instructions: Take Zofran half hour before first dose trial 1/2 tab first if no nausea, may trial 1 tab at next dose ondansetron 4 mg tablet,disintegrating 4 - 8 mg PO Q8H Qty: 14 2RF Rx Instructions: for nausea loperamide 2 mg capsule 2 mg PO Q6H PRN (Reason: loose stool) Qty: 90 1RF ferrous sulfate 325 mg (65 mg iron) tablet 325 mg PO BID Qty: 60 5RF pantoprazole 20 mg tablet,delayed release (DR/EC) 20 mg PO DAILY Qty: 90 3RF donepezil 5 mg tablet 5 mg PO QHS Qty: 90 3RF dicyclomine 10 mg capsule 10 mg PO BID PRN (Reason: IBS) Qty: 120 3RF losartan 100 mg tablet 100 mg PO DAILY Qty: 90 4RF acetaminophen 650 mg suppository 650 mg NE Q6H PRN (Reason: fever, mild pain) Qty: 6 0RF Rx Instructions: Hospice Patient morphine concentrate 100 mg/5 mL (20 mg/mL) solution 5 - 20 mg PO Q1-4H MDD 5 mL PRN (Reason: moderate to severe pain or shortness of breath) Qty: 30 0RF Rx Instructions: Hospice Patient prochlorperazine maleate 10 mg tablet 10 mg PO Q6H PRN (Reason: nausea and vomiting) Qty: 6 0RF Rx Instructions: Hospice Patient hyoscyamine sulfate 0.125 mg tablet,disintegrating 0.125 - 0.25 mg PO Q4H PRN (Reason: secretions) Qty: 24 0RF Rx Instructions: Hospice Patient bisacodyl [Dulcolax (bisacodyl)] 10 mg suppository 10 mg NE daily PRN (Reason: constipation) Qty: 2 0RF Rx Instructions: Hospice Patient Insert 1 supp NE Daily PRN constipation (no BM in 3 days) lorazepam 1 mg tablet 1 mg PO Q4H PRN (Reason: anxiety, JAMA or nausea) Qty: 6 5RF Rx Instructions: Hospice Patient haloperidol lactate 2 mg/mL concentrate 1 mg PO Q6H PRN (Reason: agitation) Qty: 15 0RF Rx Instructions: Hospice Patient acetaminophen 500 mg tablet 1,000 mg PO Q8H PRN Qty: 90 0RF Rx Instructions: Take two tablets up to every 8 hours as needed for pain cholecalciferol (vitamin D3) 50 mcg (2,000 unit) capsule 1,250 unit PO .weekly Discharge Instructions Additional Instructions: Hospice plan of care reviewed, including expected changes in breathing, responsiveness, and circulation as part of the natural dying process. Family was provided with guidance on comfort measures, signs of approaching , and when to contact hospice. Medications and supplies are available in the home to support comfort as needed. Family verbalized understanding and expressed agreement with the plan. Continue fentanyl patch 12 mcg - change every 72 hours - a prescription has been sent to [facility] in [facility]. The hospice nurse will visit this afternoon. Stand Alone Forms: Nursing Discharge Form Activity:: Bedbound Equipment/Supplies:: No Equipment Needed Diet:: Other Discharge Orders Discharge Orders: Discharge Order (Routine); Ordered 07/19/25 Ordered By: Felicity Fox DS: Summary Time Spent with Patient providing and/or coordinating discharge services: Greater than 30 minutes Status at Discharge Functional status at discharge: bed bound Overall status at discharge: patient is not back to baseline Mental Status: other Speech and Movement: other Mood: other Affect: other Exam Narrative Exam Narrative: General: Older adult female lying in bed with eyes closed, does not respond to voice or light touch. HEENT: Normocephalic, atraumatic. Mucous membranes dry. Respiratory: Breathing is slow, even and unlabored. Lung sounds clear Cardiovascular: Regular rate and rhythm. Gastrointestinal: Bowel sounds active in all quadrants. Extremities: No pedal edema noted. Psychological: Unresponsive Psych Mental Status: other Speech and Movement: other Mood: other Affect: other DS: Data Vitals/I&O Vitals and I&O: Vital Signs Temperature 38 C H 07/18/25 10:00 Temperature Source Temporal Artery Scan 07/18/25 10:00 Pulse 94 H 07/18/25 10:00 Pulse Rhythm Regular 07/14/25 15:41 Respiratory Rate 12 07/18/25 10:00 Respiratory Effort Normal 07/14/25 15:41 Respiratory Depth Shallow 07/14/25 15:41 Respiratory Pattern Normal 07/14/25 15:41 Blood Pressure 111/51 L 07/18/25 10:00 Blood Pressure Mean 71 07/18/25 10:00 Pulse Oximetry 95 07/18/25 20:00 Oxygen Delivery Method Room Air 07/18/25 20:00 Oxygen Flow Rate 0 07/18/25 20:00 Pain Level 3 07/18/25 18:23 Intake & Output 07/18/25 07/18/25 07/19/25 11:59 23:59 11:59 Output Total 200 / 650 450 / 650 300 / 300 Balance -200 / -650 -450 / -650 -300 / -300 Output: Urine 200 / 650 450 / 650 300 / 300 Other: Urine Color Yellow Yellow Yellow Urine Appearance Clear Clear Clear Comment nargis kruse MD aware PFSH All Active Problems (Updated 07/17/25 @ 16:54 by Carolynn Villagomez MD) Caregiver has difficulty performing caretaking (Acute) Drug reaction (Acute) Hospice care patient (Acute) ACP (advance care planning) (Acute) Back pain (Acute) Encounter for hospice care discussion (Acute) Unintentional weight loss (Acute) Palliative care encounter (Acute) Peripheral vascular disease (Chronic) Nasal congestion with rhinorrhea (Chronic) CKD (chronic kidney disease) stage 3, GFR 30-59 ml/min (Chronic) Need for home health care (Chronic) Impaired instrumental activities of daily living (Chronic) Deficit in activities of daily living (ADL) (Chronic) ACP (advance care planning) (Chronic) Peripheral edema (Chronic) Pain in both lower extremities (Chronic) Hypertension (Chronic) Iron deficiency anemia (Chronic) Osteoporosis (Chronic) Irritable bowel syndrome (Chronic) prior evaluation with [facility] Low back pain (Chronic) Vitamin D deficiency (Chronic) Sciatica (Chronic) Emphysema lung (Chronic) GERD (gastroesophageal reflux disease) (Chronic) Hiatal hernia (Chronic) Alzheimer's type dementia with late onset without behavioral disturbance (Chronic) Nail dystrophy (Chronic) Trochanteric bursitis, left hip (Chronic) s/p bursectomy, ITB tenotomy, hardware removal (07/18/23) DEPO MEDROL 05/12/23 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 NPH ruled out. Ventral hernia without obstruction or gangrene Hx of fracture of left hip s/p short TFN Dr. Mathis DOS: 10/11/19 Deep vein thrombosis Incidental lung nodule, > 3mm and < 8mm on xray and CT scan with contrast / [facility] pulm. Malignant neoplasm of female breast (09/21/92) R MAST AND RECONSTRUCTION. 10/25 INFLAMMATION AT [facility] WAS NEG FOR MALIGNANCY Indeterminate colitis (02/04/16) 01/22/16 colonoscopy at [facility] Hypothyroidism (08/10/12) Diverticulitis (09/19/14) May 2014 [facility] sigmoid resection and colostomy post op infection and malnutrition February 2015 colostomy takedown (post op infection) C. difficile enteritis at hospitalization may 2014 Barretts esophagus Status post EGD with esophageal biopsy on July 05, [address] Jani Rothman. Squamous mucosa with reactive changes. Gastric type mucosa with chronic and focally active inflammation but no intestinal metaplasia or dysplasia. No helical factor pylori microorganisms identified. EGD 07/13/18, Dr. Azar Eldridge, [facility], dilatation of lower esophageal stricture Breast cancer Surgical History History of mastectomy (~1994) right mastectomy (no radiation or chemotherapy); s/p reconstruction after the mastectomy colostomy reversal Laparotomy (06/08/14) for [place] leak. End colostomy done Colectomy (~05/2014) for colon stricture presumed to be from diverticulitis Family History Mother , 84 Essential hypertension COPD (chronic obstructive pulmonary disease) Father , 51 Stomach cancer Mouth cancer Brother , 07/16/24 No problems noted. Maternal Grandfather No problems noted. Paternal Grandfather No problems noted. Maternal Grandmother No problems noted. Paternal Grandmother No problems noted. Sister No problems noted. Sister COPD (chronic obstructive pulmonary disease) Social History Smoking/Tobacco Use Status: Former Tobacco Use tobacco type: cigarettes Quit Date: 10/23/94 Pack-years: 40 Tobacco: How many years used: 40 Second Hand Exposure: Yes Smoking risk assessment performed?: Yes Alcohol Intake: never Drug use: Never Substance use type: does not use Counseling given: No Caregiver/Support person: Yes Household members: none Housing: house Communication Needs: None Do you need help understanding health information?: Never Pets and animals: No Sexually active: No Current gender identity: female What is your relationship status?: never How often do you talk on the phone with friends or family?: decline to answer How often do you get together with friends or relatives?: three or more times per week How often do you attend religion or latter-day services?: decline to answer Do you belong to any clubs or organized social groups?: no Panel score (0-1 are the most socially isolated patients): 1 What type of physical activity do you participate in: decline to answer Duration: < 15 minutes/day Frequency: decline to answer Leslie/Jewish: Non hindu Special leslie needs: No Seatbelt use: always Drive intox or ride w/intox auto crane driver: No Do you feel safe at home: Yes Do you feel safe in your relationship?: Yes Additional Social history: unable to assess privately History History 0 Para 0 Hx # Term Pregnancies 0 Multiple births Hx # Pregnancies 0 Ectopic pregnancies AB induced 0 Hx Number of Living Children 0 AB spontaneous 0 Time Spent with Patient Time Spent with Patient: <45 minutes Time was spent: ordering medications,tests, procedures, counseling the patient and care coordination
[2025-07-19] MEDS: fentaNYL 12 MCG PATCH TD (10:16)
== END 2025-07-19 10:27 | disposition hospice, home (50) | DRG 57 ==
PROVIDERS: Admitting Provider Family Medicine; PCP Family Medicine; Responsible Provider Family Medicine; Visit Provider Family Medicine
DX: G30.1 Alzheimer's disease with late onset (principal); Z75.5 Holiday relief care; F02.80 Dementia in other diseases classified elsewhere, unspecified severity, without behavioral disturbance, psychotic disturbance, mood disturbance, and anxiety; Z51.5 Encounter for palliative care; R63.4 Abnormal weight loss; Z73.89 Other problems related to life management difficulty; M79.604 Pain in right leg; M79.605 Pain in left leg; M16.12 Unilateral primary osteoarthritis, left hip; M81.0 Age-related osteoporosis without current pathological fracture; K21.9 Gastro-esophageal reflux disease without esophagitis; K44.9 Diaphragmatic hernia without obstruction or gangrene; K58.9 Irritable bowel syndrome, unspecified; W19.XXXA Unspecified fall, initial encounter; R32 Unspecified urinary incontinence; I73.9 Peripheral vascular disease, unspecified; N18.30 Chronic kidney disease, stage 3 unspecified; I12.9 Hypertensive chronic kidney disease with stage 1 through stage 4 chronic kidney disease, or unspecified chronic kidney disease; Z79.899 Other long term (current) drug therapy; D50.9 Iron deficiency anemia, unspecified; E55.9 Vitamin D deficiency, unspecified; J43.9 Emphysema, unspecified; M70.62 Trochanteric bursitis, left hip; M54.40 Lumbago with sciatica, unspecified side; E03.9 Hypothyroidism, unspecified
CPT/HCPCS: 00123